=== PATIENT | male | born 1960 | race Caucasian/White ===

== ENCOUNTER 2016-06-10 12:45 | Emergency (ER) | payer OTHER ==
[2016-06-10 12:46] VITALS: BMI 32.1
[2016-06-10 12:56] VITALS: BP 147/92; PULSE 82; RESP 16; TEMP 97.6; O2SAT 100
--- NOTE | 2016-06-10 13:33 | ED PDOC ---
HPI: CCC, URI, Sore Throat Time Seen by Provider: 06/10/16 13:25 Chief Complaint (Nursing): ENT Problem Chief Complaint (Provider): Throat Pain History Per: Patient, Family (Son) History/Exam Limitations: no limitations Have you had recent travel within the past 21 days to any of the following countries: [place], [place], [place] or [place]?: No Onset/Duration Of Symptoms: Days (x4) Current Symptoms Are (Timing): Still Present Associated Symptoms: denies: Fever, Chills, Cough, Sinus Drainage, Nasal Congestion Ear Symptoms: Bilateral: None Severity: Moderate Additional Complaint(s): Morgan Vázquez is a 55 year old male, with no pertinent past medical history, who presents to the ED on 06/10/16 for the evaluation of a moderate amount of throat pain that he has experienced since undergoing right shoulder surgery 4 days ago to repair a fractured scapula. Patient does report having been under anesthesia for the procedure and states that, in addition to pain experienced with swallowing, it feels as if something remains struck in his throat. Denies fever, chills or cough. Of note, patient is also requesting an analgesic for the pain in the repaired shoulder. PMD: none Past Medical History Reviewed: Historical Data, Nursing Documentation, Vital Signs Vital Signs: Last Vital Signs Temp 97.6 F 06/10/16 12:52 Pulse 82 06/10/16 12:52 Resp 16 06/10/16 12:52 BP 147/92 H 06/10/16 12:52 Pulse Ox 100 06/10/16 14:14 - Medical History PMH: Fractures (right scapula) - Surgical History Other surgeries: right scapula fx repair - Family History Family History: States: Unknown Family Hx - Living Arrangements Living Arrangements: With Family - Immunization History Hx Tetanus Toxoid Vaccination: No Hx Influenza Vaccination: No Hx Pneumococcal Vaccination: No - Home Medications Home Medications: Ambulatory Orders Medication Instructions Recorded Acetaminophen/Oxycodone Hydr 1 tab PO Q6H PRN #15 tab 05/11/15 [Percocet 10/325 mg Tab] Cyclobenzaprine [Cyclobenzaprine 10 mg PO TID PRN #21 tab 05/11/15 HCl] Ibuprofen [Motrin] 600 mg PO Q6 PRN #15 tab 12/28/15 - Allergies Allergies/Adverse Reactions: Allergies Allergy/AdvReac Type Severity Reaction Status Date / Time No Known Allergies Allergy Verified 06/10/16 12:51 Review of Systems Constitutional: Negative for: Fever, Chills ENT: Positive for: Throat Pain Respiratory: Negative for: Cough Musculoskeletal: Positive for: Shoulder Pain (right (s/p recent surgery)) Physical Exam - Reviewed Nursing Documentation Reviewed: Yes Vital Signs Reviewed: Yes - Physical Exam Appears: Positive for: Non-toxic, No Acute Distress ENT: Positive for: Pharyngeal Erythema (posterior pharynx). Negative for: Tonsillar Exudate, Tonsillar Swelling, Other (no uvular swelling) Cardiovascular/Chest: Positive for: Regular Rate, Rhythm. Negative for: Murmur Respiratory: Positive for: Normal Breath Sounds. Negative for: Respiratory Distress Extremity: Positive for: Normal ROM (limited ROM of right shoulder secondary to pain) Neurologic/Psych: Positive for: Alert, Oriented - ECG O2 Sat by Pulse Oximetry: 100 (RA) Pulse Ox Interpretation: Normal Medical Decision Making Medical Decision Makin:25 Initial Impression: post intubation sore throat, post surgical shoulder pain Initial Plan: * Toradol 30mg IM * Reevaluation 13:55 Upon provider reevaluation patient is feeling better, is medically stable, and requires no further treatment in the ED at this time. Patient will be discharged home with instructions to take the analgesics prescribed by his surgeon. Counseling was provided and all questions were answered regarding diagnosis and need for compliance with his post-surgical followup appointments. There is agreement to discharge plan. Return if symptoms persist or worsen. Clinical Impression: shoulder injury, shoulder pain, throat pain Scribe Attestation: Documented by Xuan Yap, acting as a scribe for Page Thornton PA-C. Provider Scribe Attestation: All medical record entries made by the Scribe were at my direction and personally dictated by me. I have reviewed the chart and agree that the record accurately reflects my personal performance of the history, physical exam, medical decision making, and the department course for this patient. I have also personally directed, reviewed, and agree with the discharge instructions and disposition. Disposition - Clinical Impression Clinical Impression: Shoulder injury, Shoulder pain, Throat pain - Patient ED Disposition Is Patient to be Admitted: No Counseled Patient/Family Regarding: Diagnosis, Need For Followup - Disposition Disposition: Routine/Home Disposition Time: 13:55 Condition: STABLE Instructions: Insertion of an Endotracheal Tube (ED), Endotracheal Tube (GEN) Print Language: URDU
== END 2016-06-10 14:00 | disposition home or self-care (01) ==
LOC: H.ER 12:45
DX: R07.0 Pain in throat (principal); M25.511 Pain in right shoulder

== ENCOUNTER 2016-08-16 17:40 | Inpatient (IN) | payer MEDICAID, OTHER ==
[2016-08-16 17:40] VITALS: BMI 32.1
[2016-08-16] MEDS ORDERED: Sodium Chloride 0.9% 1,000 ML IV STA (18:14)
[2016-08-16 18:15] LABS: ABG ALLEN TEST YES; ARTERIAL BLOOD GAS PH < 6.80 (7.35-7.45); ARTERIAL BLOOD GAS PO2 87 mm/Hg (80-100)
--- NOTE | 2016-08-16 18:27 | ED PDOC ---
HPI: Cardiac Arrest Time Seen by Provider: 08/16/16 18:13 Chief Complaint (Nursing): Cardiac Arrest Chief Complaint (Provider): Cardiac Arrest History Per: EMS (ACLS) Reason For Code Blue: Full Arrest Circumstances: Brought To ED By EMS Arrest Witnessed By: By-stander CPR Initiated Prior To MD Arrival?: Yes Down-Time Before ACLS: Unknown Treatment Initiated Prior To MD Arrival: CPR, Intubation, ACLS Medication Initiation (multiple epi) Medications Given Prior To MD Arrival: Epinephrine (6x), Sodium Bicarb (1x) Additional Complaint(s): 55 year old male is brought into the ED by ACLS for cardiac arrest. Patient was witnessed in cardiac arrest by by-standers in the street. Witnesses immediately started CPR. Unknown arrival time for ACLS. Upon arrival, ACLS began administration of epinephrine. Patient had a rhythm of asystole. After intubation, CPR was started in the field with multiple rounds of epinephrine. Patient's rhythm was PEA and pulses were restored prior to arrival. Patient is status post thyroidectomy today. PMD: - Initial Findings Respirations: None (Assisted) Rhythm: Asystole Past Medical History Reviewed: Nursing Documentation, Vital Signs, Unable To Obtain - Medical History PMH: Fractures (right scapula) - Family History Family History: States: Unknown Family Hx - Immunization History Hx Tetanus Toxoid Vaccination: No Hx Influenza Vaccination: No Hx Pneumococcal Vaccination: No - Home Medications Home Medications: Ambulatory Orders Medication Instructions Recorded Zolpidem [Ambien] 5 mg PO HS 08/16/16 oxyCODONE/Acetaminophen [Percocet 1 tab PO Q4H PRN 08/16/16 5/325 mg Tab] - Allergies Allergies/Adverse Reactions: Allergies Allergy/AdvReac Type Severity Reaction Status Date / Time No Known Allergies Allergy Verified 08/16/16 17:46 Review of Systems Review Of Systems: ROS cannot be obtained secondary to pt's inabilty to answer questions. Physical Exam - Reviewed Nursing Documentation Reviewed: Yes Vital Signs Reviewed: Yes - Physical Exam Appears: Positive for: Non-toxic Head Exam: Positive for: ATRAUMATIC, NORMOCEPHALIC Skin: Positive for: Normal Color, Warm, Dry Cardiovascular/Chest: Positive for: Tachycardia (regular rhythm) Respiratory: Positive for: Normal Breath Sounds (equal breath sounds while being intubated by ambu bag), Other (no spontaneous respirations) Gastrointestinal/Abdominal: Positive for: Distended, Hernia (non reducible umbilical hernia) Extremity: Negative for: Swelling - Laboratory Results Result Diagrams: 08/16/16 18:00 08/16/16 18:00 - Critical Care Total Time (In Min): 30 Medical Decision Making Medical Decision Makin:13 Initial impression: 55 year old male in cardiac arrest. Initial plan: * ABG shock panel * EKG * CMP * troponin I * CBC * d dimer coag * XRay chest * IV NS 1,000ml IV 1,000mls/hr * ventilator * reevaluation 18:13 After arrival in ED, patient lost pulses. CPR started, epi was given with mormon of pulses. Patient is placed on a dopamine drip while maintaining BP 117/76. Scribe Attestation: Documented by Kayley Billingsley, acting as a scribe for Wayne Dean MD. Provider Scribe Attestation: All medical record entries made by the Scribe were at my direction and personally dictated by me. I have reviewed the chart and agree that the record accurately reflects my personal performance of the history, physical exam, medical decision making, and the department course for this patient. I have also personally directed, reviewed, and agree with the discharge instructions and disposition. Disposition - Clinical Impression Clinical Impression: Cardiac arrest - Patient ED Disposition Is Patient to be Admitted: Yes - Disposition Disposition Time: 19:15 Condition: FAIR - Pt Status Changed To: Hospital Disposition Of: Inpatient - Admit Certification Admit to Inpatient:: After my assessment, the patient will require hospitalization for at least two midnights. This is because of the severity of symptoms shown, intensity of services needed, and/or the medical risk in this patient being treated as an outpatient. - POA Present On Arrival: None
[2016-08-16 18:36] LABS: BASO # 0.1 K/uL (0.0-0.2); BASO % 0.3 % (0.0-2.0); HEMATOCRIT 47.6 % (35.0-51.0); LYMPH # 4.3 K/uL (1.0-4.3); LYMPH % 16.1 % (20.0-40.0); MEAN CELL VOLUME 102.5 fl (80.0-94.0); MEAN CORPUSCULAR HEMOGLOBIN 30.3 pg (27.0-31.0); MEAN CORPUSCULAR HGB CONC 29.6 g/dL (33.0-37.0); MONO # 1.4 K/uL (0.0-0.8); MONO % 5.3 % (0.0-10.0); NEUT # 21.1 K/uL (1.8-7.0); NEUT % 78.3 % (50.0-75.0); RED CELL DISTRIBUTION WIDTH 13.8 % (11.5-14.5); WHITE BLOOD COUNT 26.9 K/uL (4.8-10.8)
[2016-08-16 18:47] LABS: ALB/GLOB RATIO 1.6 (1.0-2.1); ALKALINE PHOSPHATASE 78 U/L (38-126); ALT/SGPT 262 U/L (21-72); BILIRUBIN,TOTAL 0.4 mg/dl (0.2-1.3); BLOOD UREA NITROGEN 16 mg/dl (9-20); CARBON DIOXIDE 12 mmol/L (22-30); CHLORIDE 95 mmol/L (98-107); GFR AFRICAN-AMERICAN > 60; POTASSIUM 3.3 MMOL/L (3.6-5.0); SODIUM 138 mmol/l (132-148)
[2016-08-16 18:53] LABS: AST/SGOT 178 U/L (17-59); GLUCOSE,RANDOM 475 mg/dL (75-110)
[2016-08-16] MEDS ORDERED: Sodium Chloride 0.9% 1,000 ML IV SCH (20:45)
--- NOTE | 2016-08-16 21:42 | CP.CCUPN ---
CCU Subjective - Physician Review Subjective (Free Text): DOUBLE CUTTER PROCEDURE NOTE CENTRAL LINE INSERTION Indications: Poor peripheral IV access, vasopressor infusion Under emergent conditions in ER during Code Blue: After standard Time-Out procedure / protocol, using sterile technique and full barrier precautions, an Arrow Triple Lumen Catheter inserted into Right Femoral Vein without any complications. All ports with good venous blood return and flushed with sterile saline. Patient tolerated the procedure well. Multiple unsuccessful attempts made to cannulate R Internal Jugular Vein and R Subclavian Vein. Decision made to pursue Femoral route due to possibility of coagulopathy.
[2016-08-16] MEDS ORDERED: Chlorhexidine Gluconate 1 APPL/PKT TP ONE ×3 (21:44→23:26)
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
[2016-08-16] MEDS ORDERED: DOPamine 400mg/250ml D5W 400 MG/250 ML BAG IV ONE (21:54)
[2016-08-16] MEDS: Mineral Oil/White Petrolatum Ophth Oint OU SCH (22:25)
[2016-08-16 23:10] LABS: HEMATOCRIT 51.2 % (35.0-51.0); MEAN CELL VOLUME 94.6 fl (80.0-94.0); MEAN CORPUSCULAR HEMOGLOBIN 31.2 pg (27.0-31.0); RED CELL DISTRIBUTION WIDTH 13.3 % (11.5-14.5)
[2016-08-16 23:12] LABS: WHITE BLOOD COUNT 38.2 K/uL (4.8-10.8)
[2016-08-16 23:22] LABS: BLOOD UREA NITROGEN 18 mg/dl (9-20); CALCIUM 7.5 mg/dL (8.4-10.2); CARBON DIOXIDE 14 mmol/L (22-30); CHLORIDE 106 mmol/L (98-107); GFR AFRICAN-AMERICAN > 60; SODIUM 138 mmol/l (132-148)
[2016-08-16 23:31] LABS: GLUCOSE,RANDOM 400 mg/dL (75-110); POTASSIUM 7.5 MMOL/L (3.6-5.0)
[2016-08-16 23:31] LABS: RBC URINE 1 /hpf (0-3); URINE BILIRUBIN NEGATIVE (NEGATIVE); URINE BLOOD MODERATE (NEGATIVE); URINE COLOR STRAW (YELLOW); URINE GLUCOSE (UA) >=500 mg/dL (Normal); URINE KETONE NEGATIVE (NEGATIVE); URINE LEUKOCYTE ESTERASE NEG Leu/uL (Negative); URINE PROTEIN 100 mg/dL (NEGATIVE); URINE UROBILINOGEN 0.2-1.0 mg/dL (0.2-1.0); WBC URINE 1 /hpf (0-5)
[2016-08-16] MEDS ORDERED: Sodium Bicarbonate 7.5% (0.9 MEQ/ML) 50ML INJ IV ONE (23:36)
[2016-08-16] MEDS ORDERED: Sod Polystyrene Sulf 15 gm/60 ml Oral Susp GT ONE (23:37)
[2016-08-16] MEDS ORDERED: Albuterol 0.083% Inhal Sol (2.5 mg/3 mL) UD INH ONE (23:38)
[2016-08-16] MEDS ORDERED: Calcium Gluconate 4.65 mEq/10 ml Inj IV ONE (23:39)
[2016-08-16] MEDS: Piperacillin/Tazobact 3.375 GM in Sodium Chloride 0.9% 100 ML IVPB SCH (23:54)
[2016-08-17] MEDS ORDERED: Dextrose 50% SYRINGE Inj (50 ml) IV PRN (00:01)
[2016-08-17] MEDS ORDERED: Glucagon Recombinant 1 mg Inj IM PRN (00:01)
--- NOTE | 2016-08-17 00:10 | CP.PCM.PCO ---
Physician Communication Note - Physician Communication Note Physician Communication Note: Blood glucose is 358mg/dl
[2016-08-17 00:12] LABS: BLOOD UREA NITROGEN 19 mg/dl (9-20); CALCIUM 7.8 mg/dL (8.4-10.2); CARBON DIOXIDE 17 mmol/L (22-30); CHLORIDE 109 mmol/L (98-107); GFR AFRICAN-AMERICAN > 60; SODIUM 139 mmol/l (132-148)
[2016-08-17 00:16] LABS: GLUCOSE,RANDOM 432 mg/dL (75-110); POTASSIUM 7.3 MMOL/L (3.6-5.0)
[2016-08-17] MEDS ORDERED: Chlorhexidine Gluconate 1 APPL/PKT TP ONE (00:27)
[2016-08-17 00:37] LABS: PARTIAL THROMBOPLASTIN TIME 25.4 SECONDS (23.3-32.5)
[2016-08-17] MEDS ORDERED: DOPamine 400mg/250ml D5W 400 MG/250 ML BAG IV ONE ×2 (02:12→13:06)
[2016-08-17] MEDS: Piperacillin/Tazobact 3.375 GM in Sodium Chloride 0.9% 100 ML IVPB SCH ×4 (03:10→21:19)
[2016-08-17 05:14] LABS: ABG ALLEN TEST YES; ABG MECHANICAL RATE 24; ARTERIAL BLOOD GAS HCO3 11.6 mmol/L (21-28); ARTERIAL BLOOD GAS MODE PRVC/AC; ARTERIAL BLOOD GAS O2 CAPACITY 24.5 mL/dL (16-24); ARTERIAL BLOOD GAS O2 CONTENT 24.3 ML/dL (15-23); ARTERIAL BLOOD GAS PH 7.14 (7.35-7.45); ARTERIAL BLOOD GAS PO2 180 mm/Hg (80-100); ARTERIAL BLOOD HGB O2 SAT 97.7 % (95.0-98.0); CARBOXYHEMOGLOBIN 0.6 % (0.5-1.5); HHB 0.7 % (0.0-5.0)
[2016-08-17] MEDS ORDERED: Sodium Bicarbonate 7.5% (0.9 MEQ/ML) 50ML INJ IV ONE (05:20)
[2016-08-17 05:27] LABS: BASO % 0.1 % (0.0-2.0); HEMATOCRIT 52.1 % (35.0-51.0); LYMPH # 1.6 K/uL (1.0-4.3); LYMPH % 4.8 % (20.0-40.0); MEAN CELL VOLUME 94.9 fl (80.0-94.0); MEAN CORPUSCULAR HEMOGLOBIN 30.6 pg (27.0-31.0); MEAN CORPUSCULAR HGB CONC 32.3 g/dL (33.0-37.0); MEAN PLATELET VOLUME 8.5 fl (7.2-11.7); MONO # 1.5 K/uL (0.0-0.8); MONO % 4.4 % (0.0-10.0); NEUT # 31.1 K/uL (1.8-7.0); NEUT % 90.7 % (50.0-75.0); PLATELET COUNT 343 K/uL (130-400); RED CELL DISTRIBUTION WIDTH 13.4 % (11.5-14.5); WHITE BLOOD COUNT 34.3 K/uL (4.8-10.8)
[2016-08-17 05:32] LABS: ALB/GLOB RATIO 1.4 (1.0-2.1); ALKALINE PHOSPHATASE 111 U/L (38-126); ALT/SGPT 415 U/L (21-72); BILIRUBIN,TOTAL 1.4 mg/dl (0.2-1.3); BLOOD UREA NITROGEN 17 mg/dl (9-20); CALCIUM 9.2 mg/dL (8.4-10.2); CARBON DIOXIDE 12 mmol/L (22-30); CHLORIDE 118 mmol/L (98-107); CHOLESTEROL 207 mg/dL (0-199); GFR AFRICAN-AMERICAN > 60; MAGNESIUM 2.7 MG/DL (1.6-2.3); PHOSPHOROUS 1.1 mg/dl (2.5-4.5); POTASSIUM 2.9 MMOL/L (3.6-5.0); SODIUM 151 mmol/l (132-148); TOTAL PROTEIN 6.9 G/DL (6.3-8.2)
[2016-08-17 05:39] LABS: AST/SGOT 364 U/L (17-59)
[2016-08-17 05:42] LABS: GLUCOSE,RANDOM 436 mg/dL (75-110)
[2016-08-17 06:03] LABS: THYROID STIMULATING HORMONE 0.08 mIU/ML (0.46-4.68)
[2016-08-17] MEDS: Lactated Ringer's 1,000 ML IV SCH ×2 (07:10→08:00)
[2016-08-17 07:18] LABS: NEUTROPHIL 87 % (42-75); REACTIVE LYMPHOCYTES 2 % (0-0); TOTAL CELLS COUNTED 100
--- NOTE | 2016-08-17 08:58 | CP.CCUPN ---
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 Under emergent conditions in ICU, using sterile technique and full barrier precautions, a 6 inch angiocath inserted into Right Femoral artery without any complications. Good arterial blood return and arterial wave form noted on monitor. Patient tolerated the procedure well. Pressure readings showed a 20 point systolic BP difference between peripheral cuff and Arterial line measurements. Site chosen because of coagulopathic process during Therapeutic Hypothermia and need for ease of control of any bleeding that may have occurred, although there were no bleeding complications.
--- NOTE | 2016-08-17 09:17 | CP.PCM.HP ---
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 5.20 Hgb 15.9 Hct 48.5 MCV 93.3 MCH 30.6 MCHC 32.7 L RDW 13.5 Plt Count 264 Neutrophils % (Manual) Band Neutrophils % Lymphocytes % (Manual) Monocytes % (Manual) Platelet Estimate Large Platelets Anisocytosis (manual) Tear Drop Cells Ovalocytes pCO2 33 L pO2 62 L HCO3 26.1 ABG pH 7.48 H ABG Total CO2 25.6 ABG O2 Saturation 94.7 L ABG O2 Content 20.9 ABG Base Excess 1.8 ABG Hemoglobin 16.2 ABG Carboxyhemoglobin 1.2 POC ABG HHb (Measured) 5.2 H ABG Methemoglobin 1.5 ABG O2 Capacity 22.1 Jonathan Test Yes A-a O2 Difference 325.0 Hgb O2 Saturation 92.1 L Vent Mode A/c Mechanical Rate 24 FiO2 60.0 Tidal Volume 500 PEEP 5 Crit Value Called To Pradip acuna Crit Value Called By Maciej Crit Value Read Back Y Blood Gas Notified Time 456 Sodium Potassium Chloride Carbon Dioxide Anion Gap BUN Creatinine Est GFR ( Amer) Est GFR (Non-Af Amer) POC Glucose (mg/dL) 206 H Random Glucose Lactic Acid Calcium Ionized Calcium Total Bilirubin AST ALT Alkaline Phosphatase Lactate Dehydrogenase Troponin I Total Protein Albumin Globulin Albumin/Globulin Ratio 08/18/16 08/18/16 08/18/16 05:45 06:11 06:58 WBC RBC Hgb Hct MCV MCH MCHC RDW Plt Count Neutrophils % (Manual) Band Neutrophils % Lymphocytes % (Manual) Monocytes % (Manual) Platelet Estimate Large Platelets Anisocytosis (manual) Tear Drop Cells Ovalocytes pCO2 pO2 HCO3 ABG pH ABG Total CO2 ABG O2 Saturation ABG O2 Content ABG Base Excess ABG Hemoglobin ABG Carboxyhemoglobin POC ABG HHb (Measured) ABG Methemoglobin ABG O2 Capacity Jonathan Test A-a O2 Difference Hgb O2 Saturation Vent Mode Mechanical Rate FiO2 Tidal Volume PEEP Crit Value Called To Crit Value Called By Crit Value Read Back Blood Gas Notified Time Sodium 171 H* Potassium 4.0 Chloride 131 H Carbon Dioxide 27 Anion Gap 17 BUN 11 Creatinine 1.5 Est GFR ( Amer) 59 Est GFR (Non-Af Amer) 49 POC Glucose (mg/dL) 207 H 216 H Random Glucose 194 H Lactic Acid Calcium 10.0 Ionized Calcium Total Bilirubin 2.0 H AST 178 H D ALT 246 H D Alkaline Phosphatase 106 Lactate Dehydrogenase 2046 H Troponin I 14.6000 H* Total Protein 5.9 L Albumin 3.2 L Globulin 2.7 Albumin/Globulin Ratio 1.2 08/18/16 08/18/16 08/18/16 08:00 09:06 09:53 WBC RBC Hgb Hct MCV MCH MCHC RDW Plt Count Neutrophils % (Manual) Band Neutrophils % Lymphocytes % (Manual) Monocytes % (Manual) Platelet Estimate Large Platelets Anisocytosis (manual) Tear Drop Cells Ovalocytes pCO2 pO2 HCO3 ABG pH ABG Total CO2 ABG O2 Saturation ABG O2 Content ABG Base Excess ABG Hemoglobin ABG Carboxyhemoglobin POC ABG HHb (Measured) ABG Methemoglobin ABG O2 Capacity Jonathan Test A-a O2 Difference Hgb O2 Saturation Vent Mode Mechanical Rate FiO2 Tidal Volume PEEP Crit Value Called To Crit Value Called By Crit Value Read Back Blood Gas Notified Time Sodium Potassium Chloride Carbon Dioxide Anion Gap BUN Creatinine Est GFR ( Amer) Est GFR (Non-Af Amer) POC Glucose (mg/dL) 234 H 222 H 267 H Random Glucose Lactic Acid Calcium Ionized Calcium Total Bilirubin AST ALT Alkaline Phosphatase Lactate Dehydrogenase Troponin I Total Protein Albumin Globulin Albumin/Globulin Ratio 08/18/16 08/18/16 08/18/16 10:08 12:00 12:15 WBC RBC Hgb Hct MCV MCH MCHC RDW Plt Count Neutrophils % (Manual) Band Neutrophils % Lymphocytes % (Manual) Monocytes % (Manual) Platelet Estimate Large Platelets Anisocytosis (manual) Tear Drop Cells Ovalocytes pCO2 pO2 HCO3 ABG pH ABG Total CO2 ABG O2 Saturation ABG O2 Content ABG Base Excess ABG Hemoglobin ABG Carboxyhemoglobin POC ABG HHb (Measured) ABG Methemoglobin ABG O2 Capacity Jonathan Test A-a O2 Difference Hgb O2 Saturation Vent Mode Mechanical Rate FiO2 Tidal Volume PEEP Crit Value Called To Crit Value Called By Crit Value Read Back Blood Gas Notified Time Sodium 173 H* Potassium 3.5 L Chloride 135 H Carbon Dioxide 23 Anion Gap 19 BUN 10 Creatinine 1.6 H Est GFR ( Amer) 55 Est GFR (Non-Af Amer) 45 POC Glucose (mg/dL) 260 H 245 H Random Glucose 265 H Lactic Acid Calcium 10.0 Ionized Calcium Total Bilirubin 2.2 H AST 156 H ALT 212 H Alkaline Phosphatase 102 Lactate Dehydrogenase Troponin I Total Protein 5.7 L Albumin 3.0 L Globulin 2.6 Albumin/Globulin Ratio 1.2 08/18/16 13:07 WBC RBC Hgb Hct MCV MCH MCHC RDW Plt Count Neutrophils % (Manual) Band Neutrophils % Lymphocytes % (Manual) Monocytes % (Manual) Platelet Estimate Large Platelets Anisocytosis (manual) Tear Drop Cells Ovalocytes pCO2 pO2 HCO3 ABG pH ABG Total CO2 ABG O2 Saturation ABG O2 Content ABG Base Excess ABG Hemoglobin ABG Carboxyhemoglobin POC ABG HHb (Measured) ABG Methemoglobin ABG O2 Capacity Jonathan Test A-a O2 Difference Hgb O2 Saturation Vent Mode Mechanical Rate FiO2 Tidal Volume PEEP Crit Value Called To Crit Value Called By Crit Value Read Back Blood Gas Notified Time Sodium Potassium Chloride Carbon Dioxide Anion Gap BUN Creatinine Est GFR ( Amer) Est GFR (Non-Af Amer) POC Glucose (mg/dL) 260 H Random Glucose Lactic Acid Calcium Ionized Calcium Total Bilirubin AST ALT Alkaline Phosphatase Lactate Dehydrogenase Troponin I Total Protein Albumin Globulin Albumin/Globulin Ratio Assessment & Plan - Assessment and Plan (Free Text) Plan: Discussed with Dr Herlinda herr plans of care Lexa Marie M.D.
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
--- NOTE | 2016-08-17 09:41 | RAD ---
PROCEDURE: CHEST RADIOGRAPH, 1 VIEW HISTORY: ett placement COMPARISON: 08/16/2016 FINDINGS: LUNGS: In situ ETT, tip of which lies approximately 2.8 cm above janice. In situ NGT the tip of which has not been included on this film though distal aspect does lie well below EG junction. Patchy bibasilar opacities left greater than right could represent atelectasis versus infiltrates. Questionable small left effusion PLEURA: No apparent pneumothorax. CARDIOVASCULAR: Heart size is within range of normal. OSSEOUS STRUCTURES: Mild multilevel degenerative spondylosis of the thoracic spine. In situ ACDF plate overlying the lower cervical spine Widened right AC joint. VISUALIZED UPPER ABDOMEN: Normal. OTHER FINDINGS: None. IMPRESSION: Support lines and tubes as above. Patchy bibasilar opacities left greater than right. Findings could represent atelectasis versus infiltrates. Questionable small left effusion
[2016-08-17 10:54] LABS: ABG ALLEN TEST YES; ABG MECHANICAL RATE 24; ARTERIAL BLOOD GAS HCO3 15.4 mmol/L (21-28); ARTERIAL BLOOD GAS MODE PRVC/AC; ARTERIAL BLOOD GAS O2 CAPACITY 21.8 mL/dL (16-24); ARTERIAL BLOOD GAS O2 CONTENT 21.3 ML/dL (15-23); ARTERIAL BLOOD GAS PH 7.22 (7.35-7.45); ARTERIAL BLOOD GAS PO2 97 mm/Hg (80-100); ARTERIAL BLOOD HGB O2 SAT 95.1 % (95.0-98.0); HHB 2.3 % (0.0-5.0); METHEMOGLOBIN 1.5 % (0.0-3.0)
[2016-08-17 10:58] LABS: VENOUS BLOOD GAS MODE PRVC/AC; VENOUS BLOOD GAS PCO2 43 mmHg (40-60); VENOUS BLOOD PH 7.18 (7.32-7.43)
[2016-08-17 11:01] LABS: HEMATOCRIT 47.3 % (35.0-51.0); LYMPH # 1.6 K/uL (1.0-4.3); LYMPH % 4.6 % (20.0-40.0); MEAN CELL VOLUME 93.6 fl (80.0-94.0); MEAN CORPUSCULAR HEMOGLOBIN 30.7 pg (27.0-31.0); MEAN CORPUSCULAR HGB CONC 32.8 g/dL (33.0-37.0); MEAN PLATELET VOLUME 8.2 fl (7.2-11.7); MONO # 1.7 K/uL (0.0-0.8); MONO % 4.9 % (0.0-10.0); NEUT % 90.5 % (50.0-75.0); NRBC % 0.1 % (0.0-0.0); PLATELET COUNT 336 K/uL (130-400); RED CELL DISTRIBUTION WIDTH 12.9 % (11.5-14.5); WHITE BLOOD COUNT 35.4 K/uL (4.8-10.8)
[2016-08-17] MEDS ORDERED: Potassium Chloride 20 mEq/15 ml LIQ UD GT ONE (11:01)
--- NOTE | 2016-08-17 11:19 | CP.PCM.PN ---
Subjective - Date & Time of Evaluation Date of Evaluation: 08/17/16 Time of Evaluation: 11:13 - Subjective Subjective: on med dose pressors hyperglycemic hypothermia in progress pupils fixed and dilated spoke with Dr chavez - sig EKG changes (ST elevation) c/w MO poss initial etiology of cardiac arrest will cont above measures as per ICU staff d/w family at bedside Objective - Vital Signs/Intake and Output Vital Signs (last 24 hours): Temp Pulse Resp BP Pulse Ox 91.9 F L 84 24 125/83 97 08/17/16 10:00 08/17/16 10:00 08/17/16 10:00 08/17/16 10:00 08/17/16 10:00 Intake and Output: 08/17/16 08/17/16 06:59 18:59 Intake Total 3076 3100 Output Total 6000 1375 Balance -2924 1725 - Medications Medications: Current Medications Artificial Tears (Lacri-Lube) 1 applic OU HS [facility] Last Admin: 08/16/16 22:25 Dose: 1 applic Dextrose (Dextrose 50% Inj) 0 ml IV STAT PRN; Protocol PRN Reason: Hyglycemia Protocol Dextrose (Glutose 15) 0 gm PO ONCE PRN; Protocol PRN Reason: Hypoglycemia Protocol Glucagon (Glucagen Diagnostic Kit) 0 mg IM STAT PRN; Protocol PRN Reason: Hypoglycemia Protocol Sodium Chloride (Sodium Chloride 0.9%) 1,000 mls @ 100 mls/hr IV .Q10H [facility] Last Admin: 08/16/16 22:27 Dose: 100 mls/hr Piperacillin Sod/Tazobactam (Sod 3.375 gm/ Sodium Chloride) 100 mls @ 100 mls/ hr IVPB Q6 [facility] Last Admin: 08/17/16 09:06 Dose: 100 mls/hr Norepinephrine Bitartrate 4 mg (/ Dextrose) 254 mls @ 38.1 mls/hr IV .Q6H40M [facility]; 10 MCG/MIN PRN Reason: Protocol Last Admin: 08/17/16 06:42 Dose: 10 mcg/min, 38.1 mls/hr Insulin Human Regular 100 (units/ Sodium Chloride) 101 mls @ 7.07 mls/hr IVPB .[id number] [facility]; 7 UNITS/HR PRN Reason: Protocol Last Admin: 08/17/16 06:45 Dose: 7.07 mls/hr Potassium Chloride (Potassium Chloride 10 Meq/100 Ml) 100 mls @ 100 mls/hr IVPB Q1 [facility] Stop: 08/17/16 16:59 Pantoprazole Sodium (Protonix Inj) 40 mg IVP DAILY [facility] - Labs Labs: 08/17/16 10:34 08/17/16 04:20 PT 12.3 SECONDS (9.6-11.2) H 08/16/16 23:59 INR 1.18 (0.92-1.08) H 08/16/16 23:59 APTT 25.4 SECONDS (23.3-32.5) 08/16/16 23:59
[2016-08-17 11:21] LABS: ALB/GLOB RATIO 1.3 (1.0-2.1); ALKALINE PHOSPHATASE 81 U/L (38-126); ALT/SGPT 334 U/L (21-72); AST/SGOT 316 U/L (17-59); BLOOD UREA NITROGEN 15 mg/dl (9-20); CALCIUM 9.1 mg/dL (8.4-10.2); CARBON DIOXIDE 17 mmol/L (22-30); CHLORIDE 123 mmol/L (98-107); GFR AFRICAN-AMERICAN > 60; GLUCOSE,RANDOM 329 mg/dL (75-110); PARTIAL THROMBOPLASTIN TIME 25.4 SECONDS (23.3-32.5); POTASSIUM 2.6 MMOL/L (3.6-5.0); SODIUM 156 mmol/l (132-148); TOTAL PROTEIN 5.7 G/DL (6.3-8.2)
[2016-08-17] MEDS: Potassium CL 10mEq/100ml 100 ML IVPB SCH ×6 (11:23→16:43)
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
--- NOTE | 2016-08-17 11:56 | RAD ---
HISTORY: cough COMPARISON: Comparison is made to the previous study dated 08/03/2016 FINDINGS: LUNGS: Patient status post intubation. The ET tube is seen at appropriate position. There are diffuse hazy opacity seen in the lungs. The possibility of pulmonary vascular congestion is also not totally excluded. PLEURA: No evidence of significant pleural effusion or pneumothorax. CARDIOVASCULAR: Normal. OSSEOUS STRUCTURES: No significant abnormalities. VISUALIZED UPPER ABDOMEN: Normal. OTHER FINDINGS: None. IMPRESSION: Appropriate position of the ETT. Diffuse hazy opacities in the lungs may represent pulmonary vascular congestion. The differential diagnosis includes ARDS.
--- NOTE | 2016-08-17 12:48 | RAD ---
HISTORY: intubated COMPARISON: Comparison is made to the previous same-day exam. FINDINGS: LUNGS: The ET tube is again seen at appropriate position. There is interval improvement in the lungs since the previous exam. PLEURA: Blunting of the left costophrenic angle is suspected. Otherwise no evidence of significant pleural effusion or pneumothorax. CARDIOVASCULAR: Normal. OSSEOUS STRUCTURES: Status post internal fixation at the lower cervical spine. VISUALIZED UPPER ABDOMEN: Normal. OTHER FINDINGS: None. IMPRESSION: Appropriate position of the ETT. Interval improvement in the lungs since the previous exam.
[2016-08-17 14:43] LABS: NEUTROPHIL 88 % (42-75); TOTAL CELLS COUNTED 100
[2016-08-17 14:45] LABS: LARGE PLATELETS PRESENT
[2016-08-17] MEDS: Dextrose 5%/0.45% NS 1,000 ML IV SCH ×2 (17:10→23:47)
--- NOTE | 2016-08-17 17:20 | CP.PCM.CON ---
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 Urine Protein Urine Glucose (UA) Urine Ketones Urine Blood Urine Nitrate Urine Bilirubin Urine Urobilinogen Ur Leukocyte Esterase Urine RBC (Auto) Urine Microscopic WBC Urine Opiates Screen Urine Methadone Screen Ur Barbiturates Screen Ur Phencyclidine Scrn Ur Amphetamines Screen U Benzodiazepines Scrn U Oth Cocaine Metabols U Cannabinoids Screen 08/17/16 08/17/16 08/17/16 13:24 14:04 15:04 WBC RBC Hgb Hct MCV MCH MCHC RDW Plt Count MPV Neut % (Auto) Lymph % (Auto) Whitley % (Auto) Eos % (Auto) Baso % (Auto) Neut # Lymph # Whitley # Eos # Baso # Neutrophils % (Manual) Band Neutrophils % Lymphocytes % (Manual) Reactive Lymphs % Monocytes % (Manual) Platelet Estimate Large Platelets Anisocytosis (manual) Macrocytosis (manual) Tear Drop Cells Ovalocytes Beth Cells PT INR APTT pCO2 pO2 HCO3 ABG pH ABG Total CO2 ABG O2 Saturation ABG O2 Content ABG Base Excess ABG Hemoglobin ABG Carboxyhemoglobin POC ABG HHb (Measured) ABG Methemoglobin ABG O2 Capacity Jonathan Test VBG pH VBG pCO2 VBG HCO3 VBG Total CO2 VBG O2 Sat (Calc) VBG Base Excess VBG Potassium A-a O2 Difference Hgb O2 Saturation Glucose Lactate Vent Mode Mechanical Rate FiO2 Tidal Volume Crit Value Called To Crit Value Called By Crit Value Read Back Blood Gas Notified Time Sodium Potassium Chloride Carbon Dioxide Anion Gap BUN Creatinine Est GFR ( Amer) Est GFR (Non-Af Amer) POC Glucose (mg/dL) 260 H 237 H Random Glucose Hemoglobin A1c Serum Osmolality Lactic Acid Calcium Phosphorus Magnesium Total Bilirubin AST ALT Alkaline Phosphatase Troponin I 19.8000 H* NT-Pro-B Natriuret Pep Total Protein Albumin Globulin Albumin/Globulin Ratio Triglycerides Cholesterol LDL Cholesterol Direct HDL Cholesterol TSH 3rd Generation Venous Blood Potassium Urine Color Urine Clarity Urine pH Ur Specific [place] Urine Protein Urine Glucose (UA) Urine Ketones Urine Blood Urine Nitrate Urine Bilirubin Urine Urobilinogen Ur Leukocyte Esterase Urine RBC (Auto) Urine Microscopic WBC Urine Opiates Screen Urine Methadone Screen Ur Barbiturates Screen Ur Phencyclidine Scrn Ur Amphetamines Screen U Benzodiazepines Scrn U Oth Cocaine Metabols U Cannabinoids Screen 08/17/16 16:04 WBC RBC Hgb Hct MCV MCH MCHC RDW Plt Count MPV Neut % (Auto) Lymph % (Auto) Whitley % (Auto) Eos % (Auto) Baso % (Auto) Neut # Lymph # Whitley # Eos # Baso # Neutrophils % (Manual) Band Neutrophils % Lymphocytes % (Manual) Reactive Lymphs % Monocytes % (Manual) Platelet Estimate Large Platelets Anisocytosis (manual) Macrocytosis (manual) Tear Drop Cells Ovalocytes Beth Cells PT INR APTT pCO2 pO2 HCO3 ABG pH ABG Total CO2 ABG O2 Saturation ABG O2 Content ABG Base Excess ABG Hemoglobin ABG Carboxyhemoglobin POC ABG HHb (Measured) ABG Methemoglobin ABG O2 Capacity Jonathan Test VBG pH VBG pCO2 VBG HCO3 VBG Total CO2 VBG O2 Sat (Calc) VBG Base Excess VBG Potassium A-a O2 Difference Hgb O2 Saturation Glucose Lactate Vent Mode Mechanical Rate FiO2 Tidal Volume Crit Value Called To Crit Value Called By Crit Value Read Back Blood Gas Notified Time Sodium Potassium Chloride Carbon Dioxide Anion Gap BUN Creatinine Est GFR ( Amer) Est GFR (Non-Af Amer) POC Glucose (mg/dL) 194 H Random Glucose Hemoglobin A1c Serum Osmolality Lactic Acid Calcium Phosphorus Magnesium Total Bilirubin AST ALT Alkaline Phosphatase Troponin I NT-Pro-B Natriuret Pep Total Protein Albumin Globulin Albumin/Globulin Ratio Triglycerides Cholesterol LDL Cholesterol Direct HDL Cholesterol TSH 3rd Generation Venous Blood Potassium Urine Color Urine Clarity Urine pH Ur Specific [place] Urine Protein Urine Glucose (UA) Urine Ketones Urine Blood Urine Nitrate Urine Bilirubin Urine Urobilinogen Ur Leukocyte Esterase Urine RBC (Auto) Urine Microscopic WBC Urine Opiates Screen Urine Methadone Screen Ur Barbiturates Screen Ur Phencyclidine Scrn Ur Amphetamines Screen U Benzodiazepines Scrn U Oth Cocaine Metabols U Cannabinoids Screen Assessment & Plan (1) Anoxic brain injury Assessment and Plan: Currently under hypothermia protocol, but there are no brainstem reflexes noted. The patient should be rewarmed prior to making a conclusion, but at this point the prognosis is very poor. I recommend obtaining a CT of the head and neck with and without contrast and a CTA of the head/neck. Continue current plan per ICU team. Thank you for this consultation. Status: Acute Priority: High
[2016-08-17] MEDS: DOPamine 400mg/250ml D5W 400 MG/250 ML BAG IV ONE (17:38)
--- NOTE | 2016-08-17 18:40 | CARD ---
APPROVED REPORT EKG Measurement Heart [id number] <Conclusion> Normal sinus rhythm Prolonged QT Abnormal ECG
--- NOTE | 2016-08-17 18:46 | CARD ---
APPROVED REPORT EKG Measurement Heart [id number] <Conclusion> Accelerated Junctional rhythm Right ventricular hypertrophy Marked ST abnormality, possible inferior subendocardial injury Marked ST abnormality, possible anterolateral subendocardial injury Abnormal ECG
[2016-08-17 18:48] LABS: BLOOD UREA NITROGEN 14 mg/dl (9-20); CALCIUM 9.7 mg/dL (8.4-10.2); CARBON DIOXIDE 20 mmol/L (22-30); CHLORIDE 127 mmol/L (98-107); GFR AFRICAN-AMERICAN > 60; GLUCOSE,RANDOM 263 mg/dL (75-110); POTASSIUM 3.9 MMOL/L (3.6-5.0)
[2016-08-17 18:53] LABS: SODIUM 160 mmol/l (132-148)
[2016-08-17] MEDS: Mineral Oil/White Petrolatum Ophth Oint OU SCH (21:19)
[2016-08-18] MEDS: Acetaminophen 650mg/20.3ml solution UD PO PRN ×4 (01:17→23:22)
[2016-08-18] MEDS: Piperacillin/Tazobact 3.375 GM in Sodium Chloride 0.9% 100 ML IVPB SCH ×4 (03:26→21:10)
[2016-08-18 04:57] LABS: ABG ALLEN TEST YES; ARTERIAL BLOOD GAS HCO3 26.1 mmol/L (21-28); ARTERIAL BLOOD GAS MODE A/C; ARTERIAL BLOOD GAS O2 CAPACITY 22.1 mL/dL (16-24); ARTERIAL BLOOD GAS O2 CONTENT 20.9 ML/dL (15-23); ARTERIAL BLOOD GAS PH 7.48 (7.35-7.45); ARTERIAL BLOOD GAS PO2 62 mm/Hg (80-100); ARTERIAL BLOOD HGB O2 SAT 92.1 % (95.0-98.0); ATERIAL BLOOD GAS PEEP 5; CARBOXYHEMOGLOBIN 1.2 % (0.5-1.5); HHB 5.2 % (0.0-5.0); METHEMOGLOBIN 1.5 % (0.0-3.0)
[2016-08-18 05:36] LABS: ABG MECHANICAL RATE 24
[2016-08-18 05:57] LABS: HEMATOCRIT 48.5 % (35.0-51.0); MEAN CELL VOLUME 93.3 fl (80.0-94.0); MEAN CORPUSCULAR HEMOGLOBIN 30.6 pg (27.0-31.0); MEAN CORPUSCULAR HGB CONC 32.7 g/dL (33.0-37.0); RED CELL DISTRIBUTION WIDTH 13.5 % (11.5-14.5); WHITE BLOOD COUNT 31.5 K/uL (4.8-10.8)
[2016-08-18 06:12] LABS: ALB/GLOB RATIO 1.2 (1.0-2.1); TOTAL PROTEIN 5.9 G/DL (6.3-8.2)
[2016-08-18 06:35] LABS: TROPONIN I 14.6 ng/mL (0.00-0.120)
[2016-08-18] MEDS: DOPamine 400mg/250ml D5W 400 MG/250 ML BAG IV ONE (08:12)
[2016-08-18] MEDS: Dextrose 5%/0.45% NS 1,000 ML IV SCH ×2 (08:17→14:39)
--- NOTE | 2016-08-18 08:24 | CP.CCUPN ---
CCU Subjective - Physician Review Events Since Last Encounter (Free Text): 08/18/16 08:20 Patient on ventilator, on PRVC TV 500, RR 24, FIO2 80%, on levophed and dopamine drips, no response to any stimuli, events reviewed CCU Objective - Vital Signs / Intake & Output Vital Signs (Last 4 hours): Vital Signs Temp Pulse Resp BP BP Pulse Ox 08/18/16 08:16 100.4 F H 08/18/16 07:43 99.0 F 101 H 15 108/67 94 L 08/18/16 06:59 99.8 F H 98 H 24 128/70 128/70 94 L 08/18/16 06:00 99.7 F H 99 H 24 104/59 L 104/59 L 93 L 08/18/16 05:00 99.6 F 101 H 24 121/66 121/66 94 L Intake and Output (Last 8hrs): Intake & Output 08/17/16 08/18/16 08/18/16 22:59 06:59 14:59 Intake Total 1856 754 Output Total 2300 2700 Balance -444 -1946 Intake: IV 1356 754 Intake, Piggyback 500 Output: Urine 2300 2700 Urethral (Hilario) 2300 2700 - Physical Exam Head: Positive for: Atraumatic, Normocephalic Pupils: Positive for: Non-Reactive Conjunctiva: Positive for: Normal Ears: Positive for: Normal Mouth: Positive for: Moist Mucous Membranes Nose (Internal): Positive for: Normal Inspection Neck: Positive for: Normal Range of Motion Respiratory/Chest: Positive for: Rhonchi Cardiovascular: Positive for: Regular Rate and Rhythm Abdomen: Positive for: Normal Bowel Sounds Upper Extremity: Positive for: Normal Inspection Lower Extremity: Positive for: Normal Inspection Neurological: Positive for: Other (no response to any stimuli) - Medications Active Medications: Active Medications Generic Name Dose Route Start Last Admin Trade Name Freq PRN Reason Stop Dose Admin Acetaminophen 650 mg 08/18/16 00:52 08/18/16 08:16 Tylenol 650mg/20.3ml Solution Ud PO 650 mg Q6 PRN Administration Fever Artificial Tears 1 applic 08/16/16 22:00 08/17/16 21:19 Lacri-Lube OU 1 applic HS ELAINE Administration Dextrose 0 ml 08/17/16 00:01 Dextrose 50% Inj IV STAT PRN Hyglycemia Protocol Protocol Dextrose 0 gm 08/17/16 00:01 Glutose 15 PO ONCE PRN Hypoglycemia Protocol Protocol Glucagon 0 mg 08/17/16 00:01 Glucagen Diagnostic Kit IM STAT PRN Hypoglycemia Protocol Protocol Sodium Chloride 1,000 mls @ 100 mls/hr 08/16/16 20:45 08/16/16 22:27 Sodium Chloride 0.9% IV 100 mls/hr .Q10H ELAINE Administration Piperacillin Sod/Tazobactam 100 mls @ 100 mls/hr 08/16/16 22:00 08/18/16 03: 26 Sod 3.375 gm/ Sodium Chloride IVPB 100 mls/hr Q6 ELAINE Administration Insulin Human Regular 100 101 mls @ 5.05 mls/hr 08/17/16 15:45 08/17/16 16:00 units/ Sodium Chloride IVPB 5.05 mls/hr .Q20H ELAINE Administration Protocol 5 UNITS/HR Dextrose/Sodium Chloride 1,000 mls @ 175 mls/hr 08/17/16 17:00 08/18/16 08:17 Dextrose 5%/0.45% Ns 1000 Ml IV 08/18/16 16:54 175 mls/hr .Q5H43M ELAINE Administration Norepinephrine Bitartrate 4 mg 254 mls @ 76.2 mls/hr 08/17/16 20:17 08/18/16 06:46 / Dextrose IV 20 mcg/min .Q3H20M ELAINE 76.2 mls/hr Protocol Administration 20 MCG/MIN Pantoprazole Sodium 40 mg 08/17/16 20:41 08/18/16 08:14 Protonix Inj IVP 40 mg DAILY ELAINE Administration - Patient Studies Lab Studies: Lab Studies 08/18/16 08/18/16 08/18/16 Range/Units 08:00 06:58 06:11 WBC (4.8-10.8) K/uL RBC (4.40-5.90) Mil/uL Hgb (12.0-18.0) g/dL Hct (35.0-51.0) % MCV (80.0-94.0) fl MCH (27.0-31.0) pg MCHC (33.0-37.0) g/dL RDW (11.5-14.5) % Plt Count (130-400) K/uL MPV (7.2-11.7) fl Neut % (Auto) (50.0-75.0) % Lymph % (Auto) (20.0-40.0) % Fergus % (Auto) (0.0-10.0) % Eos % (Auto) (0.0-4.0) % Baso % (Auto) (0.0-2.0) % Neut # (1.8-7.0) K/uL Lymph # (1.0-4.3) K/uL Fergus # (0.0-0.8) K/uL Eos # (0.0-0.7) K/uL Baso # (0.0-0.2) K/uL Neutrophils % (Manual) (42-75) % Band Neutrophils % (0-2) % Lymphocytes % (Manual) (20-50) % Monocytes % (Manual) (0-10) % Platelet Estimate (NORMAL) Large Platelets Anisocytosis (manual) Tear Drop Cells Ovalocytes PT (9.6-11.2) SECONDS INR (0.92-1.08) APTT (23.3-32.5) SECONDS pCO2 (35-45) mm/Hg pO2 (80-100) mm/Hg HCO3 (21-28) mmol/L ABG pH (7.35-7.45) ABG Total CO2 (22-28) mmol/L ABG O2 Saturation (95-98) % ABG O2 Content (15-23) ML/dL ABG Base Excess (-2.0-3.0) mmol/L ABG Hemoglobin (11.7-17.4) g/dL ABG Carboxyhemoglobin (0.5-1.5) % POC ABG HHb (Measured) (0.0-5.0) % ABG Methemoglobin (0.0-3.0) % ABG O2 Capacity (16-24) mL/dL Jonathan Test VBG pH (7.32-7.43) VBG pCO2 (40-60) mmHg VBG HCO3 mmol/L VBG Total CO2 (22-28) mmol/L VBG O2 Sat (Calc) (40-65) % VBG Base Excess (0.0-2.0) mmol/L VBG Potassium (3.6-5.2) mmol/L A-a O2 Difference mm/Hg Hgb O2 Saturation (95.0-98.0) % Glucose (75-110) mg/dL Lactate (0.7-2.1) mmol/L Vent Mode Mechanical Rate FiO2 % Tidal Volume PEEP Crit Value Called To Crit Value Called By Crit Value Read Back Blood Gas Notified Time Sodium (132-148) mmol/l Potassium (3.6-5.0) MMOL/L Chloride (98-107) mmol/L Carbon Dioxide (22-30) mmol/L Anion Gap (10-20) BUN (9-20) mg/dl Creatinine (0.8-1.5) mg/dL Est GFR ( Amer) Est GFR (Non-Af Amer) POC Glucose (mg/dL) 234 H 216 H 207 H (65-110) mg/dL Random Glucose (75-110) mg/dL Hemoglobin A1c (4.2-6.5) % Lactic Acid (0.7-2.1) MMOL/L Calcium (8.4-10.2) mg/dL Total Bilirubin (0.2-1.3) mg/dl AST (17-59) U/L ALT (21-72) U/L Alkaline Phosphatase (38-126) U/L Lactate Dehydrogenase (313-618) U/L Troponin I (0.00-0.120) ng/mL Total Protein (6.3-8.2) G/DL Albumin (3.5-5.0) g/dL Globulin (2.2-3.9) gm/dL Albumin/Globulin Ratio (1.0-2.1) Venous Blood Potassium (3.6-5.2) mmol/L 08/18/16 08/18/16 08/18/16 Range/Units 05:45 05:45 05:15 WBC 31.5 H (4.8-10.8) K/uL RBC 5.20 (4.40-5.90) Mil/uL Hgb 15.9 (12.0-18.0) g/dL Hct 48.5 (35.0-51.0) % MCV 93.3 (80.0-94.0) fl MCH 30.6 (27.0-31.0) pg MCHC 32.7 L (33.0-37.0) g/dL RDW 13.5 (11.5-14.5) % Plt Count 264 (130-400) K/uL MPV (7.2-11.7) fl Neut % (Auto) (50.0-75.0) % Lymph % (Auto) (20.0-40.0) % Fergus % (Auto) (0.0-10.0) % Eos % (Auto) (0.0-4.0) % Baso % (Auto) (0.0-2.0) % Neut # (1.8-7.0) K/uL Lymph # (1.0-4.3) K/uL Fergus # (0.0-0.8) K/uL Eos # (0.0-0.7) K/uL Baso # (0.0-0.2) K/uL Neutrophils % (Manual) (42-75) % Band Neutrophils % (0-2) % Lymphocytes % (Manual) (20-50) % Monocytes % (Manual) (0-10) % Platelet Estimate (NORMAL) Large Platelets Anisocytosis (manual) Tear Drop Cells Ovalocytes PT (9.6-11.2) SECONDS INR (0.92-1.08) APTT (23.3-32.5) SECONDS pCO2 (35-45) mm/Hg pO2 (80-100) mm/Hg HCO3 (21-28) mmol/L ABG pH (7.35-7.45) ABG Total CO2 (22-28) mmol/L ABG O2 Saturation (95-98) % ABG O2 Content (15-23) ML/dL ABG Base Excess (-2.0-3.0) mmol/L ABG Hemoglobin (11.7-17.4) g/dL ABG Carboxyhemoglobin (0.5-1.5) % POC ABG HHb (Measured) (0.0-5.0) % ABG Methemoglobin (0.0-3.0) % ABG O2 Capacity (16-24) mL/dL Jonathan Test VBG pH (7.32-7.43) VBG pCO2 (40-60) mmHg VBG HCO3 mmol/L VBG Total CO2 (22-28) mmol/L VBG O2 Sat (Calc) (40-65) % VBG Base Excess (0.0-2.0) mmol/L VBG Potassium (3.6-5.2) mmol/L A-a O2 Difference mm/Hg Hgb O2 Saturation (95.0-98.0) % Glucose (75-110) mg/dL Lactate (0.7-2.1) mmol/L Vent Mode Mechanical Rate FiO2 % Tidal Volume PEEP Crit Value Called To Crit Value Called By Crit Value Read Back Blood Gas Notified Time Sodium 171 H* (132-148) mmol/l Potassium 4.0 (3.6-5.0) MMOL/L Chloride 131 H (98-107) mmol/L Carbon Dioxide 27 (22-30) mmol/L Anion Gap 17 (10-20) BUN 11 (9-20) mg/dl Creatinine 1.5 (0.8-1.5) mg/dL Est GFR ( Amer) 59 Est GFR (Non-Af Amer) 49 POC Glucose (mg/dL) 206 H (65-110) mg/dL Random Glucose 194 H (75-110) mg/dL Hemoglobin A1c (4.2-6.5) % Lactic Acid (0.7-2.1) MMOL/L Calcium 10.0 (8.4-10.2) mg/dL Total Bilirubin 2.0 H (0.2-1.3) mg/dl AST 178 H D (17-59) U/L ALT 246 H D (21-72) U/L Alkaline Phosphatase 106 (38-126) U/L Lactate Dehydrogenase 2046 H (313-618) U/L Troponin I 14.6000 H* (0.00-0.120) ng/mL Total Protein 5.9 L (6.3-8.2) G/DL Albumin 3.2 L (3.5-5.0) g/dL Globulin 2.7 (2.2-3.9) gm/dL Albumin/Globulin Ratio 1.2 (1.0-2.1) Venous Blood Potassium (3.6-5.2) mmol/L 08/18/16 08/18/16 08/18/16 Range/Units 04:55 04:09 03:05 WBC (4.8-10.8) K/uL RBC (4.40-5.90) Mil/uL Hgb (12.0-18.0) g/dL Hct (35.0-51.0) % MCV (80.0-94.0) fl MCH (27.0-31.0) pg MCHC (33.0-37.0) g/dL RDW (11.5-14.5) % Plt Count (130-400) K/uL MPV (7.2-11.7) fl Neut % (Auto) (50.0-75.0) % Lymph % (Auto) (20.0-40.0) % Fergus % (Auto) (0.0-10.0) % Eos % (Auto) (0.0-4.0) % Baso % (Auto) (0.0-2.0) % Neut # (1.8-7.0) K/uL Lymph # (1.0-4.3) K/uL Fergus # (0.0-0.8) K/uL Eos # (0.0-0.7) K/uL Baso # (0.0-0.2) K/uL Neutrophils % (Manual) (42-75) % Band Neutrophils % (0-2) % Lymphocytes % (Manual) (20-50) % Monocytes % (Manual) (0-10) % Platelet Estimate (NORMAL) Large Platelets Anisocytosis (manual) Tear Drop Cells Ovalocytes PT (9.6-11.2) SECONDS INR (0.92-1.08) APTT (23.3-32.5) SECONDS pCO2 33 L (35-45) mm/Hg pO2 62 L (80-100) mm/Hg HCO3 26.1 (21-28) mmol/L ABG pH 7.48 H (7.35-7.45) ABG Total CO2 25.6 (22-28) mmol/L ABG O2 Saturation 94.7 L (95-98) % ABG O2 Content 20.9 (15-23) ML/dL ABG Base Excess 1.8 (-2.0-3.0) mmol/L ABG Hemoglobin 16.2 (11.7-17.4) g/dL ABG Carboxyhemoglobin 1.2 (0.5-1.5) % POC ABG HHb (Measured) 5.2 H (0.0-5.0) % ABG Methemoglobin 1.5 (0.0-3.0) % ABG O2 Capacity 22.1 (16-24) mL/dL Jonathan Test Yes VBG pH (7.32-7.43) VBG pCO2 (40-60) mmHg VBG HCO3 mmol/L VBG Total CO2 (22-28) mmol/L VBG O2 Sat (Calc) (40-65) % VBG Base Excess (0.0-2.0) mmol/L VBG Potassium (3.6-5.2) mmol/L A-a O2 Difference 325.0 mm/Hg Hgb O2 Saturation 92.1 L (95.0-98.0) % Glucose (75-110) mg/dL Lactate (0.7-2.1) mmol/L Vent Mode A/c Mechanical Rate 24 FiO2 60.0 % Tidal Volume 500 PEEP 5 Crit Value Called To Pradip acuna Crit Value Called By Maciej Crit Value Read Back Y Blood Gas Notified Time 456 Sodium (132-148) mmol/l Potassium (3.6-5.0) MMOL/L Chloride (98-107) mmol/L Carbon Dioxide (22-30) mmol/L Anion Gap (10-20) BUN (9-20) mg/dl Creatinine (0.8-1.5) mg/dL Est GFR ( Amer) Est GFR (Non-Af Amer) POC Glucose (mg/dL) 187 H 179 H (65-110) mg/dL Random Glucose (75-110) mg/dL Hemoglobin A1c (4.2-6.5) % Lactic Acid (0.7-2.1) MMOL/L Calcium (8.4-10.2) mg/dL Total Bilirubin (0.2-1.3) mg/dl AST (17-59) U/L ALT (21-72) U/L Alkaline Phosphatase (38-126) U/L Lactate Dehydrogenase (313-618) U/L Troponin I (0.00-0.120) ng/mL Total Protein (6.3-8.2) G/DL Albumin (3.5-5.0) g/dL Globulin (2.2-3.9) gm/dL Albumin/Globulin Ratio (1.0-2.1) Venous Blood Potassium (3.6-5.2) mmol/L 08/18/16 08/18/16 08/18/16 Range/Units 02:09 01:10 00:09 WBC (4.8-10.8) K/uL RBC (4.40-5.90) Mil/uL Hgb (12.0-18.0) g/dL Hct (35.0-51.0) % MCV (80.0-94.0) fl MCH (27.0-31.0) pg MCHC (33.0-37.0) g/dL RDW (11.5-14.5) % Plt Count (130-400) K/uL MPV (7.2-11.7) fl Neut % (Auto) (50.0-75.0) % Lymph % (Auto) (20.0-40.0) % Fergus % (Auto) (0.0-10.0) % Eos % (Auto) (0.0-4.0) % Baso % (Auto) (0.0-2.0) % Neut # (1.8-7.0) K/uL Lymph # (1.0-4.3) K/uL Fergus # (0.0-0.8) K/uL Eos # (0.0-0.7) K/uL Baso # (0.0-0.2) K/uL Neutrophils % (Manual) (42-75) % Band Neutrophils % (0-2) % Lymphocytes % (Manual) (20-50) % Monocytes % (Manual) (0-10) % Platelet Estimate (NORMAL) Large Platelets Anisocytosis (manual) Tear Drop Cells Ovalocytes PT (9.6-11.2) SECONDS INR (0.92-1.08) APTT (23.3-32.5) SECONDS pCO2 (35-45) mm/Hg pO2 (80-100) mm/Hg HCO3 (21-28) mmol/L ABG pH (7.35-7.45) ABG Total CO2 (22-28) mmol/L ABG O2 Saturation (95-98) % ABG O2 Content (15-23) ML/dL ABG Base Excess (-2.0-3.0) mmol/L ABG Hemoglobin (11.7-17.4) g/dL ABG Carboxyhemoglobin (0.5-1.5) % POC ABG HHb (Measured) (0.0-5.0) % ABG Methemoglobin (0.0-3.0) % ABG O2 Capacity (16-24) mL/dL Jonathan Test VBG pH (7.32-7.43) VBG pCO2 (40-60) mmHg VBG HCO3 mmol/L VBG Total CO2 (22-28) mmol/L VBG O2 Sat (Calc) (40-65) % VBG Base Excess (0.0-2.0) mmol/L VBG Potassium (3.6-5.2) mmol/L A-a O2 Difference mm/Hg Hgb O2 Saturation (95.0-98.0) % Glucose (75-110) mg/dL Lactate (0.7-2.1) mmol/L Vent Mode Mechanical Rate FiO2 % Tidal Volume PEEP Crit Value Called To Crit Value Called By Crit Value Read Back Blood Gas Notified Time Sodium (132-148) mmol/l Potassium (3.6-5.0) MMOL/L Chloride (98-107) mmol/L Carbon Dioxide (22-30) mmol/L Anion Gap (10-20) BUN (9-20) mg/dl Creatinine (0.8-1.5) mg/dL Est GFR ( Amer) Est GFR (Non-Af Amer) POC Glucose (mg/dL) 188 H 181 H 215 H (65-110) mg/dL Random Glucose (75-110) mg/dL Hemoglobin A1c (4.2-6.5) % Lactic Acid (0.7-2.1) MMOL/L Calcium (8.4-10.2) mg/dL Total Bilirubin (0.2-1.3) mg/dl AST (17-59) U/L ALT (21-72) U/L Alkaline Phosphatase (38-126) U/L Lactate Dehydrogenase (313-618) U/L Troponin I (0.00-0.120) ng/mL Total Protein (6.3-8.2) G/DL Albumin (3.5-5.0) g/dL Globulin (2.2-3.9) gm/dL Albumin/Globulin Ratio (1.0-2.1) Venous Blood Potassium (3.6-5.2) mmol/L 08/17/16 08/17/16 08/17/16 Range/Units 23:04 22:08 21:13 WBC (4.8-10.8) K/uL RBC (4.40-5.90) Mil/uL Hgb (12.0-18.0) g/dL Hct (35.0-51.0) % MCV (80.0-94.0) fl MCH (27.0-31.0) pg MCHC (33.0-37.0) g/dL RDW (11.5-14.5) % Plt Count (130-400) K/uL MPV (7.2-11.7) fl Neut % (Auto) (50.0-75.0) % Lymph % (Auto) (20.0-40.0) % Fergus % (Auto) (0.0-10.0) % Eos % (Auto) (0.0-4.0) % Baso % (Auto) (0.0-2.0) % Neut # (1.8-7.0) K/uL Lymph # (1.0-4.3) K/uL Fergus # (0.0-0.8) K/uL Eos # (0.0-0.7) K/uL Baso # (0.0-0.2) K/uL Neutrophils % (Manual) (42-75) % Band Neutrophils % (0-2) % Lymphocytes % (Manual) (20-50) % Monocytes % (Manual) (0-10) % Platelet Estimate (NORMAL) Large Platelets Anisocytosis (manual) Tear Drop Cells Ovalocytes PT (9.6-11.2) SECONDS INR (0.92-1.08) APTT (23.3-32.5) SECONDS pCO2 (35-45) mm/Hg pO2 (80-100) mm/Hg HCO3 (21-28) mmol/L ABG pH (7.35-7.45) ABG Total CO2 (22-28) mmol/L ABG O2 Saturation (95-98) % ABG O2 Content (15-23) ML/dL ABG Base Excess (-2.0-3.0) mmol/L ABG Hemoglobin (11.7-17.4) g/dL ABG Carboxyhemoglobin (0.5-1.5) % POC ABG HHb (Measured) (0.0-5.0) % ABG Methemoglobin (0.0-3.0) % ABG O2 Capacity (16-24) mL/dL Jonathan Test VBG pH (7.32-7.43) VBG pCO2 (40-60) mmHg VBG HCO3 mmol/L VBG Total CO2 (22-28) mmol/L VBG O2 Sat (Calc) (40-65) % VBG Base Excess (0.0-2.0) mmol/L VBG Potassium (3.6-5.2) mmol/L A-a O2 Difference mm/Hg Hgb O2 Saturation (95.0-98.0) % Glucose (75-110) mg/dL Lactate (0.7-2.1) mmol/L Vent Mode Mechanical Rate FiO2 % Tidal Volume PEEP Crit Value Called To Crit Value Called By Crit Value Read Back Blood Gas Notified Time Sodium (132-148) mmol/l Potassium (3.6-5.0) MMOL/L Chloride (98-107) mmol/L Carbon Dioxide (22-30) mmol/L Anion Gap (10-20) BUN (9-20) mg/dl Creatinine (0.8-1.5) mg/dL Est GFR ( Amer) Est GFR (Non-Af Amer) POC Glucose (mg/dL) 176 H 224 H 211 H (65-110) mg/dL Random Glucose (75-110) mg/dL Hemoglobin A1c (4.2-6.5) % Lactic Acid (0.7-2.1) MMOL/L Calcium (8.4-10.2) mg/dL Total Bilirubin (0.2-1.3) mg/dl AST (17-59) U/L ALT (21-72) U/L Alkaline Phosphatase (38-126) U/L Lactate Dehydrogenase (313-618) U/L Troponin I (0.00-0.120) ng/mL Total Protein (6.3-8.2) G/DL Albumin (3.5-5.0) g/dL Globulin (2.2-3.9) gm/dL Albumin/Globulin Ratio (1.0-2.1) Venous Blood Potassium (3.6-5.2) mmol/L 08/17/16 08/17/16 08/17/16 Range/Units 21:00 20:04 18:58 WBC (4.8-10.8) K/uL RBC (4.40-5.90) Mil/uL Hgb (12.0-18.0) g/dL Hct (35.0-51.0) % MCV (80.0-94.0) fl MCH (27.0-31.0) pg MCHC (33.0-37.0) g/dL RDW (11.5-14.5) % Plt Count (130-400) K/uL MPV (7.2-11.7) fl Neut % (Auto) (50.0-75.0) % Lymph % (Auto) (20.0-40.0) % Fergus % (Auto) (0.0-10.0) % Eos % (Auto) (0.0-4.0) % Baso % (Auto) (0.0-2.0) % Neut # (1.8-7.0) K/uL Lymph # (1.0-4.3) K/uL Fergus # (0.0-0.8) K/uL Eos # (0.0-0.7) K/uL Baso # (0.0-0.2) K/uL Neutrophils % (Manual) (42-75) % Band Neutrophils % (0-2) % Lymphocytes % (Manual) (20-50) % Monocytes % (Manual) (0-10) % Platelet Estimate (NORMAL) Large Platelets Anisocytosis (manual) Tear Drop Cells Ovalocytes PT (9.6-11.2) SECONDS INR (0.92-1.08) APTT (23.3-32.5) SECONDS pCO2 (35-45) mm/Hg pO2 (80-100) mm/Hg HCO3 (21-28) mmol/L ABG pH (7.35-7.45) ABG Total CO2 (22-28) mmol/L ABG O2 Saturation (95-98) % ABG O2 Content (15-23) ML/dL ABG Base Excess (-2.0-3.0) mmol/L ABG Hemoglobin (11.7-17.4) g/dL ABG Carboxyhemoglobin (0.5-1.5) % POC ABG HHb (Measured) (0.0-5.0) % ABG Methemoglobin (0.0-3.0) % ABG O2 Capacity (16-24) mL/dL Jonathan Test VBG pH (7.32-7.43) VBG pCO2 (40-60) mmHg VBG HCO3 mmol/L VBG Total CO2 (22-28) mmol/L VBG O2 Sat (Calc) (40-65) % VBG Base Excess (0.0-2.0) mmol/L VBG Potassium (3.6-5.2) mmol/L A-a O2 Difference mm/Hg Hgb O2 Saturation (95.0-98.0) % Glucose (75-110) mg/dL Lactate (0.7-2.1) mmol/L Vent Mode Mechanical Rate FiO2 % Tidal Volume PEEP Crit Value Called To Crit Value Called By Crit Value Read Back Blood Gas Notified Time Sodium (132-148) mmol/l Potassium (3.6-5.0) MMOL/L Chloride (98-107) mmol/L Carbon Dioxide (22-30) mmol/L Anion Gap (10-20) BUN (9-20) mg/dl Creatinine (0.8-1.5) mg/dL Est GFR ( Amer) Est GFR (Non-Af Amer) POC Glucose (mg/dL) 222 H 246 H (65-110) mg/dL Random Glucose (75-110) mg/dL Hemoglobin A1c (4.2-6.5) % Lactic Acid (0.7-2.1) MMOL/L Calcium (8.4-10.2) mg/dL Total Bilirubin (0.2-1.3) mg/dl AST (17-59) U/L ALT (21-72) U/L Alkaline Phosphatase (38-126) U/L Lactate Dehydrogenase (313-618) U/L Troponin I 16.0000 H* (0.00-0.120) ng/mL Total Protein (6.3-8.2) G/DL Albumin (3.5-5.0) g/dL Globulin (2.2-3.9) gm/dL Albumin/Globulin Ratio (1.0-2.1) Venous Blood Potassium (3.6-5.2) mmol/L 08/17/16 08/17/16 08/17/16 Range/Units 18:25 18:25 18:06 WBC (4.8-10.8) K/uL RBC (4.40-5.90) Mil/uL Hgb (12.0-18.0) g/dL Hct (35.0-51.0) % MCV (80.0-94.0) fl MCH (27.0-31.0) pg MCHC (33.0-37.0) g/dL RDW (11.5-14.5) % Plt Count (130-400) K/uL MPV (7.2-11.7) fl Neut % (Auto) (50.0-75.0) % Lymph % (Auto) (20.0-40.0) % Fergus % (Auto) (0.0-10.0) % Eos % (Auto) (0.0-4.0) % Baso % (Auto) (0.0-2.0) % Neut # (1.8-7.0) K/uL Lymph # (1.0-4.3) K/uL Fergus # (0.0-0.8) K/uL Eos # (0.0-0.7) K/uL Baso # (0.0-0.2) K/uL Neutrophils % (Manual) (42-75) % Band Neutrophils % (0-2) % Lymphocytes % (Manual) (20-50) % Monocytes % (Manual) (0-10) % Platelet Estimate (NORMAL) Large Platelets Anisocytosis (manual) Tear Drop Cells Ovalocytes PT (9.6-11.2) SECONDS INR (0.92-1.08) APTT (23.3-32.5) SECONDS pCO2 (35-45) mm/Hg pO2 (80-100) mm/Hg HCO3 (21-28) mmol/L ABG pH (7.35-7.45) ABG Total CO2 (22-28) mmol/L ABG O2 Saturation (95-98) % ABG O2 Content (15-23) ML/dL ABG Base Excess (-2.0-3.0) mmol/L ABG Hemoglobin (11.7-17.4) g/dL ABG Carboxyhemoglobin (0.5-1.5) % POC ABG HHb (Measured) (0.0-5.0) % ABG Methemoglobin (0.0-3.0) % ABG O2 Capacity (16-24) mL/dL Jonathan Test VBG pH (7.32-7.43) VBG pCO2 (40-60) mmHg VBG HCO3 mmol/L VBG Total CO2 (22-28) mmol/L VBG O2 Sat (Calc) (40-65) % VBG Base Excess (0.0-2.0) mmol/L VBG Potassium (3.6-5.2) mmol/L A-a O2 Difference mm/Hg Hgb O2 Saturation (95.0-98.0) % Glucose (75-110) mg/dL Lactate (0.7-2.1) mmol/L Vent Mode Mechanical Rate FiO2 % Tidal Volume PEEP Crit Value Called To Crit Value Called By Crit Value Read Back Blood Gas Notified Time Sodium 160 H* (132-148) mmol/l Potassium 3.9 (3.6-5.0) MMOL/L Chloride 127 H (98-107) mmol/L Carbon Dioxide 20 L (22-30) mmol/L Anion Gap 17 (10-20) BUN 14 (9-20) mg/dl Creatinine 1.1 (0.8-1.5) mg/dL Est GFR ( Amer) > 60 Est GFR (Non-Af Amer) > 60 POC Glucose (mg/dL) 232 H (65-110) mg/dL Random Glucose 263 H (75-110) mg/dL Hemoglobin A1c (4.2-6.5) % Lactic Acid 4.3 H* (0.7-2.1) MMOL/L Calcium 9.7 (8.4-10.2) mg/dL Total Bilirubin (0.2-1.3) mg/dl AST (17-59) U/L ALT (21-72) U/L Alkaline Phosphatase (38-126) U/L Lactate Dehydrogenase (313-618) U/L Troponin I (0.00-0.120) ng/mL Total Protein (6.3-8.2) G/DL Albumin (3.5-5.0) g/dL Globulin (2.2-3.9) gm/dL Albumin/Globulin Ratio (1.0-2.1) Venous Blood Potassium (3.6-5.2) mmol/L 08/17/16 08/17/16 08/17/16 Range/Units 17:18 16:04 15:04 WBC (4.8-10.8) K/uL RBC (4.40-5.90) Mil/uL Hgb (12.0-18.0) g/dL Hct (35.0-51.0) % MCV (80.0-94.0) fl MCH (27.0-31.0) pg MCHC (33.0-37.0) g/dL RDW (11.5-14.5) % Plt Count (130-400) K/uL MPV (7.2-11.7) fl Neut % (Auto) (50.0-75.0) % Lymph % (Auto) (20.0-40.0) % Fergus % (Auto) (0.0-10.0) % Eos % (Auto) (0.0-4.0) % Baso % (Auto) (0.0-2.0) % Neut # (1.8-7.0) K/uL Lymph # (1.0-4.3) K/uL Fergus # (0.0-0.8) K/uL Eos # (0.0-0.7) K/uL Baso # (0.0-0.2) K/uL Neutrophils % (Manual) (42-75) % Band Neutrophils % (0-2) % Lymphocytes % (Manual) (20-50) % Monocytes % (Manual) (0-10) % Platelet Estimate (NORMAL) Large Platelets Anisocytosis (manual) Tear Drop Cells Ovalocytes PT (9.6-11.2) SECONDS INR (0.92-1.08) APTT (23.3-32.5) SECONDS pCO2 (35-45) mm/Hg pO2 (80-100) mm/Hg HCO3 (21-28) mmol/L ABG pH (7.35-7.45) ABG Total CO2 (22-28) mmol/L ABG O2 Saturation (95-98) % ABG O2 Content (15-23) ML/dL ABG Base Excess (-2.0-3.0) mmol/L ABG Hemoglobin (11.7-17.4) g/dL ABG Carboxyhemoglobin (0.5-1.5) % POC ABG HHb (Measured) (0.0-5.0) % ABG Methemoglobin (0.0-3.0) % ABG O2 Capacity (16-24) mL/dL Jonathan Test VBG pH (7.32-7.43) VBG pCO2 (40-60) mmHg VBG HCO3 mmol/L VBG Total CO2 (22-28) mmol/L VBG O2 Sat (Calc) (40-65) % VBG Base Excess (0.0-2.0) mmol/L VBG Potassium (3.6-5.2) mmol/L A-a O2 Difference mm/Hg Hgb O2 Saturation (95.0-98.0) % Glucose (75-110) mg/dL Lactate (0.7-2.1) mmol/L Vent Mode Mechanical Rate FiO2 % Tidal Volume PEEP Crit Value Called To Crit Value Called By Crit Value Read Back Blood Gas Notified Time Sodium (132-148) mmol/l Potassium (3.6-5.0) MMOL/L Chloride (98-107) mmol/L Carbon Dioxide (22-30) mmol/L Anion Gap (10-20) BUN (9-20) mg/dl Creatinine (0.8-1.5) mg/dL Est GFR ( Amer) Est GFR (Non-Af Amer) POC Glucose (mg/dL) 216 H 194 H 237 H (65-110) mg/dL Random Glucose (75-110) mg/dL Hemoglobin A1c (4.2-6.5) % Lactic Acid (0.7-2.1) MMOL/L Calcium (8.4-10.2) mg/dL Total Bilirubin (0.2-1.3) mg/dl AST (17-59) U/L ALT (21-72) U/L Alkaline Phosphatase (38-126) U/L Lactate Dehydrogenase (313-618) U/L Troponin I (0.00-0.120) ng/mL Total Protein (6.3-8.2) G/DL Albumin (3.5-5.0) g/dL Globulin (2.2-3.9) gm/dL Albumin/Globulin Ratio (1.0-2.1) Venous Blood Potassium (3.6-5.2) mmol/L 08/17/16 08/17/16 08/17/16 Range/Units 14:04 13:24 13:09 WBC (4.8-10.8) K/uL RBC (4.40-5.90) Mil/uL Hgb (12.0-18.0) g/dL Hct (35.0-51.0) % MCV (80.0-94.0) fl MCH (27.0-31.0) pg MCHC (33.0-37.0) g/dL RDW (11.5-14.5) % Plt Count (130-400) K/uL MPV (7.2-11.7) fl Neut % (Auto) (50.0-75.0) % Lymph % (Auto) (20.0-40.0) % Fergus % (Auto) (0.0-10.0) % Eos % (Auto) (0.0-4.0) % Baso % (Auto) (0.0-2.0) % Neut # (1.8-7.0) K/uL Lymph # (1.0-4.3) K/uL Fergus # (0.0-0.8) K/uL Eos # (0.0-0.7) K/uL Baso # (0.0-0.2) K/uL Neutrophils % (Manual) (42-75) % Band Neutrophils % (0-2) % Lymphocytes % (Manual) (20-50) % Monocytes % (Manual) (0-10) % Platelet Estimate (NORMAL) Large Platelets Anisocytosis (manual) Tear Drop Cells Ovalocytes PT (9.6-11.2) SECONDS INR (0.92-1.08) APTT (23.3-32.5) SECONDS pCO2 (35-45) mm/Hg pO2 (80-100) mm/Hg HCO3 (21-28) mmol/L ABG pH (7.35-7.45) ABG Total CO2 (22-28) mmol/L ABG O2 Saturation (95-98) % ABG O2 Content (15-23) ML/dL ABG Base Excess (-2.0-3.0) mmol/L ABG Hemoglobin (11.7-17.4) g/dL ABG Carboxyhemoglobin (0.5-1.5) % POC ABG HHb (Measured) (0.0-5.0) % ABG Methemoglobin (0.0-3.0) % ABG O2 Capacity (16-24) mL/dL Jonathan Test VBG pH (7.32-7.43) VBG pCO2 (40-60) mmHg VBG HCO3 mmol/L VBG Total CO2 (22-28) mmol/L VBG O2 Sat (Calc) (40-65) % VBG Base Excess (0.0-2.0) mmol/L VBG Potassium (3.6-5.2) mmol/L A-a O2 Difference mm/Hg Hgb O2 Saturation (95.0-98.0) % Glucose (75-110) mg/dL Lactate (0.7-2.1) mmol/L Vent Mode Mechanical Rate FiO2 % Tidal Volume PEEP Crit Value Called To Crit Value Called By Crit Value Read Back Blood Gas Notified Time Sodium (132-148) mmol/l Potassium (3.6-5.0) MMOL/L Chloride (98-107) mmol/L Carbon Dioxide (22-30) mmol/L Anion Gap (10-20) BUN (9-20) mg/dl Creatinine (0.8-1.5) mg/dL Est GFR ( Amer) Est GFR (Non-Af Amer) POC Glucose (mg/dL) 260 H 254 H (65-110) mg/dL Random Glucose (75-110) mg/dL Hemoglobin A1c (4.2-6.5) % Lactic Acid (0.7-2.1) MMOL/L Calcium (8.4-10.2) mg/dL Total Bilirubin (0.2-1.3) mg/dl AST (17-59) U/L ALT (21-72) U/L Alkaline Phosphatase (38-126) U/L Lactate Dehydrogenase (313-618) U/L Troponin I 19.8000 H* (0.00-0.120) ng/mL Total Protein (6.3-8.2) G/DL Albumin (3.5-5.0) g/dL Globulin (2.2-3.9) gm/dL Albumin/Globulin Ratio (1.0-2.1) Venous Blood Potassium (3.6-5.2) mmol/L 08/17/16 08/17/16 08/17/16 Range/Units 12:22 10:58 10:55 WBC (4.8-10.8) K/uL RBC (4.40-5.90) Mil/uL Hgb (12.0-18.0) g/dL Hct (35.0-51.0) % MCV (80.0-94.0) fl MCH (27.0-31.0) pg MCHC (33.0-37.0) g/dL RDW (11.5-14.5) % Plt Count (130-400) K/uL MPV (7.2-11.7) fl Neut % (Auto) (50.0-75.0) % Lymph % (Auto) (20.0-40.0) % Fergus % (Auto) (0.0-10.0) % Eos % (Auto) (0.0-4.0) % Baso % (Auto) (0.0-2.0) % Neut # (1.8-7.0) K/uL Lymph # (1.0-4.3) K/uL Fergus # (0.0-0.8) K/uL Eos # (0.0-0.7) K/uL Baso # (0.0-0.2) K/uL Neutrophils % (Manual) (42-75) % Band Neutrophils % (0-2) % Lymphocytes % (Manual) (20-50) % Monocytes % (Manual) (0-10) % Platelet Estimate (NORMAL) Large Platelets Anisocytosis (manual) Tear Drop Cells Ovalocytes PT (9.6-11.2) SECONDS INR (0.92-1.08) APTT (23.3-32.5) SECONDS pCO2 (35-45) mm/Hg pO2 50 (80-100) mm/Hg HCO3 (21-28) mmol/L ABG pH (7.35-7.45) ABG Total CO2 (22-28) mmol/L ABG O2 Saturation (95-98) % ABG O2 Content (15-23) ML/dL ABG Base Excess (-2.0-3.0) mmol/L ABG Hemoglobin (11.7-17.4) g/dL ABG Carboxyhemoglobin (0.5-1.5) % POC ABG HHb (Measured) (0.0-5.0) % ABG Methemoglobin (0.0-3.0) % ABG O2 Capacity (16-24) mL/dL Jonathan Test VBG pH 7.18 L* (7.32-7.43) VBG pCO2 43 (40-60) mmHg VBG HCO3 14.9 mmol/L VBG Total CO2 17.3 L (22-28) mmol/L VBG O2 Sat (Calc) 82.1 H (40-65) % VBG Base Excess -12.0 L (0.0-2.0) mmol/L VBG Potassium 2.8 L (3.6-5.2) mmol/L A-a O2 Difference 324.0 mm/Hg Hgb O2 Saturation (95.0-98.0) % Glucose 359 H (75-110) mg/dL Lactate 9.9 H* (0.7-2.1) mmol/L Vent Mode Mechanical Rate FiO2 60.0 % Tidal Volume PEEP Crit Value Called To Juli kaiser Crit Value Called By 15 Crit Value Read Back Y Blood Gas Notified Time 1058 Sodium 155.0 H (132-148) mmol/l Potassium (3.6-5.0) MMOL/L Chloride 119.0 H (98-107) mmol/L Carbon Dioxide (22-30) mmol/L Anion Gap (10-20) BUN (9-20) mg/dl Creatinine (0.8-1.5) mg/dL Est GFR ( Amer) Est GFR (Non-Af Amer) POC Glucose (mg/dL) 299 H 316 H (65-110) mg/dL Random Glucose (75-110) mg/dL Hemoglobin A1c (4.2-6.5) % Lactic Acid (0.7-2.1) MMOL/L Calcium (8.4-10.2) mg/dL Total Bilirubin (0.2-1.3) mg/dl AST (17-59) U/L ALT (21-72) U/L Alkaline Phosphatase (38-126) U/L Lactate Dehydrogenase (313-618) U/L Troponin I (0.00-0.120) ng/mL Total Protein (6.3-8.2) G/DL Albumin (3.5-5.0) g/dL Globulin (2.2-3.9) gm/dL Albumin/Globulin Ratio (1.0-2.1) Venous Blood Potassium 2.8 L (3.6-5.2) mmol/L 08/17/16 08/17/16 08/17/16 Range/Units 10:50 10:34 10:34 WBC (4.8-10.8) K/uL RBC (4.40-5.90) Mil/uL Hgb (12.0-18.0) g/dL Hct (35.0-51.0) % MCV (80.0-94.0) fl MCH (27.0-31.0) pg MCHC (33.0-37.0) g/dL RDW (11.5-14.5) % Plt Count (130-400) K/uL MPV (7.2-11.7) fl Neut % (Auto) (50.0-75.0) % Lymph % (Auto) (20.0-40.0) % Fergus % (Auto) (0.0-10.0) % Eos % (Auto) (0.0-4.0) % Baso % (Auto) (0.0-2.0) % Neut # (1.8-7.0) K/uL Lymph # (1.0-4.3) K/uL Fergus # (0.0-0.8) K/uL Eos # (0.0-0.7) K/uL Baso # (0.0-0.2) K/uL Neutrophils % (Manual) (42-75) % Band Neutrophils % (0-2) % Lymphocytes % (Manual) (20-50) % Monocytes % (Manual) (0-10) % Platelet Estimate (NORMAL) Large Platelets Anisocytosis (manual) Tear Drop Cells Ovalocytes PT 11.8 H (9.6-11.2) SECONDS INR 1.13 H (0.92-1.08) APTT 25.4 (23.3-32.5) SECONDS pCO2 36 (35-45) mm/Hg pO2 97 (80-100) mm/Hg HCO3 15.4 L (21-28) mmol/L ABG pH 7.22 L (7.35-7.45) ABG Total CO2 15.8 L (22-28) mmol/L ABG O2 Saturation 97.6 (95-98) % ABG O2 Content 21.3 (15-23) ML/dL ABG Base Excess -12.1 L (-2.0-3.0) mmol/L ABG Hemoglobin 15.9 (11.7-17.4) g/dL ABG Carboxyhemoglobin 1.0 (0.5-1.5) % POC ABG HHb (Measured) 2.3 (0.0-5.0) % ABG Methemoglobin 1.5 (0.0-3.0) % ABG O2 Capacity 21.8 (16-24) mL/dL Jonathan Test Yes VBG pH (7.32-7.43) VBG pCO2 (40-60) mmHg VBG HCO3 mmol/L VBG Total CO2 (22-28) mmol/L VBG O2 Sat (Calc) (40-65) % VBG Base Excess (0.0-2.0) mmol/L VBG Potassium (3.6-5.2) mmol/L A-a O2 Difference 286.0 mm/Hg Hgb O2 Saturation 95.1 (95.0-98.0) % Glucose (75-110) mg/dL Lactate (0.7-2.1) mmol/L Vent Mode Prvc/ac Mechanical Rate 24 FiO2 60.0 % Tidal Volume 500 PEEP Crit Value Called To Crit Value Called By Crit Value Read Back Blood Gas Notified Time Sodium 156 H (132-148) mmol/l Potassium 2.6 L (3.6-5.0) MMOL/L Chloride 123 H (98-107) mmol/L Carbon Dioxide 17 L (22-30) mmol/L Anion Gap 19 (10-20) BUN 15 (9-20) mg/dl Creatinine 1.1 (0.8-1.5) mg/dL Est GFR ( Amer) > 60 Est GFR (Non-Af Amer) > 60 POC Glucose (mg/dL) (65-110) mg/dL Random Glucose 329 H (75-110) mg/dL Hemoglobin A1c (4.2-6.5) % Lactic Acid (0.7-2.1) MMOL/L Calcium 9.1 (8.4-10.2) mg/dL Total Bilirubin 1.0 (0.2-1.3) mg/dl AST 316 H (17-59) U/L ALT 334 H (21-72) U/L Alkaline Phosphatase 81 (38-126) U/L Lactate Dehydrogenase (313-618) U/L Troponin I (0.00-0.120) ng/mL Total Protein 5.7 L (6.3-8.2) G/DL Albumin 3.2 L (3.5-5.0) g/dL Globulin 2.5 (2.2-3.9) gm/dL Albumin/Globulin Ratio 1.3 (1.0-2.1) Venous Blood Potassium (3.6-5.2) mmol/L 08/17/16 08/17/16 08/17/16 Range/Units 10:34 10:11 09:01 WBC 35.4 H (4.8-10.8) K/uL RBC 5.05 (4.40-5.90) Mil/uL Hgb 15.5 (12.0-18.0) g/dL Hct 47.3 (35.0-51.0) % MCV 93.6 (80.0-94.0) fl MCH 30.7 (27.0-31.0) pg MCHC 32.8 L (33.0-37.0) g/dL RDW 12.9 (11.5-14.5) % Plt Count 336 (130-400) K/uL MPV 8.2 (7.2-11.7) fl Neut % (Auto) 90.5 H (50.0-75.0) % Lymph % (Auto) 4.6 L (20.0-40.0) % Fergus % (Auto) 4.9 (0.0-10.0) % Eos % (Auto) 0.0 (0.0-4.0) % Baso % (Auto) 0.0 (0.0-2.0) % Neut # 32.0 H (1.8-7.0) K/uL Lymph # 1.6 (1.0-4.3) K/uL Fergus # 1.7 H (0.0-0.8) K/uL Eos # 0.0 (0.0-0.7) K/uL Baso # 0.0 (0.0-0.2) K/uL Neutrophils % (Manual) 88 H (42-75) % Band Neutrophils % 5 H (0-2) % Lymphocytes % (Manual) 4 L (20-50) % Monocytes % (Manual) 3 (0-10) % Platelet Estimate Normal (NORMAL) Large Platelets Present Anisocytosis (manual) Slight Tear Drop Cells Slight Ovalocytes Slight PT (9.6-11.2) SECONDS INR (0.92-1.08) APTT (23.3-32.5) SECONDS pCO2 (35-45) mm/Hg pO2 (80-100) mm/Hg HCO3 (21-28) mmol/L ABG pH (7.35-7.45) ABG Total CO2 (22-28) mmol/L ABG O2 Saturation (95-98) % ABG O2 Content (15-23) ML/dL ABG Base Excess (-2.0-3.0) mmol/L ABG Hemoglobin (11.7-17.4) g/dL ABG Carboxyhemoglobin (0.5-1.5) % POC ABG HHb (Measured) (0.0-5.0) % ABG Methemoglobin (0.0-3.0) % ABG O2 Capacity (16-24) mL/dL Jonathan Test VBG pH (7.32-7.43) VBG pCO2 (40-60) mmHg VBG HCO3 mmol/L VBG Total CO2 (22-28) mmol/L VBG O2 Sat (Calc) (40-65) % VBG Base Excess (0.0-2.0) mmol/L VBG Potassium (3.6-5.2) mmol/L A-a O2 Difference mm/Hg Hgb O2 Saturation (95.0-98.0) % Glucose (75-110) mg/dL Lactate (0.7-2.1) mmol/L Vent Mode Mechanical Rate FiO2 % Tidal Volume PEEP Crit Value Called To Crit Value Called By Crit Value Read Back Blood Gas Notified Time Sodium (132-148) mmol/l Potassium (3.6-5.0) MMOL/L Chloride (98-107) mmol/L Carbon Dioxide (22-30) mmol/L Anion Gap (10-20) BUN (9-20) mg/dl Creatinine (0.8-1.5) mg/dL Est GFR ( Amer) Est GFR (Non-Af Amer) POC Glucose (mg/dL) 341 H 333 H (65-110) mg/dL Random Glucose (75-110) mg/dL Hemoglobin A1c (4.2-6.5) % Lactic Acid (0.7-2.1) MMOL/L Calcium (8.4-10.2) mg/dL Total Bilirubin (0.2-1.3) mg/dl AST (17-59) U/L ALT (21-72) U/L Alkaline Phosphatase (38-126) U/L Lactate Dehydrogenase (313-618) U/L Troponin I (0.00-0.120) ng/mL Total Protein (6.3-8.2) G/DL Albumin (3.5-5.0) g/dL Globulin (2.2-3.9) gm/dL Albumin/Globulin Ratio (1.0-2.1) Venous Blood Potassium (3.6-5.2) mmol/L 08/16/16 Range/Units 23:59 WBC (4.8-10.8) K/uL RBC (4.40-5.90) Mil/uL Hgb (12.0-18.0) g/dL Hct (35.0-51.0) % MCV (80.0-94.0) fl MCH (27.0-31.0) pg MCHC (33.0-37.0) g/dL RDW (11.5-14.5) % Plt Count (130-400) K/uL MPV (7.2-11.7) fl Neut % (Auto) (50.0-75.0) % Lymph % (Auto) (20.0-40.0) % Fergus % (Auto) (0.0-10.0) % Eos % (Auto) (0.0-4.0) % Baso % (Auto) (0.0-2.0) % Neut # (1.8-7.0) K/uL Lymph # (1.0-4.3) K/uL Fergus # (0.0-0.8) K/uL Eos # (0.0-0.7) K/uL Baso # (0.0-0.2) K/uL Neutrophils % (Manual) (42-75) % Band Neutrophils % (0-2) % Lymphocytes % (Manual) (20-50) % Monocytes % (Manual) (0-10) % Platelet Estimate (NORMAL) Large Platelets Anisocytosis (manual) Tear Drop Cells Ovalocytes PT (9.6-11.2) SECONDS INR (0.92-1.08) APTT (23.3-32.5) SECONDS pCO2 (35-45) mm/Hg pO2 (80-100) mm/Hg HCO3 (21-28) mmol/L ABG pH (7.35-7.45) ABG Total CO2 (22-28) mmol/L ABG O2 Saturation (95-98) % ABG O2 Content (15-23) ML/dL ABG Base Excess (-2.0-3.0) mmol/L ABG Hemoglobin (11.7-17.4) g/dL ABG Carboxyhemoglobin (0.5-1.5) % POC ABG HHb (Measured) (0.0-5.0) % ABG Methemoglobin (0.0-3.0) % ABG O2 Capacity (16-24) mL/dL Jonathan Test VBG pH (7.32-7.43) VBG pCO2 (40-60) mmHg VBG HCO3 mmol/L VBG Total CO2 (22-28) mmol/L VBG O2 Sat (Calc) (40-65) % VBG Base Excess (0.0-2.0) mmol/L VBG Potassium (3.6-5.2) mmol/L A-a O2 Difference mm/Hg Hgb O2 Saturation (95.0-98.0) % Glucose (75-110) mg/dL Lactate (0.7-2.1) mmol/L Vent Mode Mechanical Rate FiO2 % Tidal Volume PEEP Crit Value Called To Crit Value Called By Crit Value Read Back Blood Gas Notified Time Sodium (132-148) mmol/l Potassium (3.6-5.0) MMOL/L Chloride (98-107) mmol/L Carbon Dioxide (22-30) mmol/L Anion Gap (10-20) BUN (9-20) mg/dl Creatinine (0.8-1.5) mg/dL Est GFR ( Amer) Est GFR (Non-Af Amer) POC Glucose (mg/dL) (65-110) mg/dL Random Glucose (75-110) mg/dL Hemoglobin A1c 6.3 (4.2-6.5) % Lactic Acid (0.7-2.1) MMOL/L Calcium (8.4-10.2) mg/dL Total Bilirubin (0.2-1.3) mg/dl AST (17-59) U/L ALT (21-72) U/L Alkaline Phosphatase (38-126) U/L Lactate Dehydrogenase (313-618) U/L Troponin I (0.00-0.120) ng/mL Total Protein (6.3-8.2) G/DL Albumin (3.5-5.0) g/dL Globulin (2.2-3.9) gm/dL Albumin/Globulin Ratio (1.0-2.1) Venous Blood Potassium (3.6-5.2) mmol/L Laboratory Results - last 24 hr 08/16/16 08/17/16 08/17/16 23:59 09:01 10:11 WBC RBC Hgb Hct MCV MCH MCHC RDW Plt Count MPV Neut % (Auto) Lymph % (Auto) Fergus % (Auto) Eos % (Auto) Baso % (Auto) Neut # Lymph # Fergus # Eos # Baso # Neutrophils % (Manual) Band Neutrophils % Lymphocytes % (Manual) Monocytes % (Manual) Platelet Estimate Large Platelets Anisocytosis (manual) Tear Drop Cells Ovalocytes PT INR APTT pCO2 pO2 HCO3 ABG pH ABG Total CO2 ABG O2 Saturation ABG O2 Content ABG Base Excess ABG Hemoglobin ABG Carboxyhemoglobin POC ABG HHb (Measured) ABG Methemoglobin ABG O2 Capacity Jonathan Test VBG pH VBG pCO2 VBG HCO3 VBG Total CO2 VBG O2 Sat (Calc) VBG Base Excess VBG Potassium A-a O2 Difference Hgb O2 Saturation Glucose Lactate Vent Mode Mechanical Rate FiO2 Tidal Volume PEEP Crit Value Called To Crit Value Called By Crit Value Read Back Blood Gas Notified Time Sodium Potassium Chloride Carbon Dioxide Anion Gap BUN Creatinine Est GFR ( Amer) Est GFR (Non-Af Amer) POC Glucose (mg/dL) 333 H 341 H Random Glucose Hemoglobin A1c 6.3 Lactic Acid Calcium Total Bilirubin AST ALT Alkaline Phosphatase Lactate Dehydrogenase Troponin I Total Protein Albumin Globulin Albumin/Globulin Ratio Venous Blood Potassium 08/17/16 08/17/16 08/17/16 10:34 10:34 10:34 WBC 35.4 H RBC 5.05 Hgb 15.5 Hct 47.3 MCV 93.6 MCH 30.7 MCHC 32.8 L RDW 12.9 Plt Count 336 MPV 8.2 Neut % (Auto) 90.5 H Lymph % (Auto) 4.6 L Fergus % (Auto) 4.9 Eos % (Auto) 0.0 Baso % (Auto) 0.0 Neut # 32.0 H Lymph # 1.6 Fergus # 1.7 H Eos # 0.0 Baso # 0.0 Neutrophils % (Manual) 88 H Band Neutrophils % 5 H Lymphocytes % (Manual) 4 L Monocytes % (Manual) 3 Platelet Estimate Normal Large Platelets Present Anisocytosis (manual) Slight Tear Drop Cells Slight Ovalocytes Slight PT 11.8 H INR 1.13 H APTT 25.4 pCO2 pO2 HCO3 ABG pH ABG Total CO2 ABG O2 Saturation ABG O2 Content ABG Base Excess ABG Hemoglobin ABG Carboxyhemoglobin POC ABG HHb (Measured) ABG Methemoglobin ABG O2 Capacity Jonathan Test VBG pH VBG pCO2 VBG HCO3 VBG Total CO2 VBG O2 Sat (Calc) VBG Base Excess VBG Potassium A-a O2 Difference Hgb O2 Saturation Glucose Lactate Vent Mode Mechanical Rate FiO2 Tidal Volume PEEP Crit Value Called To Crit Value Called By Crit Value Read Back Blood Gas Notified Time Sodium 156 H Potassium 2.6 L Chloride 123 H Carbon Dioxide 17 L Anion Gap 19 BUN 15 Creatinine 1.1 Est GFR ( Amer) > 60 Est GFR (Non-Af Amer) > 60 POC Glucose (mg/dL) Random Glucose 329 H Hemoglobin A1c Lactic Acid Calcium 9.1 Total Bilirubin 1.0 AST 316 H ALT 334 H Alkaline Phosphatase 81 Lactate Dehydrogenase Troponin I Total Protein 5.7 L Albumin 3.2 L Globulin 2.5 Albumin/Globulin Ratio 1.3 Venous Blood Potassium 0508/17/16 08/17/16 10:50 10:55 10:58 WBC RBC Hgb Hct MCV MCH MCHC RDW Plt Count MPV Neut % (Auto) Lymph % (Auto) Fergus % (Auto) Eos % (Auto) Baso % (Auto) Neut # Lymph # Fergus # Eos # Baso # Neutrophils % (Manual) Band Neutrophils % Lymphocytes % (Manual) Monocytes % (Manual) Platelet Estimate Large Platelets Anisocytosis (manual) Tear Drop Cells Ovalocytes PT INR APTT pCO2 36 pO2 97 50 HCO3 15.4 L ABG pH 7.22 L ABG Total CO2 15.8 L ABG O2 Saturation 97.6 ABG O2 Content 21.3 ABG Base Excess -12.1 L ABG Hemoglobin 15.9 ABG Carboxyhemoglobin 1.0 POC ABG HHb (Measured) 2.3 ABG Methemoglobin 1.5 ABG O2 Capacity 21.8 Jonathan Test Yes VBG pH 7.18 L* VBG pCO2 43 VBG HCO3 14.9 VBG Total CO2 17.3 L VBG O2 Sat (Calc) 82.1 H VBG Base Excess -12.0 L VBG Potassium 2.8 L A-a O2 Difference 286.0 324.0 Hgb O2 Saturation 95.1 Glucose 359 H Lactate 9.9 H* Vent Mode Prvc/ac Mechanical Rate 24 FiO2 60.0 60.0 Tidal Volume 500 PEEP Crit Value Called To Juli kaiser Crit Value Called By 15 Crit Value Read Back Y Blood Gas Notified Time 1058 Sodium 155.0 H Potassium Chloride 119.0 H Carbon Dioxide Anion Gap BUN Creatinine Est GFR ( Amer) Est GFR (Non-Af Amer) POC Glucose (mg/dL) 316 H Random Glucose Hemoglobin A1c Lactic Acid Calcium Total Bilirubin AST ALT Alkaline Phosphatase Lactate Dehydrogenase Troponin I Total Protein Albumin Globulin Albumin/Globulin Ratio Venous Blood Potassium 2.8 L 08/17/16 08/17/16 08/17/16 12:22 13:09 13:24 WBC RBC Hgb Hct MCV MCH MCHC RDW Plt Count MPV Neut % (Auto) Lymph % (Auto) Fergus % (Auto) Eos % (Auto) Baso % (Auto) Neut # Lymph # Fergus # Eos # Baso # Neutrophils % (Manual) Band Neutrophils % Lymphocytes % (Manual) Monocytes % (Manual) Platelet Estimate Large Platelets Anisocytosis (manual) Tear Drop Cells Ovalocytes PT INR APTT pCO2 pO2 HCO3 ABG pH ABG Total CO2 ABG O2 Saturation ABG O2 Content ABG Base Excess ABG Hemoglobin ABG Carboxyhemoglobin POC ABG HHb (Measured) ABG Methemoglobin ABG O2 Capacity Jonathan Test VBG pH VBG pCO2 VBG HCO3 VBG Total CO2 VBG O2 Sat (Calc) VBG Base Excess VBG Potassium A-a O2 Difference Hgb O2 Saturation Glucose Lactate Vent Mode Mechanical Rate FiO2 Tidal Volume PEEP Crit Value Called To Crit Value Called By Crit Value Read Back Blood Gas Notified Time Sodium Potassium Chloride Carbon Dioxide Anion Gap BUN Creatinine Est GFR ( Amer) Est GFR (Non-Af Amer) POC Glucose (mg/dL) 299 H 254 H Random Glucose Hemoglobin A1c Lactic Acid Calcium Total Bilirubin AST ALT Alkaline Phosphatase Lactate Dehydrogenase Troponin I 19.8000 H* Total Protein Albumin Globulin Albumin/Globulin Ratio Venous Blood Potassium 08/17/16 08/17/16 08/17/16 14:04 15:04 16:04 WBC RBC Hgb Hct MCV MCH MCHC RDW Plt Count MPV Neut % (Auto) Lymph % (Auto) Fergus % (Auto) Eos % (Auto) Baso % (Auto) Neut # Lymph # Fergus # Eos # Baso # Neutrophils % (Manual) Band Neutrophils % Lymphocytes % (Manual) Monocytes % (Manual) Platelet Estimate Large Platelets Anisocytosis (manual) Tear Drop Cells Ovalocytes PT INR APTT pCO2 pO2 HCO3 ABG pH ABG Total CO2 ABG O2 Saturation ABG O2 Content ABG Base Excess ABG Hemoglobin ABG Carboxyhemoglobin POC ABG HHb (Measured) ABG Methemoglobin ABG O2 Capacity Jonathan Test VBG pH VBG pCO2 VBG HCO3 VBG Total CO2 VBG O2 Sat (Calc) VBG Base Excess VBG Potassium A-a O2 Difference Hgb O2 Saturation Glucose Lactate Vent Mode Mechanical Rate FiO2 Tidal Volume PEEP Crit Value Called To Crit Value Called By Crit Value Read Back Blood Gas Notified Time Sodium Potassium Chloride Carbon Dioxide Anion Gap BUN Creatinine Est GFR ( Amer) Est GFR (Non-Af Amer) POC Glucose (mg/dL) 260 H 237 H 194 H Random Glucose Hemoglobin A1c Lactic Acid Calcium Total Bilirubin AST ALT Alkaline Phosphatase Lactate Dehydrogenase Troponin I Total Protein Albumin Globulin Albumin/Globulin Ratio Venous Blood Potassium 08/17/16 08/17/16 08/17/16 17:18 18:06 18:25 WBC RBC Hgb Hct MCV MCH MCHC RDW Plt Count MPV Neut % (Auto) Lymph % (Auto) Fergus % (Auto) Eos % (Auto) Baso % (Auto) Neut # Lymph # Fergus # Eos # Baso # Neutrophils % (Manual) Band Neutrophils % Lymphocytes % (Manual) Monocytes % (Manual) Platelet Estimate Large Platelets Anisocytosis (manual) Tear Drop Cells Ovalocytes PT INR APTT pCO2 pO2 HCO3 ABG pH ABG Total CO2 ABG O2 Saturation ABG O2 Content ABG Base Excess ABG Hemoglobin ABG Carboxyhemoglobin POC ABG HHb (Measured) ABG Methemoglobin ABG O2 Capacity Jonathan Test VBG pH VBG pCO2 VBG HCO3 VBG Total CO2 VBG O2 Sat (Calc) VBG Base Excess VBG Potassium A-a O2 Difference Hgb O2 Saturation Glucose Lactate Vent Mode Mechanical Rate FiO2 Tidal Volume PEEP Crit Value Called To Crit Value Called By Crit Value Read Back Blood Gas Notified Time Sodium 160 H* Potassium 3.9 Chloride 127 H Carbon Dioxide 20 L Anion Gap 17 BUN 14 Creatinine 1.1 Est GFR ( Amer) > 60 Est GFR (Non-Af Amer) > 60 POC Glucose (mg/dL) 216 H 232 H Random Glucose 263 H Hemoglobin A1c Lactic Acid Calcium 9.7 Total Bilirubin AST ALT Alkaline Phosphatase Lactate Dehydrogenase Troponin I Total Protein Albumin Globulin Albumin/Globulin Ratio Venous Blood Potassium 08/17/16 08/17/16 08/17/16 18:25 18:58 20:04 WBC RBC Hgb Hct MCV MCH MCHC RDW Plt Count MPV Neut % (Auto) Lymph % (Auto) Fergus % (Auto) Eos % (Auto) Baso % (Auto) Neut # Lymph # Fergus # Eos # Baso # Neutrophils % (Manual) Band Neutrophils % Lymphocytes % (Manual) Monocytes % (Manual) Platelet Estimate Large Platelets Anisocytosis (manual) Tear Drop Cells Ovalocytes PT INR APTT pCO2 pO2 HCO3 ABG pH ABG Total CO2 ABG O2 Saturation ABG O2 Content ABG Base Excess ABG Hemoglobin ABG Carboxyhemoglobin POC ABG HHb (Measured) ABG Methemoglobin ABG O2 Capacity Jonathan Test VBG pH VBG pCO2 VBG HCO3 VBG Total CO2 VBG O2 Sat (Calc) VBG Base Excess VBG Potassium A-a O2 Difference Hgb O2 Saturation Glucose Lactate Vent Mode Mechanical Rate FiO2 Tidal Volume PEEP Crit Value Called To Crit Value Called By Crit Value Read Back Blood Gas Notified Time Sodium Potassium Chloride Carbon Dioxide Anion Gap BUN Creatinine Est GFR ( Amer) Est GFR (Non-Af Amer) POC Glucose (mg/dL) 246 H 222 H Random Glucose Hemoglobin A1c Lactic Acid 4.3 H* Calcium Total Bilirubin AST ALT Alkaline Phosphatase Lactate Dehydrogenase Troponin I Total Protein Albumin Globulin Albumin/Globulin Ratio Venous Blood Potassium 08/17/16 08/17/16 08/17/16 21:00 21:13 22:08 WBC RBC Hgb Hct MCV MCH MCHC RDW Plt Count MPV Neut % (Auto) Lymph % (Auto) Fergus % (Auto) Eos % (Auto) Baso % (Auto) Neut # Lymph # Fergus # Eos # Baso # Neutrophils % (Manual) Band Neutrophils % Lymphocytes % (Manual) Monocytes % (Manual) Platelet Estimate Large Platelets Anisocytosis (manual) Tear Drop Cells Ovalocytes PT INR APTT pCO2 pO2 HCO3 ABG pH ABG Total CO2 ABG O2 Saturation ABG O2 Content ABG Base Excess ABG Hemoglobin ABG Carboxyhemoglobin POC ABG HHb (Measured) ABG Methemoglobin ABG O2 Capacity Jonathan Test VBG pH VBG pCO2 VBG HCO3 VBG Total CO2 VBG O2 Sat (Calc) VBG Base Excess VBG Potassium A-a O2 Difference Hgb O2 Saturation Glucose Lactate Vent Mode Mechanical Rate FiO2 Tidal Volume PEEP Crit Value Called To Crit Value Called By Crit Value Read Back Blood Gas Notified Time Sodium Potassium Chloride Carbon Dioxide Anion Gap BUN Creatinine Est GFR ( Amer) Est GFR (Non-Af Amer) POC Glucose (mg/dL) 211 H 224 H Random Glucose Hemoglobin A1c Lactic Acid Calcium Total Bilirubin AST ALT Alkaline Phosphatase Lactate Dehydrogenase Troponin I 16.0000 H* Total Protein Albumin Globulin Albumin/Globulin Ratio Venous Blood Potassium 08/17/16 08/18/16 08/18/16 23:04 00:09 01:10 WBC RBC Hgb Hct MCV MCH MCHC RDW Plt Count MPV Neut % (Auto) Lymph % (Auto) Fergus % (Auto) Eos % (Auto) Baso % (Auto) Neut # Lymph # Fergus # Eos # Baso # Neutrophils % (Manual) Band Neutrophils % Lymphocytes % (Manual) Monocytes % (Manual) Platelet Estimate Large Platelets Anisocytosis (manual) Tear Drop Cells Ovalocytes PT INR APTT pCO2 pO2 HCO3 ABG pH ABG Total CO2 ABG O2 Saturation ABG O2 Content ABG Base Excess ABG Hemoglobin ABG Carboxyhemoglobin POC ABG HHb (Measured) ABG Methemoglobin ABG O2 Capacity Jonathan Test VBG pH VBG pCO2 VBG HCO3 VBG Total CO2 VBG O2 Sat (Calc) VBG Base Excess VBG Potassium A-a O2 Difference Hgb O2 Saturation Glucose Lactate Vent Mode Mechanical Rate FiO2 Tidal Volume PEEP Crit Value Called To Crit Value Called By Crit Value Read Back Blood Gas Notified Time Sodium Potassium Chloride Carbon Dioxide Anion Gap BUN Creatinine Est GFR ( Amer) Est GFR (Non-Af Amer) POC Glucose (mg/dL) 176 H 215 H 181 H Random Glucose Hemoglobin A1c Lactic Acid Calcium Total Bilirubin AST ALT Alkaline Phosphatase Lactate Dehydrogenase Troponin I Total Protein Albumin Globulin Albumin/Globulin Ratio Venous Blood Potassium 08/18/16 08/18/16 08/18/16 02:09 03:05 04:09 WBC RBC Hgb Hct MCV MCH MCHC RDW Plt Count MPV Neut % (Auto) Lymph % (Auto) Fergus % (Auto) Eos % (Auto) Baso % (Auto) Neut # Lymph # [place]ergus # Eos # Baso # Neutrophils % (Manual) Band Neutrophils % Lymphocytes % (Manual) Monocytes % (Manual) Platelet Estimate Large Platelets Anisocytosis (manual) Tear Drop Cells Ovalocytes PT INR APTT pCO2 pO2 HCO3 ABG pH ABG Total CO2 ABG O2 Saturation ABG O2 Content ABG Base Excess ABG Hemoglobin ABG Carboxyhemoglobin POC ABG HHb (Measured) ABG Methemoglobin ABG O2 Capacity Jonathan Test VBG pH VBG pCO2 VBG HCO3 VBG Total CO2 VBG O2 Sat (Calc) VBG Base Excess VBG Potassium A-a O2 Difference Hgb O2 Saturation Glucose Lactate Vent Mode Mechanical Rate FiO2 Tidal Volume PEEP Crit Value Called To Crit Value Called By Crit Value Read Back Blood Gas Notified Time Sodium Potassium Chloride Carbon Dioxide Anion Gap BUN Creatinine Est GFR ( Amer) Est GFR (Non-Af Amer) POC Glucose (mg/dL) 188 H 179 H 187 H Random Glucose Hemoglobin A1c Lactic Acid Calcium Total Bilirubin AST ALT Alkaline Phosphatase Lactate Dehydrogenase Troponin I Total Protein Albumin Globulin Albumin/Globulin Ratio Venous Blood Potassium 08/18/16 08/18/16 08/18/16 04:55 05:15 05:45 WBC 31.5 H RBC 5.20 Hgb 15.9 Hct 48.5 MCV 93.3 MCH 30.6 MCHC 32.7 L RDW 13.5 Plt Count 264 MPV Neut % (Auto) Lymph % (Auto) Fergus % (Auto) Eos % (Auto) Baso % (Auto) Neut # Lymph # [place] # Eos # Baso # Neutrophils % (Manual) Band Neutrophils % Lymphocytes % (Manual) Monocytes % (Manual) Platelet Estimate Large Platelets Anisocytosis (manual) Tear Drop Cells Ovalocytes PT INR APTT pCO2 33 L pO2 62 L HCO3 26.1 ABG pH 7.48 H ABG Total CO2 25.6 ABG O2 Saturation 94.7 L ABG O2 Content 20.9 ABG Base Excess 1.8 ABG Hemoglobin 16.2 ABG Carboxyhemoglobin 1.2 POC ABG HHb (Measured) 5.2 H ABG Methemoglobin 1.5 ABG O2 Capacity 22.1 Jonathan Test Yes VBG pH VBG pCO2 VBG HCO3 VBG Total CO2 VBG O2 Sat (Calc) VBG Base Excess VBG Potassium A-a O2 Difference 325.0 Hgb O2 Saturation 92.1 L Glucose Lactate Vent Mode A/c Mechanical Rate 24 FiO2 60.0 Tidal Volume 500 PEEP 5 Crit Value Called To Pradip acuna Crit Value Called By Maciej Crit Value Read Back Y Blood Gas Notified Time 456 Sodium Potassium Chloride Carbon Dioxide Anion Gap BUN Creatinine Est GFR ( Amer) Est GFR (Non-Af Amer) POC Glucose (mg/dL) 206 H Random Glucose Hemoglobin A1c Lactic Acid Calcium Total Bilirubin AST ALT Alkaline Phosphatase Lactate Dehydrogenase Troponin I Total Protein Albumin Globulin Albumin/Globulin Ratio Venous Blood Potassium 08/18/16 08/18/16 08/18/16 05:45 06:11 06:58 WBC RBC Hgb Hct MCV MCH MCHC RDW Plt Count MPV Neut % (Auto) Lymph % (Auto) F[place] % (Auto) Eos % (Auto) Baso % (Auto) Neut # Lymph # [place] # Eos # Baso # Neutrophils % (Manual) Band Neutrophils % Lymphocytes % (Manual) Monocytes % (Manual) Platelet Estimate Large Platelets Anisocytosis (manual) Tear Drop Cells Ovalocytes PT INR APTT pCO2 pO2 HCO3 ABG pH ABG Total CO2 ABG O2 Saturation ABG O2 Content ABG Base Excess ABG Hemoglobin ABG Carboxyhemoglobin POC ABG HHb (Measured) ABG Methemoglobin ABG O2 Capacity Jonathan Test VBG pH VBG pCO2 VBG HCO3 VBG Total CO2 VBG O2 Sat (Calc) VBG Base Excess VBG Potassium A-a O2 Difference Hgb O2 Saturation Glucose Lactate Vent Mode Mechanical Rate FiO2 Tidal Volume PEEP Crit Value Called To Crit Value Called By Crit Value Read Back Blood Gas Notified Time Sodium 171 H* Potassium 4.0 Chloride 131 H Carbon Dioxide 27 Anion Gap 17 BUN 11 Creatinine 1.5 Est GFR ( Amer) 59 Est GFR (Non-Af Amer) 49 POC Glucose (mg/dL) 207 H 216 H Random Glucose 194 H Hemoglobin A1c Lactic Acid Calcium 10.0 Total Bilirubin 2.0 H AST 178 H D ALT 246 H D Alkaline Phosphatase 106 Lactate Dehydrogenase 2046 H Troponin I 14.6000 H* Total Protein 5.9 L Albumin 3.2 L Globulin 2.7 Albumin/Globulin Ratio 1.2 Venous Blood Potassium 08/18/16 08:00 WBC RBC Hgb Hct MCV MCH MCHC RDW Plt Count MPV Neut % (Auto) Lymph % (Auto) Fergus % (Auto) Eos % (Auto) Baso % (Auto) Neut # Lymph # Fergus # Eos # Baso # Neutrophils % (Manual) Band Neutrophils % Lymphocytes % (Manual) Monocytes % (Manual) Platelet Estimate Large Platelets Anisocytosis (manual) Tear Drop Cells Ovalocytes PT INR APTT pCO2 pO2 HCO3 ABG pH ABG Total CO2 ABG O2 Saturation ABG O2 Content ABG Base Excess ABG Hemoglobin ABG Carboxyhemoglobin POC ABG HHb (Measured) ABG Methemoglobin ABG O2 Capacity Jonathan Test VBG pH VBG pCO2 VBG HCO3 VBG Total CO2 VBG O2 Sat (Calc) VBG Base Excess VBG Potassium A-a O2 Difference Hgb O2 Saturation Glucose Lactate Vent Mode Mechanical Rate FiO2 Tidal Volume PEEP Crit Value Called To Crit Value Called By Crit Value Read Back Blood Gas Notified Time Sodium Potassium Chloride Carbon Dioxide Anion Gap BUN Creatinine Est GFR ( Amer) Est GFR (Non-Af Amer) POC Glucose (mg/dL) 234 H Random Glucose Hemoglobin A1c Lactic Acid Calcium Total Bilirubin AST ALT Alkaline Phosphatase Lactate Dehydrogenase Troponin I Total Protein Albumin Globulin Albumin/Globulin Ratio Venous Blood Potassium Fingerstick Blood Sugar Results: 216 Assessment/Plan - Assessment and Plan (Free Text) Assessment: A/P Cardiac arrest s/p hypothermia protocol, s/p cervical discectomy & cervical fusion, anoxic encephalopathy, hypokalemia, hyperglycemia, hypernatremia - Ventilatory support - Pulmonary toilets - Pressors as needed - Continue meds - Free water - Neurology, neurosurgery follow up - Poor prognosis Critical care 40 min
--- NOTE | 2016-08-18 08:24 | CP.PCM.PN ---
Subjective - Date & Time of Evaluation Date of Evaluation: 08/18/16 Time of Evaluation: 08:22 - Subjective Subjective: pt essentially unchanged on pressors and insulin drip pupils fixed and dilated no gag no rx to noxious prognosis poor mgmt per critical care staff Objective - Vital Signs/Intake and Output Vital Signs (last 24 hours): Temp Pulse Resp BP Pulse Ox 100.4 F H 101 H 15 108/67 94 L 08/18/16 08:16 08/18/16 07:43 08/18/16 07:43 08/18/16 07:43 08/18/16 07:43 Intake and Output: 08/18/16 08/18/16 06:59 18:59 Intake Total 1026 Output Total 3800 Balance -2774 - Medications Medications: Current Medications Acetaminophen (Tylenol 650mg/20.3ml Solution Ud) 650 mg PO Q6 PRN PRN Reason: Fever Last Admin: 08/18/16 08:16 Dose: 650 mg Artificial Tears (Lacri-Lube) [address] [facility] Last Admin: 08/17/16 21:19 Dose: 1 applic Dextrose (Dextrose 50% Inj) 0 ml IV STAT PRN; Protocol PRN Reason: Hyglycemia Protocol Dextrose (Glutose 15) 0 gm PO ONCE PRN; Protocol PRN Reason: Hypoglycemia Protocol Glucagon (Glucagen Diagnostic Kit) 0 mg IM STAT PRN; Protocol PRN Reason: Hypoglycemia Protocol Sodium Chloride (Sodium Chloride 0.9%) 1,000 mls @ 100 mls/hr IV .Q10H [facility] Last Admin: 08/16/16 22:27 Dose: 100 mls/hr Piperacillin Sod/Tazobactam (Sod 3.375 gm/ Sodium Chloride) 100 mls @ 100 mls/ hr IVPB Q6 [facility] Last Admin: 08/18/16 03:26 Dose: 100 mls/hr Insulin Human Regular 100 (units/ Sodium Chloride) 101 mls @ 5.05 mls/hr IVPB .Q20H [facility]; 5 UNITS/HR PRN Reason: Protocol Last Admin: 08/17/16 16:00 Dose: 5.05 mls/hr Dextrose/Sodium Chloride (Dextrose 5%/0.45% Ns 1000 Ml) 1,000 mls @ 175 mls/hr IV .Q5H43M [facility] Stop: 08/18/16 16:54 Last Admin: 08/18/16 08:17 Dose: 175 mls/hr Norepinephrine Bitartrate 4 mg (/ Dextrose) 254 mls @ 76.2 mls/hr IV .Q3H20M [facility]; 20 MCG/MIN PRN Reason: Protocol Last Admin: 08/18/16 06:46 Dose: 20 mcg/min, 76.2 mls/hr Pantoprazole Sodium (Protonix Inj) 40 mg IVP DAILY [facility] Last Admin: 08/18/16 08:14 Dose: 40 mg - Labs Labs: 08/18/16 05:45 08/18/16 05:45 PT 11.8 SECONDS (9.6-11.2) H 08/17/16 10:34 INR 1.13 (0.92-1.08) H 08/17/16 10:34 APTT 25.4 SECONDS (23.3-32.5) 08/17/16 10:34
--- NOTE | 2016-08-18 10:39 | CP.PCM.PN ---
Subjective - Date & Time of Evaluation Date of Evaluation: 08/18/16 Time of Evaluation: 10:36 - Subjective Subjective: Clinically appears unchanged. Remains unresponsive, mechanically ventilated. [employer] and neurology notes appreciated. Remains on pressors and empiric antibiotic. FiO2 reduced to .80 overnight. No spontaneous ventilation noted. No dullness on chest percussion, no subcut emphysema. Breath sounds are present bilaterally w/o audible wheezing. Rare dry rales are heard in the dependant zones of both lungs. Bronchial character of the breath sounds noted in the LLL posteriorly. Today's CXR not yet done. Will request rotational therapy with 'Sport bed'. Electrolyte and glucose management. Objective - Vital Signs/Intake and Output Vital Signs (last 24 hours): Temp Pulse Resp BP Pulse Ox 100.8 F H 107 H 24 106/54 L 92 L 08/18/16 09:00 08/18/16 09:00 08/18/16 09:00 08/18/16 09:00 08/18/16 09:00 Intake and Output: 08/17/16 08/18/16 23:59 11:59 Intake Total 3380 1296 Output Total 3425 3025 Balance -45 -1729 - Medications Medications: Current Medications Acetaminophen (Tylenol 650mg/20.3ml Solution Ud) 650 mg PO Q6 PRN PRN Reason: Fever Last Admin: 08/18/16 08:16 Dose: 650 mg Artificial Tears (Lacri-Lube) 1 applic OU HS [facility] Last Admin: 08/17/16 21:19 Dose: 1 applic Dextrose (Dextrose 50% Inj) 0 ml IV STAT PRN; Protocol PRN Reason: Hyglycemia Protocol Dextrose (Glutose 15) 0 gm PO ONCE PRN; Protocol PRN Reason: Hypoglycemia Protocol Glucagon (Glucagen Diagnostic Kit) 0 mg IM STAT PRN; Protocol PRN Reason: Hypoglycemia Protocol Sodium Chloride (Sodium Chloride 0.9%) 1,000 mls @ 100 mls/hr IV .Q10H [facility] Last Admin: 08/16/16 22:27 Dose: 100 mls/hr Piperacillin Sod/Tazobactam (Sod 3.375 gm/ Sodium Chloride) 100 mls @ 100 mls/ hr IVPB Q6 [facility] Last Admin: 08/18/16 09:07 Dose: 100 mls/hr Insulin Human Regular 100 (units/ Sodium Chloride) 101 mls @ 5.05 mls/hr IVPB .Q20H [facility]; 5 UNITS/HR PRN Reason: Protocol Last Admin: 08/17/16 16:00 Dose: 5.05 mls/hr Dextrose/Sodium Chloride (Dextrose 5%/0.45% Ns 1000 Ml) 1,000 mls @ 175 mls/hr IV .Q5H43M [facility] Stop: 08/18/16 16:54 Last Admin: 08/18/16 08:17 Dose: 175 mls/hr Norepinephrine Bitartrate 4 mg (/ Dextrose) 254 mls @ 76.2 mls/hr IV .Q3H20M [facility]; 20 MCG/MIN PRN Reason: Protocol Last Admin: 08/18/16 06:46 Dose: 20 mcg/min, 76.2 mls/hr Pantoprazole Sodium (Protonix Inj) 40 mg IVP DAILY [facility] Last Admin: 08/18/16 08:14 Dose: 40 mg - Labs Labs: 08/18/16 05:45 08/18/16 05:45 PT 11.8 SECONDS (9.6-11.2) H 08/17/16 10:34 INR 1.13 (0.92-1.08) H 08/17/16 10:34 APTT 25.4 SECONDS (23.3-32.5) 08/17/16 10:34 Assessment and Plan (1) Endotracheally intubated Status: Acute (2) Cardiac arrest Status: Acute (3) On mechanically assisted ventilation Status: Acute
--- NOTE | 2016-08-18 11:47 | RAD ---
HISTORY: Intubated. COMPARISON: Comparison made with prior study 08/17/2016 FINDINGS: LUNGS: In situ ETT, tip of which lies approximately 3.07 cm above janice. Heart NGT is present, the tip of which has not been included on this film though distal aspect does lie well below EG junction on near midline. Low lung volumes with crowded bronchovascular markings and mild bibasilar atelectasis left greater than right. However left lower lobe infiltrate not excluded. There also appears to be small left-sided effusion. PLEURA: As above. No apparent pneumothorax apparent. CARDIOVASCULAR: Normal. OSSEOUS STRUCTURES: No significant abnormalities. VISUALIZED UPPER ABDOMEN: Normal. OTHER FINDINGS: None. IMPRESSION: In situ ETT, tip of which lies approximately 3.07 cm above janice. Heart NGT is present, the tip of which has not been included on this film though distal aspect does lie well below EG junction on near midline. Low lung volumes with crowded bronchovascular markings and mild bibasilar atelectasis left greater than right. However left lower lobe infiltrate not excluded. There also appears to be small left-sided effusion. Exit
[2016-08-18 12:29] LABS: ALB/GLOB RATIO 1.2 (1.0-2.1); BILIRUBIN,TOTAL 2.2 mg/dl (0.2-1.3); POTASSIUM 3.5 MMOL/L (3.6-5.0); TOTAL PROTEIN 5.7 G/DL (6.3-8.2)
[2016-08-18 20:37] LABS: ALB/GLOB RATIO 1.1 (1.0-2.1); CALCIUM 10.1 mg/dL (8.4-10.2); POTASSIUM 3.2 MMOL/L (3.6-5.0); TOTAL PROTEIN 5.8 G/DL (6.3-8.2)
[2016-08-18] MEDS: Potassium CL 10 MEQ/50 ML 50 ML IVPB SCH ×3 (20:58→23:15)
[2016-08-18] MEDS: Mineral Oil/White Petrolatum Ophth Oint OU SCH (21:25)
--- NOTE | 2016-08-18 21:27 | CP.PCM.PN ---
Subjective - Date & Time of Evaluation Date of Evaluation: 08/18/16 Time of Evaluation: 14:20 - Subjective Subjective: Mr. Vázquez was seen and examined today in the ICU with his family at bedside. He continued to be in critical condition, not responsive, off hypothermia, off sedation. I discussed multi-organ failure, the lack of brainstem reflexes and the likelihood of brain with the family. I discussed having a CTA done to evaluate for any cerebral blood flow and they understood the risk of the patient "coding" as he is clinically unstable, if her were to go down for the scan. But, they are eager to find out if their relative is truly brain . Objective - Vital Signs/Intake and Output Vital Signs (last 24 hours): Temp Pulse Resp BP Pulse Ox 101 F H 100 H 24 115/65 96 08/18/16 18:00 08/18/16 19:00 08/18/16 19:00 08/18/16 19:00 08/18/16 19:00 Intake and Output: 08/18/16 08/19/16 18:59 06:59 Intake Total 4904 451 Output Total 3000 175 Balance 1904 276 - Medications Medications: Current Medications Acetaminophen (Tylenol 650mg/20.3ml Solution Ud) 650 mg PO Q6 PRN PRN Reason: Fever Last Admin: 08/18/16 16:10 Dose: 650 mg Artificial Tears (Lacri-Lube) 1 applic OU HS [facility] Last Admin: 08/17/16 21:19 Dose: 1 applic Dextrose (Dextrose 50% Inj) 0 ml IV STAT PRN; Protocol PRN Reason: Hyglycemia Protocol Dextrose (Glutose 15) 0 gm PO ONCE PRN; Protocol PRN Reason: Hypoglycemia Protocol Glucagon (Glucagen Diagnostic Kit) 0 mg IM STAT PRN; Protocol PRN Reason: Hypoglycemia Protocol Piperacillin Sod/Tazobactam (Sod 3.375 gm/ Sodium Chloride) 100 mls @ 100 mls/ hr IVPB Q6 [facility] Last Admin: 08/18/16 21:10 Dose: 100 mls/hr Insulin Human Regular 100 (units/ Sodium Chloride) 101 mls @ 5.05 mls/hr IVPB .Q20H [facility]; 5 UNITS/HR PRN Reason: Protocol Last Admin: 08/18/16 20:30 Dose: 5.05 mls/hr Vasopressin 100 units/ Sodium (Chloride) 105 mls @ 1.89 mls/hr IV .Q24H [facility]; 0.03 UNITS/MIN PRN Reason: Protocol Last Admin: 08/18/16 19:00 Dose: 0.03 units/min, 1.89 mls/hr Dextrose (Dextrose 5% In Water 1000 Ml) 1,000 mls @ 175 mls/hr IV .Q5H43M [facility] Stop: 08/19/16 15:59 Last Admin: 08/18/16 16:08 Dose: 175 mls/hr Norepinephrine Bitartrate 8 mg (/ Dextrose) 508 mls @ 95.25 mls/hr IV .Q5H20M [facility]; 25 MCG/MIN PRN Reason: Protocol Potassium Chloride (Potassium Cl 10meq/50ml Sterile Water) 50 mls @ 50 mls/hr IVPB Q1 [facility] Stop: 08/18/16 23:59 Last Admin: 08/18/16 20:58 Dose: 50 mls/hr Insulin Human Regular 100 (units/ Sodium Chloride) 101 mls @ 12.12 mls/hr IVPB .Q8H20M [facility]; 12 UNITS/HR PRN Reason: Protocol Pantoprazole Sodium (Protonix Inj) 40 mg IVP DAILY [facility] Last Admin: 08/18/16 08:14 Dose: 40 mg - Labs Labs: 08/18/16 05:45 08/18/16 20:20 PT 11.8 SECONDS (9.6-11.2) H 08/17/16 10:34 INR 1.13 (0.92-1.08) H 08/17/16 10:34 APTT 25.4 SECONDS (23.3-32.5) 08/17/16 10:34 - Neurological Exam Additional comments: GCS 3T. No brainstem reflexes. Pupils are fixed, dilated, and non-reactive. Not breathing over the vent. On max pressers. Off sedation. Assessment and Plan (1) Anoxic brain injury Assessment & Plan: I recommend obtaining a CTA of the head and neck as well as non-contrast CT head. The lack of brainstem reflexes and multi-organ failure is a very poor prognosis. Status: Acute
[2016-08-18] MEDS: Norepinephrine 8 MG in Dextrose 5% In Water 500 ML IV SCH (22:00)
[2016-08-18] MEDS ORDERED: DOPamine 400mg/250ml D5W 400 MG/250 ML BAG IV ONE (22:21)
[2016-08-19 01:04] LABS: CALCIUM 9.8 mg/dL (8.4-10.2); POTASSIUM 3.3 MMOL/L (3.6-5.0)
[2016-08-19] MEDS: Potassium CL 10 MEQ/50 ML 50 ML IVPB SCH ×7 (02:06→22:34)
[2016-08-19 02:27] LABS: RBC URINE 4 /hpf (0-3); URINE BACTERIA RARE (<OCC); URINE BILIRUBIN NEGATIVE (NEGATIVE); URINE BLOOD MODERATE (NEGATIVE); URINE COLOR YELLOW (YELLOW); URINE GLUCOSE (UA) NEG (Normal); URINE KETONE NEGATIVE (NEGATIVE); URINE LEUKOCYTE ESTERASE SMALL Leu/uL (Negative); URINE PROTEIN 30 mg/dL (NEGATIVE); WBC URINE 11 /hpf (0-5)
[2016-08-19] MEDS: Piperacillin/Tazobact 3.375 GM in Sodium Chloride 0.9% 100 ML IVPB SCH ×4 (03:05→22:04)
[2016-08-19 04:55] LABS: ABG ALLEN TEST YES; ABG MECHANICAL RATE 24; ARTERIAL BLOOD GAS HCO3 25.2 mmol/L (21-28); ARTERIAL BLOOD GAS MODE PRVC A/C; ARTERIAL BLOOD GAS O2 CAPACITY 19.7 mL/dL (16-24); ARTERIAL BLOOD GAS O2 CONTENT 19.3 ML/dL (15-23); ARTERIAL BLOOD GAS PH 7.48 (7.35-7.45); ARTERIAL BLOOD GAS PO2 87 mm/Hg (80-100); ARTERIAL BLOOD HGB O2 SAT 95.3 % (95.0-98.0); CARBOXYHEMOGLOBIN 0.9 % (0.5-1.5); HHB 2.1 % (0.0-5.0); METHEMOGLOBIN 1.7 % (0.0-3.0)
[2016-08-19] MEDS: Norepinephrine 8 MG in Dextrose 5% In Water 500 ML IV SCH ×2 (05:00→15:01)
[2016-08-19 05:17] LABS: BLOOD GAS HEMOGLOBIN 14.4 g/dL (11.7-17.4); CARBOXYHEMOGLOBIN 0.8 % (0.5-1.5); HHB 38.8 % (0.0-5.0); METHEMOGLOBIN 1.5 % (0.0-3.0); VENOUS BLOOD GAS PCO2 42 mmHg (40-60); VENOUS BLOOD HGB O2 SAT 58.9 % (95.0-98.0)
[2016-08-19 05:50] LABS: BASO % 0.3 % (0.0-2.0); EOS # 0.1 K/uL (0.0-0.7); EOS % 0.4 % (0.0-4.0); HEMATOCRIT 44.1 % (35.0-51.0); LYMPH % 13.4 % (20.0-40.0); MEAN CELL VOLUME 92.7 fl (80.0-94.0); MEAN CORPUSCULAR HEMOGLOBIN 30.3 pg (27.0-31.0); MEAN CORPUSCULAR HGB CONC 32.7 g/dL (33.0-37.0); MEAN PLATELET VOLUME 9.1 fl (7.2-11.7); MONO # 0.9 K/uL (0.0-0.8); MONO % 6.2 % (0.0-10.0); NEUT # 11.7 K/uL (1.8-7.0); NEUT % 79.7 % (50.0-75.0); RED CELL DISTRIBUTION WIDTH 13.7 % (11.5-14.5); WHITE BLOOD COUNT 14.7 K/uL (4.8-10.8)
[2016-08-19 06:21] LABS: POTASSIUM 2.9 MMOL/L (3.6-5.0)
[2016-08-19 06:22] LABS: CALCIUM 9.3 mg/dL (8.4-10.2); TOTAL PROTEIN 5.7 G/DL (6.3-8.2)
[2016-08-19 06:27] LABS: TROPONIN I 5.43 ng/mL (0.00-0.120)
[2016-08-19] MEDS: Potassium Chl 40mEq & D5W 1,000 ML IV SCH ×2 (07:19→15:00)
--- NOTE | 2016-08-19 07:24 | CP.CCUPN ---
CCU Subjective - Physician Review Events Since Last Encounter (Free Text): 08/19/16 07:23 Patient on ventilator, on PRVC TV 500, RR 20, FIO2 80%, on levophed, dopamine and vasopressin drips, no response to any stimuli, events reviewed 08/19/16 07:25 CCU Objective - Vital Signs / Intake & Output Vital Signs (Last 4 hours): Vital Signs Temp Pulse Resp BP BP Pulse Ox 08/19/16 07:00 102.7 F H 97 H 20 116/65 112/64 08/19/16 06:00 102.7 F H 101 H 20 111/63 111/63 97 08/19/16 05:00 103.2 F H 102 H 24 131/74 131/71 94 L 08/19/16 04:00 103.1 F H 104 H 24 149/79 149/79 98 Intake and Output (Last 8hrs): Intake & Output 08/18/16 08/19/16 08/19/16 22:59 06:59 14:59 Intake Total 3576 2816 250 Output Total 2124 1924 200 Balance 1451 891 50 Intake: IV 2476 2116 250 Intake, Piggyback 250 450 Free Water Flush 850 250 Output: Urine 2124 1924 200 Urethral (Hilario) 2124 1924 200 - Physical Exam Head: Positive for: Atraumatic, Normocephalic Pupils: Positive for: Non-Reactive Conjunctiva: Positive for: Normal Ears: Positive for: Normal Mouth: Positive for: Moist Mucous Membranes Nose (Internal): Positive for: Normal Inspection Neck: Positive for: Normal Range of Motion Respiratory/Chest: Positive for: Rhonchi Cardiovascular: Positive for: Regular Rate and Rhythm Abdomen: Positive for: Normal Bowel Sounds Upper Extremity: Positive for: Normal Inspection Lower Extremity: Positive for: Normal Inspection Neurological: Positive for: Other (no response to any stimuli) - Medications Active Medications: Active Medications Generic Name Dose Route Start Last Admin Trade Name Freq PRN Reason Stop Dose Admin Acetaminophen 650 mg 08/18/16 00:52 08/18/16 23:22 Tylenol 650mg/20.3ml Solution Ud PO 650 mg Q6 PRN Administration Fever Artificial Tears 1 applic 08/16/16 22:00 08/18/16 21:25 Lacri-Lube OU 1 applic HS ELAINE Administration Dextrose 0 ml 08/17/16 00:01 Dextrose 50% Inj IV STAT PRN Hyglycemia Protocol Protocol Dextrose 0 gm 08/17/16 00:01 Glutose 15 PO ONCE PRN Hypoglycemia Protocol Protocol Glucagon 0 mg 08/17/16 00:01 Glucagen Diagnostic Kit IM STAT PRN Hypoglycemia Protocol Protocol Piperacillin Sod/Tazobactam 100 mls @ 100 mls/hr 08/16/16 22:00 08/19/16 03: 05 Sod 3.375 gm/ Sodium Chloride IVPB 100 mls/hr Q6 ELAINE Administration Vasopressin 100 units/ Sodium 105 mls @ 1.89 mls/hr 08/18/16 16:00 08/18/16 19:00 Chloride IV 0.03 units/min .Q24H ELAINE 1.89 mls/hr Protocol Administration 0.03 UNITS/MIN Norepinephrine Bitartrate 8 mg 508 mls @ 95.25 mls/hr 08/18/16 20:30 05:00 / Dextrose IV 20 mcg/min .Q5H20M ELAINE 76.2 mls/hr Protocol Administration 25 MCG/MIN Insulin Human Regular 100 101 mls @ 12.12 mls/hr 08/18/16 21:00 08/19/16 04: 00 units/ Sodium Chloride IVPB 7 mls/hr .Q8H20M ELAINE Administration Protocol 12 UNITS/HR Potassium Chloride 50 mls @ 50 mls/hr 08/19/16 07:00 08/19/16 07:02 Potassium Cl 10meq/50ml Sterile Water IVPB 08/19/16 10:59 50 mls/hr Q1 ELAINE Administration Potassium Chloride/Dextrose 1,000 mls @ 171.567 mls/hr 08/19/16 06:48 07:19 Potassium Chl 40 Meq In D5w IV 08/19/16 15:59 171.567 mls/hr .Q5H50M ELAINE Administration Pantoprazole Sodium 40 mg 08/17/16 20:41 08/18/16 08:14 Protonix Inj IVP 40 mg DAILY ELAINE Administration - Patient Studies Lab Studies: Microbiology Studies 08/18/16 14:23 Gram Stain - Final Trachasp Lab Studies 08/19/16 08/19/16 08/19/16 Range/Units 06:35 05:46 05:46 WBC (4.8-10.8) K/uL RBC (4.40-5.90) Mil/uL Hgb (12.0-18.0) g/dL Hct (35.0-51.0) % MCV (80.0-94.0) fl MCH (27.0-31.0) pg MCHC (33.0-37.0) g/dL RDW (11.5-14.5) % Plt Count (130-400) K/uL MPV (7.2-11.7) fl Neut % (Auto) (50.0-75.0) % Lymph % (Auto) (20.0-40.0) % [place] % (Auto) (0.0-10.0) % Eos % (Auto) (0.0-4.0) % Baso % (Auto) (0.0-2.0) % Neut # (1.8-7.0) K/uL Lymph # (1.0-4.3) K/uL [place] # (0.0-0.8) K/uL Eos # (0.0-0.7) K/uL Baso # (0.0-0.2) K/uL pCO2 (35-45) mm/Hg pO2 (80-100) mm/Hg HCO3 (21-28) mmol/L ABG pH (7.35-7.45) ABG Total CO2 (22-28) mmol/L ABG O2 Saturation (95-98) % ABG O2 Content (15-23) ML/dL ABG Base Excess (-2.0-3.0) mmol/L ABG Hemoglobin (11.7-17.4) g/dL ABG Carboxyhemoglobin (0.5-1.5) % POC ABG HHb (Measured) (0.0-5.0) % ABG Methemoglobin (0.0-3.0) % ABG O2 Capacity (16-24) mL/dL Jonathan Test VBG pH (7.32-7.43) VBG pCO2 (40-60) mmHg VBG HCO3 mmol/L VBG O2 Sat (Calc) (40-65) % VBG Base Excess (0.0-2.0) mmol/L VBG Hgb O2 Saturation (95.0-98.0) % A-a O2 Difference mm/Hg Hemoglobin (11.7-17.4) g/dL Hgb O2 Saturation (95.0-98.0) % Vent Mode Mechanical Rate FiO2 % Tidal Volume Sodium 167 H* (132-148) mmol/l Potassium 2.9 L (3.6-5.0) MMOL/L Chloride 132 H (98-107) mmol/L Carbon Dioxide 23 (22-30) mmol/L Anion Gap 15 (10-20) BUN 12 (9-20) mg/dl Creatinine 1.8 H (0.8-1.5) mg/dL Est GFR ( Amer) 48 Est GFR (Non-Af Amer) 40 POC Glucose (mg/dL) 173 H (65-110) mg/dL Random Glucose 149 H (75-110) mg/dL Lactic Acid 2.7 H (0.7-2.1) MMOL/L Calcium 9.3 (8.4-10.2) mg/dL Ionized Calcium (4.80-5.60) mg/dL Total Bilirubin 4.0 H (0.2-1.3) mg/dl AST 187 H D (17-59) U/L ALT 184 H (21-72) U/L Alkaline Phosphatase 115 (38-126) U/L Troponin I 5.4300 H* (0.00-0.120) ng/mL Total Protein 5.7 L (6.3-8.2) G/DL Albumin 2.9 L (3.5-5.0) g/dL Globulin 2.8 (2.2-3.9) gm/dL Albumin/Globulin Ratio 1.0 (1.0-2.1) Urine Color (YELLOW) Urine Clarity (Clear) Urine pH (5.0-8.0) Ur Specific [place] (1.003-1.030) Urine Protein (NEGATIVE) mg/dL Urine Glucose (UA) (Normal) mg/dL Urine Ketones (NEGATIVE) mg/dL Urine Blood (NEGATIVE) Urine Nitrate (NEGATIVE) Urine Bilirubin (NEGATIVE) Urine Urobilinogen (0.2-1.0) mg/dL Ur Leukocyte Esterase (Negative) [place]/uL Urine RBC (Auto) (0-3) /hpf Urine Microscopic WBC (0-5) /hpf Ur Squamous Epith Cells (0-5) /hpf Urine Bacteria (<OCC) Urine Yeast (Budding) (NEGATIVE) /hpf 08/19/16 08/19/16 08/19/16 Range/Units 05:46 05:40 05:09 WBC 14.7 H D (4.8-10.8) K/uL RBC 4.76 (4.40-5.90) Mil/uL Hgb 14.4 (12.0-18.0) g/dL Hct 44.1 (35.0-51.0) % MCV 92.7 (80.0-94.0) fl MCH 30.3 (27.0-31.0) pg MCHC 32.7 L (33.0-37.0) g/dL RDW 13.7 (11.5-14.5) % Plt Count 195 (130-400) K/uL MPV 9.1 (7.2-11.7) fl Neut % (Auto) 79.7 H (50.0-75.0) % Lymph % (Auto) 13.4 L (20.0-40.0) % [place] % (Auto) 6.2 (0.0-10.0) % Eos % (Auto) 0.4 (0.0-4.0) % Baso % (Auto) 0.3 (0.0-2.0) % Neut # 11.7 H (1.8-7.0) K/uL Lymph # 2.0 (1.0-4.3) K/uL [place] # 0.9 H (0.0-0.8) K/uL Eos # 0.1 (0.0-0.7) K/uL Baso # 0.0 (0.0-0.2) K/uL pCO2 (35-45) mm/Hg pO2 27 L (80-100) mm/Hg HCO3 (21-28) mmol/L ABG pH (7.35-7.45) ABG Total CO2 (22-28) mmol/L ABG O2 Saturation (95-98) % ABG O2 Content (15-23) ML/dL ABG Base Excess (-2.0-3.0) mmol/L ABG Hemoglobin (11.7-17.4) g/dL ABG Carboxyhemoglobin 0.8 (0.5-1.5) % POC ABG HHb (Measured) 38.8 H (0.0-5.0) % ABG Methemoglobin 1.5 (0.0-3.0) % ABG O2 Capacity (16-24) mL/dL Jonathan Test VBG pH 7.40 (7.32-7.43) VBG pCO2 42 (40-60) mmHg VBG HCO3 24.6 mmol/L VBG O2 Sat (Calc) 60.3 (40-65) % VBG Base Excess 1.0 (0.0-2.0) mmol/L VBG Hgb O2 Saturation 58.9 L (95.0-98.0) % A-a O2 Difference mm/Hg Hemoglobin 14.4 (11.7-17.4) g/dL Hgb O2 Saturation (95.0-98.0) % Vent Mode Mechanical Rate FiO2 % Tidal Volume Sodium (132-148) mmol/l Potassium (3.6-5.0) MMOL/L Chloride (98-107) mmol/L Carbon Dioxide (22-30) mmol/L Anion Gap (10-20) BUN (9-20) mg/dl Creatinine (0.8-1.5) mg/dL Est GFR ( Amer) Est GFR (Non-Af Amer) POC Glucose (mg/dL) 155 H (65-110) mg/dL Random Glucose (75-110) mg/dL Lactic Acid (0.7-2.1) MMOL/L Calcium (8.4-10.2) mg/dL Ionized Calcium (4.80-5.60) mg/dL Total Bilirubin (0.2-1.3) mg/dl AST (17-59) U/L ALT (21-72) U/L Alkaline Phosphatase (38-126) U/L Troponin I (0.00-0.120) ng/mL Total Protein (6.3-8.2) G/DL Albumin (3.5-5.0) g/dL Globulin (2.2-3.9) gm/dL Albumin/Globulin Ratio (1.0-2.1) Urine Color (YELLOW) Urine Clarity (Clear) Urine pH (5.0-8.0) Ur Specific [place] (1.003-1.030) Urine Protein (NEGATIVE) mg/dL Urine Glucose (UA) (Normal) mg/dL Urine Ketones (NEGATIVE) mg/dL Urine Blood (NEGATIVE) Urine Nitrate (NEGATIVE) Urine Bilirubin (NEGATIVE) Urine Urobilinogen (0.2-1.0) mg/dL Ur Leukocyte Esterase (Negative) [place]/uL Urine RBC (Auto) (0-3) /hpf Urine Microscopic WBC (0-5) /hpf Ur Squamous Epith Cells (0-5) /hpf Urine Bacteria (<OCC) Urine Yeast (Budding) (NEGATIVE) /hpf 08/19/16 08/19/16 08/19/16 Range/Units 04:57 04:47 03:51 WBC (4.8-10.8) K/uL RBC (4.40-5.90) Mil/uL Hgb (12.0-18.0) g/dL Hct (35.0-51.0) % MCV (80.0-94.0) fl MCH (27.0-31.0) pg MCHC (33.0-37.0) g/dL RDW (11.5-14.5) % Plt Count (130-400) K/uL MPV (7.2-11.7) fl Neut % (Auto) (50.0-75.0) % Lymph % (Auto) (20.0-40.0) % [place] % (Auto) (0.0-10.0) % Eos % (Auto) (0.0-4.0) % Baso % (Auto) (0.0-2.0) % Neut # (1.8-7.0) K/uL Lymph # (1.0-4.3) K/uL [place] # (0.0-0.8) K/uL Eos # (0.0-0.7) K/uL Baso # (0.0-0.2) K/uL pCO2 31 L (35-45) mm/Hg pO2 87 (80-100) mm/Hg HCO3 25.2 (21-28) mmol/L ABG pH 7.48 H (7.35-7.45) ABG Total CO2 24.1 (22-28) mmol/L ABG O2 Saturation 97.8 (95-98) % ABG O2 Content 19.3 (15-23) ML/dL ABG Base Excess 0.4 (-2.0-3.0) mmol/L ABG Hemoglobin 14.4 (11.7-17.4) g/dL ABG Carboxyhemoglobin 0.9 (0.5-1.5) % POC ABG HHb (Measured) 2.1 (0.0-5.0) % ABG Methemoglobin 1.7 (0.0-3.0) % ABG O2 Capacity 19.7 (16-24) mL/dL Jonathan Test Yes VBG pH (7.32-7.43) VBG pCO2 (40-60) mmHg VBG HCO3 mmol/L VBG O2 Sat (Calc) (40-65) % VBG Base Excess (0.0-2.0) mmol/L VBG Hgb O2 Saturation (95.0-98.0) % A-a O2 Difference 445.0 mm/Hg Hemoglobin (11.7-17.4) g/dL Hgb O2 Saturation 95.3 (95.0-98.0) % Vent Mode Prvc a/c Mechanical Rate 24 FiO2 80.0 % Tidal Volume 500 Sodium (132-148) mmol/l Potassium (3.6-5.0) MMOL/L Chloride (98-107) mmol/L Carbon Dioxide (22-30) mmol/L Anion Gap (10-20) BUN (9-20) mg/dl Creatinine (0.8-1.5) mg/dL Est GFR ( Amer) Est GFR (Non-Af Amer) POC Glucose (mg/dL) 150 H 136 H (65-110) mg/dL Random Glucose (75-110) mg/dL Lactic Acid (0.7-2.1) MMOL/L Calcium (8.4-10.2) mg/dL Ionized Calcium (4.80-5.60) mg/dL Total Bilirubin (0.2-1.3) mg/dl AST (17-59) U/L ALT (21-72) U/L Alkaline Phosphatase (38-126) U/L Troponin I (0.00-0.120) ng/mL Total Protein (6.3-8.2) G/DL Albumin (3.5-5.0) g/dL Globulin (2.2-3.9) gm/dL Albumin/Globulin Ratio (1.0-2.1) Urine Color (YELLOW) Urine Clarity (Clear) Urine pH (5.0-8.0) Ur Specific [place] (1.003-1.030) Urine Protein (NEGATIVE) mg/dL Urine Glucose (UA) (Normal) mg/dL Urine Ketones (NEGATIVE) mg/dL Urine Blood (NEGATIVE) Urine Nitrate (NEGATIVE) Urine Bilirubin (NEGATIVE) Urine Urobilinogen (0.2-1.0) mg/dL Ur Leukocyte Esterase (Negative) [place]/uL Urine RBC (Auto) (0-3) /hpf Urine Microscopic WBC (0-5) /hpf Ur Squamous Epith Cells (0-5) /hpf Urine Bacteria (<OCC) Urine Yeast (Budding) (NEGATIVE) /hpf 08/19/16 08/19/16 08/19/16 Range/Units 02:39 02:04 01:27 WBC (4.8-10.8) K/uL RBC (4.40-5.90) Mil/uL Hgb (12.0-18.0) g/dL Hct (35.0-51.0) % MCV (80.0-94.0) fl MCH (27.0-31.0) pg MCHC (33.0-37.0) g/dL RDW (11.5-14.5) % Plt Count (130-400) K/uL MPV (7.2-11.7) fl Neut % (Auto) (50.0-75.0) % Lymph % (Auto) (20.0-40.0) % [place] % (Auto) (0.0-10.0) % Eos % (Auto) (0.0-4.0) % Baso % (Auto) (0.0-2.0) % Neut # (1.8-7.0) K/uL Lymph # (1.0-4.3) K/uL [place] # (0.0-0.8) K/uL Eos # (0.0-0.7) K/uL Baso # (0.0-0.2) K/uL pCO2 (35-45) mm/Hg pO2 (80-100) mm/Hg HCO3 (21-28) mmol/L ABG pH (7.35-7.45) ABG Total CO2 (22-28) mmol/L ABG O2 Saturation (95-98) % ABG O2 Content (15-23) ML/dL ABG Base Excess (-2.0-3.0) mmol/L ABG Hemoglobin (11.7-17.4) g/dL ABG Carboxyhemoglobin (0.5-1.5) % POC ABG HHb (Measured) (0.0-5.0) % ABG Methemoglobin (0.0-3.0) % ABG O2 Capacity (16-24) mL/dL Jonathan Test VBG pH (7.32-7.43) VBG pCO2 (40-60) mmHg VBG HCO3 mmol/L VBG O2 Sat (Calc) (40-65) % VBG Base Excess (0.0-2.0) mmol/L VBG Hgb O2 Saturation (95.0-98.0) % A-a O2 Difference mm/Hg Hemoglobin (11.7-17.4) g/dL Hgb O2 Saturation (95.0-98.0) % Vent Mode Mechanical Rate FiO2 % Tidal Volume Sodium (132-148) mmol/l Potassium (3.6-5.0) MMOL/L Chloride (98-107) mmol/L Carbon Dioxide (22-30) mmol/L Anion Gap (10-20) BUN (9-20) mg/dl Creatinine (0.8-1.5) mg/dL Est GFR ( Amer) Est GFR (Non-Af Amer) POC Glucose (mg/dL) 139 H 156 H (65-110) mg/dL Random Glucose (75-110) mg/dL Lactic Acid (0.7-2.1) MMOL/L Calcium (8.4-10.2) mg/dL Ionized Calcium (4.80-5.60) mg/dL Total Bilirubin (0.2-1.3) mg/dl AST (17-59) U/L ALT (21-72) U/L Alkaline Phosphatase (38-126) U/L Troponin I (0.00-0.120) ng/mL Total Protein (6.3-8.2) G/DL Albumin (3.5-5.0) g/dL Globulin (2.2-3.9) gm/dL Albumin/Globulin Ratio (1.0-2.1) Urine Color Yellow (YELLOW) Urine Clarity Slighty-cloudy (Clear) Urine pH 7.0 (5.0-8.0) Ur Specific [place] 1.012 (1.003-1.030) Urine Protein 30 (NEGATIVE) mg/dL Urine Glucose (UA) Neg (Normal) mg/dL Urine Ketones Negative (NEGATIVE) mg/dL Urine Blood Moderate (NEGATIVE) Urine Nitrate Negative (NEGATIVE) Urine Bilirubin Negative (NEGATIVE) Urine Urobilinogen 2.0 (0.2-1.0) mg/dL Ur Leukocyte Esterase Small (Negative) [place]/uL Urine RBC (Auto) 4 H (0-3) /hpf Urine Microscopic WBC 11 H (0-5) /hpf Ur Squamous Epith Cells 1 (0-5) /hpf Urine Bacteria Rare (<OCC) Urine Yeast (Budding) Occ H (NEGATIVE) /hpf 08/19/16 08/19/16 08/18/16 Range/Units 00:53 00:37 23:10 WBC (4.8-10.8) K/uL RBC (4.40-5.90) Mil/uL Hgb (12.0-18.0) g/dL Hct (35.0-51.0) % MCV (80.0-94.0) fl MCH (27.0-31.0) pg MCHC (33.0-37.0) g/dL RDW (11.5-14.5) % Plt Count (130-400) K/uL MPV (7.2-11.7) fl Neut % (Auto) (50.0-75.0) % Lymph % (Auto) (20.0-40.0) % [place] % (Auto) (0.0-10.0) % Eos % (Auto) (0.0-4.0) % Baso % (Auto) (0.0-2.0) % Neut # (1.8-7.0) K/uL Lymph # (1.0-4.3) K/uL [place] # (0.0-0.8) K/uL Eos # (0.0-0.7) K/uL Baso # (0.0-0.2) K/uL pCO2 (35-45) mm/Hg pO2 (80-100) mm/Hg HCO3 (21-28) mmol/L ABG pH (7.35-7.45) ABG Total CO2 (22-28) mmol/L ABG O2 Saturation (95-98) % ABG O2 Content (15-23) ML/dL ABG Base Excess (-2.0-3.0) mmol/L ABG Hemoglobin (11.7-17.4) g/dL ABG Carboxyhemoglobin (0.5-1.5) % POC ABG HHb (Measured) (0.0-5.0) % ABG Methemoglobin (0.0-3.0) % ABG O2 Capacity (16-24) mL/dL Jonathan Test VBG pH (7.32-7.43) VBG pCO2 (40-60) mmHg VBG HCO3 mmol/L VBG O2 Sat (Calc) (40-65) % VBG Base Excess (0.0-2.0) mmol/L VBG Hgb O2 Saturation (95.0-98.0) % A-a O2 Difference mm/Hg Hemoglobin (11.7-17.4) g/dL Hgb O2 Saturation (95.0-98.0) % Vent Mode Mechanical Rate FiO2 % Tidal Volume Sodium 171 H* (132-148) mmol/l Potassium 3.3 L (3.6-5.0) MMOL/L Chloride 133 H (98-107) mmol/L Carbon Dioxide 26 (22-30) mmol/L Anion Gap 15 (10-20) BUN 12 (9-20) mg/dl Creatinine 2.0 H (0.8-1.5) mg/dL Est GFR ( Amer) 43 Est GFR (Non-Af Amer) 35 POC Glucose (mg/dL) 156 H 156 H (65-110) mg/dL Random Glucose 144 H (75-110) mg/dL Lactic Acid (0.7-2.1) MMOL/L Calcium 9.8 (8.4-10.2) mg/dL Ionized Calcium (4.80-5.60) mg/dL Total Bilirubin (0.2-1.3) mg/dl AST (17-59) U/L ALT (21-72) U/L Alkaline Phosphatase (38-126) U/L Troponin I (0.00-0.120) ng/mL Total Protein (6.3-8.2) G/DL Albumin (3.5-5.0) g/dL Globulin (2.2-3.9) gm/dL Albumin/Globulin Ratio (1.0-2.1) Urine Color (YELLOW) Urine Clarity (Clear) Urine pH (5.0-8.0) Ur Specific [place] (1.003-1.030) Urine Protein (NEGATIVE) mg/dL Urine Glucose (UA) (Normal) mg/dL Urine Ketones (NEGATIVE) mg/dL Urine Blood (NEGATIVE) Urine Nitrate (NEGATIVE) Urine Bilirubin (NEGATIVE) Urine Urobilinogen (0.2-1.0) mg/dL Ur Leukocyte Esterase (Negative) [place]/uL Urine RBC (Auto) (0-3) /hpf Urine Microscopic WBC (0-5) /hpf Ur Squamous Epith Cells (0-5) /hpf Urine Bacteria (<OCC) Urine Yeast (Budding) (NEGATIVE) /hpf 08/18/16 08/18/16 08/18/16 Range/Units 22:15 21:24 20:33 WBC (4.8-10.8) K/uL RBC (4.40-5.90) Mil/uL Hgb (12.0-18.0) g/dL Hct (35.0-51.0) % MCV (80.0-94.0) fl MCH (27.0-31.0) pg MCHC (33.0-37.0) g/dL RDW (11.5-14.5) % Plt Count (130-400) K/uL MPV (7.2-11.7) fl Neut % (Auto) (50.0-75.0) % Lymph % (Auto) (20.0-40.0) % [place] % (Auto) (0.0-10.0) % Eos % (Auto) (0.0-4.0) % Baso % (Auto) (0.0-2.0) % Neut # (1.8-7.0) K/uL Lymph # (1.0-4.3) K/uL [place] # (0.0-0.8) K/uL Eos # (0.0-0.7) K/uL Baso # (0.0-0.2) K/uL pCO2 (35-45) mm/Hg pO2 (80-100) mm/Hg HCO3 (21-28) mmol/L ABG pH (7.35-7.45) ABG Total CO2 (22-28) mmol/L ABG O2 Saturation (95-98) % ABG O2 Content (15-23) ML/dL ABG Base Excess (-2.0-3.0) mmol/L ABG Hemoglobin (11.7-17.4) g/dL ABG Carboxyhemoglobin (0.5-1.5) % POC ABG HHb (Measured) (0.0-5.0) % ABG Methemoglobin (0.0-3.0) % ABG O2 Capacity (16-24) mL/dL Jonathan Test VBG pH (7.32-7.43) VBG pCO2 (40-60) mmHg VBG HCO3 mmol/L VBG O2 Sat (Calc) (40-65) % VBG Base Excess (0.0-2.0) mmol/L VBG Hgb O2 Saturation (95.0-98.0) % A-a O2 Difference mm/Hg Hemoglobin (11.7-17.4) g/dL Hgb O2 Saturation (95.0-98.0) % Vent Mode Mechanical Rate FiO2 % Tidal Volume Sodium (132-148) mmol/l Potassium (3.6-5.0) MMOL/L Chloride (98-107) mmol/L Carbon Dioxide (22-30) mmol/L Anion Gap (10-20) BUN (9-20) mg/dl Creatinine (0.8-1.5) mg/dL Est GFR ( Amer) Est GFR (Non-Af Amer) POC Glucose (mg/dL) 160 H 218 H 240 H (65-110) mg/dL Random Glucose (75-110) mg/dL Lactic Acid (0.7-2.1) MMOL/L Calcium (8.4-10.2) mg/dL Ionized Calcium (4.80-5.60) mg/dL Total Bilirubin (0.2-1.3) mg/dl AST (17-59) U/L ALT (21-72) U/L Alkaline Phosphatase (38-126) U/L Troponin I (0.00-0.120) ng/mL Total Protein (6.3-8.2) G/DL Albumin (3.5-5.0) g/dL Globulin (2.2-3.9) gm/dL Albumin/Globulin Ratio (1.0-2.1) Urine Color (YELLOW) Urine Clarity (Clear) Urine pH (5.0-8.0) Ur Specific [place] (1.003-1.030) Urine Protein (NEGATIVE) mg/dL Urine Glucose (UA) (Normal) mg/dL Urine Ketones (NEGATIVE) mg/dL Urine Blood (NEGATIVE) Urine Nitrate (NEGATIVE) Urine Bilirubin (NEGATIVE) Urine Urobilinogen (0.2-1.0) mg/dL Ur Leukocyte Esterase (Negative) [place]/uL Urine RBC (Auto) (0-3) /hpf Urine Microscopic WBC (0-5) /hpf Ur Squamous Epith Cells (0-5) /hpf Urine Bacteria (<OCC) Urine Yeast (Budding) (NEGATIVE) /hpf 08/18/16 08/18/16 08/18/16 Range/Units 20:20 18:25 15:04 WBC (4.8-10.8) K/uL RBC (4.40-5.90) Mil/uL Hgb (12.0-18.0) g/dL Hct (35.0-51.0) % MCV (80.0-94.0) fl MCH (27.0-31.0) pg MCHC (33.0-37.0) g/dL RDW (11.5-14.5) % Plt Count (130-400) K/uL MPV (7.2-11.7) fl Neut % (Auto) (50.0-75.0) % Lymph % (Auto) (20.0-40.0) % [place] % (Auto) (0.0-10.0) % Eos % (Auto) (0.0-4.0) % Baso % (Auto) (0.0-2.0) % Neut # (1.8-7.0) K/uL Lymph # (1.0-4.3) K/uL [place] # (0.0-0.8) K/uL Eos # (0.0-0.7) K/uL Baso # (0.0-0.2) K/uL pCO2 (35-45) mm/Hg pO2 (80-100) mm/Hg HCO3 (21-28) mmol/L ABG pH (7.35-7.45) ABG Total CO2 (22-28) mmol/L ABG O2 Saturation (95-98) % ABG O2 Content (15-23) ML/dL ABG Base Excess (-2.0-3.0) mmol/L ABG Hemoglobin (11.7-17.4) g/dL ABG Carboxyhemoglobin (0.5-1.5) % POC ABG HHb (Measured) (0.0-5.0) % ABG Methemoglobin (0.0-3.0) % ABG O2 Capacity (16-24) mL/dL Jonathan Test VBG pH (7.32-7.43) VBG pCO2 (40-60) mmHg VBG HCO3 mmol/L VBG O2 Sat (Calc) (40-65) % VBG Base Excess (0.0-2.0) mmol/L VBG Hgb O2 Saturation (95.0-98.0) % A-a O2 Difference mm/Hg Hemoglobin (11.7-17.4) g/dL Hgb O2 Saturation (95.0-98.0) % Vent Mode Mechanical Rate FiO2 % Tidal Volume Sodium 173 H* (132-148) mmol/l Potassium 3.2 L (3.6-5.0) MMOL/L Chloride 136 H (98-107) mmol/L Carbon Dioxide 26 (22-30) mmol/L Anion Gap 14 (10-20) BUN 11 (9-20) mg/dl Creatinine 1.9 H (0.8-1.5) mg/dL Est GFR ( Amer) 45 Est GFR (Non-Af Amer) 37 POC Glucose (mg/dL) 222 H 265 H (65-110) mg/dL Random Glucose 234 H (75-110) mg/dL Lactic Acid (0.7-2.1) MMOL/L Calcium 10.1 (8.4-10.2) mg/dL Ionized Calcium (4.80-5.60) mg/dL Total Bilirubin 3.0 H (0.2-1.3) mg/dl AST 153 H (17-59) U/L ALT 196 H (21-72) U/L Alkaline Phosphatase 113 (38-126) U/L Troponin I (0.00-0.120) ng/mL Total Protein 5.8 L (6.3-8.2) G/DL Albumin 3.1 L (3.5-5.0) g/dL Globulin 2.8 (2.2-3.9) gm/dL Albumin/Globulin Ratio 1.1 (1.0-2.1) Urine Color (YELLOW) Urine Clarity (Clear) Urine pH (5.0-8.0) Ur Specific [place] (1.003-1.030) Urine Protein (NEGATIVE) mg/dL Urine Glucose (UA) (Normal) mg/dL Urine Ketones (NEGATIVE) mg/dL Urine Blood (NEGATIVE) Urine Nitrate (NEGATIVE) Urine Bilirubin (NEGATIVE) Urine Urobilinogen (0.2-1.0) mg/dL Ur Leukocyte Esterase (Negative) [place]/uL Urine RBC (Auto) (0-3) /hpf Urine Microscopic WBC (0-5) /hpf Ur Squamous Epith Cells (0-5) /hpf Urine Bacteria (<OCC) Urine Yeast (Budding) (NEGATIVE) /hpf 08/18/16 08/18/16 08/18/16 Range/Units 14:39 14:08 13:36 WBC (4.8-10.8) K/uL RBC (4.40-5.90) Mil/uL Hgb (12.0-18.0) g/dL Hct (35.0-51.0) % MCV (80.0-94.0) fl MCH (27.0-31.0) pg MCHC (33.0-37.0) g/dL RDW (11.5-14.5) % Plt Count (130-400) K/uL MPV (7.2-11.7) fl Neut % (Auto) (50.0-75.0) % Lymph % (Auto) (20.0-40.0) % [place] % (Auto) (0.0-10.0) % Eos % (Auto) (0.0-4.0) % Baso % (Auto) (0.0-2.0) % Neut # (1.8-7.0) K/uL Lymph # (1.0-4.3) K/uL [place] # (0.0-0.8) K/uL Eos # (0.0-0.7) K/uL Baso # (0.0-0.2) K/uL pCO2 (35-45) mm/Hg pO2 (80-100) mm/Hg HCO3 (21-28) mmol/L ABG pH (7.35-7.45) ABG Total CO2 (22-28) mmol/L ABG O2 Saturation (95-98) % ABG O2 Content (15-23) ML/dL ABG Base Excess (-2.0-3.0) mmol/L ABG Hemoglobin (11.7-17.4) g/dL ABG Carboxyhemoglobin (0.5-1.5) % POC ABG HHb (Measured) (0.0-5.0) % ABG Methemoglobin (0.0-3.0) % ABG O2 Capacity (16-24) mL/dL Jonathan Test VBG pH (7.32-7.43) VBG pCO2 (40-60) mmHg VBG HCO3 mmol/L VBG O2 Sat (Calc) (40-65) % VBG Base Excess (0.0-2.0) mmol/L VBG Hgb O2 Saturation (95.0-98.0) % A-a O2 Difference mm/Hg Hemoglobin (11.7-17.4) g/dL Hgb O2 Saturation (95.0-98.0) % Vent Mode Mechanical Rate FiO2 % Tidal Volume Sodium (132-148) mmol/l Potassium (3.6-5.0) MMOL/L Chloride (98-107) mmol/L Carbon Dioxide (22-30) mmol/L Anion Gap (10-20) BUN (9-20) mg/dl Creatinine (0.8-1.5) mg/dL Est GFR ( Amer) Est GFR (Non-Af Amer) POC Glucose (mg/dL) 233 H 259 H 253 H (65-110) mg/dL Random Glucose (75-110) mg/dL Lactic Acid (0.7-2.1) MMOL/L Calcium (8.4-10.2) mg/dL Ionized Calcium (4.80-5.60) mg/dL Total Bilirubin (0.2-1.3) mg/dl AST (17-59) U/L ALT (21-72) U/L Alkaline Phosphatase (38-126) U/L Troponin I (0.00-0.120) ng/mL Total Protein (6.3-8.2) G/DL Albumin (3.5-5.0) g/dL Globulin (2.2-3.9) gm/dL Albumin/Globulin Ratio (1.0-2.1) Urine Color (YELLOW) Urine Clarity (Clear) Urine pH (5.0-8.0) Ur Specific [place] (1.003-1.030) Urine Protein (NEGATIVE) mg/dL Urine Glucose (UA) (Normal) mg/dL Urine Ketones (NEGATIVE) mg/dL Urine Blood (NEGATIVE) Urine Nitrate (NEGATIVE) Urine Bilirubin (NEGATIVE) Urine Urobilinogen (0.2-1.0) mg/dL Ur Leukocyte Esterase (Negative) [place]/uL Urine RBC (Auto) (0-3) /hpf Urine Microscopic WBC (0-5) /hpf Ur Squamous Epith Cells (0-5) /hpf Urine Bacteria (<OCC) Urine Yeast (Budding) (NEGATIVE) /hpf 08/18/16 08/18/16 08/18/16 Range/Units 13:07 12:15 12:00 WBC (4.8-10.8) K/uL RBC (4.40-5.90) Mil/uL Hgb (12.0-18.0) g/dL Hct (35.0-51.0) % MCV (80.0-94.0) fl MCH (27.0-31.0) pg MCHC (33.0-37.0) g/dL RDW (11.5-14.5) % Plt Count (130-400) K/uL MPV (7.2-11.7) fl Neut % (Auto) (50.0-75.0) % Lymph % (Auto) (20.0-40.0) % [place] % (Auto) (0.0-10.0) % Eos % (Auto) (0.0-4.0) % Baso % (Auto) (0.0-2.0) % Neut # (1.8-7.0) K/uL Lymph # (1.0-4.3) K/uL [place] # (0.0-0.8) K/uL Eos # (0.0-0.7) K/uL Baso # (0.0-0.2) K/uL pCO2 (35-45) mm/Hg pO2 (80-100) mm/Hg HCO3 (21-28) mmol/L ABG pH (7.35-7.45) ABG Total CO2 (22-28) mmol/L ABG O2 Saturation (95-98) % ABG O2 Content (15-23) ML/dL ABG Base Excess (-2.0-3.0) mmol/L ABG Hemoglobin (11.7-17.4) g/dL ABG Carboxyhemoglobin (0.5-1.5) % POC ABG HHb (Measured) (0.0-5.0) % ABG Methemoglobin (0.0-3.0) % ABG O2 Capacity (16-24) mL/dL Jonathan Test VBG pH (7.32-7.43) VBG pCO2 (40-60) mmHg VBG HCO3 mmol/L VBG O2 Sat (Calc) (40-65) % VBG Base Excess (0.0-2.0) mmol/L VBG Hgb O2 Saturation (95.0-98.0) % A-a O2 Difference mm/Hg Hemoglobin (11.7-17.4) g/dL Hgb O2 Saturation (95.0-98.0) % Vent Mode Mechanical Rate FiO2 % Tidal Volume Sodium 173 H* (132-148) mmol/l Potassium 3.5 L (3.6-5.0) MMOL/L Chloride 135 H (98-107) mmol/L Carbon Dioxide 23 (22-30) mmol/L Anion Gap 19 (10-20) BUN 10 (9-20) mg/dl Creatinine 1.6 H (0.8-1.5) mg/dL Est GFR ( Amer) 55 Est GFR (Non-Af Amer) 45 POC Glucose (mg/dL) 260 H 245 H (65-110) mg/dL Random Glucose 265 H (75-110) mg/dL Lactic Acid (0.7-2.1) MMOL/L Calcium 10.0 (8.4-10.2) mg/dL Ionized Calcium (4.80-5.60) mg/dL Total Bilirubin 2.2 H (0.2-1.3) mg/dl AST 156 H (17-59) U/L ALT 212 H (21-72) U/L Alkaline Phosphatase 102 (38-126) U/L Troponin I (0.00-0.120) ng/mL Total Protein 5.7 L (6.3-8.2) G/DL Albumin 3.0 L (3.5-5.0) g/dL Globulin 2.6 (2.2-3.9) gm/dL Albumin/Globulin Ratio 1.2 (1.0-2.1) Urine Color (YELLOW) Urine Clarity (Clear) Urine pH (5.0-8.0) Ur Specific [place] (1.003-1.030) Urine Protein (NEGATIVE) mg/dL Urine Glucose (UA) (Normal) mg/dL Urine Ketones (NEGATIVE) mg/dL Urine Blood (NEGATIVE) Urine Nitrate (NEGATIVE) Urine Bilirubin (NEGATIVE) Urine Urobilinogen (0.2-1.0) mg/dL Ur Leukocyte Esterase (Negative) Juanpablo/uL Urine RBC (Auto) (0-3) /hpf Urine Microscopic WBC (0-5) /hpf Ur Squamous Epith Cells (0-5) /hpf Urine Bacteria (<OCC) Urine Yeast (Budding) (NEGATIVE) /hpf 08/18/16 08/18/16 08/18/16 Range/Units 10:08 09:53 09:06 WBC (4.8-10.8) K/uL RBC (4.40-5.90) Mil/uL Hgb (12.0-18.0) g/dL Hct (35.0-51.0) % MCV (80.0-94.0) fl MCH (27.0-31.0) pg MCHC (33.0-37.0) g/dL RDW (11.5-14.5) % Plt Count (130-400) K/uL MPV (7.2-11.7) fl Neut % (Auto) (50.0-75.0) % Lymph % (Auto) (20.0-40.0) % [place] % (Auto) (0.0-10.0) % Eos % (Auto) (0.0-4.0) % Baso % (Auto) (0.0-2.0) % Neut # (1.8-7.0) K/uL Lymph # (1.0-4.3) K/uL [place] # (0.0-0.8) K/uL Eos # (0.0-0.7) K/uL Baso # (0.0-0.2) K/uL pCO2 (35-45) mm/Hg pO2 (80-100) mm/Hg HCO3 (21-28) mmol/L ABG pH (7.35-7.45) ABG Total CO2 (22-28) mmol/L ABG O2 Saturation (95-98) % ABG O2 Content (15-23) ML/dL ABG Base Excess (-2.0-3.0) mmol/L ABG Hemoglobin (11.7-17.4) g/dL ABG Carboxyhemoglobin (0.5-1.5) % POC ABG HHb (Measured) (0.0-5.0) % ABG Methemoglobin (0.0-3.0) % ABG O2 Capacity (16-24) mL/dL Jonathan Test VBG pH (7.32-7.43) VBG pCO2 (40-60) mmHg VBG HCO3 mmol/L VBG O2 Sat (Calc) (40-65) % VBG Base Excess (0.0-2.0) mmol/L VBG Hgb O2 Saturation (95.0-98.0) % A-a O2 Difference mm/Hg Hemoglobin (11.7-17.4) g/dL Hgb O2 Saturation (95.0-98.0) % Vent Mode Mechanical Rate FiO2 % Tidal Volume Sodium (132-148) mmol/l Potassium (3.6-5.0) MMOL/L Chloride (98-107) mmol/L Carbon Dioxide (22-30) mmol/L Anion Gap (10-20) BUN (9-20) mg/dl Creatinine (0.8-1.5) mg/dL Est GFR ( Amer) Est GFR (Non-Af Amer) POC Glucose (mg/dL) 260 H 267 H 222 H (65-110) mg/dL Random Glucose (75-110) mg/dL Lactic Acid (0.7-2.1) MMOL/L Calcium (8.4-10.2) mg/dL Ionized Calcium (4.80-5.60) mg/dL Total Bilirubin (0.2-1.3) mg/dl AST (17-59) U/L ALT (21-72) U/L Alkaline Phosphatase (38-126) U/L Troponin I (0.00-0.120) ng/mL Total Protein (6.3-8.2) G/DL Albumin (3.5-5.0) g/dL Globulin (2.2-3.9) gm/dL Albumin/Globulin Ratio (1.0-2.1) Urine Color (YELLOW) Urine Clarity (Clear) Urine pH (5.0-8.0) Ur Specific [place] (1.003-1.030) Urine Protein (NEGATIVE) mg/dL Urine Glucose (UA) (Normal) mg/dL Urine Ketones (NEGATIVE) mg/dL Urine Blood (NEGATIVE) Urine Nitrate (NEGATIVE) Urine Bilirubin (NEGATIVE) Urine Urobilinogen (0.2-1.0) mg/dL Ur Leukocyte Esterase (Negative) Juan[place]/uL Urine RBC (Auto) (0-3) /hpf Urine Microscopic WBC (0-5) /hpf Ur Squamous Epith Cells (0-5) /hpf Urine Bacteria (<OCC) Urine Yeast (Budding) (NEGATIVE) /hpf 08/18/16 08/18/16 08/17/16 Range/Units 08:00 06:58 04:20 WBC (4.8-10.8) K/uL RBC (4.40-5.90) Mil/uL Hgb (12.0-18.0) g/dL Hct (35.0-51.0) % MCV (80.0-94.0) fl MCH (27.0-31.0) pg MCHC (33.0-37.0) g/dL RDW (11.5-14.5) % Plt Count (130-400) K/uL MPV (7.2-11.7) fl Neut % (Auto) (50.0-75.0) % Lymph % (Auto) (20.0-40.0) % [place] % (Auto) (0.0-10.0) % Eos % (Auto) (0.0-4.0) % Baso % (Auto) (0.0-2.0) % Neut # (1.8-7.0) K/uL Lymph # (1.0-4.3) K/uL [place] # (0.0-0.8) K/uL Eos # (0.0-0.7) K/uL Baso # (0.0-0.2) K/uL pCO2 (35-45) mm/Hg pO2 (80-100) mm/Hg HCO3 (21-28) mmol/L ABG pH (7.35-7.45) ABG Total CO2 (22-28) mmol/L ABG O2 Saturation (95-98) % ABG O2 Content (15-23) ML/dL ABG Base Excess (-2.0-3.0) mmol/L ABG Hemoglobin (11.7-17.4) g/dL ABG Carboxyhemoglobin (0.5-1.5) % POC ABG HHb (Measured) (0.0-5.0) % ABG Methemoglobin (0.0-3.0) % ABG O2 Capacity (16-24) mL/dL Jonathan Test VBG pH (7.32-7.43) VBG pCO2 (40-60) mmHg VBG HCO3 mmol/L VBG O2 Sat (Calc) (40-65) % VBG Base Excess (0.0-2.0) mmol/L VBG Hgb O2 Saturation (95.0-98.0) % A-a O2 Difference mm/Hg Hemoglobin (11.7-17.4) g/dL Hgb O2 Saturation (95.0-98.0) % Vent Mode Mechanical Rate FiO2 % Tidal Volume Sodium (132-148) mmol/l Potassium (3.6-5.0) MMOL/L Chloride (98-107) mmol/L Carbon Dioxide (22-30) mmol/L Anion Gap (10-20) BUN (9-20) mg/dl Creatinine (0.8-1.5) mg/dL Est GFR ( Amer) Est GFR (Non-Af Amer) POC Glucose (mg/dL) 234 H 216 H (65-110) mg/dL Random Glucose (75-110) mg/dL Lactic Acid (0.7-2.1) MMOL/L Calcium (8.4-10.2) mg/dL Ionized Calcium 5.2 (4.80-5.60) mg/dL Total Bilirubin (0.2-1.3) mg/dl AST (17-59) U/L ALT (21-72) U/L Alkaline Phosphatase (38-126) U/L Troponin I (0.00-0.120) ng/mL Total Protein (6.3-8.2) G/DL Albumin (3.5-5.0) g/dL Globulin (2.2-3.9) gm/dL Albumin/Globulin Ratio (1.0-2.1) Urine Color (YELLOW) Urine Clarity (Clear) Urine pH (5.0-8.0) Ur Specific [place] (1.003-1.030) Urine Protein (NEGATIVE) mg/dL Urine Glucose (UA) (Normal) mg/dL Urine Ketones (NEGATIVE) mg/dL Urine Blood (NEGATIVE) Urine Nitrate (NEGATIVE) Urine Bilirubin (NEGATIVE) Urine Urobilinogen (0.2-1.0) mg/dL Ur Leukocyte Esterase (Negative) [place]/uL Urine RBC (Auto) (0-3) /hpf Urine Microscopic WBC (0-5) /hpf Ur Squamous Epith Cells (0-5) /hpf Urine Bacteria (<OCC) Urine Yeast (Budding) (NEGATIVE) /hpf Laboratory Results - last 24 hr 08/17/16 08/18/16 08/18/16 04:20 06:58 08:00 WBC RBC Hgb Hct MCV MCH MCHC RDW Plt Count MPV Neut % (Auto) Lymph % (Auto) [place] % (Auto) Eos % (Auto) Baso % (Auto) Neut # Lymph # [place] # Eos # Baso # pCO2 pO2 HCO3 ABG pH ABG Total CO2 ABG O2 Saturation ABG O2 Content ABG Base Excess ABG Hemoglobin ABG Carboxyhemoglobin POC ABG HHb (Measured) ABG Methemoglobin ABG O2 Capacity Jonathan Test VBG pH VBG pCO2 VBG HCO3 VBG O2 Sat (Calc) VBG Base Excess VBG Hgb O2 Saturation A-a O2 Difference Hemoglobin Hgb O2 Saturation Vent Mode Mechanical Rate FiO2 Tidal Volume Sodium Potassium Chloride Carbon Dioxide Anion Gap BUN Creatinine Est GFR ( Amer) Est GFR (Non-Af Amer) POC Glucose (mg/dL) 216 H 234 H Random Glucose Lactic Acid Calcium Ionized Calcium 5.2 Total Bilirubin AST ALT Alkaline Phosphatase Troponin I Total Protein Albumin Globulin Albumin/Globulin Ratio Urine Color Urine Clarity Urine pH Ur Specific [place] Urine Protein Urine Glucose (UA) Urine Ketones Urine Blood Urine Nitrate Urine Bilirubin Urine Urobilinogen Ur Leukocyte Esterase Urine RBC (Auto) Urine Microscopic WBC Ur Squamous Epith Cells Urine Bacteria Urine Yeast (Budding) 08/18/16 08/18/16 08/18/16 09:06 09:53 10:08 WBC RBC Hgb Hct MCV MCH MCHC RDW Plt Count MPV Neut % (Auto) Lymph % (Auto) [place] % (Auto) Eos % (Auto) Baso % (Auto) Neut # Lymph # [place] # Eos # Baso # pCO2 pO2 HCO3 ABG pH ABG Total CO2 ABG O2 Saturation ABG O2 Content ABG Base Excess ABG Hemoglobin ABG Carboxyhemoglobin POC ABG HHb (Measured) ABG Methemoglobin ABG O2 Capacity Jonathan Test VBG pH VBG pCO2 VBG HCO3 VBG O2 Sat (Calc) VBG Base Excess VBG Hgb O2 Saturation A-a O2 Difference Hemoglobin Hgb O2 Saturation Vent Mode Mechanical Rate FiO2 Tidal Volume Sodium Potassium Chloride Carbon Dioxide Anion Gap BUN Creatinine Est GFR ( Amer) Est GFR (Non-Af Amer) POC Glucose (mg/dL) 222 H 267 H 260 H Random Glucose Lactic Acid Calcium Ionized Calcium Total Bilirubin AST ALT Alkaline Phosphatase Troponin I Total Protein Albumin Globulin Albumin/Globulin Ratio Urine Color Urine Clarity Urine pH Ur Specific [place] Urine Protein Urine Glucose (UA) Urine Ketones Urine Blood Urine Nitrate Urine Bilirubin Urine Urobilinogen Ur Leukocyte Esterase Urine RBC (Auto) Urine Microscopic WBC Ur Squamous Epith Cells Urine Bacteria Urine Yeast (Budding) 08/18/16 08/18/16 08/18/16 12:00 12:15 13:07 WBC RBC Hgb Hct MCV MCH MCHC RDW Plt Count MPV Neut % (Auto) Lymph % (Auto) [place] % (Auto) Eos % (Auto) Baso % (Auto) Neut # Lymph # [place] # Eos # Baso # pCO2 pO2 HCO3 ABG pH ABG Total CO2 ABG O2 Saturation ABG O2 Content ABG Base Excess ABG Hemoglobin ABG Carboxyhemoglobin POC ABG HHb (Measured) ABG Methemoglobin ABG O2 Capacity Jonathan Test VBG pH VBG pCO2 VBG HCO3 VBG O2 Sat (Calc) VBG Base Excess VBG Hgb O2 Saturation A-a O2 Difference Hemoglobin Hgb O2 Saturation Vent Mode Mechanical Rate FiO2 Tidal Volume Sodium 173 H* Potassium 3.5 L Chloride 135 H Carbon Dioxide 23 Anion Gap 19 BUN 10 Creatinine 1.6 H Est GFR ( Amer) 55 Est GFR (Non-Af Amer) 45 POC Glucose (mg/dL) 245 H 260 H Random Glucose 265 H Lactic Acid Calcium 10.0 Ionized Calcium Total Bilirubin 2.2 H AST 156 H ALT 212 H Alkaline Phosphatase 102 Troponin I Total Protein 5.7 L Albumin 3.0 L Globulin 2.6 Albumin/Globulin Ratio 1.2 Urine Color Urine Clarity Urine pH Ur Specific [place] Urine Protein Urine Glucose (UA) Urine Ketones Urine Blood Urine Nitrate Urine Bilirubin Urine Urobilinogen Ur Leukocyte Esterase Urine RBC (Auto) Urine Microscopic WBC Ur Squamous Epith Cells Urine Bacteria Urine Yeast (Budding) 08/18/16 08/18/16 08/18/16 13:36 14:08 14:39 WBC RBC Hgb Hct MCV MCH MCHC RDW Plt Count MPV Neut % (Auto) Lymph % (Auto) [place] % (Auto) Eos % (Auto) Baso % (Auto) Neut # Lymph # [place] # Eos # Baso # pCO2 pO2 HCO3 ABG pH ABG Total CO2 ABG O2 Saturation ABG O2 Content ABG Base Excess ABG Hemoglobin ABG Carboxyhemoglobin POC ABG HHb (Measured) ABG Methemoglobin ABG O2 Capacity Jonathan Test VBG pH VBG pCO2 VBG HCO3 VBG O2 Sat (Calc) VBG Base Excess VBG Hgb O2 Saturation A-a O2 Difference Hemoglobin Hgb O2 Saturation Vent Mode Mechanical Rate FiO2 Tidal Volume Sodium Potassium Chloride Carbon Dioxide Anion Gap BUN Creatinine Est GFR ( Amer) Est GFR (Non-Af Amer) POC Glucose (mg/dL) 253 H 259 H 233 H Random Glucose Lactic Acid Calcium Ionized Calcium Total Bilirubin AST ALT Alkaline Phosphatase Troponin I Total Protein Albumin Globulin Albumin/Globulin Ratio Urine Color Urine Clarity Urine pH Ur Specific [place] Urine Protein Urine Glucose (UA) Urine Ketones Urine Blood Urine Nitrate Urine Bilirubin Urine Urobilinogen Ur Leukocyte Esterase Urine RBC (Auto) Urine Microscopic WBC Ur Squamous Epith Cells Urine Bacteria Urine Yeast (Budding) 08/18/16 08/18/16 08/18/16 15:04 18:25 20:20 WBC RBC Hgb Hct MCV MCH MCHC RDW Plt Count MPV Neut % (Auto) Lymph % (Auto) [place] % (Auto) Eos % (Auto) Baso % (Auto) Neut # Lymph # [place] # Eos # Baso # pCO2 pO2 HCO3 ABG pH ABG Total CO2 ABG O2 Saturation ABG O2 Content ABG Base Excess ABG Hemoglobin ABG Carboxyhemoglobin POC ABG HHb (Measured) ABG Methemoglobin ABG O2 Capacity Jonathan Test VBG pH VBG pCO2 VBG HCO3 VBG O2 Sat (Calc) VBG Base Excess VBG Hgb O2 Saturation A-a O2 Difference Hemoglobin Hgb O2 Saturation Vent Mode Mechanical Rate FiO2 Tidal Volume Sodium 173 H* Potassium 3.2 L Chloride 136 H Carbon Dioxide 26 Anion Gap 14 BUN 11 Creatinine 1.9 H Est GFR ( Amer) 45 Est GFR (Non-Af Amer) 37 POC Glucose (mg/dL) 265 H 222 H Random Glucose 234 H Lactic Acid Calcium 10.1 Ionized Calcium Total Bilirubin 3.0 H AST 153 H ALT 196 H Alkaline Phosphatase 113 Troponin I Total Protein 5.8 L Albumin 3.1 L Globulin 2.8 Albumin/Globulin Ratio 1.1 Urine Color Urine Clarity Urine pH Ur Specific [place] Urine Protein Urine Glucose (UA) Urine Ketones Urine Blood Urine Nitrate Urine Bilirubin Urine Urobilinogen Ur Leukocyte Esterase Urine RBC (Auto) Urine Microscopic WBC Ur Squamous Epith Cells Urine Bacteria Urine Yeast (Budding) 08/18/16 08/18/16 08/18/16 20:33 21:24 22:15 WBC RBC Hgb Hct MCV MCH MCHC RDW Plt Count MPV Neut % (Auto) Lymph % (Auto) [place] % (Auto) Eos % (Auto) Baso % (Auto) Neut # Lymph # [place] # Eos # Baso # pCO2 pO2 HCO3 ABG pH ABG Total CO2 ABG O2 Saturation ABG O2 Content ABG Base Excess ABG Hemoglobin ABG Carboxyhemoglobin POC ABG HHb (Measured) ABG Methemoglobin ABG O2 Capacity Jonathan Test VBG pH VBG pCO2 VBG HCO3 VBG O2 Sat (Calc) VBG Base Excess VBG Hgb O2 Saturation A-a O2 Difference Hemoglobin Hgb O2 Saturation Vent Mode Mechanical Rate FiO2 Tidal Volume Sodium Potassium Chloride Carbon Dioxide Anion Gap BUN Creatinine Est GFR ( Amer) Est GFR (Non-Af Amer) POC Glucose (mg/dL) 240 H 218 H 160 H Random Glucose Lactic Acid Calcium Ionized Calcium Total Bilirubin AST ALT Alkaline Phosphatase Troponin I Total Protein Albumin Globulin Albumin/Globulin Ratio Urine Color Urine Clarity Urine pH Ur Specific [place] Urine Protein Urine Glucose (UA) Urine Ketones Urine Blood Urine Nitrate Urine Bilirubin Urine Urobilinogen Ur Leukocyte Esterase Urine RBC (Auto) Urine Microscopic WBC Ur Squamous Epith Cells Urine Bacteria Urine Yeast (Budding) 08/18/16 08/19/16 08/19/16 23:10 00:37 00:53 WBC RBC Hgb Hct MCV MCH MCHC RDW Plt Count MPV Neut % (Auto) Lymph % (Auto) [place] % (Auto) Eos % (Auto) Baso % (Auto) Neut # Lymph # [place] # Eos # Baso # pCO2 pO2 HCO3 ABG pH ABG Total CO2 ABG O2 Saturation ABG O2 Content ABG Base Excess ABG Hemoglobin ABG Carboxyhemoglobin POC ABG HHb (Measured) ABG Methemoglobin ABG O2 Capacity Jonathan Test VBG pH VBG pCO2 VBG HCO3 VBG O2 Sat (Calc) VBG Base Excess VBG Hgb O2 Saturation A-a O2 Difference Hemoglobin Hgb O2 Saturation Vent Mode Mechanical Rate FiO2 Tidal Volume Sodium 171 H* Potassium 3.3 L Chloride 133 H Carbon Dioxide 26 Anion Gap 15 BUN 12 Creatinine 2.0 H Est GFR ( Amer) 43 Est GFR (Non-Af Amer) 35 POC Glucose (mg/dL) 156 H 156 H Random Glucose 144 H Lactic Acid Calcium 9.8 Ionized Calcium Total Bilirubin AST ALT Alkaline Phosphatase Troponin I Total Protein Albumin Globulin Albumin/Globulin Ratio Urine Color Urine Clarity Urine pH Ur Specific [place] Urine Protein Urine Glucose (UA) Urine Ketones Urine Blood Urine Nitrate Urine Bilirubin Urine Urobilinogen Ur Leukocyte Esterase Urine RBC (Auto) Urine Microscopic WBC Ur Squamous Epith Cells Urine Bacteria Urine Yeast (Budding) 08/19/16 08/19/16 08/19/16 01:27 02:04 02:39 WBC RBC Hgb Hct MCV MCH MCHC RDW Plt Count MPV Neut % (Auto) Lymph % (Auto) [place] % (Auto) Eos % (Auto) Baso % (Auto) Neut # Lymph # [place] # Eos # Baso # pCO2 pO2 HCO3 ABG pH ABG Total CO2 ABG O2 Saturation ABG O2 Content ABG Base Excess ABG Hemoglobin ABG Carboxyhemoglobin POC ABG HHb (Measured) ABG Methemoglobin ABG O2 Capacity Jonathan Test VBG pH VBG pCO2 VBG HCO3 VBG O2 Sat (Calc) VBG Base Excess VBG Hgb O2 Saturation A-a O2 Difference Hemoglobin Hgb O2 Saturation Vent Mode Mechanical Rate FiO2 Tidal Volume Sodium Potassium Chloride Carbon Dioxide Anion Gap BUN Creatinine Est GFR ( Amer) Est GFR (Non-Af Amer) POC Glucose (mg/dL) 156 H 139 H Random Glucose Lactic Acid Calcium Ionized Calcium Total Bilirubin AST ALT Alkaline Phosphatase Troponin I Total Protein Albumin Globulin Albumin/Globulin Ratio Urine Color Yellow Urine Clarity Slighty-cloudy Urine pH 7.0 Ur Specific [place] 1.012 Urine Protein 30 Urine Glucose (UA) Neg Urine Ketones Negative Urine Blood Moderate Urine Nitrate Negative Urine Bilirubin Negative Urine Urobilinogen 2.0 Ur Leukocyte Esterase Small Urine RBC (Auto) 4 H Urine Microscopic WBC 11 H Ur Squamous Epith Cells 1 Urine Bacteria Rare Urine Yeast (Budding) Occ H 08/19/16 08/19/16 08/19/16 03:51 04:47 04:57 WBC RBC Hgb Hct MCV MCH MCHC RDW Plt Count MPV Neut % (Auto) Lymph % (Auto) [place] % (Auto) Eos % (Auto) Baso % (Auto) Neut # Lymph # [place] # Eos # Baso # pCO2 31 L pO2 87 HCO3 25.2 ABG pH 7.48 H ABG Total CO2 24.1 ABG O2 Saturation 97.8 ABG O2 Content 19.3 ABG Base Excess 0.4 ABG Hemoglobin 14.4 ABG Carboxyhemoglobin 0.9 POC ABG HHb (Measured) 2.1 ABG Methemoglobin 1.7 ABG O2 Capacity 19.7 Jonathan Test Yes VBG pH VBG pCO2 VBG HCO3 VBG O2 Sat (Calc) VBG Base Excess VBG Hgb O2 Saturation A-a O2 Difference 445.0 Hemoglobin Hgb O2 Saturation 95.3 Vent Mode Prvc a/c Mechanical Rate 24 FiO2 80.0 Tidal Volume 500 Sodium Potassium Chloride Carbon Dioxide Anion Gap BUN Creatinine Est GFR ( Amer) Est GFR (Non-Af Amer) POC Glucose (mg/dL) 136 H 150 H Random Glucose Lactic Acid Calcium Ionized Calcium Total Bilirubin AST ALT Alkaline Phosphatase Troponin I Total Protein Albumin Globulin Albumin/Globulin Ratio Urine Color Urine Clarity Urine pH Ur Specific [place] Urine Protein Urine Glucose (UA) Urine Ketones Urine Blood Urine Nitrate Urine Bilirubin Urine Urobilinogen Ur Leukocyte Esterase Urine RBC (Auto) Urine Microscopic WBC Ur Squamous Epith Cells Urine Bacteria Urine Yeast (Budding) 08/19/16 08/19/16 08/19/16 05:09 05:40 05:46 WBC 14.7 H D RBC 4.76 Hgb 14.4 Hct 44.1 MCV 92.7 MCH 30.3 MCHC 32.7 L RDW 13.7 Plt Count 195 MPV 9.1 Neut % (Auto) 79.7 H Lymph % (Auto) 13.4 L [place] % (Auto) 6.2 Eos % (Auto) 0.4 Baso % (Auto) 0.3 Neut # 11.7 H Lymph # 2.0 [place] # 0.9 H Eos # 0.1 Baso # 0.0 pCO2 pO2 27 L HCO3 ABG pH ABG Total CO2 ABG O2 Saturation ABG O2 Content ABG Base Excess ABG Hemoglobin ABG Carboxyhemoglobin 0.8 POC ABG HHb (Measured) 38.8 H ABG Methemoglobin 1.5 ABG O2 Capacity Jonathan Test VBG pH 7.40 VBG pCO2 42 VBG HCO3 24.6 VBG O2 Sat (Calc) 60.3 VBG Base Excess 1.0 VBG Hgb O2 Saturation 58.9 L A-a O2 Difference Hemoglobin 14.4 Hgb O2 Saturation Vent Mode Mechanical Rate FiO2 Tidal Volume Sodium Potassium Chloride Carbon Dioxide Anion Gap BUN Creatinine Est GFR ( Amer) Est GFR (Non-Af Amer) POC Glucose (mg/dL) 155 H Random Glucose Lactic Acid Calcium Ionized Calcium Total Bilirubin AST ALT Alkaline Phosphatase Troponin I Total Protein Albumin Globulin Albumin/Globulin Ratio Urine Color Urine Clarity Urine pH Ur Specific [place] Urine Protein Urine Glucose (UA) Urine Ketones Urine Blood Urine Nitrate Urine Bilirubin Urine Urobilinogen Ur Leukocyte Esterase Urine RBC (Auto) Urine Microscopic WBC Ur Squamous Epith Cells Urine Bacteria Urine Yeast (Budding) 08/19/16 08/19/16 08/19/16 05:46 05:46 06:35 WBC RBC Hgb Hct MCV MCH MCHC RDW Plt Count MPV Neut % (Auto) Lymph % (Auto) [place] % (Auto) Eos % (Auto) Baso % (Auto) Neut # Lymph # [place] # Eos # Baso # pCO2 pO2 HCO3 ABG pH ABG Total CO2 ABG O2 Saturation ABG O2 Content ABG Base Excess ABG Hemoglobin ABG Carboxyhemoglobin POC ABG HHb (Measured) ABG Methemoglobin ABG O2 Capacity Jonathan Test VBG pH VBG pCO2 VBG HCO3 VBG O2 Sat (Calc) VBG Base Excess VBG Hgb O2 Saturation A-a O2 Difference Hemoglobin Hgb O2 Saturation Vent Mode Mechanical Rate FiO2 Tidal Volume Sodium 167 H* Potassium 2.9 L Chloride 132 H Carbon Dioxide 23 Anion Gap 15 BUN 12 Creatinine 1.8 H Est GFR ( Amer) 48 Est GFR (Non-Af Amer) 40 POC Glucose (mg/dL) 173 H Random Glucose 149 H Lactic Acid 2.7 H Calcium 9.3 Ionized Calcium Total Bilirubin 4.0 H AST 187 H D ALT 184 H Alkaline Phosphatase 115 Troponin I 5.4300 H* Total Protein 5.7 L Albumin 2.9 L Globulin 2.8 Albumin/Globulin Ratio 1.0 Urine Color Urine Clarity Urine pH Ur Specific [place] Urine Protein Urine Glucose (UA) Urine Ketones Urine Blood Urine Nitrate Urine Bilirubin Urine Urobilinogen Ur Leukocyte Esterase Urine RBC (Auto) Urine Microscopic WBC Ur Squamous Epith Cells Urine Bacteria Urine Yeast (Budding) Fingerstick Blood Sugar Results: 173 Assessment/Plan - Assessment and Plan (Free Text) Assessment: A/P Cardiac arrest s/p hypothermia protocol, s/p cervical discectomy & cervical fusion, anoxic encephalopathy, hypokalemia, hyperglycemia, hypernatremia - Ventilatory support - Pulmonary toilets - Pressors as needed - Continue meds - Free water - Neurology, neurosurgery follow up - Poor prognosis Critical care 40 min
--- NOTE | 2016-08-19 09:58 | CP.PCM.PN ---
Subjective - Date & Time of Evaluation Date of Evaluation: 08/19/16 Time of Evaluation: 09:55 - Subjective Subjective: unchanged no evidence neurologic function on pressors,inulin/ddavp prognosis dismal family absorbing situation Objective - Vital Signs/Intake and Output Vital Signs (last 24 hours): Temp Pulse Resp BP Pulse Ox 101.9 F H 96 H 20 114/71 98 08/19/16 09:00 08/19/16 09:00 08/19/16 09:00 08/19/16 09:00 08/19/16 09:00 Intake and Output: 08/19/16 08/19/16 06:59 18:59 Intake Total 4492 1143 Output Total 3200 200 Balance 1292 943 - Medications Medications: Current Medications Acetaminophen (Tylenol 650mg/20.3ml Solution Ud) 650 mg PO Q6 PRN PRN Reason: Fever Last Admin: 08/18/16 23:22 Dose: 650 mg Artificial Tears (Lacri-Lube) 1 applic OU HS ELAINE Last Admin: 08/18/16 21:25 Dose: 1 applic Dextrose (Dextrose 50% Inj) 0 ml IV STAT PRN; Protocol PRN Reason: Hyglycemia Protocol Dextrose (Glutose 15) 0 gm PO ONCE PRN; Protocol PRN Reason: Hypoglycemia Protocol Glucagon (Glucagen Diagnostic Kit) 0 mg IM STAT PRN; Protocol PRN Reason: Hypoglycemia Protocol Piperacillin Sod/Tazobactam (Sod 3.375 gm/ Sodium Chloride) 100 mls @ 100 mls/ hr IVPB Q6 ELAINE Last Admin: 08/19/16 09:06 Dose: 100 mls/hr Vasopressin 100 units/ Sodium (Chloride) 105 mls @ 1.89 mls/hr IV .Q24H ELAINE; 0.03 UNITS/MIN PRN Reason: Protocol Last Admin: 08/18/16 19:00 Dose: 0.03 units/min, 1.89 mls/hr Norepinephrine Bitartrate 8 mg (/ Dextrose) 508 mls @ 95.25 mls/hr IV .Q5H20M ELAINE; 25 MCG/MIN PRN Reason: Protocol Last Admin: 08/19/16 05:00 Dose: 20 mcg/min, 76.2 mls/hr Insulin Human Regular 100 (units/ Sodium Chloride) 101 mls @ 12.12 mls/hr IVPB .Q8H20M [facility]; 12 UNITS/HR PRN Reason: Protocol Last Admin: 08/19/16 08:51 Dose: 4 mls/hr Potassium Chloride (Potassium Cl 10meq/50ml Sterile Water) 50 mls @ 50 mls/hr IVPB Q1 [facility] Stop: 08/19/16 10:59 Last Admin: 08/19/16 09:06 Dose: 50 mls/hr Potassium Chloride/Dextrose (Potassium Chl 40 Meq In D5w) 1,000 mls @ 171.567 mls/hr IV .Q5H50M [facility] Stop: 08/19/16 15:59 Last Admin: 08/19/16 07:19 Dose: 171.567 mls/hr Pantoprazole Sodium (Protonix Inj) 40 mg IVP DAILY [facility] Last Admin: 08/19/16 08:54 Dose: 40 mg - Labs Labs: 08/19/16 05:46 08/19/16 05:46 PT 11.8 SECONDS (9.6-11.2) H 08/17/16 10:34 INR 1.13 (0.92-1.08) H 08/17/16 10:34 APTT 25.4 SECONDS (23.3-32.5) 08/17/16 10:34
--- NOTE | 2016-08-19 12:06 | CP.PCM.PN ---
Subjective - Date & Time of Evaluation Date of Evaluation: 08/19/16 Time of Evaluation: 12:05 - Subjective Subjective: Remains comatose BP has been stable, Has urine output. Has low grade fever. Objective - Vital Signs/Intake and Output Vital Signs (last 24 hours): Temp Pulse Resp BP Pulse Ox 101.9 F H 97 H 16 123/73 99 08/19/16 12:00 08/19/16 12:00 08/19/16 12:00 08/19/16 12:00 08/19/16 12:00 Intake and Output: 08/19/16 08/19/16 06:59 18:59 Intake Total 4492 1465 Output Total 3200 200 Balance 1292 1265 - Medications Medications: Current Medications Acetaminophen (Tylenol 650mg/20.3ml Solution Ud) 650 mg PO Q6 PRN PRN Reason: Fever Last Admin: 08/18/16 23:22 Dose: 650 mg Artificial Tears (Lacri-Lube) 1 applic OU HS ELAINE Last Admin: 08/18/16 21:25 Dose: 1 applic Dextrose (Dextrose 50% Inj) 0 ml IV STAT PRN; Protocol PRN Reason: Hyglycemia Protocol Dextrose (Glutose 15) 0 gm PO ONCE PRN; Protocol PRN Reason: Hypoglycemia Protocol Glucagon (Glucagen Diagnostic Kit) 0 mg IM STAT PRN; Protocol PRN Reason: Hypoglycemia Protocol Piperacillin Sod/Tazobactam (Sod 3.375 gm/ Sodium Chloride) 100 mls @ 100 mls/ hr IVPB Q6 ELAINE Last Admin: 08/19/16 09:06 Dose: 100 mls/hr Vasopressin 100 units/ Sodium (Chloride) 105 mls @ 1.89 mls/hr IV .Q24H ELAINE; 0.03 UNITS/MIN PRN Reason: Protocol Last Admin: 08/18/16 19:00 Dose: 0.03 units/min, 1.89 mls/hr Norepinephrine Bitartrate 8 mg (/ Dextrose) 508 mls @ 95.25 mls/hr IV .Q5H20M ELAINE; 25 MCG/MIN PRN Reason: Protocol Last Admin: 08/19/16 05:00 Dose: 20 mcg/min, 76.2 mls/hr Insulin Human Regular 100 (units/ Sodium Chloride) 101 mls @ 12.12 mls/hr IVPB .Q8H20M ELAINE; 12 UNITS/HR PRN Reason: Protocol Last Admin: 08/19/16 08:51 Dose: 4 mls/hr Potassium Chloride/Dextrose (Potassium Chl 40 Meq In D5w) 1,000 mls @ 171.567 mls/hr IV .Q5H50M [facility] Stop: 08/19/16 15:59 Last Admin: 08/19/16 07:19 Dose: 171.567 mls/hr Pantoprazole Sodium (Protonix Inj) 40 mg IVP DAILY [facility] Last Admin: 08/19/16 08:54 Dose: 40 mg - Labs Labs: 08/19/16 05:46 08/19/16 05:46 PT 11.8 SECONDS (9.6-11.2) H 08/17/16 10:34 INR 1.13 (0.92-1.08) H 08/17/16 10:34 APTT 25.4 SECONDS (23.3-32.5) 08/17/16 10:34 - Eye Exam Additional comments: pupils fixed and dilated - ENT Exam ENT Exam: Mucous Membranes Moist - Respiratory Exam Respiratory Exam: Clear to Ausculation Bilateral - Cardiovascular Exam Cardiovascular Exam: REGULAR RHYTHM - GI/Abdominal Exam GI & Abdominal Exam: Normal Bowel Sounds - Neurological Exam Additional comments: comatose Assessment and Plan (1) Anoxic brain injury Status: Acute (2) Cardiac arrest Status: Acute (3) Hyperglycemia, unspecified Status: Acute - Assessment and Plan (Free Text) Plan: continue current meds grave prognosis.
[2016-08-19 14:24] LABS: CALCIUM 8.6 mg/dL (8.4-10.2); POTASSIUM 3.3 MMOL/L (3.6-5.0)
--- NOTE | 2016-08-19 17:00 | RAD ---
HISTORY: ett PLACEMENT COMPARISON: Comparison chest 08/18/2016. FINDINGS: LUNGS: In situ ETT, tip of which lies approximately 3.73 cm above janice. NGT is present, the tip of which lies to the right of midline within the distal stomach region. Bibasilar opacities may represent some combination of low lung volumes with crowded bronchovascular markings, atelectasis and effusions. Developing infiltrates could be excluded with followup radiographs. PLEURA: No significant pleural effusion identified, no pneumothorax apparent. CARDIOVASCULAR: Normal. OSSEOUS STRUCTURES: No significant abnormalities. VISUALIZED UPPER ABDOMEN: Normal. OTHER FINDINGS: None. IMPRESSION: In situ ETT, tip of which lies approximately 3.73 cm above janice. NGT is present, the tip of which lies to the right of midline within the distal stomach region. Bibasilar opacities may represent some combination of low lung volumes with crowded bronchovascular markings, atelectasis and effusions. Developing infiltrates could be excluded with followup radiographs.
--- NOTE | 2016-08-19 17:37 | PN ---
DATE: 08/19/2016 The patient is deeply comatose on the vent, hypertensive still requiring vasopressin and Levophed inf usion. PHYSICAL EXAMINATION: VITAL SIGNS: Most recent one, blood pressure 99/63, heart rate 72, temperature 97, respirations 20. HEENT: No pallor. CHEST: Bilateral rhonchi. HEART: S1, S2 regular. LABORATORIES: CBC: WBC 14.7, hemoglobin 14.4, hematocrit 44.1, platelet count 195,000. SMA-7: Sod ium 158, potassium 3.3, chloride 125, CO2 23, glucose 154, BUN 14, creatinine 1.7. ASSESSMENT: 1. Status post cardiac arrest. 2. Anoxic encephalopathy. 3. Hypotension. 4. Hypernatremia and hypokalemia. RECOMMENDATIONS: Continue current vasopressors including Levophed and vasopressin. Optimize potassi um replacement intravenously with 20 mEq of KCl over 2 hours. The prognosis is grave and the patient is not a suitable candidate for CT angio study. Mohan Sam MD cc: [id number] TT: 08/19/2016 17:35:48 Confirmation # [id number] Dictation # [id number] en
--- NOTE | 2016-08-19 17:50 | CP.PCM.PN ---
Subjective - Date & Time of Evaluation Date of Evaluation: 08/19/16 Time of Evaluation: 17:48 - Subjective Subjective: Mr. Vázquez was seen and examined today at bedside. He is clinically unchanged with no brainstem reflexes. He has significant electrolyte abnormalities that preclude apnea testing. This was discussed with the family, who was at bedside. Objective - Vital Signs/Intake and Output Vital Signs (last 24 hours): Temp Pulse Resp BP Pulse Ox 95.7 F L 68 20 123/77 98 08/19/16 17:00 08/19/16 17:00 08/19/16 17:00 08/19/16 17:00 08/19/16 17:00 Intake and Output: 08/19/16 08/19/16 06:59 18:59 Intake Total 4492 4062 Output Total 3200 200 Balance 1292 3862 - Medications Medications: Current Medications Acetaminophen (Tylenol 650mg/20.3ml Solution Ud) 650 mg PO Q6 PRN PRN Reason: Fever Last Admin: 08/18/16 23:22 Dose: 650 mg Artificial Tears (Lacri-Lube) 1 applic OU HS ELAINE Last Admin: 08/18/16 21:25 Dose: 1 applic Dextrose (Dextrose 50% Inj) 0 ml IV STAT PRN; Protocol PRN Reason: Hyglycemia Protocol Dextrose (Glutose 15) 0 gm PO ONCE PRN; Protocol PRN Reason: Hypoglycemia Protocol Glucagon (Glucagen Diagnostic Kit) 0 mg IM STAT PRN; Protocol PRN Reason: Hypoglycemia Protocol Piperacillin Sod/Tazobactam (Sod 3.375 gm/ Sodium Chloride) 100 mls @ 100 mls/ hr IVPB Q6 ELAINE Last Admin: 08/19/16 15:06 Dose: 100 mls/hr Vasopressin 100 units/ Sodium (Chloride) 105 mls @ 1.89 mls/hr IV .Q24H ELAINE; 0.03 UNITS/MIN PRN Reason: Protocol Last Admin: 08/18/16 19:00 Dose: 0.03 units/min, 1.89 mls/hr Norepinephrine Bitartrate 8 mg (/ Dextrose) 508 mls @ 95.25 mls/hr IV .Q5H20M ELAINE; 25 MCG/MIN PRN Reason: Protocol Last Admin: 08/19/16 15:01 Dose: 20 mcg/min, 76.2 mls/hr Insulin Human Regular 100 (units/ Sodium Chloride) 101 mls @ 12.12 mls/hr IVPB .Q8H20M ELAINE; 12 UNITS/HR PRN Reason: Protocol Last Admin: 08/19/16 15:04 Dose: 5 mls/hr Pantoprazole Sodium (Protonix Inj) 40 mg IVP DAILY ELAINE Last Admin: 08/19/16 08:54 Dose: 40 mg - Labs Labs: 08/19/16 05:46 08/19/16 13:50 PT 11.8 SECONDS (9.6-11.2) H 08/17/16 10:34 INR 1.13 (0.92-1.08) H 08/17/16 10:34 APTT 25.4 SECONDS (23.3-32.5) 08/17/16 10:34 - Neurological Exam Additional comments: Neurologically unchanged. Assessment and Plan (1) Anoxic brain injury Assessment & Plan: No brainstem reflexes and lack of improvement with multi-organ failure. Discussed brain protocol with family. Status: Acute
[2016-08-19 21:22] LABS: BILIRUBIN,TOTAL 3.1 mg/dl (0.2-1.3); CALCIUM 8.1 mg/dL (8.4-10.2); POTASSIUM 3.4 MMOL/L (3.6-5.0); TOTAL PROTEIN 5.2 G/DL (6.3-8.2)
[2016-08-19] MEDS: Mineral Oil/White Petrolatum Ophth Oint OU SCH (22:03)
[2016-08-19] MEDS: Potassium Chl 40 mEq in D5-1/2 1,000 ML IV SCH (23:21)
[2016-08-20] MEDS: Potassium CL 10 MEQ/50 ML 50 ML IVPB SCH (00:10)
[2016-08-20] MEDS: Piperacillin/Tazobact 3.375 GM in Sodium Chloride 0.9% 100 ML IVPB SCH ×4 (03:25→21:22)
[2016-08-20 05:13] LABS: ABG ALLEN TEST YES; ABG MECHANICAL RATE 20; ARTERIAL BLOOD GAS HCO3 24.5 mmol/L (21-28); ARTERIAL BLOOD GAS MODE A/C; ARTERIAL BLOOD GAS O2 CAPACITY 16.2 mL/dL (16-24); ARTERIAL BLOOD GAS O2 CONTENT 15.9 ML/dL (15-23); ARTERIAL BLOOD GAS PO2 95 mm/Hg (80-100); CARBOXYHEMOGLOBIN 0.8 % (0.5-1.5); HHB 1.9 % (0.0-5.0); METHEMOGLOBIN 1.3 % (0.0-3.0)
[2016-08-20 05:55] LABS: BASO % 0.2 % (0.0-2.0); EOS # 0.1 K/uL (0.0-0.7); EOS % 0.7 % (0.0-4.0); HEMATOCRIT 36.4 % (35.0-51.0); LYMPH # 1.7 K/uL (1.0-4.3); LYMPH % 11.1 % (20.0-40.0); MEAN CELL VOLUME 94.2 fl (80.0-94.0); MEAN CORPUSCULAR HEMOGLOBIN 30.2 pg (27.0-31.0); MEAN CORPUSCULAR HGB CONC 32.1 g/dL (33.0-37.0); MEAN PLATELET VOLUME 9.1 fl (7.2-11.7); MONO # 0.8 K/uL (0.0-0.8); MONO % 5.2 % (0.0-10.0); NEUT % 82.8 % (50.0-75.0); NRBC % 0.1 % (0.0-0.0); RED CELL DISTRIBUTION WIDTH 13.9 % (11.5-14.5); WHITE BLOOD COUNT 15.7 K/uL (4.8-10.8)
[2016-08-20 05:58] LABS: ALKALINE PHOSPHATASE 112 U/L (38-126); ALT/SGPT 140 U/L (21-72); AST/SGOT 190 U/L (17-59); BILIRUBIN,TOTAL 2.6 mg/dl (0.2-1.3); BLOOD UREA NITROGEN 19 mg/dl (9-20); CALCIUM 7.9 mg/dL (8.4-10.2); CARBON DIOXIDE 24 mmol/L (22-30); CHLORIDE 119 mmol/L (98-107); GFR AFRICAN-AMERICAN > 60; GLUCOSE,RANDOM 128 mg/dL (75-110); POTASSIUM 3.6 MMOL/L (3.6-5.0); SODIUM 153 mmol/l (132-148); TOTAL PROTEIN 5.2 G/DL (6.3-8.2)
--- NOTE | 2016-08-20 08:14 | RAD ---
HISTORY: reevaluate COMPARISON: 03/21/2017 FINDINGS: LUNGS: Hazy opacity in the lung bases. Increased pulmonary vascular congestion. PLEURA: Small bilateral pleural effusions. CARDIOVASCULAR: Enlarged cardiomediastinal silhouette. OSSEOUS STRUCTURES: The osseous structures demonstrate degenerative changes. Possible postsurgical changes in the right acromioclavicular joint, stable. VISUALIZED UPPER ABDOMEN: Upper abdomen is suboptimally evaluated. OTHER FINDINGS: ET tube above the tracheal bifurcation. Feeding tube with the distal tube coursing below the projection of the diaphragm. Cervical hardware. IMPRESSION: Hazy opacity in the lung bases with associated small bilateral pleural effusions.
--- NOTE | 2016-08-20 08:51 | CP.CCUPN ---
CCU Subjective - Physician Review Events Since Last Encounter (Free Text): 08/20/16 The Patient was seen and examined at the bedside, Medical records reviewed, all clinical/lab/hemodynamic/radiographic data were reviewed and management issues were discussed and formulated, Events reviewed 55-year-old male who was brought to the ED by ACLS for cardiac arrest on 08/16. Patient was witnessed in cardiac arrest by by-standers in the street. Witnesses immediately started CPR. Patient had a rhythm of asystole. After intubation, CPR was started in the field , Pt received 6 rounds of epinephrineand 1 dose of Bicarbonate. Patient's rhythm was PEA and pulses were restored prior to arrival to ER. In ER Pateint hypotensive and bradycardia, received additional doses of Epi and Atropine. Of note, Pt was discharged to home in AM of 08/16 in stable condition anterior cervical discectomy and fusion Decision made to initiate Therapeutic Hypothermia with infusion of cooled saline , then he was transferred to ICU for further management. Currently he is orally intubated, Unresponsive to painful stimuli Clinical exam was done at 9:30AM and Apnea testing done at 12:30AM [place] has no cough/Gag/pupillary reflex, No brain stem function, No culocephalic and oculovestibular reflexes Patient will have another 6H exam for declaration of based on neurological criteria Family at bed side, patient clinical status discussed with them in details and all their questions answered CCU Objective - Vital Signs / Intake & Output Vital Signs (Last 4 hours): Vital Signs Temp Pulse Resp BP BP Pulse Ox 08/20/16 08:00 99.7 F H 93 H 20 126/69 122/65 99 08/20/16 07:00 99.4 F 93 H 20 116/60 115/58 L 99 08/20/16 06:00 99.3 F 85 20 131/74 131/74 98 08/20/16 05:00 98.9 F 88 20 114/62 114/62 97 Intake and Output (Last 8hrs): Intake & Output 08/19/16 08/20/16 08/20/16 22:59 06:59 14:59 Intake Total 1623.3 1440 242 Output Total 850 450 75 Balance 773.3 990 167 Intake: IV 1273.3 790 242 Intake, Piggyback 100 400 Free Water Flush 250 250 Output: Urine 850 450 75 Urethral (Hilario) 850 450 75 Other: # Bowel Movements 1 - Physical Exam Physical Exam Limitations: Positive for: Altered Mental Status Head: Positive for: Atraumatic, Normocephalic Pupils: Positive for: Non-Reactive, Other (Fixed, dilated) Conjunctiva: Positive for: Normal Ears: Positive for: Normal Mouth: Positive for: Moist Mucous Membranes Nose (Internal): Positive for: Normal Inspection Neck: Positive for: Normal Range of Motion, Trachea Midline Respiratory/Chest: Positive for: Clear to Auscultation, Good Air Exchange. Negative for: Respiratory Distress, Rhonchi Cardiovascular: Positive for: Regular Rate and Rhythm, Peripheal Pulses Present. Negative for: Tachycardic, Bradycardic Abdomen: Positive for: Normal Bowel Sounds Upper Extremity: Positive for: Normal Inspection, Capillary Refill < 2s. Negative for: Edema Lower Extremity: Positive for: Normal Inspection. Negative for: Cyanosis Neurological: Positive for: Other (no response to any stimuli). Negative for: GCS=15, CN II-XII Intact, Motor Func Grossly Intact, Normal Sensory Function Psychiatric: Negative for: Alert, Oriented x 3, Normal Insight, Normal Concentration - Medications Active Medications: Active Medications Generic Name Dose Route Start Last Admin Trade Name Freq PRN Reason Stop Dose Admin Acetaminophen 650 mg 08/18/16 00:52 08/18/16 23:22 Tylenol 650mg/20.3ml Solution Ud PO 650 mg Q6 PRN Administration Fever Artificial Tears 1 applic 08/16/16 22:00 08/19/16 22:03 Lacri-Lube OU 1 applic HS ELAINE Administration Dextrose 0 ml 08/17/16 00:01 Dextrose 50% Inj IV STAT PRN Hyglycemia Protocol Protocol Dextrose 0 gm 08/17/16 00:01 Glutose 15 PO ONCE PRN Hypoglycemia Protocol Protocol Glucagon 0 mg 08/17/16 00:01 Glucagen Diagnostic Kit IM STAT PRN Hypoglycemia Protocol Protocol Piperacillin Sod/Tazobactam 100 mls @ 100 mls/hr 08/16/16 22:00 08/20/16 03: 25 Sod 3.375 gm/ Sodium Chloride IVPB 100 mls/hr Q6 ELAINE Administration Vasopressin 100 units/ Sodium 105 mls @ 1.89 mls/hr 08/18/16 16:00 08/19/16 22:31 Chloride IV 0.03 units/min .Q24H ELAINE 1.89 mls/hr Protocol Administration 0.03 UNITS/MIN Norepinephrine Bitartrate 8 mg 508 mls @ 95.25 mls/hr 08/18/16 20:30 04:00 / Dextrose IV 8 mcg/min .Q5H20M ELAINE 30.48 mls/hr Protocol Titration 25 MCG/MIN Insulin Human Regular 100 101 mls @ 12.12 mls/hr 08/18/16 21:00 08/20/16 04: 30 units/ Sodium Chloride IVPB 5 mls/hr .Q8H20M ELAINE Administration Protocol 12 UNITS/HR Potassium Chloride/Dextrose/Sod Cl 1,000 mls @ 100 mls/hr 08/19/16 22:30 23:21 Potassium Chl 40 Meq In D5-1/2ns IV 08/20/16 22:18 100 mls/hr .Q10H ELAINE Administration Pantoprazole Sodium 40 mg 08/17/16 20:41 08/20/16 08:35 Protonix Inj IVP 40 mg DAILY ELAINE Administration - Patient Studies Lab Studies: Microbiology Studies 08/19/16 05:00 Blood Culture - Preliminary Blood NO GROWTH AFTER 24 HOURS 08/19/16 05:00 Blood Culture - Preliminary Blood NO GROWTH AFTER 24 HOURS Lab Studies 08/20/16 08/20/16 08/20/16 Range/Units 07:59 07:08 06:28 WBC (4.8-10.8) K/uL RBC (4.40-5.90) Mil/uL Hgb (12.0-18.0) g/dL Hct (35.0-51.0) % MCV (80.0-94.0) fl MCH (27.0-31.0) pg MCHC (33.0-37.0) g/dL RDW (11.5-14.5) % Plt Count (130-400) K/uL MPV (7.2-11.7) fl Neut % (Auto) (50.0-75.0) % Lymph % (Auto) (20.0-40.0) % [place] % (Auto) (0.0-10.0) % Eos % (Auto) (0.0-4.0) % Baso % (Auto) (0.0-2.0) % Neut # (1.8-7.0) K/uL Lymph # (1.0-4.3) K/uL [place] # (0.0-0.8) K/uL Eos # (0.0-0.7) K/uL Baso # (0.0-0.2) K/uL pCO2 (35-45) mm/Hg pO2 (80-100) mm/Hg HCO3 (21-28) mmol/L ABG pH (7.35-7.45) ABG Total CO2 (22-28) mmol/L ABG O2 Saturation (95-98) % ABG O2 Content (15-23) ML/dL ABG Base Excess (-2.0-3.0) mmol/L ABG Hemoglobin (11.7-17.4) g/dL ABG Carboxyhemoglobin (0.5-1.5) % POC ABG HHb (Measured) (0.0-5.0) % ABG Methemoglobin (0.0-3.0) % ABG O2 Capacity (16-24) mL/dL Jonathan Test A-a O2 Difference mm/Hg Hgb O2 Saturation (95.0-98.0) % Vent Mode Mechanical Rate FiO2 % Tidal Volume Sodium (132-148) mmol/l Potassium (3.6-5.0) MMOL/L Chloride (98-107) mmol/L Carbon Dioxide (22-30) mmol/L Anion Gap (10-20) BUN (9-20) mg/dl Creatinine (0.8-1.5) mg/dL Est GFR ( Amer) Est GFR (Non-Af Amer) POC Glucose (mg/dL) 130 H 140 H 140 H (65-110) mg/dL Random Glucose (75-110) mg/dL Calcium (8.4-10.2) mg/dL Magnesium (1.6-2.3) MG/DL Total Bilirubin (0.2-1.3) mg/dl AST (17-59) U/L ALT (21-72) U/L Alkaline Phosphatase (38-126) U/L Total Protein (6.3-8.2) G/DL Albumin (3.5-5.0) g/dL Globulin (2.2-3.9) gm/dL Albumin/Globulin Ratio (1.0-2.1) 08/20/16 08/20/16 08/20/16 Range/Units 05:11 05:03 04:30 WBC (4.8-10.8) K/uL RBC (4.40-5.90) Mil/uL Hgb (12.0-18.0) g/dL Hct (35.0-51.0) % MCV (80.0-94.0) fl MCH (27.0-31.0) pg MCHC (33.0-37.0) g/dL RDW (11.5-14.5) % Plt Count (130-400) K/uL MPV (7.2-11.7) fl Neut % (Auto) (50.0-75.0) % Lymph % (Auto) (20.0-40.0) % [place] % (Auto) (0.0-10.0) % Eos % (Auto) (0.0-4.0) % Baso % (Auto) (0.0-2.0) % Neut # (1.8-7.0) K/uL Lymph # (1.0-4.3) K/uL [place] # (0.0-0.8) K/uL Eos # (0.0-0.7) K/uL Baso # (0.0-0.2) K/uL pCO2 39 (35-45) mm/Hg pO2 95 (80-100) mm/Hg HCO3 24.5 (21-28) mmol/L ABG pH 7.40 (7.35-7.45) ABG Total CO2 25.4 (22-28) mmol/L ABG O2 Saturation 98.1 H (95-98) % ABG O2 Content 15.9 (15-23) ML/dL ABG Base Excess -0.5 (-2.0-3.0) mmol/L ABG Hemoglobin 11.7 (11.7-17.4) g/dL ABG Carboxyhemoglobin 0.8 (0.5-1.5) % POC ABG HHb (Measured) 1.9 (0.0-5.0) % ABG Methemoglobin 1.3 (0.0-3.0) % ABG O2 Capacity 16.2 (16-24) mL/dL Jonathan Test Yes A-a O2 Difference 427.0 mm/Hg Hgb O2 Saturation 96.0 (95.0-98.0) % Vent Mode A/c Mechanical Rate 20 FiO2 80.0 % Tidal Volume 500 Sodium 153 H (132-148) mmol/l Potassium 3.6 (3.6-5.0) MMOL/L Chloride 119 H (98-107) mmol/L Carbon Dioxide 24 (22-30) mmol/L Anion Gap 14 (10-20) BUN 19 (9-20) mg/dl Creatinine 1.4 (0.8-1.5) mg/dL Est GFR ( Amer) > 60 Est GFR (Non-Af Amer) 53 POC Glucose (mg/dL) 139 H (65-110) mg/dL Random Glucose 128 H (75-110) mg/dL Calcium 7.9 L (8.4-10.2) mg/dL Magnesium (1.6-2.3) MG/DL Total Bilirubin 2.6 H (0.2-1.3) mg/dl AST 190 H (17-59) U/L ALT 140 H (21-72) U/L Alkaline Phosphatase 112 (38-126) U/L Total Protein 5.2 L (6.3-8.2) G/DL Albumin 2.6 L (3.5-5.0) g/dL Globulin 2.6 (2.2-3.9) gm/dL Albumin/Globulin Ratio 1.0 (1.0-2.1) 08/20/16 08/20/16 08/20/16 Range/Units 04:30 03:57 02:56 WBC 15.7 H (4.8-10.8) K/uL RBC 3.87 L (4.40-5.90) Mil/uL Hgb 11.7 L D (12.0-18.0) g/dL Hct 36.4 (35.0-51.0) % MCV 94.2 H (80.0-94.0) fl MCH 30.2 (27.0-31.0) pg MCHC 32.1 L (33.0-37.0) g/dL RDW 13.9 (11.5-14.5) % Plt Count 137 (130-400) K/uL MPV 9.1 (7.2-11.7) fl Neut % (Auto) 82.8 H (50.0-75.0) % Lymph % (Auto) 11.1 L (20.0-40.0) % [place] % (Auto) 5.2 (0.0-10.0) % Eos % (Auto) 0.7 (0.0-4.0) % Baso % (Auto) 0.2 (0.0-2.0) % Neut # 13.0 H (1.8-7.0) K/uL Lymph # 1.7 (1.0-4.3) K/uL [place] # 0.8 (0.0-0.8) K/uL Eos # 0.1 (0.0-0.7) K/uL Baso # 0.0 (0.0-0.2) K/uL pCO2 (35-45) mm/Hg pO2 (80-100) mm/Hg HCO3 (21-28) mmol/L ABG pH (7.35-7.45) ABG Total CO2 (22-28) mmol/L ABG O2 Saturation (95-98) % ABG O2 Content (15-23) ML/dL ABG Base Excess (-2.0-3.0) mmol/L ABG Hemoglobin (11.7-17.4) g/dL ABG Carboxyhemoglobin (0.5-1.5) % POC ABG HHb (Measured) (0.0-5.0) % ABG Methemoglobin (0.0-3.0) % ABG O2 Capacity (16-24) mL/dL Jonathan Test A-a O2 Difference mm/Hg Hgb O2 Saturation (95.0-98.0) % Vent Mode Mechanical Rate FiO2 % Tidal Volume Sodium (132-148) mmol/l Potassium (3.6-5.0) MMOL/L Chloride (98-107) mmol/L Carbon Dioxide (22-30) mmol/L Anion Gap (10-20) BUN (9-20) mg/dl Creatinine (0.8-1.5) mg/dL Est GFR ( Amer) Est GFR (Non-Af Amer) POC Glucose (mg/dL) 147 H 156 H (65-110) mg/dL Random Glucose (75-110) mg/dL Calcium (8.4-10.2) mg/dL Magnesium (1.6-2.3) MG/DL Total Bilirubin (0.2-1.3) mg/dl AST (17-59) U/L ALT (21-72) U/L Alkaline Phosphatase (38-126) U/L Total Protein (6.3-8.2) G/DL Albumin (3.5-5.0) g/dL Globulin (2.2-3.9) gm/dL Albumin/Globulin Ratio (1.0-2.1) 08/20/16 08/20/16 08/20/16 Range/Units 01:52 01:05 00:14 WBC (4.8-10.8) K/uL RBC (4.40-5.90) Mil/uL Hgb (12.0-18.0) g/dL Hct (35.0-51.0) % MCV (80.0-94.0) fl MCH (27.0-31.0) pg MCHC (33.0-37.0) g/dL RDW (11.5-14.5) % Plt Count (130-400) K/uL MPV (7.2-11.7) fl Neut % (Auto) (50.0-75.0) % Lymph % (Auto) (20.0-40.0) % [place] % (Auto) (0.0-10.0) % Eos % (Auto) (0.0-4.0) % Baso % (Auto) (0.0-2.0) % Neut # (1.8-7.0) K/uL Lymph # (1.0-4.3) K/uL [place] # (0.0-0.8) K/uL Eos # (0.0-0.7) K/uL Baso # (0.0-0.2) K/uL pCO2 (35-45) mm/Hg pO2 (80-100) mm/Hg HCO3 (21-28) mmol/L ABG pH (7.35-7.45) ABG Total CO2 (22-28) mmol/L ABG O2 Saturation (95-98) % ABG O2 Content (15-23) ML/dL ABG Base Excess (-2.0-3.0) mmol/L ABG Hemoglobin (11.7-17.4) g/dL ABG Carboxyhemoglobin (0.5-1.5) % POC ABG HHb (Measured) (0.0-5.0) % ABG Methemoglobin (0.0-3.0) % ABG O2 Capacity (16-24) mL/dL Jonathan Test A-a O2 Difference mm/Hg Hgb O2 Saturation (95.0-98.0) % Vent Mode Mechanical Rate FiO2 % Tidal Volume Sodium (132-148) mmol/l Potassium (3.6-5.0) MMOL/L Chloride (98-107) mmol/L Carbon Dioxide (22-30) mmol/L Anion Gap (10-20) BUN (9-20) mg/dl Creatinine (0.8-1.5) mg/dL Est GFR ( Amer) Est GFR (Non-Af Amer) POC Glucose (mg/dL) 130 H 115 H 120 H (65-110) mg/dL Random Glucose (75-110) mg/dL Calcium (8.4-10.2) mg/dL Magnesium (1.6-2.3) MG/DL Total Bilirubin (0.2-1.3) mg/dl AST (17-59) U/L ALT (21-72) U/L Alkaline Phosphatase (38-126) U/L Total Protein (6.3-8.2) G/DL Albumin (3.5-5.0) g/dL Globulin (2.2-3.9) gm/dL Albumin/Globulin Ratio (1.0-2.1) 08/19/16 08/19/16 08/19/16 Range/Units 23:09 22:05 21:35 WBC (4.8-10.8) K/uL RBC (4.40-5.90) Mil/uL Hgb (12.0-18.0) g/dL Hct (35.0-51.0) % MCV (80.0-94.0) fl MCH (27.0-31.0) pg MCHC (33.0-37.0) g/dL RDW (11.5-14.5) % Plt Count (130-400) K/uL MPV (7.2-11.7) fl Neut % (Auto) (50.0-75.0) % Lymph % (Auto) (20.0-40.0) % [place] % (Auto) (0.0-10.0) % Eos % (Auto) (0.0-4.0) % Baso % (Auto) (0.0-2.0) % Neut # (1.8-7.0) K/uL Lymph # (1.0-4.3) K/uL [place] # (0.0-0.8) K/uL Eos # (0.0-0.7) K/uL Baso # (0.0-0.2) K/uL pCO2 (35-45) mm/Hg pO2 (80-100) mm/Hg HCO3 (21-28) mmol/L ABG pH (7.35-7.45) ABG Total CO2 (22-28) mmol/L ABG O2 Saturation (95-98) % ABG O2 Content (15-23) ML/dL ABG Base Excess (-2.0-3.0) mmol/L ABG Hemoglobin (11.7-17.4) g/dL ABG Carboxyhemoglobin (0.5-1.5) % POC ABG HHb (Measured) (0.0-5.0) % ABG Methemoglobin (0.0-3.0) % ABG O2 Capacity (16-24) mL/dL Jonathan Test A-a O2 Difference mm/Hg Hgb O2 Saturation (95.0-98.0) % Vent Mode Mechanical Rate FiO2 % Tidal Volume Sodium (132-148) mmol/l Potassium (3.6-5.0) MMOL/L Chloride (98-107) mmol/L Carbon Dioxide (22-30) mmol/L Anion Gap (10-20) BUN (9-20) mg/dl Creatinine (0.8-1.5) mg/dL Est GFR ( Amer) Est GFR (Non-Af Amer) POC Glucose (mg/dL) 133 H 159 H (65-110) mg/dL Random Glucose (75-110) mg/dL Calcium (8.4-10.2) mg/dL Magnesium 1.4 L (1.6-2.3) MG/DL Total Bilirubin (0.2-1.3) mg/dl AST (17-59) U/L ALT (21-72) U/L Alkaline Phosphatase (38-126) U/L Total Protein (6.3-8.2) G/DL Albumin (3.5-5.0) g/dL Globulin (2.2-3.9) gm/dL Albumin/Globulin Ratio (1.0-2.1) 08/19/16 08/19/16 08/19/16 Range/Units 21:00 20:09 19:00 WBC (4.8-10.8) K/uL RBC (4.40-5.90) Mil/uL Hgb (12.0-18.0) g/dL Hct (35.0-51.0) % MCV (80.0-94.0) fl MCH (27.0-31.0) pg MCHC (33.0-37.0) g/dL RDW (11.5-14.5) % Plt Count (130-400) K/uL MPV (7.2-11.7) fl Neut % (Auto) (50.0-75.0) % Lymph % (Auto) (20.0-40.0) % [place] % (Auto) (0.0-10.0) % Eos % (Auto) (0.0-4.0) % Baso % (Auto) (0.0-2.0) % Neut # (1.8-7.0) K/uL Lymph # (1.0-4.3) K/uL [place] # (0.0-0.8) K/uL Eos # (0.0-0.7) K/uL Baso # (0.0-0.2) K/uL pCO2 (35-45) mm/Hg pO2 (80-100) mm/Hg HCO3 (21-28) mmol/L ABG pH (7.35-7.45) ABG Total CO2 (22-28) mmol/L ABG O2 Saturation (95-98) % ABG O2 Content (15-23) ML/dL ABG Base Excess (-2.0-3.0) mmol/L ABG Hemoglobin (11.7-17.4) g/dL ABG Carboxyhemoglobin (0.5-1.5) % POC ABG HHb (Measured) (0.0-5.0) % ABG Methemoglobin (0.0-3.0) % ABG O2 Capacity (16-24) mL/dL Jonathan Test A-a O2 Difference mm/Hg Hgb O2 Saturation (95.0-98.0) % Vent Mode Mechanical Rate FiO2 % Tidal Volume Sodium 154 H (132-148) mmol/l Potassium 3.4 L (3.6-5.0) MMOL/L Chloride 121 H (98-107) mmol/L Carbon Dioxide 24 (22-30) mmol/L Anion Gap 12 (10-20) BUN 17 (9-20) mg/dl Creatinine 1.6 H (0.8-1.5) mg/dL Est GFR ( Amer) 55 Est GFR (Non-Af Amer) 45 POC Glucose (mg/dL) 187 H 170 H (65-110) mg/dL Random Glucose 163 H (75-110) mg/dL Calcium 8.1 L (8.4-10.2) mg/dL Magnesium (1.6-2.3) MG/DL Total Bilirubin 3.1 H (0.2-1.3) mg/dl AST 202 H (17-59) U/L ALT 150 H (21-72) U/L Alkaline Phosphatase 109 (38-126) U/L Total Protein 5.2 L (6.3-8.2) G/DL Albumin 2.6 L (3.5-5.0) g/dL Globulin 2.6 (2.2-3.9) gm/dL Albumin/Globulin Ratio 1.0 (1.0-2.1) 08/19/16 08/19/16 08/19/16 Range/Units 18:04 16:58 16:08 WBC (4.8-10.8) K/uL RBC (4.40-5.90) Mil/uL Hgb (12.0-18.0) g/dL Hct (35.0-51.0) % MCV (80.0-94.0) fl MCH (27.0-31.0) pg MCHC (33.0-37.0) g/dL RDW (11.5-14.5) % Plt Count (130-400) K/uL MPV (7.2-11.7) fl Neut % (Auto) (50.0-75.0) % Lymph % (Auto) (20.0-40.0) % [place] % (Auto) (0.0-10.0) % Eos % (Auto) (0.0-4.0) % Baso % (Auto) (0.0-2.0) % Neut # (1.8-7.0) K/uL Lymph # (1.0-4.3) K/uL [place] # (0.0-0.8) K/uL Eos # (0.0-0.7) K/uL Baso # (0.0-0.2) K/uL pCO2 (35-45) mm/Hg pO2 (80-100) mm/Hg HCO3 (21-28) mmol/L ABG pH (7.35-7.45) ABG Total CO2 (22-28) mmol/L ABG O2 Saturation (95-98) % ABG O2 Content (15-23) ML/dL ABG Base Excess (-2.0-3.0) mmol/L ABG Hemoglobin (11.7-17.4) g/dL ABG Carboxyhemoglobin (0.5-1.5) % POC ABG HHb (Measured) (0.0-5.0) % ABG Methemoglobin (0.0-3.0) % ABG O2 Capacity (16-24) mL/dL Jonathan Test A-a O2 Difference mm/Hg Hgb O2 Saturation (95.0-98.0) % Vent Mode Mechanical Rate FiO2 % Tidal Volume Sodium (132-148) mmol/l Potassium (3.6-5.0) MMOL/L Chloride (98-107) mmol/L Carbon Dioxide (22-30) mmol/L Anion Gap (10-20) BUN (9-20) mg/dl Creatinine (0.8-1.5) mg/dL Est GFR ( Amer) Est GFR (Non-Af Amer) POC Glucose (mg/dL) 171 H 123 H 136 H (65-110) mg/dL Random Glucose (75-110) mg/dL Calcium (8.4-10.2) mg/dL Magnesium (1.6-2.3) MG/DL Total Bilirubin (0.2-1.3) mg/dl AST (17-59) U/L ALT (21-72) U/L Alkaline Phosphatase (38-126) U/L Total Protein (6.3-8.2) G/DL Albumin (3.5-5.0) g/dL Globulin (2.2-3.9) gm/dL Albumin/Globulin Ratio (1.0-2.1) 08/19/16 08/19/16 08/19/16 Range/Units 14:52 13:50 12:51 WBC (4.8-10.8) K/uL RBC (4.40-5.90) Mil/uL Hgb (12.0-18.0) g/dL Hct (35.0-51.0) % MCV (80.0-94.0) fl MCH (27.0-31.0) pg MCHC (33.0-37.0) g/dL RDW (11.5-14.5) % Plt Count (130-400) K/uL MPV (7.2-11.7) fl Neut % (Auto) (50.0-75.0) % Lymph % (Auto) (20.0-40.0) % [place] % (Auto) (0.0-10.0) % Eos % (Auto) (0.0-4.0) % Baso % (Auto) (0.0-2.0) % Neut # (1.8-7.0) K/uL Lymph # (1.0-4.3) K/uL [place] # (0.0-0.8) K/uL Eos # (0.0-0.7) K/uL Baso # (0.0-0.2) K/uL pCO2 (35-45) mm/Hg pO2 (80-100) mm/Hg HCO3 (21-28) mmol/L ABG pH (7.35-7.45) ABG Total CO2 (22-28) mmol/L ABG O2 Saturation (95-98) % ABG O2 Content (15-23) ML/dL ABG Base Excess (-2.0-3.0) mmol/L ABG Hemoglobin (11.7-17.4) g/dL ABG Carboxyhemoglobin (0.5-1.5) % POC ABG HHb (Measured) (0.0-5.0) % ABG Methemoglobin (0.0-3.0) % ABG O2 Capacity (16-24) mL/dL Jonathan Test A-a O2 Difference mm/Hg Hgb O2 Saturation (95.0-98.0) % Vent Mode Mechanical Rate FiO2 % Tidal Volume Sodium 158 H (132-148) mmol/l Potassium 3.3 L (3.6-5.0) MMOL/L Chloride 125 H (98-107) mmol/L Carbon Dioxide 23 (22-30) mmol/L Anion Gap 13 (10-20) BUN 14 (9-20) mg/dl Creatinine 1.7 H (0.8-1.5) mg/dL Est GFR ( Amer) 51 Est GFR (Non-Af Amer) 42 POC Glucose (mg/dL) 168 H 152 H (65-110) mg/dL Random Glucose 154 H (75-110) mg/dL Calcium 8.6 (8.4-10.2) mg/dL Magnesium (1.6-2.3) MG/DL Total Bilirubin (0.2-1.3) mg/dl AST (17-59) U/L ALT (21-72) U/L Alkaline Phosphatase (38-126) U/L Total Protein (6.3-8.2) G/DL Albumin (3.5-5.0) g/dL Globulin (2.2-3.9) gm/dL Albumin/Globulin Ratio (1.0-2.1) 08/19/16 08/19/16 08/19/16 Range/Units 11:59 10:29 09:31 WBC (4.8-10.8) K/uL RBC (4.40-5.90) Mil/uL Hgb (12.0-18.0) g/dL Hct (35.0-51.0) % MCV (80.0-94.0) fl MCH (27.0-31.0) pg MCHC (33.0-37.0) g/dL RDW (11.5-14.5) % Plt Count (130-400) K/uL MPV (7.2-11.7) fl Neut % (Auto) (50.0-75.0) % Lymph % (Auto) (20.0-40.0) % [place] % (Auto) (0.0-10.0) % Eos % (Auto) (0.0-4.0) % Baso % (Auto) (0.0-2.0) % Neut # (1.8-7.0) K/uL Lymph # (1.0-4.3) K/uL [place] # (0.0-0.8) K/uL Eos # (0.0-0.7) K/uL Baso # (0.0-0.2) K/uL pCO2 (35-45) mm/Hg pO2 (80-100) mm/Hg HCO3 (21-28) mmol/L ABG pH (7.35-7.45) ABG Total CO2 (22-28) mmol/L ABG O2 Saturation (95-98) % ABG O2 Content (15-23) ML/dL ABG Base Excess (-2.0-3.0) mmol/L ABG Hemoglobin (11.7-17.4) g/dL ABG Carboxyhemoglobin (0.5-1.5) % POC ABG HHb (Measured) (0.0-5.0) % ABG Methemoglobin (0.0-3.0) % ABG O2 Capacity (16-24) mL/dL Jonathan Test A-a O2 Difference mm/Hg Hgb O2 Saturation (95.0-98.0) % Vent Mode Mechanical Rate FiO2 % Tidal Volume Sodium (132-148) mmol/l Potassium (3.6-5.0) MMOL/L Chloride (98-107) mmol/L Carbon Dioxide (22-30) mmol/L Anion Gap (10-20) BUN (9-20) mg/dl Creatinine (0.8-1.5) mg/dL Est GFR ( Amer) Est GFR (Non-Af Amer) POC Glucose (mg/dL) 143 H 151 H 175 H (65-110) mg/dL Random Glucose (75-110) mg/dL Calcium (8.4-10.2) mg/dL Magnesium (1.6-2.3) MG/DL Total Bilirubin (0.2-1.3) mg/dl AST (17-59) U/L ALT (21-72) U/L Alkaline Phosphatase (38-126) U/L Total Protein (6.3-8.2) G/DL Albumin (3.5-5.0) g/dL Globulin (2.2-3.9) gm/dL Albumin/Globulin Ratio (1.0-2.1) Laboratory Results - last 24 hr 08/19/16 08/19/16 08/19/16 09:31 10:29 11:59 WBC RBC Hgb Hct MCV MCH MCHC RDW Plt Count MPV Neut % (Auto) Lymph % (Auto) [place] % (Auto) Eos % (Auto) Baso % (Auto) Neut # Lymph # [place] # Eos # Baso # pCO2 pO2 HCO3 ABG pH ABG Total CO2 ABG O2 Saturation ABG O2 Content ABG Base Excess ABG Hemoglobin ABG Carboxyhemoglobin POC ABG HHb (Measured) ABG Methemoglobin ABG O2 Capacity Jonathan Test A-a O2 Difference Hgb O2 Saturation Vent Mode Mechanical Rate FiO2 Tidal Volume Sodium Potassium Chloride Carbon Dioxide Anion Gap BUN Creatinine Est GFR ( Amer) Est GFR (Non-Af Amer) POC Glucose (mg/dL) 175 H 151 H 143 H Random Glucose Calcium Magnesium Total Bilirubin AST ALT Alkaline Phosphatase Total Protein Albumin Globulin Albumin/Globulin Ratio 08/19/16 08/19/16 08/19/16 12:51 13:50 14:52 WBC RBC Hgb Hct MCV MCH MCHC RDW Plt Count MPV Neut % (Auto) Lymph % (Auto) [place] % (Auto) Eos % (Auto) Baso % (Auto) Neut # Lymph # [place] # Eos # Baso # pCO2 pO2 HCO3 ABG pH ABG Total CO2 ABG O2 Saturation ABG O2 Content ABG Base Excess ABG Hemoglobin ABG Carboxyhemoglobin POC ABG HHb (Measured) ABG Methemoglobin ABG O2 Capacity Jonathan Test A-a O2 Difference Hgb O2 Saturation Vent Mode Mechanical Rate FiO2 Tidal Volume Sodium 158 H Potassium 3.3 L Chloride 125 H Carbon Dioxide 23 Anion Gap 13 BUN 14 Creatinine 1.7 H Est GFR ( Amer) 51 Est GFR (Non-Af Amer) 42 POC Glucose (mg/dL) 152 H 168 H Random Glucose 154 H Calcium 8.6 Magnesium Total Bilirubin AST ALT Alkaline Phosphatase Total Protein Albumin Globulin Albumin/Globulin Ratio 05/08/19/16 08/19/16 16:08 16:58 18:04 WBC RBC Hgb Hct MCV MCH MCHC RDW Plt Count MPV Neut % (Auto) Lymph % (Auto) [place] % (Auto) Eos % (Auto) Baso % (Auto) Neut # Lymph # [place] # Eos # Baso # pCO2 pO2 HCO3 ABG pH ABG Total CO2 ABG O2 Saturation ABG O2 Content ABG Base Excess ABG Hemoglobin ABG Carboxyhemoglobin POC ABG HHb (Measured) ABG Methemoglobin ABG O2 Capacity Jonathan Test A-a O2 Difference Hgb O2 Saturation Vent Mode Mechanical Rate FiO2 Tidal Volume Sodium Potassium Chloride Carbon Dioxide Anion Gap BUN Creatinine Est GFR ( Amer) Est GFR (Non-Af Amer) POC Glucose (mg/dL) 136 H 123 H 171 H Random Glucose Calcium Magnesium Total Bilirubin AST ALT Alkaline Phosphatase Total Protein Albumin Globulin Albumin/Globulin Ratio 08/19/16 08/19/16 08/19/16 19:00 20:09 21:00 WBC RBC Hgb Hct MCV MCH MCHC RDW Plt Count MPV Neut % (Auto) Lymph % (Auto) [place] % (Auto) Eos % (Auto) Baso % (Auto) Neut # Lymph # [place] # Eos # Baso # pCO2 pO2 HCO3 ABG pH ABG Total CO2 ABG O2 Saturation ABG O2 Content ABG Base Excess ABG Hemoglobin ABG Carboxyhemoglobin POC ABG HHb (Measured) ABG Methemoglobin ABG O2 Capacity Jonathan Test A-a O2 Difference Hgb O2 Saturation Vent Mode Mechanical Rate FiO2 Tidal Volume Sodium 154 H Potassium 3.4 L Chloride 121 H Carbon Dioxide 24 Anion Gap 12 BUN 17 Creatinine 1.6 H Est GFR ( Amer) 55 Est GFR (Non-Af Amer) 45 POC Glucose (mg/dL) 170 H 187 H Random Glucose 163 H Calcium 8.1 L Magnesium Total Bilirubin 3.1 H AST 202 H ALT 150 H Alkaline Phosphatase 109 Total Protein 5.2 L Albumin 2.6 L Globulin 2.6 Albumin/Globulin Ratio 1.0 08/19/16 08/19/16 08/19/16 21:35 22:05 23:09 WBC RBC Hgb Hct MCV MCH MCHC RDW Plt Count MPV Neut % (Auto) Lymph % (Auto) [place] % (Auto) Eos % (Auto) Baso % (Auto) Neut # Lymph # [place] # Eos # Baso # pCO2 pO2 HCO3 ABG pH ABG Total CO2 ABG O2 Saturation ABG O2 Content ABG Base Excess ABG Hemoglobin ABG Carboxyhemoglobin POC ABG HHb (Measured) ABG Methemoglobin ABG O2 Capacity Jonathan Test A-a O2 Difference Hgb O2 Saturation Vent Mode Mechanical Rate FiO2 Tidal Volume Sodium Potassium Chloride Carbon Dioxide Anion Gap BUN Creatinine Est GFR ( Amer) Est GFR (Non-Af Amer) POC Glucose (mg/dL) 159 H 133 H Random Glucose Calcium Magnesium 1.4 L Total Bilirubin AST ALT Alkaline Phosphatase Total Protein Albumin Globulin Albumin/Globulin Ratio 08/20/16 08/20/16 08/20/16 00:14 01:05 01:52 WBC RBC Hgb Hct MCV MCH MCHC RDW Plt Count MPV Neut % (Auto) Lymph % (Auto) [place] % (Auto) Eos % (Auto) Baso % (Auto) Neut # Lymph # [place] # Eos # Baso # pCO2 pO2 HCO3 ABG pH ABG Total CO2 ABG O2 Saturation ABG O2 Content ABG Base Excess ABG Hemoglobin ABG Carboxyhemoglobin POC ABG HHb (Measured) ABG Methemoglobin ABG O2 Capacity Jonathan Test A-a O2 Difference Hgb O2 Saturation Vent Mode Mechanical Rate FiO2 Tidal Volume Sodium Potassium Chloride Carbon Dioxide Anion Gap BUN Creatinine Est GFR ( Amer) Est GFR (Non-Af Amer) POC Glucose (mg/dL) 120 H 115 H 130 H Random Glucose Calcium Magnesium Total Bilirubin AST ALT Alkaline Phosphatase Total Protein Albumin Globulin Albumin/Globulin Ratio 08/20/16 08/20/16 08/20/16 02:56 03:57 04:30 WBC 15.7 H RBC 3.87 L Hgb 11.7 L D Hct 36.4 MCV 94.2 H MCH 30.2 MCHC 32.1 L RDW 13.9 Plt Count 137 MPV 9.1 Neut % (Auto) 82.8 H Lymph % (Auto) 11.1 L [place] % (Auto) 5.2 Eos % (Auto) 0.7 Baso % (Auto) 0.2 Neut # 13.0 H Lymph # 1.7 [place] # 0.8 Eos # 0.1 Baso # 0.0 pCO2 pO2 HCO3 ABG pH ABG Total CO2 ABG O2 Saturation ABG O2 Content ABG Base Excess ABG Hemoglobin ABG Carboxyhemoglobin POC ABG HHb (Measured) ABG Methemoglobin ABG O2 Capacity Jonathan Test A-a O2 Difference Hgb O2 Saturation Vent Mode Mechanical Rate FiO2 Tidal Volume Sodium Potassium Chloride Carbon Dioxide Anion Gap BUN Creatinine Est GFR ( Amer) Est GFR (Non-Af Amer) POC Glucose (mg/dL) 156 H 147 H Random Glucose Calcium Magnesium Total Bilirubin AST ALT Alkaline Phosphatase Total Protein Albumin Globulin Albumin/Globulin Ratio 08/20/16 08/20/16 08/20/16 04:30 05:03 05:11 WBC RBC Hgb Hct MCV MCH MCHC RDW Plt Count MPV Neut % (Auto) Lymph % (Auto) [place] % (Auto) Eos % (Auto) Baso % (Auto) Neut # Lymph # [place] # Eos # Baso # pCO2 39 pO2 95 HCO3 24.5 ABG pH 7.40 ABG Total CO2 25.4 ABG O2 Saturation 98.1 H ABG O2 Content 15.9 ABG Base Excess -0.5 ABG Hemoglobin 11.7 ABG Carboxyhemoglobin 0.8 POC ABG HHb (Measured) 1.9 ABG Methemoglobin 1.3 ABG O2 Capacity 16.2 Jonathan Test Yes A-a O2 Difference 427.0 Hgb O2 Saturation 96.0 Vent Mode A/c Mechanical Rate 20 FiO2 80.0 Tidal Volume 500 Sodium 153 H Potassium 3.6 Chloride 119 H Carbon Dioxide 24 Anion Gap 14 BUN 19 Creatinine 1.4 Est GFR ( Amer) > 60 Est GFR (Non-Af Amer) 53 POC Glucose (mg/dL) 139 H Random Glucose 128 H Calcium 7.9 L Magnesium Total Bilirubin 2.6 H AST 190 H ALT 140 H Alkaline Phosphatase 112 Total Protein 5.2 L Albumin 2.6 L Globulin 2.6 Albumin/Globulin Ratio 1.0 08/20/16 08/20/16 08/20/16 06:28 07:08 07:59 WBC RBC Hgb Hct MCV MCH MCHC RDW Plt Count MPV Neut % (Auto) Lymph % (Auto) [place] % (Auto) Eos % (Auto) Baso % (Auto) Neut # Lymph # [place] # Eos # Baso # pCO2 pO2 HCO3 ABG pH ABG Total CO2 ABG O2 Saturation ABG O2 Content ABG Base Excess ABG Hemoglobin ABG Carboxyhemoglobin POC ABG HHb (Measured) ABG Methemoglobin ABG O2 Capacity Jonathan Test A-a O2 Difference Hgb O2 Saturation Vent Mode Mechanical Rate FiO2 Tidal Volume Sodium Potassium Chloride Carbon Dioxide Anion Gap BUN Creatinine Est GFR ( Amer) Est GFR (Non-Af Amer) POC Glucose (mg/dL) 140 H 140 H 130 H Random Glucose Calcium Magnesium Total Bilirubin AST ALT Alkaline Phosphatase Total Protein Albumin Globulin Albumin/Globulin Ratio Fingerstick Blood Sugar Results: 130 Review of Systems - Review of Systems Systems not reviewed;Unavailable: Altered Mental Status Critical Care Progress Note - Ventilator Checklist Head of Bed 30 Degrees: Yes Daily Sedation Vacation: Yes Daily Assessment of Readiness to Wean: Yes Daily Spontaneous Breathing Trial: Yes PUD Prophalyxis: Yes DVT Prophylaxis: Yes Oral Care with Chlorhexidine Gluconate {CHG}: Yes - Extremities/Vascular Does the Patient have a Central Venous Catheter?: No Does the Patient need a Central Venous Catheter?: No Does the Patient have a Hilario Catheter?: Yes Does the Patient need a Hilario Catheter?: Yes Assessment/Plan (1) Cardiac arrest Current Visit: Yes Status: Acute Priority: High Comment: Underwent Therapeutic Hypothermia No neurological improvements, unresponsive to tactile or painful stimuli. Remains intubated, not breathing over the vent Unresponsive to painful stimuli (2) Anoxic brain injury Current Visit: Yes Status: Acute Priority: High Comment: Poor prognosis, Family aware Clinical examination and apnea test for determining brain (BD) (3) Endotracheally intubated Current Visit: Yes Status: Acute Priority: High Comment: - Full Ventilatory support - Pulmonary toilets (4) Hypernatremia Current Visit: Yes Status: Acute Comment: - Free water - Na level down to 153 - Assessment and Plan (Free Text) Plan: Total critical care time 68 minute discussed with the family in details diagnosis, treatment plans and alternatives family is considering DNR - Date & Time Date: 08/20/16
--- NOTE | 2016-08-20 10:59 | CP.PCM.PN ---
Subjective - Date & Time of Evaluation Date of Evaluation: 08/20/16 Time of Evaluation: 10:56 - Subjective Subjective: unchanged no evidence of brainstem function awaiting apnea test sharing network involved agree with plan no family present at this time,case d/w Dr Cruz Objective - Vital Signs/Intake and Output Vital Signs (last 24 hours): Temp Pulse Resp BP Pulse Ox 100.3 F H 93 H 24 125/60 99 08/20/16 10:00 08/20/16 10:00 08/20/16 10:00 08/20/16 10:00 08/20/16 10:00 Intake and Output: 08/20/16 08/20/16 06:59 18:59 Intake Total 2377.3 482 Output Total 600 200 Balance 1777.3 282 - Medications Medications: Current Medications Acetaminophen (Tylenol 650mg/20.3ml Solution Ud) 650 mg PO Q6 PRN PRN Reason: Fever Last Admin: 08/18/16 23:22 Dose: 650 mg Artificial Tears (Lacri-Lube) 1 applic OU HS ELAINE Last Admin: 08/19/16 22:03 Dose: 1 applic Dextrose (Dextrose 50% Inj) 0 ml IV STAT PRN; Protocol PRN Reason: Hyglycemia Protocol Dextrose (Glutose 15) 0 gm PO ONCE PRN; Protocol PRN Reason: Hypoglycemia Protocol Glucagon (Glucagen Diagnostic Kit) 0 mg IM STAT PRN; Protocol PRN Reason: Hypoglycemia Protocol Piperacillin Sod/Tazobactam (Sod 3.375 gm/ Sodium Chloride) 100 mls @ 100 mls/ hr IVPB Q6 ELAINE Last Admin: 08/20/16 09:32 Dose: 100 mls/hr Vasopressin 100 units/ Sodium (Chloride) 105 mls @ 1.89 mls/hr IV .Q24H ELAINE; 0.03 UNITS/MIN PRN Reason: Protocol Last Admin: 08/19/16 22:31 Dose: 0.03 units/min, 1.89 mls/hr Norepinephrine Bitartrate 8 mg (/ Dextrose) 508 mls @ 95.25 mls/hr IV .Q5H20M ELAINE; 25 MCG/MIN PRN Reason: Protocol Last Titration: 08/20/16 04:00 Dose: 8 mcg/min, 30.48 mls/hr Insulin Human Regular 100 (units/ Sodium Chloride) 101 mls @ 12.12 mls/hr IVPB .Q8H20M ELAINE; 12 UNITS/HR PRN Reason: Protocol Last Admin: 08/20/16 04:30 Dose: 5 mls/hr Potassium Chloride/Dextrose/Sod Cl (Potassium Chl 40 Meq In D5-1/2ns) 1,000 mls @ 100 mls/hr IV .Q10H ELAINE Stop: 08/20/16 22:18 Last Admin: 08/19/16 23:21 Dose: 100 mls/hr Pantoprazole Sodium (Protonix Inj) 40 mg IVP DAILY [facility] Last Admin: 08/20/16 08:35 Dose: 40 mg - Labs Labs: 08/20/16 04:30 08/20/16 04:30 PT 11.8 SECONDS (9.6-11.2) H 08/17/16 10:34 INR 1.13 (0.92-1.08) H 08/17/16 10:34 APTT 25.4 SECONDS (23.3-32.5) 08/17/16 10:34
[2016-08-20 11:12] LABS: ABG ALLEN TEST YES; ABG MECHANICAL RATE 20; ARTERIAL BLOOD GAS HCO3 25.8 mmol/L (21-28); ARTERIAL BLOOD GAS MODE PRVC/AC; ARTERIAL BLOOD GAS O2 CAPACITY 15.3 mL/dL (16-24); ARTERIAL BLOOD GAS O2 CONTENT 15.1 ML/dL (15-23); ARTERIAL BLOOD GAS PH 7.45 (7.35-7.45); ARTERIAL BLOOD GAS PO2 218 mm/Hg (80-100); ARTERIAL BLOOD HGB O2 SAT 96.9 % (95.0-98.0); ATERIAL BLOOD GAS PEEP 0; CARBOXYHEMOGLOBIN 0.5 % (0.5-1.5); HHB 1.2 % (0.0-5.0); METHEMOGLOBIN 1.5 % (0.0-3.0)
[2016-08-20] MEDS: Potassium Chl 40 mEq in D5-1/2 1,000 ML IV SCH (12:00)
[2016-08-20 12:44] LABS: ABG ALLEN TEST YES; ARTERIAL BLOOD GAS HCO3 22.3 mmol/L (21-28); ARTERIAL BLOOD GAS O2 CAPACITY 16.7 mL/dL (16-24); ARTERIAL BLOOD GAS O2 CONTENT 15.1 ML/dL (15-23); ARTERIAL BLOOD GAS PH 7.11 (7.35-7.45); ARTERIAL BLOOD GAS PO2 68 mm/Hg (80-100); ARTERIAL BLOOD HGB O2 SAT 87.8 % (95.0-98.0); CARBOXYHEMOGLOBIN 1.2 % (0.5-1.5); HHB 9.4 % (0.0-5.0); METHEMOGLOBIN 1.6 % (0.0-3.0)
--- NOTE | 2016-08-20 14:20 | CARD ---
APPROVED REPORT EXAM: Two-dimensional and M-mode echocardiogram with Doppler and color Doppler. Other Information Quality : FairRhythm : NSR INDICATION Cardiac Arrest 2D DIMENSIONS IVSd1.71 (0.7-1.1cm)LVDd3.08 (3.9-5.9cm) LVOT Diameter2.23 (1.8-2.4cm)PWd1.61 (0.7-1.1cm) IVSs1.66 (0.8-1.2cm)LVDs2.57 (2.5-4.0cm) FS (%) 16.5 %PWs1.61 (0.8-1.2cm) M-Mode DIMENSIONS Left Atrium (MM)2.92 (2.5-4.0cm)IVSd1.16 (0.7-1.1cm) Aortic Root2.56 (2.2-3.7cm)LVDd3.72 (4.0-5.6cm) Aortic Cusp Exc.2.04 (1.5-2.0cm)PWd1.38 (0.7-1.1cm) IVSs1.74 cmFS (%) 51 % LVDs1.82 (2.0-3.8cm)PWs1.74 cm Mitral Valve E/A ratio0.0 TDI E/Lateral E'0.0E/Medial E'0.0 LEFT VENTRICLE The left ventricle is normal size. There is normal left ventricular wall thickness. The left ventricular function is low normal. The left ventricular ejection fraction 50% There is normal LV segmental wall motion. The left ventricular diastolic function is normal. No left ventricle thrombus noted on this study. There is no ventricular septal defect visualized. There is no left ventricular aneurysm. There is no mass noted in the left ventricle. RIGHT VENTRICLE The right ventricle is normal size. There is normal right ventricular wall thickness. The right ventricular systolic function is normal. ATRIA The left atrium size is normal. The right atrium size is normal. The interatrial septum is intact with no evidence for an atrial septal defect. AORTIC VALVE The aortic valve is normal in structure and function. No aortic regurgitation is present. There is no aortic valvular stenosis. There is no aortic valvular vegetation. MITRAL VALVE The mitral valve is normal in structure and function. There is no evidence of mitral valve prolapse. There is no mitral valve stenosis. There is no mitral valve regurgitation noted. TRICUSPID VALVE The tricuspid valve is normal in structure and function. There is no tricuspid valve regurgitation noted. There is no tricuspid valve prolapse or vegetation. There is no tricuspid valve stenosis. PULMONIC VALVE The pulmonary valve is normal in structure and function. There is no pulmonic valvular regurgitation. There is no pulmonic valvular stenosis. GREAT VESSELS The aortic root is normal in size. The ascending aorta is normal in size. The IVC is normal in size and collapses >50% with inspiration. PERICARDIAL EFFUSION The pericardium appears normal. There is no pleural effusion. <Conclusion> Technically diffficult studies Limited Echocardiographic views Low Normal LV systolic function
[2016-08-20] MEDS: Acetaminophen 650mg/20.3ml solution UD PO PRN (15:53)
[2016-08-20 18:15] LABS: ABG ALLEN TEST YES; ABG MECHANICAL RATE 20; ARTERIAL BLOOD GAS MODE PRVC/AC; ARTERIAL BLOOD GAS O2 CAPACITY 15.7 mL/dL (16-24); ARTERIAL BLOOD GAS O2 CONTENT 15.5 ML/dL (15-23); ARTERIAL BLOOD GAS PH 7.48 (7.35-7.45); ARTERIAL BLOOD GAS PO2 238 mm/Hg (80-100); ARTERIAL BLOOD HGB O2 SAT 96.7 % (95.0-98.0); ATERIAL BLOOD GAS PEEP 5; CARBOXYHEMOGLOBIN 0.5 % (0.5-1.5); HHB 1.2 % (0.0-5.0); METHEMOGLOBIN 1.5 % (0.0-3.0)
[2016-08-20 18:40] LABS: ABG ALLEN TEST YES; ABG MECHANICAL RATE 450; ARTERIAL BLOOD GAS HCO3 24.4 mmol/L (21-28); ARTERIAL BLOOD GAS MODE PRVC/AC; ARTERIAL BLOOD GAS O2 CAPACITY 15.3 mL/dL (16-24); ARTERIAL BLOOD GAS O2 CONTENT 15.1 ML/dL (15-23); ARTERIAL BLOOD GAS PH 7.36 (7.35-7.45); ARTERIAL BLOOD GAS PO2 133 mm/Hg (80-100); ARTERIAL BLOOD HGB O2 SAT 96.1 % (95.0-98.0); ATERIAL BLOOD GAS PEEP 5; CARBOXYHEMOGLOBIN 0.6 % (0.5-1.5); HHB 1.4 % (0.0-5.0); METHEMOGLOBIN 1.9 % (0.0-3.0)
[2016-08-20 19:01] LABS: ABG ALLEN TEST YES; ARTERIAL BLOOD GAS HCO3 20.9 mmol/L (21-28); ARTERIAL BLOOD GAS O2 CAPACITY 18.1 mL/dL (16-24); ARTERIAL BLOOD GAS O2 CONTENT 16.3 ML/dL (15-23); ARTERIAL BLOOD GAS PH 7.08 (7.35-7.45); ARTERIAL BLOOD GAS PO2 66 mm/Hg (80-100); ARTERIAL BLOOD HGB O2 SAT 87.7 % (95.0-98.0); CARBOXYHEMOGLOBIN 1.2 % (0.5-1.5); HHB 9.9 % (0.0-5.0); METHEMOGLOBIN 1.2 % (0.0-3.0)
[2016-08-20] MEDS: Mineral Oil/White Petrolatum Ophth Oint OU SCH (22:10)
[2016-08-20 22:23] LABS: ABG ALLEN TEST YES; ABG MECHANICAL RATE 20; ARTERIAL BLOOD GAS HCO3 25.6 mmol/L (21-28); ARTERIAL BLOOD GAS MODE PRVC/AC; ARTERIAL BLOOD GAS O2 CAPACITY 14.6 mL/dL (16-24); ARTERIAL BLOOD GAS O2 CONTENT 14.4 ML/dL (15-23); ARTERIAL BLOOD GAS PH 7.43 (7.35-7.45); ARTERIAL BLOOD GAS PO2 119 mm/Hg (80-100); ARTERIAL BLOOD HGB O2 SAT 97.1 % (95.0-98.0); ATERIAL BLOOD GAS PEEP 8; CARBOXYHEMOGLOBIN 0.6 % (0.5-1.5); HHB 1.2 % (0.0-5.0); METHEMOGLOBIN 1.2 % (0.0-3.0)
[2016-08-20 22:45] LABS: BASO % 0.1 % (0.0-2.0); EOS # 0.1 K/uL (0.0-0.7); HEMATOCRIT 31.3 % (35.0-51.0); LYMPH # 1.4 K/uL (1.0-4.3); LYMPH % 10.9 % (20.0-40.0); MEAN CELL VOLUME 92.1 fl (80.0-94.0); MEAN CORPUSCULAR HEMOGLOBIN 31.1 pg (27.0-31.0); MEAN CORPUSCULAR HGB CONC 33.8 g/dL (33.0-37.0); MEAN PLATELET VOLUME 9.1 fl (7.2-11.7); MONO # 0.8 K/uL (0.0-0.8); MONO % 6.6 % (0.0-10.0); NEUT # 10.3 K/uL (1.8-7.0); NEUT % 81.4 % (50.0-75.0); NRBC % 0.1 % (0.0-0.0); RED CELL DISTRIBUTION WIDTH 13.7 % (11.5-14.5); WHITE BLOOD COUNT 12.6 K/uL (4.8-10.8)
[2016-08-20 22:53] LABS: ALB/GLOB RATIO 0.9 (1.0-2.1); ALKALINE PHOSPHATASE 139 U/L (38-126); ALT/SGPT 121 U/L (21-72); AMYLASE 92 U/L (30-110); AST/SGOT 200 U/L (17-59); BILIRUBIN,TOTAL 2.9 mg/dl (0.2-1.3); BLOOD UREA NITROGEN 22 mg/dl (9-20); CALCIUM 7.8 mg/dL (8.4-10.2); CARBON DIOXIDE 24 mmol/L (22-30); CHLORIDE 117 mmol/L (98-107); GFR AFRICAN-AMERICAN > 60; GLUCOSE,RANDOM 124 mg/dL (75-110); LIPASE 86 U/L (23-300); MAGNESIUM 1.6 MG/DL (1.6-2.3); PHOSPHOROUS 3.2 mg/dl (2.5-4.5); POTASSIUM 3.7 MMOL/L (3.6-5.0); SODIUM 146 mmol/l (132-148); TOTAL PROTEIN 5.2 G/DL (6.3-8.2)
[2016-08-20 23:06] LABS: PARTIAL THROMBOPLASTIN TIME 32.5 SECONDS (23.3-32.5)
[2016-08-21] MEDS ORDERED: Potassium Ch 20mEq in D5-1/2NS 1,000 ML IV SCH ×2 (00:30→14:30)
[2016-08-21] MEDS: Albuterol 0.083% Inhal Sol (2.5 mg/3 mL) UD INH SCH ×6 (00:40→19:27)
[2016-08-21] MEDS: methylPREDNISolone 1 GM in Sodium Chloride 0.9% 250 ML IV SCH ×3 (01:03→18:13)
[2016-08-21] MEDS: Piperacillin/Tazobact 3.375 GM in Sodium Chloride 0.9% 100 ML IVPB SCH ×4 (03:25→21:31)
[2016-08-21 04:53] LABS: BASO % 0.2 % (0.0-2.0); EOS % 0.4 % (0.0-4.0); HEMATOCRIT 32.6 % (35.0-51.0); LYMPH # 0.6 K/uL (1.0-4.3); LYMPH % 6.3 % (20.0-40.0); MEAN CELL VOLUME 92.9 fl (80.0-94.0); MEAN CORPUSCULAR HGB CONC 33.3 g/dL (33.0-37.0); MEAN PLATELET VOLUME 9.1 fl (7.2-11.7); MONO # 0.5 K/uL (0.0-0.8); MONO % 4.5 % (0.0-10.0); NEUT # 8.9 K/uL (1.8-7.0); NEUT % 88.6 % (50.0-75.0); NRBC % 0.1 % (0.0-0.0); PLATELET COUNT 110 K/uL (130-400); RED CELL DISTRIBUTION WIDTH 13.5 % (11.5-14.5)
[2016-08-21 05:03] LABS: ALKALINE PHOSPHATASE 181 U/L (38-126); ALT/SGPT 122 U/L (21-72); AST/SGOT 232 U/L (17-59); BILIRUBIN,TOTAL 4.1 mg/dl (0.2-1.3); BLOOD UREA NITROGEN 22 mg/dl (9-20); CALCIUM 8.2 mg/dL (8.4-10.2); CARBON DIOXIDE 22 mmol/L (22-30); CHLORIDE 114 mmol/L (98-107); GFR AFRICAN-AMERICAN > 60; GLUCOSE,RANDOM 156 mg/dL (75-110); MAGNESIUM 1.7 MG/DL (1.6-2.3); PHOSPHOROUS 3.2 mg/dl (2.5-4.5); POTASSIUM 3.4 MMOL/L (3.6-5.0); SODIUM 146 mmol/l (132-148); TOTAL PROTEIN 5.6 G/DL (6.3-8.2)
[2016-08-21 05:08] LABS: ABG ALLEN TEST YES; ABG MECHANICAL RATE 20; ARTERIAL BLOOD GAS HCO3 23.6 mmol/L (21-28); ARTERIAL BLOOD GAS MODE A/C; ARTERIAL BLOOD GAS O2 CAPACITY 14.8 mL/dL (16-24); ARTERIAL BLOOD GAS O2 CONTENT 14.4 ML/dL (15-23); ARTERIAL BLOOD GAS PH 7.39 (7.35-7.45); ARTERIAL BLOOD GAS PO2 78 mm/Hg (80-100); ARTERIAL BLOOD HGB O2 SAT 94.9 % (95.0-98.0); ATERIAL BLOOD GAS PEEP 8; CARBOXYHEMOGLOBIN 0.8 % (0.5-1.5); HHB 2.7 % (0.0-5.0); METHEMOGLOBIN 1.5 % (0.0-3.0)
[2016-08-21 05:10] LABS: PARTIAL THROMBOPLASTIN TIME 32.6 SECONDS (23.3-32.5)
[2016-08-21 07:22] LABS: NEUTROPHIL 86 % (42-75); REACTIVE LYMPHOCYTES 1 % (0-0); TOTAL CELLS COUNTED 100
--- NOTE | 2016-08-21 09:00 | RAD ---
HISTORY: reevaluate lung/ ETT COMPARISON: 08/20/2016. FINDINGS: The endotracheal tube terminates 3.0 cm proximal to the janice. The nasogastric tube terminates in the stomach. LUNGS: There is redemonstration of mild pulmonary venous congestion. PLEURA: There are layering pleural effusions. No pneumothorax apparent. CARDIOVASCULAR: There is persistent mild cardiomegaly. OSSEOUS STRUCTURES: Status post ACDF in the lower cervical spine. VISUALIZED UPPER ABDOMEN: Normal. OTHER FINDINGS: None. IMPRESSION: Persistent small pleural effusions. Stable position of tubes.
--- NOTE | 2016-08-21 09:23 | PN ---
DATE: 08/18/2016 SUBJECTIVE: The patient is unresponsive on the vent. No reported ventricular tachycardia, no sponta neous bleeding or spontaneous movement. PHYSICAL EXAMINATION: VITAL SIGNS: Blood pressure 112/55, heart rate 108, temperature 99.7, respiration 24. HEENT: No pallor. NECK: No JVD. CHEST: Clear. HEART: S1, S2 regular. EXTREMITIES: No edema. LABORATORIES: SMA-7: Sodium 173, potassium 3.5, chloride 135, CO2 23, glucose 265. BUN 10, creatin ine 1.0. CBC: WBC 31.5, hemoglobin 15.9, hematocrit 48.5, platelet count 264,000. Today's chest x- ray reported low lung volumes with crowded bronchovascular markings and mild bibasilar atelectasis, l eft greater than right. However, left lower lobe infiltrate cannot be excluded. ASSESSMENT: 1. Status post cardiac arrest following cervical spine surgery, following Saturday's cervical paraspin ous surgery at [facility]. 2. Troponin elevation, possibly non-ST elevation myocardial infarction cannot be ruled out. 3. Hypertension. RECOMMENDATIONS: I did review the neurology evaluation and the assessment was anoxic brain injury, n o brainstem reflexes noted. The patient should be rewarmed prior to making a conclusion, but the pro gnosis is very poor. CT scan of the head and neck without contrast recommended, but have not been pe rformed yet. Continue current medical management including norepinephrine infusion, IV Zosyn, IV Pro tonix and D5 half normal saline infusion. Mohan Sam MD cc: [id number] TT: 08/18/2016 17:20:07 Confirmation # [id number] Dictation # [id number] adin
--- NOTE | 2016-08-21 09:23 | CON ---
DATE: 08/17/2016 REASON FOR CONSULTATION: Cardiac arrest and abnormal EKG. HISTORY OF PRESENT ILLNESS: The patient is a 55-year-old male who reportedly underwent cervical lami nectomy yesterday at [facility] in a same day surgery via anterior approach, and after the pat ient was discharged home patient was reported to have collapsed outside his house after he was compla ining of shortness of breath. EMS was activated but apparently it took unusually a longer time for t he EMS to arrive and CPR to be initiated. The patient was resuscitated for a considerable period of time, about 25 minutes as it was conveyed to ar by the supervisor heavy equipment. Upon the patient's arrival, the patient was deeply comatose with dilated, fixed pupils. The patient was apparently in pulseless elec trical activity, required atropine and epinephrine. The patient required no defibrillation. Since cami magallon's arrival to the ICU and being on hypothermia therapy, there are no reported ventricular arrhy thmias. It is not clear if the patient had paralysis along with his difficulty breathing as there wa s no clear historical information to what happened exactly to the patient outside his house. I was t old that the surgery was originally scheduled to be done in a nearby surgery Center, but because of d ifficulty intubating the patient, decision was made to perform the surgery in [facility] as sa ar day surgery. The patient was admitted in 12/2015 with possible neck abscess. MEDICATIONS: The patient is on norepinephrine infusion. The patient is on Zosyn 3.375 grams intrave nously q. 6 hours. The patient is on normal saline with potassium chloride infusion 10 mEq per 100 m L, and is on normal saline infusion at 100 mL an hour. The patient is also on Protonix 40 mg intrave nously daily. PHYSICAL EXAMINATION: GENERAL: The patient is a middle-aged male who is currently unresponsive, on a ventilator. VITAL SIGNS: Blood pressure 123/66, heart rate 86; temperature 96.8, which is a core temperature, an d was earlier recorded to be 95.8. HEENT: No pallor and no icterus. Neck dressings applied to the surgical site with anterior approach of cervical diskectomy. CHEST: Minimal rhonchi. HEART: S1, S2 regular. EXTREMITIES: No edema. Chest x-ray revealed minimal interstitial congestion, no cardiomegaly, slightly widened mediastinum. The first EKG revealed sinus tachycardia at rate of 109 with diffuse anterolateral as well as inferi or ST segment depression. The subsequent EKG reveals sinus rhythm, resolution of the ST depression a nd prolonged QT interval. LABORATORY DATA: ____ SMA-7: Sodium 156, potassium 2.6, chloride 123, CO2 17, glucose 329, BUN 15, creatinine 1.1. First troponin was negative; second troponin was 18.1. Magnesium is 2.7, total bili moore is 1.4. ____ SMA-7: Sodium 151, potassium 2.9, chloride 118, CO2 12, glucose 436, BUN 17, creatinine 1.2. CBC, the most recent one: WBC 34.5, hemoglobin 15.5, hematocrit 47.3, platelet count 336,000. D-dim er is 6.79. INR is 1.18, PTT 25.4. ASSESSMENT: 1. Status post cardiac arrest. It is not clear if this arrest is a primary cardiac event or related to a surgical complication from his recent cervical laminectomy. The elevated second troponin may r epresent broader cardiac insult during the resuscitation process itself and not a primary cardiac izabella nt. His initial troponin was within normal limits. 2. Rule out anoxic encephalopathy. 3. Uncontrolled diabetes mellitus. RECOMMENDATIONS: Continue current sodium bicarb and potassium chloride infusion. Continue current n orepinephrine infusion and IV Zosyn. Case was discussed at length with the supervisor heavy equipment, Dr. Michael Martinez. A bedside echocardiograph study is pending. Imaging of the cervical spine or head ____ scan will b e delayed until the patient is more stable. Definitely the patient is not a candidate for invasive c ardiac workup at this time. Mohan Sam MD cc: [id number] TT: 08/17/2016 21:20:15 Confirmation # [id number] Dictation # [id number] tejal
--- NOTE | 2016-08-21 09:25 | DS ---
This is a 55-year-old male that I operated on early this morning, performing an anterior cervical dis kectomy and fusion at C5-6. Surgery proceeded very uneventfully with minimal blood loss, no problems with intubation or extubation or any neurological issues. The patient woke up very nicely from surg bartolo. I evaluated him in the recovery room and was doing nicely without any issues. He was discharge d home in satisfactory condition in the afternoon. He contacted my office at 4:30, complaining of ra ther typical neck and throat pain with some difficulty swallowing. I spoke to him through my secreta triny who translated in Welsh and he was advised to use the pain medication he was prescribed and Cepa col lozenges for throat irritation. There was nothing untoward in his call as 100% of patients will have those complaints, particularly immediately after surgery. I next learned that the patient had had a witnessed cardiac arrest, essentially collapsing in front o f his house. EMS arrived very quickly, documented asystole, performed CPR, apparently were able to i ntubate him without great difficulty. He was revived, brought to the [facility] ER where he arrested on ce again and once again, revived. He is now on dopamine and Levophed. PHYSICAL EXAMINATION: VITAL SIGNS: At this time, his blood pressure is approximately 120/70 on the above pressors. HEENT: His pupils are dilated, not reactive. No corneals, no response to noxious. NECK: His incision Steri-Strips are all intact. There is some very minimal dried blood. There is v bartolo minimal ecchymosis just below the incision line. Neck is actually supple without any evidence of intubation, gross swelling, hematoma, etc. Chest x-ray shows no significant deviation of the ET tube with adequate position of the plate. IMPRESSION: Unclear what triggered this cardiac arrest. obvious thing to consider is pulmonary embo lism, some cardiac event, may be that he choked. Apparently, he was speaking with his son, some issu e of ordering pizza and having the lozenge, although again as best as I can tell, EMS did not make an y mention of this. ____ was performed. Postoperative hematoma is possible although again, there wer e no problems intubating him. This was a sudden onset and ____ to be midline and thus it remains jane ewhat perplexing exactly what occurred here. At this point in time, obviously, the patient needs to remain on his pressors. He is having hypothermia applied. I discussed this matter in great detail w ith all family members present. I explained all of the above and what measures currently he is under going. Erick Ely MD cc: [id number] TT: 08/17/2016 10:55:50 tn
[2016-08-21 10:39] LABS: BASO % 0.1 % (0.0-2.0); EOS % 0.1 % (0.0-4.0); HEMATOCRIT 31.8 % (35.0-51.0); LYMPH # 0.5 K/uL (1.0-4.3); LYMPH % 6.3 % (20.0-40.0); MEAN CORPUSCULAR HEMOGLOBIN 30.9 pg (27.0-31.0); MEAN CORPUSCULAR HGB CONC 33.6 g/dL (33.0-37.0); MEAN PLATELET VOLUME 9.4 fl (7.2-11.7); MONO # 0.2 K/uL (0.0-0.8); MONO % 2.7 % (0.0-10.0); NEUT # 7.6 K/uL (1.8-7.0); NEUT % 90.8 % (50.0-75.0); NRBC % 0.2 % (0.0-0.0); PLATELET COUNT 112 K/uL (130-400); RED CELL DISTRIBUTION WIDTH 13.1 % (11.5-14.5); WHITE BLOOD COUNT 8.4 K/uL (4.8-10.8)
[2016-08-21 10:50] LABS: ALB/GLOB RATIO 0.9 (1.0-2.1); ALKALINE PHOSPHATASE 189 U/L (38-126); ALT/SGPT 125 U/L (21-72); AMYLASE 74 U/L (30-110); AST/SGOT 228 U/L (17-59); BILIRUBIN,TOTAL 3.1 mg/dl (0.2-1.3); BLOOD UREA NITROGEN 22 mg/dl (9-20); CALCIUM 8.2 mg/dL (8.4-10.2); CARBON DIOXIDE 25 mmol/L (22-30); CHLORIDE 113 mmol/L (98-107); GFR AFRICAN-AMERICAN > 60; GLUCOSE,RANDOM 180 mg/dL (75-110); MAGNESIUM 1.7 MG/DL (1.6-2.3); PHOSPHOROUS 3.4 mg/dl (2.5-4.5); POTASSIUM 4.3 MMOL/L (3.6-5.0); SODIUM 145 mmol/l (132-148); TOTAL PROTEIN 5.7 G/DL (6.3-8.2)
[2016-08-21 10:55] LABS: PARTIAL THROMBOPLASTIN TIME 30.9 SECONDS (23.3-32.5)
--- NOTE | 2016-08-21 11:29 | CP.PCM.PN ---
Subjective - Date & Time of Evaluation Date of Evaluation: 08/21/16 Time of Evaluation: 11:26 - Subjective Subjective: Remains orally intubated and mechanically ventilated. Unable to view CT scans from yesterday; PACS not working. Awaiting decision regarding organ donation and possible need for bronchoscopy. Objective - Vital Signs/Intake and Output Vital Signs (last 24 hours): Temp Pulse Resp BP Pulse Ox 97.3 F L 89 16 145/81 97 08/21/16 07:41 08/21/16 07:41 08/21/16 07:41 08/21/16 07:41 08/21/16 07:41 Intake and Output: 08/20/16 08/21/16 23:59 11:59 Intake Total 1955 1154 Output Total 710 600 Balance 1245 554 - Medications Medications: Current Medications Acetaminophen (Tylenol 650mg/20.3ml Solution Ud) 650 mg PO Q6 PRN PRN Reason: Fever Last Admin: 08/20/16 15:53 Dose: 650 mg Albuterol Sulfate (Albuterol 0.083% Inhal [place] (2.5 Mg/3 Ml) Ud) 2.5 mg INH RQ4 ELAINE Last Admin: 08/21/16 11:00 Dose: 2.5 mg Artificial Tears (Lacri-Lube) 1 applic OU HS ELAINE Last Admin: 08/20/16 22:10 Dose: 1 applic Dextrose (Dextrose 50% Inj) 0 ml IV STAT PRN; Protocol PRN Reason: Hyglycemia Protocol Dextrose (Glutose 15) 0 gm PO ONCE PRN; Protocol PRN Reason: Hypoglycemia Protocol Glucagon (Glucagen Diagnostic Kit) 0 mg IM STAT PRN; Protocol PRN Reason: Hypoglycemia Protocol Piperacillin Sod/Tazobactam (Sod 3.375 gm/ Sodium Chloride) 100 mls @ 100 mls/ hr IVPB Q6 ELAINE Last Admin: 08/21/16 03:25 Dose: 100 mls/hr Vasopressin 100 units/ Sodium (Chloride) 105 mls @ 1.89 mls/hr IV .Q24H ELAINE; 0.03 UNITS/MIN PRN Reason: Protocol Last Admin: 08/20/16 21:11 Dose: 0.03 units/min, 1.89 mls/hr Insulin Human Regular 100 (units/ Sodium Chloride) 101 mls @ 12.12 mls/hr IVPB .Q8H20M ELAINE; 12 UNITS/HR PRN Reason: Protocol Last Admin: 08/20/16 12:00 Dose: 3 mls/hr Methylprednisolone 1 gm/ (Sodium Chloride) 250 mls @ 500 mls/hr IV Q8 ELAINE Last Admin: 08/21/16 01:03 Dose: 500 mls/hr Levothyroxine Sodium 400 mcg/ (Sodium Chloride) 100 mls @ 2.5 mls/hr IVPB .Q24H ELAINE; 10 MCG/HR PRN Reason: Protocol Stop: 08/21/16 23:48 Last Admin: 08/21/16 05:53 Dose: 2.5 mls/hr Potassium Chloride/Dextrose/Sod Cl (Potassium Chl 20 Meq In D5-1/2ns) 1,000 mls @ 99.01 mls/hr IV .Q10H6M ELAINE Stop: 08/22/16 00:26 Last Admin: 08/21/16 01:02 Dose: 99.01 mls/hr Potassium Chloride 20 meq/ (Sodium Chloride) 110 mls @ 100 mls/hr IV .Q1H6M ELAINE Last Admin: 08/21/16 08:08 Dose: 100 mls/hr Pantoprazole Sodium (Protonix Inj) 40 mg IVP DAILY ELAINE Last Admin: 08/20/16 08:35 Dose: 40 mg - Labs Labs: 08/21/16 10:30 08/21/16 10:30 PT 10.7 SECONDS (9.6-11.2) 08/21/16 10:30 INR 1.03 (0.92-1.08) 08/21/16 10:30 APTT 30.9 SECONDS (23.3-32.5) 08/21/16 10:30 Assessment and Plan (1) Endotracheally intubated Status: Acute (2) Cardiac arrest Status: Acute (3) On mechanically assisted ventilation Status: Acute
[2016-08-21 12:45] LABS: NEUTROPHIL 92 % (42-75); TOTAL CELLS COUNTED 100
--- NOTE | 2016-08-21 14:39 | CARD ---
APPROVED REPORT EXAM: Two-dimensional and M-mode echocardiogram with Doppler and color Doppler. Other Information Quality : GoodRhythm : NSR INDICATION Organ Sigel. 2D DIMENSIONS IVSd1.68 (0.7-1.1cm)LVDd3.90 (3.9-5.9cm) LVOT Diameter1.84 (1.8-2.4cm)PWd1.11 (0.7-1.1cm) IVSs1.67 (0.8-1.2cm)LVDs2.78 (2.5-4.0cm) FS (%) 28.8 %PWs1.20 (0.8-1.2cm) Mitral Valve E/A ratio0.0 TDI E/Lateral E'0.0E/Medial E'0.0 LEFT VENTRICLE The left ventricle is normal size. There is normal left ventricular wall thickness. Left ventricle systolic function is normal. The Ejection Fraction is 55-60%. There is normal LV segmental wall motion. Transmitral Doppler flow pattern is Grade I-abnormal relaxation pattern. RIGHT VENTRICLE The right ventricle is normal size. There is normal right ventricular wall thickness. The right ventricular systolic function is normal. ATRIA The left atrium size is normal. The right atrium size is normal. AORTIC VALVE The aortic valve is normal in structure and function. No aortic regurgitation is present. There is no aortic valvular stenosis. MITRAL VALVE The mitral valve is normal in structure and function. There is no evidence of mitral valve prolapse. There is no mitral valve stenosis. There is no mitral valve regurgitation noted. TRICUSPID VALVE The tricuspid valve is normal in structure and function. There is no tricuspid valve regurgitation noted. PULMONIC VALVE The pulmonary valve is normal in structure and function. There is no pulmonic valvular regurgitation. GREAT VESSELS The aortic root is normal in size. The IVC was not visualized. PERICARDIAL EFFUSION The pericardium appears normal. <Conclusion> Left ventricle systolic function is normal. The Ejection Fraction is 55-60%. There is normal LV segmental wall motion. Transmitral Doppler flow pattern is Grade I-abnormal relaxation pattern.
--- NOTE | 2016-08-21 15:28 | CT ---
PROCEDURE: CT Chest, Abdomen and Pelvis without intravenous contrast HISTORY: Pt is for organ evaluation COMPARISON: None. TECHNIQUE: Radiation dose: Total exam DLP = 1737 mGy-cm. This CT exam was performed using one or more of the following dose reduction techniques: Automated exposure control, adjustment of the mA and/or kV according to patient size, and/or use of iterative reconstruction technique. FINDINGS: CT CHEST WITHOUT CONTRAST: LUNGS: Bilateral patchy upper lobe infiltrates are noted as well as consolidation in both lung bases with small bilateral pleural effusions. MEDIASTINUM: Unremarkable. Normal caliber aorta and pulmonary arterial trunk. Normal size heart. LYMPH NODES: Unremarkable. PLEURA: See above. BONES: Unremarkable. OTHER FINDINGS: None. CT ABDOMEN AND PELVIS: LIVER: Diffuse fatty infiltration of the liver. NG tube in the stomach. GALLBLADDER AND BILE DUCTS: Sludge in the gallbladder. PANCREAS: Unremarkable. No gross lesion or ductal dilatation. SPLEEN: Unremarkable. ADRENALS: Unremarkable. No mass. KIDNEYS AND URETERS: Horseshoe kidney. VASCULATURE: Unremarkable. No aortic aneurysm. Right-sided femoral venous and arterial catheters in place. BOWEL: Unremarkable. No obstruction. No gross mural thickening. Rectal tube noted. APPENDIX: Normal appendix. PERITONEUM: Unremarkable. No free fluid. No free air. LYMPH NODES: Unremarkable. No enlarged lymph nodes. BLADDER: Hilario catheter in bladder.. REPRODUCTIVE: Unremarkable. BONES: No acute fracture. OTHER FINDINGS: None. IMPRESSION: Bilateral upper lung zone patchy infiltrates with extensive bibasilar consolidation with small bilateral pleural effusions. Fatty liver. Gallbladder sludge.
--- NOTE | 2016-08-21 15:48 | CP.CCUPN ---
CCU Subjective - Physician Review Events Since Last Encounter (Free Text): 08/21/16 15:56 The Patient was seen and examined at the bedside, Medical records reviewed, all clinical/lab/hemodynamic/radiographic data were reviewed and management issues were discussed and formulated, Events reviewed 55-year-old male who was brought to the ED by ACLS for cardiac arrest on 08/16. Patient was witnessed in cardiac arrest by by-standers in the street. Witnesses immediately started CPR. Patient had a rhythm of asystole. After intubation, CPR was started in the field , Pt received 6 rounds of epinephrineand 1 dose of Bicarbonate. Patient's rhythm was PEA and pulses were restored prior to arrival to ER. In ER Pateint hypotensive and bradycardia, received additional doses of Epi and Atropine. Of note, Pt was discharged to home in AM of 08/16 in stable condition anterior cervical discectomy and fusion Decision made to initiate Therapeutic Hypothermia with infusion of cooled saline , then he was transferred to ICU for further management. 08/20, two Clinical examination and Apnea testing done at 9:30 AM, 12:30 PM and 6:30 PM Currently he is orally intubated, Unresponsive to painful stimuli Paient has no cough/Gag/pupillary reflex, No brain stem function, No culocephalic and oculovestibular reflexes Will have a meeting with the Patient family and pursue declaration of based on neurological criteria CCU Objective - Vital Signs / Intake & Output Vital Signs (Last 4 hours): Vital Signs Temp Pulse Resp BP Pulse Ox 08/21/16 12:00 98.9 F 96 H 18 110/73 100 Intake and Output (Last 8hrs): Intake & Output 08/21/16 08/21/16 08/21/16 06:59 14:59 22:59 Intake Total 1154 111 Output Total 600 50 Balance 554 61 Intake: IV 554 111 Intake, Piggyback 350 Free Water Flush 250 Output: Urine 500 50 Urethral (Hilario) 500 50 Emesis 100 - Physical Exam Head: Positive for: Atraumatic, Normocephalic Pupils: Positive for: Non-Reactive, Other (Fixed, dilated) Conjunctiva: Positive for: Normal Ears: Positive for: Normal Mouth: Positive for: Moist Mucous Membranes Nose (Internal): Positive for: Normal Inspection Neck: Positive for: Normal Range of Motion, Trachea Midline Respiratory/Chest: Positive for: Clear to Auscultation, Good Air Exchange. Negative for: Respiratory Distress, Rhonchi Cardiovascular: Positive for: Regular Rate and Rhythm, Peripheal Pulses Present. Negative for: Tachycardic, Bradycardic Abdomen: Positive for: Normal Bowel Sounds Upper Extremity: Positive for: Normal Inspection, Capillary Refill < 2s. Negative for: Edema Lower Extremity: Positive for: Normal Inspection. Negative for: Cyanosis Neurological: Positive for: Other (no response to any stimuli). Negative for: GCS=15, CN II-XII Intact, Motor Func Grossly Intact, Normal Sensory Function Psychiatric: Negative for: Alert, Oriented x 3, Normal Insight, Normal Concentration - Medications Active Medications: Active Medications Generic Name Dose Route Start Last Admin Trade Name Freq PRN Reason Stop Dose Admin Acetaminophen 650 mg 08/18/16 00:52 08/20/16 15:53 Tylenol 650mg/20.3ml Solution Ud PO 650 mg Q6 PRN Administration Fever Albuterol Sulfate 2.5 mg 08/21/16 00:00 08/21/16 11:00 Albuterol 0.083% Inhal Kerry (2.5 Mg/3 Ml) Ud INH 2.5 mg RQ4 ELAINE Administration Artificial Tears 1 applic 08/16/16 22:00 08/20/16 22:10 Lacri-Lube OU 1 applic HS ELAINE Administration Dextrose 0 ml 08/17/16 00:01 Dextrose 50% Inj IV STAT PRN Hyglycemia Protocol Protocol Dextrose 0 gm 08/17/16 00:01 Glutose 15 PO ONCE PRN Hypoglycemia Protocol Protocol Glucagon 0 mg 08/17/16 00:01 Glucagen Diagnostic Kit IM STAT PRN Hypoglycemia Protocol Protocol Piperacillin Sod/Tazobactam 100 mls @ 100 mls/hr 08/16/16 22:00 08/21/16 10: 00 Sod 3.375 gm/ Sodium Chloride IVPB 100 mls/hr Q6 ELAINE Administration Vasopressin 100 units/ Sodium 105 mls @ 1.89 mls/hr 08/18/16 16:00 08/20/16 21:11 Chloride IV 0.03 units/min .Q24H ELAINE 1.89 mls/hr Protocol Administration 0.03 UNITS/MIN Insulin Human Regular 100 101 mls @ 12.12 mls/hr 08/18/16 21:00 08/20/16 12: 00 units/ Sodium Chloride IVPB 3 mls/hr .Q8H20M ELAINE Administration Protocol 12 UNITS/HR Methylprednisolone 1 gm/ 250 mls @ 500 mls/hr 08/21/16 01:00 08/21/16 10:00 Sodium Chloride IV 500 mls/hr Q8 ELAINE Administration Levothyroxine Sodium 400 mcg/ 100 mls @ 2.5 mls/hr 08/20/16 23:45 08/21/16 05 :53 Sodium Chloride IVPB 08/21/16 23:48 2.5 mls/hr .Q24H ELAINE Administration Protocol 10 MCG/HR Potassium Chloride/Dextrose/Sod Cl 1,000 mls @ 99.01 mls/hr 08/21/16 00:30 01:02 Potassium Chl 20 Meq In D5-1/2ns IV 08/22/16 00:26 99.01 mls/hr .Q10H6M ELAINE Administration Potassium Chloride 20 meq/ 110 mls @ 100 mls/hr 08/21/16 06:30 08/21/16 08:08 Sodium Chloride IV 100 mls/hr .Q1H6M ELAINE Administration Potassium Chloride/Dextrose/Sod Cl 1,000 mls @ 100 mls/hr 08/21/16 14:30 Potassium Chl 20 Meq In D5-1/2ns IV 08/22/16 14:26 .Q10H ELAINE Pantoprazole Sodium 40 mg 08/17/16 20:41 08/21/16 10:00 Protonix Inj IVP 40 mg DAILY LEAINE Administration - Patient Studies Lab Studies: Microbiology Studies 08/19/16 05:00 Blood Culture - Preliminary Blood NO GROWTH AFTER 48 HOURS 08/19/16 05:00 Blood Culture - Preliminary Blood NO GROWTH AFTER 48 HOURS 08/18/16 14:23 Gram Stain - Final Trachasp Sputum Culture - Final No growth. Lab Studies 08/21/16 08/21/16 08/21/16 Range/Units 14:04 12:17 11:05 WBC (4.8-10.8) K/uL RBC (4.40-5.90) Mil/uL Hgb (12.0-18.0) g/dL Hct (35.0-51.0) % MCV (80.0-94.0) fl MCH (27.0-31.0) pg MCHC (33.0-37.0) g/dL RDW (11.5-14.5) % Plt Count (130-400) K/uL MPV (7.2-11.7) fl Neut % (Auto) (50.0-75.0) % Lymph % (Auto) (20.0-40.0) % [place] % (Auto) (0.0-10.0) % Eos % (Auto) (0.0-4.0) % Baso % (Auto) (0.0-2.0) % Neut # (1.8-7.0) K/uL Lymph # (1.0-4.3) K/uL [place] # (0.0-0.8) K/uL Eos # (0.0-0.7) K/uL Baso # (0.0-0.2) K/uL Neutrophils % (Manual) (42-75) % Band Neutrophils % (0-2) % Lymphocytes % (Manual) (20-50) % Reactive Lymphs % (0-0) % Monocytes % (Manual) (0-10) % Platelet Estimate (NORMAL) Hypochromasia (manual) Anisocytosis (manual) PT (9.6-11.2) SECONDS INR (0.92-1.08) APTT (23.3-32.5) SECONDS pCO2 (35-45) mm/Hg pO2 (80-100) mm/Hg HCO3 (21-28) mmol/L ABG pH (7.35-7.45) ABG Total CO2 (22-28) mmol/L ABG O2 Saturation (95-98) % ABG O2 Content (15-23) ML/dL ABG Base Excess (-2.0-3.0) mmol/L ABG Hemoglobin (11.7-17.4) g/dL ABG Carboxyhemoglobin (0.5-1.5) % POC ABG HHb (Measured) (0.0-5.0) % ABG Methemoglobin (0.0-3.0) % ABG O2 Capacity (16-24) mL/dL Jonathan Test A-a O2 Difference mm/Hg Hgb O2 Saturation (95.0-98.0) % Vent Mode Mechanical Rate FiO2 % Tidal Volume PEEP Crit Value Called To Crit Value Called By Crit Value Read Back Blood Gas Notified Time Sodium (132-148) mmol/l Potassium (3.6-5.0) MMOL/L Chloride (98-107) mmol/L Carbon Dioxide (22-30) mmol/L Anion Gap (10-20) BUN (9-20) mg/dl Creatinine (0.8-1.5) mg/dL Est GFR ( Amer) Est GFR (Non-Af Amer) POC Glucose (mg/dL) 163 H 206 H 208 H (65-110) mg/dL Random Glucose (75-110) mg/dL Serum Osmolality (272-300) mosm/kg Lactic Acid (0.7-2.1) MMOL/L Calcium (8.4-10.2) mg/dL Phosphorus (2.5-4.5) mg/dl Magnesium (1.6-2.3) MG/DL Total Bilirubin (0.2-1.3) mg/dl Direct Bilirubin (0.0-0.4) mg/ml AST (17-59) U/L ALT (21-72) U/L Alkaline Phosphatase (38-126) U/L Lactate Dehydrogenase (313-618) U/L Total Creatine Kinase (55-170) U/L CK-MB (Mass) (0.0-3.38) ng/mL Troponin I (0.00-0.120) ng/mL Total Protein (6.3-8.2) G/DL Albumin (3.5-5.0) g/dL Globulin (2.2-3.9) gm/dL Albumin/Globulin Ratio (1.0-2.1) Amylase (30-110) U/L Lipase (23-300) U/L Blood Type Blood Type Confirm Antibody Screen BBK History Checked 08/21/16 08/21/16 08/21/16 Range/Units 10:30 10:30 10:30 WBC (4.8-10.8) K/uL RBC (4.40-5.90) Mil/uL Hgb (12.0-18.0) g/dL Hct (35.0-51.0) % MCV (80.0-94.0) fl MCH (27.0-31.0) pg MCHC (33.0-37.0) g/dL RDW (11.5-14.5) % Plt Count (130-400) K/uL MPV (7.2-11.7) fl Neut % (Auto) (50.0-75.0) % Lymph % (Auto) (20.0-40.0) % [place] % (Auto) (0.0-10.0) % Eos % (Auto) (0.0-4.0) % Baso % (Auto) (0.0-2.0) % Neut # (1.8-7.0) K/uL Lymph # (1.0-4.3) K/uL [place] # (0.0-0.8) K/uL Eos # (0.0-0.7) K/uL Baso # (0.0-0.2) K/uL Neutrophils % (Manual) (42-75) % Band Neutrophils % (0-2) % Lymphocytes % (Manual) (20-50) % Reactive Lymphs % (0-0) % Monocytes % (Manual) (0-10) % Platelet Estimate (NORMAL) Hypochromasia (manual) Anisocytosis (manual) PT 10.7 (9.6-11.2) SECONDS INR 1.03 (0.92-1.08) APTT 30.9 (23.3-32.5) SECONDS pCO2 (35-45) mm/Hg pO2 (80-100) mm/Hg HCO3 (21-28) mmol/L ABG pH (7.35-7.45) ABG Total CO2 (22-28) mmol/L ABG O2 Saturation (95-98) % ABG O2 Content (15-23) ML/dL ABG Base Excess (-2.0-3.0) mmol/L ABG Hemoglobin (11.7-17.4) g/dL ABG Carboxyhemoglobin (0.5-1.5) % POC ABG HHb (Measured) (0.0-5.0) % ABG Methemoglobin (0.0-3.0) % ABG O2 Capacity (16-24) mL/dL Jonathan Test A-a O2 Difference mm/Hg Hgb O2 Saturation (95.0-98.0) % Vent Mode Mechanical Rate FiO2 % Tidal Volume PEEP Crit Value Called To Crit Value Called By Crit Value Read Back Blood Gas Notified Time Sodium 145 (132-148) mmol/l Potassium 4.3 (3.6-5.0) MMOL/L Chloride 113 H (98-107) mmol/L Carbon Dioxide 25 (22-30) mmol/L Anion Gap 11 (10-20) BUN 22 H (9-20) mg/dl Creatinine 1.0 (0.8-1.5) mg/dL Est GFR ( Amer) > 60 Est GFR (Non-Af Amer) > 60 POC Glucose (mg/dL) (65-110) mg/dL Random Glucose 180 H (75-110) mg/dL Serum Osmolality 307 H (272-300) mosm/kg Lactic Acid (0.7-2.1) MMOL/L Calcium 8.2 L (8.4-10.2) mg/dL Phosphorus 3.4 (2.5-4.5) mg/dl Magnesium 1.7 (1.6-2.3) MG/DL Total Bilirubin 3.1 H (0.2-1.3) mg/dl Direct Bilirubin 2.3 H (0.0-0.4) mg/ml AST 228 H (17-59) U/L ALT 125 H (21-72) U/L Alkaline Phosphatase 189 H (38-126) U/L Lactate Dehydrogenase 5186 H (313-618) U/L Total Creatine Kinase (55-170) U/L CK-MB (Mass) (0.0-3.38) ng/mL Troponin I (0.00-0.120) ng/mL Total Protein 5.7 L (6.3-8.2) G/DL Albumin 2.8 L (3.5-5.0) g/dL Globulin 3.0 (2.2-3.9) gm/dL Albumin/Globulin Ratio 0.9 L (1.0-2.1) Amylase 74 (30-110) U/L Lipase (23-300) U/L Blood Type Blood Type Confirm Antibody Screen BBK History Checked 08/21/16 08/21/16 08/21/16 Range/Units 10:30 09:06 07:57 WBC 8.4 (4.8-10.8) K/uL RBC 3.46 L (4.40-5.90) Mil/uL Hgb 10.7 L (12.0-18.0) g/dL Hct 31.8 L (35.0-51.0) % MCV 92.0 (80.0-94.0) fl MCH 30.9 (27.0-31.0) pg MCHC 33.6 (33.0-37.0) g/dL RDW 13.1 (11.5-14.5) % Plt Count 112 L (130-400) K/uL MPV 9.4 (7.2-11.7) fl Neut % (Auto) 90.8 H (50.0-75.0) % Lymph % (Auto) 6.3 L (20.0-40.0) % [place] % (Auto) 2.7 (0.0-10.0) % Eos % (Auto) 0.1 (0.0-4.0) % Baso % (Auto) 0.1 (0.0-2.0) % Neut # 7.6 H (1.8-7.0) K/uL Lymph # 0.5 L (1.0-4.3) K/uL Willacy # 0.2 (0.0-0.8) K/uL Eos # 0.0 (0.0-0.7) K/uL Baso # 0.0 (0.0-0.2) K/uL Neutrophils % (Manual) 92 H (42-75) % Band Neutrophils % 1 (0-2) % Lymphocytes % (Manual) 6 L (20-50) % Reactive Lymphs % (0-0) % Monocytes % (Manual) 1 (0-10) % Platelet Estimate Decreased L (NORMAL) Hypochromasia (manual) Slight Anisocytosis (manual) PT (9.6-11.2) SECONDS INR (0.92-1.08) APTT (23.3-32.5) SECONDS pCO2 (35-45) mm/Hg pO2 (80-100) mm/Hg HCO3 (21-28) mmol/L ABG pH (7.35-7.45) ABG Total CO2 (22-28) mmol/L ABG O2 Saturation (95-98) % ABG O2 Content (15-23) ML/dL ABG Base Excess (-2.0-3.0) mmol/L ABG Hemoglobin (11.7-17.4) g/dL ABG Carboxyhemoglobin (0.5-1.5) % POC ABG HHb (Measured) (0.0-5.0) % ABG Methemoglobin (0.0-3.0) % ABG O2 Capacity (16-24) mL/dL Jonathan Test A-a O2 Difference mm/Hg Hgb O2 Saturation (95.0-98.0) % Vent Mode Mechanical Rate FiO2 % Tidal Volume PEEP Crit Value Called To Crit Value Called By Crit Value Read Back Blood Gas Notified Time Sodium (132-148) mmol/l Potassium (3.6-5.0) MMOL/L Chloride (98-107) mmol/L Carbon Dioxide (22-30) mmol/L Anion Gap (10-20) BUN (9-20) mg/dl Creatinine (0.8-1.5) mg/dL Est GFR ( Amer) Est GFR (Non-Af Amer) POC Glucose (mg/dL) 180 H 189 H (65-110) mg/dL Random Glucose (75-110) mg/dL Serum Osmolality (272-300) mosm/kg Lactic Acid (0.7-2.1) MMOL/L Calcium (8.4-10.2) mg/dL Phosphorus (2.5-4.5) mg/dl Magnesium (1.6-2.3) MG/DL Total Bilirubin (0.2-1.3) mg/dl Direct Bilirubin (0.0-0.4) mg/ml AST (17-59) U/L ALT (21-72) U/L Alkaline Phosphatase (38-126) U/L Lactate Dehydrogenase (313-618) U/L Total Creatine Kinase (55-170) U/L CK-MB (Mass) (0.0-3.38) ng/mL Troponin I (0.00-0.120) ng/mL Total Protein (6.3-8.2) G/DL Albumin (3.5-5.0) g/dL Globulin (2.2-3.9) gm/dL Albumin/Globulin Ratio (1.0-2.1) Amylase (30-110) U/L Lipase (23-300) U/L Blood Type Blood Type Confirm Antibody Screen BBK History Checked 08/21/16 08/21/16 08/21/16 Range/Units 06:51 05:58 05:09 WBC (4.8-10.8) K/uL RBC (4.40-5.90) Mil/uL Hgb (12.0-18.0) g/dL Hct (35.0-51.0) % MCV (80.0-94.0) fl MCH (27.0-31.0) pg MCHC (33.0-37.0) g/dL RDW (11.5-14.5) % Plt Count (130-400) K/uL MPV (7.2-11.7) fl Neut % (Auto) (50.0-75.0) % Lymph % (Auto) (20.0-40.0) % [place] % (Auto) (0.0-10.0) % Eos % (Auto) (0.0-4.0) % Baso % (Auto) (0.0-2.0) % Neut # (1.8-7.0) K/uL Lymph # (1.0-4.3) K/uL [place]acy # (0.0-0.8) K/uL Eos # (0.0-0.7) K/uL Baso # (0.0-0.2) K/uL Neutrophils % (Manual) (42-75) % Band Neutrophils % (0-2) % Lymphocytes % (Manual) (20-50) % Reactive Lymphs % (0-0) % Monocytes % (Manual) (0-10) % Platelet Estimate (NORMAL) Hypochromasia (manual) Anisocytosis (manual) PT (9.6-11.2) SECONDS INR (0.92-1.08) APTT (23.3-32.5) SECONDS pCO2 (35-45) mm/Hg pO2 (80-100) mm/Hg HCO3 (21-28) mmol/L ABG pH (7.35-7.45) ABG Total CO2 (22-28) mmol/L ABG O2 Saturation (95-98) % ABG O2 Content (15-23) ML/dL ABG Base Excess (-2.0-3.0) mmol/L ABG Hemoglobin (11.7-17.4) g/dL ABG Carboxyhemoglobin (0.5-1.5) % POC ABG HHb (Measured) (0.0-5.0) % ABG Methemoglobin (0.0-3.0) % ABG O2 Capacity (16-24) mL/dL Jonathan Test A-a O2 Difference mm/Hg Hgb O2 Saturation (95.0-98.0) % Vent Mode Mechanical Rate FiO2 % Tidal Volume PEEP Crit Value Called To Crit Value Called By Crit Value Read Back Blood Gas Notified Time Sodium (132-148) mmol/l Potassium (3.6-5.0) MMOL/L Chloride (98-107) mmol/L Carbon Dioxide (22-30) mmol/L Anion Gap (10-20) BUN (9-20) mg/dl Creatinine (0.8-1.5) mg/dL Est GFR ( Amer) Est GFR (Non-Af Amer) POC Glucose (mg/dL) 166 H 184 H 169 H (65-110) mg/dL Random Glucose (75-110) mg/dL Serum Osmolality (272-300) mosm/kg Lactic Acid (0.7-2.1) MMOL/L Calcium (8.4-10.2) mg/dL Phosphorus (2.5-4.5) mg/dl Magnesium (1.6-2.3) MG/DL Total Bilirubin (0.2-1.3) mg/dl Direct Bilirubin (0.0-0.4) mg/ml AST (17-59) U/L ALT (21-72) U/L Alkaline Phosphatase (38-126) U/L Lactate Dehydrogenase (313-618) U/L Total Creatine Kinase (55-170) U/L CK-MB (Mass) (0.0-3.38) ng/mL Troponin I (0.00-0.120) ng/mL Total Protein (6.3-8.2) G/DL Albumin (3.5-5.0) g/dL Globulin (2.2-3.9) gm/dL Albumin/Globulin Ratio (1.0-2.1) Amylase (30-110) U/L Lipase (23-300) U/L Blood Type Blood Type Confirm Antibody Screen BBK History Checked 05/30/17 05/30/17 05/30/17 Range/Units 05:05 04:49 04:49 WBC (4.8-10.8) K/uL RBC (4.40-5.90) Mil/uL Hgb (12.0-18.0) g/dL Hct (35.0-51.0) % MCV (80.0-94.0) fl MCH (27.0-31.0) pg MCHC (33.0-37.0) g/dL RDW (11.5-14.5) % Plt Count (130-400) K/uL MPV (7.2-11.7) fl Neut % (Auto) (50.0-75.0) % Lymph % (Auto) (20.0-40.0) % [place] % (Auto) (0.0-10.0) % Eos % (Auto) (0.0-4.0) % Baso % (Auto) (0.0-2.0) % Neut # (1.8-7.0) K/uL Lymph # (1.0-4.3) K/uL [place] # (0.0-0.8) K/uL Eos # (0.0-0.7) K/uL Baso # (0.0-0.2) K/uL Neutrophils % (Manual) (42-75) % Band Neutrophils % (0-2) % Lymphocytes % (Manual) (20-50) % Reactive Lymphs % (0-0) % Monocytes % (Manual) (0-10) % Platelet Estimate (NORMAL) Hypochromasia (manual) Anisocytosis (manual) PT 10.9 (9.6-11.2) SECONDS INR 1.05 (0.92-1.08) APTT 32.6 H (23.3-32.5) SECONDS pCO2 38 (35-45) mm/Hg pO2 78 L (80-100) mm/Hg HCO3 23.6 (21-28) mmol/L ABG pH 7.39 (7.35-7.45) ABG Total CO2 24.2 (22-28) mmol/L ABG O2 Saturation 97.2 (95-98) % ABG O2 Content 14.4 L (15-23) ML/dL ABG Base Excess -1.7 (-2.0-3.0) mmol/L ABG Hemoglobin 10.7 L (11.7-17.4) g/dL ABG Carboxyhemoglobin 0.8 (0.5-1.5) % POC ABG HHb (Measured) 2.7 (0.0-5.0) % ABG Methemoglobin 1.5 (0.0-3.0) % ABG O2 Capacity 14.8 L (16-24) mL/dL Jonathan Test Yes A-a O2 Difference 445.0 mm/Hg Hgb O2 Saturation 94.9 L (95.0-98.0) % Vent Mode A/c Mechanical Rate 20 FiO2 80.0 % Tidal Volume 500 PEEP 8 Crit Value Called To Crit Value Called By Crit Value Read Back Blood Gas Notified Time Sodium (132-148) mmol/l Potassium (3.6-5.0) MMOL/L Chloride (98-107) mmol/L Carbon Dioxide (22-30) mmol/L Anion Gap (10-20) BUN (9-20) mg/dl Creatinine (0.8-1.5) mg/dL Est GFR ( Amer) Est GFR (Non-Af Amer) POC Glucose (mg/dL) (65-110) mg/dL Random Glucose (75-110) mg/dL Serum Osmolality (272-300) mosm/kg Lactic Acid 1.1 (0.7-2.1) MMOL/L Calcium (8.4-10.2) mg/dL Phosphorus (2.5-4.5) mg/dl Magnesium (1.6-2.3) MG/DL Total Bilirubin (0.2-1.3) mg/dl Direct Bilirubin (0.0-0.4) mg/ml AST (17-59) U/L ALT (21-72) U/L Alkaline Phosphatase (38-126) U/L Lactate Dehydrogenase (313-618) U/L Total Creatine Kinase (55-170) U/L CK-MB (Mass) (0.0-3.38) ng/mL Troponin I (0.00-0.120) ng/mL Total Protein (6.3-8.2) G/DL Albumin (3.5-5.0) g/dL Globulin (2.2-3.9) gm/dL Albumin/Globulin Ratio (1.0-2.1) Amylase (30-110) U/L Lipase (23-300) U/L Blood Type Blood Type Confirm Antibody Screen BBK History Checked 08/21/16 08/21/16 08/21/16 Range/Units 04:49 04:49 04:14 WBC 10.0 (4.8-10.8) K/uL RBC 3.51 L (4.40-5.90) Mil/uL Hgb 10.9 L (12.0-18.0) g/dL Hct 32.6 L (35.0-51.0) % MCV 92.9 (80.0-94.0) fl MCH 31.0 (27.0-31.0) pg MCHC 33.3 (33.0-37.0) g/dL RDW 13.5 (11.5-14.5) % Plt Count 110 L (130-400) K/uL MPV 9.1 (7.2-11.7) fl Neut % (Auto) 88.6 H (50.0-75.0) % Lymph % (Auto) 6.3 L (20.0-40.0) % [place] % (Auto) 4.5 (0.0-10.0) % Eos % (Auto) 0.4 (0.0-4.0) % Baso % (Auto) 0.2 (0.0-2.0) % Neut # 8.9 H (1.8-7.0) K/uL Lymph # 0.6 L (1.0-4.3) K/uL [place] # 0.5 (0.0-0.8) K/uL Eos # 0.0 (0.0-0.7) K/uL Baso # 0.0 (0.0-0.2) K/uL Neutrophils % (Manual) 86 H (42-75) % Band Neutrophils % 2 (0-2) % Lymphocytes % (Manual) 8 L (20-50) % Reactive Lymphs % 1 H (0-0) % Monocytes % (Manual) 3 (0-10) % Platelet Estimate Slightly decreased L (NORMAL) Hypochromasia (manual) Anisocytosis (manual) Slight PT (9.6-11.2) SECONDS INR (0.92-1.08) APTT (23.3-32.5) SECONDS pCO2 (35-45) mm/Hg pO2 (80-100) mm/Hg HCO3 (21-28) mmol/L ABG pH (7.35-7.45) ABG Total CO2 (22-28) mmol/L ABG O2 Saturation (95-98) % ABG O2 Content (15-23) ML/dL ABG Base Excess (-2.0-3.0) mmol/L ABG Hemoglobin (11.7-17.4) g/dL ABG Carboxyhemoglobin (0.5-1.5) % POC ABG HHb (Measured) (0.0-5.0) % ABG Methemoglobin (0.0-3.0) % ABG O2 Capacity (16-24) mL/dL Jonathan Test A-a O2 Difference mm/Hg Hgb O2 Saturation (95.0-98.0) % Vent Mode Mechanical Rate FiO2 % Tidal Volume PEEP Crit Value Called To Crit Value Called By Crit Value Read Back Blood Gas Notified Time Sodium 146 (132-148) mmol/l Potassium 3.4 L (3.6-5.0) MMOL/L Chloride 114 H (98-107) mmol/L Carbon Dioxide 22 (22-30) mmol/L Anion Gap 13 (10-20) BUN 22 H (9-20) mg/dl Creatinine 0.9 (0.8-1.5) mg/dL Est GFR ( Amer) > 60 Est GFR (Non-Af Amer) > 60 POC Glucose (mg/dL) 160 H (65-110) mg/dL Random Glucose 156 H (75-110) mg/dL Serum Osmolality (272-300) mosm/kg Lactic Acid (0.7-2.1) MMOL/L Calcium 8.2 L (8.4-10.2) mg/dL Phosphorus 3.2 (2.5-4.5) mg/dl Magnesium 1.7 (1.6-2.3) MG/DL Total Bilirubin 4.1 H (0.2-1.3) mg/dl Direct Bilirubin 3.0 H (0.0-0.4) mg/ml AST 232 H (17-59) U/L ALT 122 H (21-72) U/L Alkaline Phosphatase 181 H D (38-126) U/L Lactate Dehydrogenase 4971 H (313-618) U/L Total Creatine Kinase 181 H (55-170) U/L CK-MB (Mass) 0.68 (0.0-3.38) ng/mL Troponin I 0.7440 H* (0.00-0.120) ng/mL Total Protein 5.6 L (6.3-8.2) G/DL Albumin 2.7 L (3.5-5.0) g/dL Globulin 2.8 (2.2-3.9) gm/dL Albumin/Globulin Ratio 1.0 (1.0-2.1) Amylase (30-110) U/L Lipase (23-300) U/L Blood Type Blood Type Confirm Antibody Screen BBK History Checked 08/21/16 08/21/16 08/21/16 Range/Units 03:07 01:30 00:58 WBC (4.8-10.8) K/uL RBC (4.40-5.90) Mil/uL Hgb (12.0-18.0) g/dL Hct (35.0-51.0) % MCV (80.0-94.0) fl MCH (27.0-31.0) pg MCHC (33.0-37.0) g/dL RDW (11.5-14.5) % Plt Count (130-400) K/uL MPV (7.2-11.7) fl Neut % (Auto) (50.0-75.0) % Lymph % (Auto) (20.0-40.0) % Willacy % (Auto) (0.0-10.0) % Eos % (Auto) (0.0-4.0) % Baso % (Auto) (0.0-2.0) % Neut # (1.8-7.0) K/uL Lymph # (1.0-4.3) K/uL Willacy # (0.0-0.8) K/uL Eos # (0.0-0.7) K/uL Baso # (0.0-0.2) K/uL Neutrophils % (Manual) (42-75) % Band Neutrophils % (0-2) % Lymphocytes % (Manual) (20-50) % Reactive Lymphs % (0-0) % Monocytes % (Manual) (0-10) % Platelet Estimate (NORMAL) Hypochromasia (manual) Anisocytosis (manual) PT (9.6-11.2) SECONDS INR (0.92-1.08) APTT (23.3-32.5) SECONDS pCO2 (35-45) mm/Hg pO2 (80-100) mm/Hg HCO3 (21-28) mmol/L ABG pH (7.35-7.45) ABG Total CO2 (22-28) mmol/L ABG O2 Saturation (95-98) % ABG O2 Content (15-23) ML/dL ABG Base Excess (-2.0-3.0) mmol/L ABG Hemoglobin (11.7-17.4) g/dL ABG Carboxyhemoglobin (0.5-1.5) % POC ABG HHb (Measured) (0.0-5.0) % ABG Methemoglobin (0.0-3.0) % ABG O2 Capacity (16-24) mL/dL Jonathan Test A-a O2 Difference mm/Hg Hgb O2 Saturation (95.0-98.0) % Vent Mode Mechanical Rate FiO2 % Tidal Volume PEEP Crit Value Called To Crit Value Called By Crit Value Read Back Blood Gas Notified Time Sodium (132-148) mmol/l Potassium (3.6-5.0) MMOL/L Chloride (98-107) mmol/L Carbon Dioxide (22-30) mmol/L Anion Gap (10-20) BUN (9-20) mg/dl Creatinine (0.8-1.5) mg/dL Est GFR ( Amer) Est GFR (Non-Af Amer) POC Glucose (mg/dL) 164 H 144 H 140 H (65-110) mg/dL Random Glucose (75-110) mg/dL Serum Osmolality (272-300) mosm/kg Lactic Acid (0.7-2.1) MMOL/L Calcium (8.4-10.2) mg/dL Phosphorus (2.5-4.5) mg/dl Magnesium (1.6-2.3) MG/DL Total Bilirubin (0.2-1.3) mg/dl Direct Bilirubin (0.0-0.4) mg/ml AST (17-59) U/L ALT (21-72) U/L Alkaline Phosphatase (38-126) U/L Lactate Dehydrogenase (313-618) U/L Total Creatine Kinase (55-170) U/L CK-MB (Mass) (0.0-3.38) ng/mL Troponin I (0.00-0.120) ng/mL Total Protein (6.3-8.2) G/DL Albumin (3.5-5.0) g/dL Globulin (2.2-3.9) gm/dL Albumin/Globulin Ratio (1.0-2.1) Amylase (30-110) U/L Lipase (23-300) U/L Blood Type Blood Type Confirm Antibody Screen BBK History Checked 08/20/16 08/20/16 08/20/16 Range/Units 23:16 23:03 22:38 WBC (4.8-10.8) K/uL RBC (4.40-5.90) Mil/uL Hgb (12.0-18.0) g/dL Hct (35.0-51.0) % MCV (80.0-94.0) fl MCH (27.0-31.0) pg MCHC (33.0-37.0) g/dL RDW (11.5-14.5) % Plt Count (130-400) K/uL MPV (7.2-11.7) fl Neut % (Auto) (50.0-75.0) % Lymph % (Auto) (20.0-40.0) % [place] % (Auto) (0.0-10.0) % Eos % (Auto) (0.0-4.0) % Baso % (Auto) (0.0-2.0) % Neut # (1.8-7.0) K/uL Lymph # (1.0-4.3) K/uL Willacy # (0.0-0.8) K/uL Eos # (0.0-0.7) K/uL Baso # (0.0-0.2) K/uL Neutrophils % (Manual) (42-75) % Band Neutrophils % (0-2) % Lymphocytes % (Manual) (20-50) % Reactive Lymphs % (0-0) % Monocytes % (Manual) (0-10) % Platelet Estimate (NORMAL) Hypochromasia (manual) Anisocytosis (manual) PT (9.6-11.2) SECONDS INR (0.92-1.08) APTT (23.3-32.5) SECONDS pCO2 (35-45) mm/Hg pO2 (80-100) mm/Hg HCO3 (21-28) mmol/L ABG pH (7.35-7.45) ABG Total CO2 (22-28) mmol/L ABG O2 Saturation (95-98) % ABG O2 Content (15-23) ML/dL ABG Base Excess (-2.0-3.0) mmol/L ABG Hemoglobin (11.7-17.4) g/dL ABG Carboxyhemoglobin (0.5-1.5) % POC ABG HHb (Measured) (0.0-5.0) % ABG Methemoglobin (0.0-3.0) % ABG O2 Capacity (16-24) mL/dL Jonathan Test A-a O2 Difference mm/Hg Hgb O2 Saturation (95.0-98.0) % Vent Mode Mechanical Rate FiO2 % Tidal Volume PEEP Crit Value Called To Crit Value Called By Crit Value Read Back Blood Gas Notified Time Sodium (132-148) mmol/l Potassium (3.6-5.0) MMOL/L Chloride (98-107) mmol/L Carbon Dioxide (22-30) mmol/L Anion Gap (10-20) BUN (9-20) mg/dl Creatinine (0.8-1.5) mg/dL Est GFR ( Amer) Est GFR (Non-Af Amer) POC Glucose (mg/dL) 130 H 125 H (65-110) mg/dL Random Glucose (75-110) mg/dL Serum Osmolality (272-300) mosm/kg Lactic Acid (0.7-2.1) MMOL/L Calcium (8.4-10.2) mg/dL Phosphorus (2.5-4.5) mg/dl Magnesium (1.6-2.3) MG/DL Total Bilirubin (0.2-1.3) mg/dl Direct Bilirubin (0.0-0.4) mg/ml AST (17-59) U/L ALT (21-72) U/L Alkaline Phosphatase (38-126) U/L Lactate Dehydrogenase (313-618) U/L Total Creatine Kinase (55-170) U/L CK-MB (Mass) (0.0-3.38) ng/mL Troponin I (0.00-0.120) ng/mL Total Protein (6.3-8.2) G/DL Albumin (3.5-5.0) g/dL Globulin (2.2-3.9) gm/dL Albumin/Globulin Ratio (1.0-2.1) Amylase (30-110) U/L Lipase (23-300) U/L Blood Type Blood Type Confirm O POSITIVE Antibody Screen BBK History Checked 08/20/16 08/20/16 08/20/16 Range/Units 22:36 22:36 22:36 WBC 12.6 H (4.8-10.8) K/uL RBC 3.40 L (4.40-5.90) Mil/uL Hgb 10.6 L (12.0-18.0) g/dL Hct 31.3 L (35.0-51.0) % MCV 92.1 D (80.0-94.0) fl MCH 31.1 H (27.0-31.0) pg MCHC 33.8 (33.0-37.0) g/dL RDW 13.7 (11.5-14.5) % Plt Count 118 L (130-400) K/uL MPV 9.1 (7.2-11.7) fl Neut % (Auto) 81.4 H (50.0-75.0) % Lymph % (Auto) 10.9 L (20.0-40.0) % [place] % (Auto) 6.6 (0.0-10.0) % Eos % (Auto) 1.0 (0.0-4.0) % Baso % (Auto) 0.1 (0.0-2.0) % Neut # 10.3 H (1.8-7.0) K/uL Lymph # 1.4 (1.0-4.3) K/uL [place] # 0.8 (0.0-0.8) K/uL Eos # 0.1 (0.0-0.7) K/uL Baso # 0.0 (0.0-0.2) K/uL Neutrophils % (Manual) (42-75) % Band Neutrophils % (0-2) % Lymphocytes % (Manual) (20-50) % Reactive Lymphs % (0-0) % Monocytes % (Manual) (0-10) % Platelet Estimate (NORMAL) Hypochromasia (manual) Anisocytosis (manual) PT 11.0 (9.6-11.2) SECONDS INR 1.06 (0.92-1.08) APTT 32.5 (23.3-32.5) SECONDS pCO2 (35-45) mm/Hg pO2 (80-100) mm/Hg HCO3 (21-28) mmol/L ABG pH (7.35-7.45) ABG Total CO2 (22-28) mmol/L ABG O2 Saturation (95-98) % ABG O2 Content (15-23) ML/dL ABG Base Excess (-2.0-3.0) mmol/L ABG Hemoglobin (11.7-17.4) g/dL ABG Carboxyhemoglobin (0.5-1.5) % POC ABG HHb (Measured) (0.0-5.0) % ABG Methemoglobin (0.0-3.0) % ABG O2 Capacity (16-24) mL/dL Jonathan Test A-a O2 Difference mm/Hg Hgb O2 Saturation (95.0-98.0) % Vent Mode Mechanical Rate FiO2 % Tidal Volume PEEP Crit Value Called To Crit Value Called By Crit Value Read Back Blood Gas Notified Time Sodium 146 (132-148) mmol/l Potassium 3.7 (3.6-5.0) MMOL/L Chloride 117 H (98-107) mmol/L Carbon Dioxide 24 (22-30) mmol/L Anion Gap 9 L (10-20) BUN 22 H (9-20) mg/dl Creatinine 1.2 (0.8-1.5) mg/dL Est GFR ( Amer) > 60 Est GFR (Non-Af Amer) > 60 POC Glucose (mg/dL) (65-110) mg/dL Random Glucose 124 H (75-110) mg/dL Serum Osmolality (272-300) mosm/kg Lactic Acid (0.7-2.1) MMOL/L Calcium 7.8 L (8.4-10.2) mg/dL Phosphorus 3.2 (2.5-4.5) mg/dl Magnesium 1.6 (1.6-2.3) MG/DL Total Bilirubin 2.9 H (0.2-1.3) mg/dl Direct Bilirubin 1.9 H (0.0-0.4) mg/ml AST 200 H (17-59) U/L ALT 121 H (21-72) U/L Alkaline Phosphatase 139 H D (38-126) U/L Lactate Dehydrogenase 5670 H (313-618) U/L Total Creatine Kinase 179 H (55-170) U/L CK-MB (Mass) 0.56 (0.0-3.38) ng/mL Troponin I 0.9340 H* (0.00-0.120) ng/mL Total Protein 5.2 L (6.3-8.2) G/DL Albumin 2.5 L (3.5-5.0) g/dL Globulin 2.7 (2.2-3.9) gm/dL Albumin/Globulin Ratio 0.9 L (1.0-2.1) Amylase 92 (30-110) U/L Lipase 86 (23-300) U/L Blood Type Blood Type Confirm Antibody Screen BBK History Checked 08/20/16 08/20/16 08/20/16 Range/Units 22:10 21:35 21:35 WBC (4.8-10.8) K/uL RBC (4.40-5.90) Mil/uL Hgb (12.0-18.0) g/dL Hct (35.0-51.0) % MCV (80.0-94.0) fl MCH (27.0-31.0) pg MCHC (33.0-37.0) g/dL RDW (11.5-14.5) % Plt Count (130-400) K/uL MPV (7.2-11.7) fl Neut % (Auto) (50.0-75.0) % Lymph % (Auto) (20.0-40.0) % [place] % (Auto) (0.0-10.0) % Eos % (Auto) (0.0-4.0) % Baso % (Auto) (0.0-2.0) % Neut # (1.8-7.0) K/uL Lymph # (1.0-4.3) K/uL [place] # (0.0-0.8) K/uL Eos # (0.0-0.7) K/uL Baso # (0.0-0.2) K/uL Neutrophils % (Manual) (42-75) % Band Neutrophils % (0-2) % Lymphocytes % (Manual) (20-50) % Reactive Lymphs % (0-0) % Monocytes % (Manual) (0-10) % Platelet Estimate (NORMAL) Hypochromasia (manual) Anisocytosis (manual) PT (9.6-11.2) SECONDS INR (0.92-1.08) APTT (23.3-32.5) SECONDS pCO2 38 (35-45) mm/Hg pO2 119 H (80-100) mm/Hg HCO3 25.6 (21-28) mmol/L ABG pH 7.43 (7.35-7.45) ABG Total CO2 26.4 (22-28) mmol/L ABG O2 Saturation 98.8 H (95-98) % ABG O2 Content 14.4 L (15-23) ML/dL ABG Base Excess 0.9 (-2.0-3.0) mmol/L ABG Hemoglobin 10.4 L (11.7-17.4) g/dL ABG Carboxyhemoglobin 0.6 (0.5-1.5) % POC ABG HHb (Measured) 1.2 (0.0-5.0) % ABG Methemoglobin 1.2 (0.0-3.0) % ABG O2 Capacity 14.6 L (16-24) mL/dL Jonathan Test Yes A-a O2 Difference 404.0 mm/Hg Hgb O2 Saturation 97.1 (95.0-98.0) % Vent Mode Prvc/ac Mechanical Rate 20 FiO2 80.0 % Tidal Volume 500 PEEP 8 Crit Value Called To Crit Value Called By Crit Value Read Back Blood Gas Notified Time Sodium (132-148) mmol/l Potassium (3.6-5.0) MMOL/L Chloride (98-107) mmol/L Carbon Dioxide (22-30) mmol/L Anion Gap (10-20) BUN (9-20) mg/dl Creatinine (0.8-1.5) mg/dL Est GFR ( Amer) Est GFR (Non-Af Amer) POC Glucose (mg/dL) (65-110) mg/dL Random Glucose (75-110) mg/dL Serum Osmolality (272-300) mosm/kg Lactic Acid 1.0 (0.7-2.1) MMOL/L Calcium (8.4-10.2) mg/dL Phosphorus (2.5-4.5) mg/dl Magnesium (1.6-2.3) MG/DL Total Bilirubin (0.2-1.3) mg/dl Direct Bilirubin (0.0-0.4) mg/ml AST (17-59) U/L ALT (21-72) U/L Alkaline Phosphatase (38-126) U/L Lactate Dehydrogenase (313-618) U/L Total Creatine Kinase (55-170) U/L CK-MB (Mass) (0.0-3.38) ng/mL Troponin I (0.00-0.120) ng/mL Total Protein (6.3-8.2) G/DL Albumin (3.5-5.0) g/dL Globulin (2.2-3.9) gm/dL Albumin/Globulin Ratio (1.0-2.1) Amylase (30-110) U/L Lipase (23-300) U/L Blood Type O POSITIVE Blood Type Confirm Antibody Screen Negative BBK History Checked No verified bt 08/20/16 08/20/16 08/20/16 Range/Units 21:07 20:13 18:56 WBC (4.8-10.8) K/uL RBC (4.40-5.90) Mil/uL Hgb (12.0-18.0) g/dL Hct (35.0-51.0) % MCV (80.0-94.0) fl MCH (27.0-31.0) pg MCHC (33.0-37.0) g/dL RDW (11.5-14.5) % Plt Count (130-400) K/uL MPV (7.2-11.7) fl Neut % (Auto) (50.0-75.0) % Lymph % (Auto) (20.0-40.0) % [place] % (Auto) (0.0-10.0) % Eos % (Auto) (0.0-4.0) % Baso % (Auto) (0.0-2.0) % Neut # (1.8-7.0) K/uL Lymph # (1.0-4.3) K/uL [place] # (0.0-0.8) K/uL Eos # (0.0-0.7) K/uL Baso # (0.0-0.2) K/uL Neutrophils % (Manual) (42-75) % Band Neutrophils % (0-2) % Lymphocytes % (Manual) (20-50) % Reactive Lymphs % (0-0) % Monocytes % (Manual) (0-10) % Platelet Estimate (NORMAL) Hypochromasia (manual) Anisocytosis (manual) PT (9.6-11.2) SECONDS INR (0.92-1.08) APTT (23.3-32.5) SECONDS pCO2 (35-45) mm/Hg pO2 (80-100) mm/Hg HCO3 (21-28) mmol/L ABG pH (7.35-7.45) ABG Total CO2 (22-28) mmol/L ABG O2 Saturation (95-98) % ABG O2 Content (15-23) ML/dL ABG Base Excess (-2.0-3.0) mmol/L ABG Hemoglobin (11.7-17.4) g/dL ABG Carboxyhemoglobin (0.5-1.5) % POC ABG HHb (Measured) (0.0-5.0) % ABG Methemoglobin (0.0-3.0) % ABG O2 Capacity (16-24) mL/dL Jonathan Test A-a O2 Difference mm/Hg Hgb O2 Saturation (95.0-98.0) % Vent Mode Mechanical Rate FiO2 % Tidal Volume PEEP Crit Value Called To Crit Value Called By Crit Value Read Back Blood Gas Notified Time Sodium (132-148) mmol/l Potassium (3.6-5.0) MMOL/L Chloride (98-107) mmol/L Carbon Dioxide (22-30) mmol/L Anion Gap (10-20) BUN (9-20) mg/dl Creatinine (0.8-1.5) mg/dL Est GFR ( Amer) Est GFR (Non-Af Amer) POC Glucose (mg/dL) 124 H 140 H 141 H (65-110) mg/dL Random Glucose (75-110) mg/dL Serum Osmolality (272-300) mosm/kg Lactic Acid (0.7-2.1) MMOL/L Calcium (8.4-10.2) mg/dL Phosphorus (2.5-4.5) mg/dl Magnesium (1.6-2.3) MG/DL Total Bilirubin (0.2-1.3) mg/dl Direct Bilirubin (0.0-0.4) mg/ml AST (17-59) U/L ALT (21-72) U/L Alkaline Phosphatase (38-126) U/L Lactate Dehydrogenase (313-618) U/L Total Creatine Kinase (55-170) U/L CK-MB (Mass) (0.0-3.38) ng/mL Troponin I (0.00-0.120) ng/mL Total Protein (6.3-8.2) G/DL Albumin (3.5-5.0) g/dL Globulin (2.2-3.9) gm/dL Albumin/Globulin Ratio (1.0-2.1) Amylase (30-110) U/L Lipase (23-300) U/L Blood Type Blood Type Confirm Antibody Screen BBK History Checked 08/20/16 08/20/16 08/20/16 Range/Units 18:50 18:35 18:10 WBC (4.8-10.8) K/uL RBC (4.40-5.90) Mil/uL Hgb (12.0-18.0) g/dL Hct (35.0-51.0) % MCV (80.0-94.0) fl MCH (27.0-31.0) pg MCHC (33.0-37.0) g/dL RDW (11.5-14.5) % Plt Count (130-400) K/uL MPV (7.2-11.7) fl Neut % (Auto) (50.0-75.0) % Lymph % (Auto) (20.0-40.0) % [place] % (Auto) (0.0-10.0) % Eos % (Auto) (0.0-4.0) % Baso % (Auto) (0.0-2.0) % Neut # (1.8-7.0) K/uL Lymph # (1.0-4.3) K/uL [place] # (0.0-0.8) K/uL Eos # (0.0-0.7) K/uL Baso # (0.0-0.2) K/uL Neutrophils % (Manual) (42-75) % Band Neutrophils % (0-2) % Lymphocytes % (Manual) (20-50) % Reactive Lymphs % (0-0) % Monocytes % (Manual) (0-10) % Platelet Estimate (NORMAL) Hypochromasia (manual) Anisocytosis (manual) PT (9.6-11.2) SECONDS INR (0.92-1.08) APTT (23.3-32.5) SECONDS pCO2 92 H* 44 33 L (35-45) mm/Hg pO2 66 L 133 H 238 H (80-100) mm/Hg HCO3 20.9 L 24.4 26.0 (21-28) mmol/L ABG pH 7.08 L* 7.36 7.48 H (7.35-7.45) ABG Total CO2 30.1 H 26.3 25.6 (22-28) mmol/L ABG O2 Saturation 89.9 L 98.6 H 98.8 H (95-98) % ABG O2 Content 16.3 15.1 15.5 (15-23) ML/dL ABG Base Excess -4.9 L -0.7 1.4 (-2.0-3.0) mmol/L ABG Hemoglobin 13.2 11.0 L 11.0 L (11.7-17.4) g/dL ABG Carboxyhemoglobin 1.2 0.6 0.5 (0.5-1.5) % POC ABG HHb (Measured) 9.9 H 1.4 1.2 (0.0-5.0) % ABG Methemoglobin 1.2 1.9 1.5 (0.0-3.0) % ABG O2 Capacity 18.1 15.3 L 15.7 L (16-24) mL/dL Jonathan Test Yes Yes Yes A-a O2 Difference 104.0 525.0 434.0 mm/Hg Hgb O2 Saturation 87.7 L 96.1 96.7 (95.0-98.0) % Vent Mode Prvc/ac Prvc/ac Mechanical Rate 450 20 FiO2 40.0 100.0 100.0 % Tidal Volume 16 500 PEEP 5 5 Crit Value Called To Dr yudy pereira Crit Value Called By Rt Crit Value Read Back Y Blood Gas Notified Time 1900 Sodium (132-148) mmol/l Potassium (3.6-5.0) MMOL/L Chloride (98-107) mmol/L Carbon Dioxide (22-30) mmol/L Anion Gap (10-20) BUN (9-20) mg/dl Creatinine (0.8-1.5) mg/dL Est GFR ( Amer) Est GFR (Non-Af Amer) POC Glucose (mg/dL) (65-110) mg/dL Random Glucose (75-110) mg/dL Serum Osmolality (272-300) mosm/kg Lactic Acid (0.7-2.1) MMOL/L Calcium (8.4-10.2) mg/dL Phosphorus (2.5-4.5) mg/dl Magnesium (1.6-2.3) MG/DL Total Bilirubin (0.2-1.3) mg/dl Direct Bilirubin (0.0-0.4) mg/ml AST (17-59) U/L ALT (21-72) U/L Alkaline Phosphatase (38-126) U/L Lactate Dehydrogenase (313-618) U/L Total Creatine Kinase (55-170) U/L CK-MB (Mass) (0.0-3.38) ng/mL Troponin I (0.00-0.120) ng/mL Total Protein (6.3-8.2) G/DL Albumin (3.5-5.0) g/dL Globulin (2.2-3.9) gm/dL Albumin/Globulin Ratio (1.0-2.1) Amylase (30-110) U/L Lipase (23-300) U/L Blood Type Blood Type Confirm Antibody Screen BBK History Checked 08/20/16 08/20/16 08/20/16 Range/Units 17:59 17:10 15:59 WBC (4.8-10.8) K/uL RBC (4.40-5.90) Mil/uL Hgb (12.0-18.0) g/dL Hct (35.0-51.0) % MCV (80.0-94.0) fl MCH (27.0-31.0) pg MCHC (33.0-37.0) g/dL RDW (11.5-14.5) % Plt Count (130-400) K/uL MPV (7.2-11.7) fl Neut % (Auto) (50.0-75.0) % Lymph % (Auto) (20.0-40.0) % [place] % (Auto) (0.0-10.0) % Eos % (Auto) (0.0-4.0) % Baso % (Auto) (0.0-2.0) % Neut # (1.8-7.0) K/uL Lymph # (1.0-4.3) K/uL [place] # (0.0-0.8) K/uL Eos # (0.0-0.7) K/uL Baso # (0.0-0.2) K/uL Neutrophils % (Manual) (42-75) % Band Neutrophils % (0-2) % Lymphocytes % (Manual) (20-50) % Reactive Lymphs % (0-0) % Monocytes % (Manual) (0-10) % Platelet Estimate (NORMAL) Hypochromasia (manual) Anisocytosis (manual) PT (9.6-11.2) SECONDS INR (0.92-1.08) APTT (23.3-32.5) SECONDS pCO2 (35-45) mm/Hg pO2 (80-100) mm/Hg HCO3 (21-28) mmol/L ABG pH (7.35-7.45) ABG Total CO2 (22-28) mmol/L ABG O2 Saturation (95-98) % ABG O2 Content (15-23) ML/dL ABG Base Excess (-2.0-3.0) mmol/L ABG Hemoglobin (11.7-17.4) g/dL ABG Carboxyhemoglobin (0.5-1.5) % POC ABG HHb (Measured) (0.0-5.0) % ABG Methemoglobin (0.0-3.0) % ABG O2 Capacity (16-24) mL/dL Jonathan Test A-a O2 Difference mm/Hg Hgb O2 Saturation (95.0-98.0) % Vent Mode Mechanical Rate FiO2 % Tidal Volume PEEP Crit Value Called To Crit Value Called By Crit Value Read Back Blood Gas Notified Time Sodium (132-148) mmol/l Potassium (3.6-5.0) MMOL/L Chloride (98-107) mmol/L Carbon Dioxide (22-30) mmol/L Anion Gap (10-20) BUN (9-20) mg/dl Creatinine (0.8-1.5) mg/dL Est GFR ( Amer) Est GFR (Non-Af Amer) POC Glucose (mg/dL) 115 H 115 H 118 H (65-110) mg/dL Random Glucose (75-110) mg/dL Serum Osmolality (272-300) mosm/kg Lactic Acid (0.7-2.1) MMOL/L Calcium (8.4-10.2) mg/dL Phosphorus (2.5-4.5) mg/dl Magnesium (1.6-2.3) MG/DL Total Bilirubin (0.2-1.3) mg/dl Direct Bilirubin (0.0-0.4) mg/ml AST (17-59) U/L ALT (21-72) U/L Alkaline Phosphatase (38-126) U/L Lactate Dehydrogenase (313-618) U/L Total Creatine Kinase (55-170) U/L CK-MB (Mass) (0.0-3.38) ng/mL Troponin I (0.00-0.120) ng/mL Total Protein (6.3-8.2) G/DL Albumin (3.5-5.0) g/dL Globulin (2.2-3.9) gm/dL Albumin/Globulin Ratio (1.0-2.1) Amylase (30-110) U/L Lipase (23-300) U/L Blood Type Blood Type Confirm Antibody Screen BBK History Checked Laboratory Results - last 24 hr 08/20/16 08/20/16 08/20/16 15:59 17:10 17:59 WBC RBC Hgb Hct MCV MCH MCHC RDW Plt Count MPV Neut % (Auto) Lymph % (Auto) [place] % (Auto) Eos % (Auto) Baso % (Auto) Neut # Lymph # [place] # Eos # Baso # Neutrophils % (Manual) Band Neutrophils % Lymphocytes % (Manual) Reactive Lymphs % Monocytes % (Manual) Platelet Estimate Hypochromasia (manual) Anisocytosis (manual) PT INR APTT pCO2 pO2 HCO3 ABG pH ABG Total CO2 ABG O2 Saturation ABG O2 Content ABG Base Excess ABG Hemoglobin ABG Carboxyhemoglobin POC ABG HHb (Measured) ABG Methemoglobin ABG O2 Capacity Jonathan Test A-a O2 Difference Hgb O2 Saturation Vent Mode Mechanical Rate FiO2 Tidal Volume PEEP Crit Value Called To Crit Value Called By Crit Value Read Back Blood Gas Notified Time Sodium Potassium Chloride Carbon Dioxide Anion Gap BUN Creatinine Est GFR ( Amer) Est GFR (Non-Af Amer) POC Glucose (mg/dL) 118 H 115 H 115 H Random Glucose Serum Osmolality Lactic Acid Calcium Phosphorus Magnesium Total Bilirubin Direct Bilirubin AST ALT Alkaline Phosphatase Lactate Dehydrogenase Total Creatine Kinase CK-MB (Mass) Troponin I Total Protein Albumin Globulin Albumin/Globulin Ratio Amylase Lipase Blood Type Blood Type Confirm Antibody Screen BBK History Checked 08/20/16 08/20/16 08/20/16 18:10 18:35 18:50 WBC RBC Hgb Hct MCV MCH MCHC RDW Plt Count MPV Neut % (Auto) Lymph % (Auto) [place] % (Auto) Eos % (Auto) Baso % (Auto) Neut # Lymph # [place] # Eos # Baso # Neutrophils % (Manual) Band Neutrophils % Lymphocytes % (Manual) Reactive Lymphs % Monocytes % (Manual) Platelet Estimate Hypochromasia (manual) Anisocytosis (manual) PT INR APTT pCO2 33 L 44 92 H* pO2 238 H 133 H 66 L HCO3 26.0 24.4 20.9 L ABG pH 7.48 H 7.36 7.08 L* ABG Total CO2 25.6 26.3 30.1 H ABG O2 Saturation 98.8 H 98.6 H 89.9 L ABG O2 Content 15.5 15.1 16.3 ABG Base Excess 1.4 -0.7 -4.9 L ABG Hemoglobin 11.0 L 11.0 L 13.2 ABG Carboxyhemoglobin 0.5 0.6 1.2 POC ABG HHb (Measured) 1.2 1.4 9.9 H ABG Methemoglobin 1.5 1.9 1.2 ABG O2 Capacity 15.7 L 15.3 L 18.1 Jonathan Test Yes Yes Yes A-a O2 Difference 434.0 525.0 104.0 Hgb O2 Saturation 96.7 96.1 87.7 L Vent Mode Prvc/ac Prvc/ac Mechanical Rate 20 450 FiO2 100.0 100.0 40.0 Tidal Volume 500 16 PEEP 5 5 Crit Value Called To Dr yudy pereira Crit Value Called By Rt Crit Value Read Back Y Blood Gas Notified Time 1900 Sodium Potassium Chloride Carbon Dioxide Anion Gap BUN Creatinine Est GFR ( Amer) Est GFR (Non-Af Amer) POC Glucose (mg/dL) Random Glucose Serum Osmolality Lactic Acid Calcium Phosphorus Magnesium Total Bilirubin Direct Bilirubin AST ALT Alkaline Phosphatase Lactate Dehydrogenase Total Creatine Kinase CK-MB (Mass) Troponin I Total Protein Albumin Globulin Albumin/Globulin Ratio Amylase Lipase Blood Type Blood Type Confirm Antibody Screen BBK History Checked 08/20/16 08/20/16 08/20/16 18:56 20:13 21:07 WBC RBC Hgb Hct MCV MCH MCHC RDW Plt Count MPV Neut % (Auto) Lymph % (Auto) [place] % (Auto) Eos % (Auto) Baso % (Auto) Neut # Lymph # [place] # Eos # Baso # Neutrophils % (Manual) Band Neutrophils % Lymphocytes % (Manual) Reactive Lymphs % Monocytes % (Manual) Platelet Estimate Hypochromasia (manual) Anisocytosis (manual) PT INR APTT pCO2 pO2 HCO3 ABG pH ABG Total CO2 ABG O2 Saturation ABG O2 Content ABG Base Excess ABG Hemoglobin ABG Carboxyhemoglobin POC ABG HHb (Measured) ABG Methemoglobin ABG O2 Capacity Jonathan Test A-a O2 Difference Hgb O2 Saturation Vent Mode Mechanical Rate FiO2 Tidal Volume PEEP Crit Value Called To Crit Value Called By Crit Value Read Back Blood Gas Notified Time Sodium Potassium Chloride Carbon Dioxide Anion Gap BUN Creatinine Est GFR ( Amer) Est GFR (Non-Af Amer) POC Glucose (mg/dL) 141 H 140 H 124 H Random Glucose Serum Osmolality Lactic Acid Calcium Phosphorus Magnesium Total Bilirubin Direct Bilirubin AST ALT Alkaline Phosphatase Lactate Dehydrogenase Total Creatine Kinase CK-MB (Mass) Troponin I Total Protein Albumin Globulin Albumin/Globulin Ratio Amylase Lipase Blood Type Blood Type Confirm Antibody Screen BBK History Checked 08/20/16 08/20/16 08/20/16 21:35 21:35 22:10 WBC RBC Hgb Hct MCV MCH MCHC RDW Plt Count MPV Neut % (Auto) Lymph % (Auto) [place] % (Auto) Eos % (Auto) Baso % (Auto) Neut # Lymph # [place] # Eos # Baso # Neutrophils % (Manual) Band Neutrophils % Lymphocytes % (Manual) Reactive Lymphs % Monocytes % (Manual) Platelet Estimate Hypochromasia (manual) Anisocytosis (manual) PT INR APTT pCO2 38 pO2 119 H HCO3 25.6 ABG pH 7.43 ABG Total CO2 26.4 ABG O2 Saturation 98.8 H ABG O2 Content 14.4 L ABG Base Excess 0.9 ABG Hemoglobin 10.4 L ABG Carboxyhemoglobin 0.6 POC ABG HHb (Measured) 1.2 ABG Methemoglobin 1.2 ABG O2 Capacity 14.6 L Jonathan Test Yes A-a O2 Difference 404.0 Hgb O2 Saturation 97.1 Vent Mode Prvc/ac Mechanical Rate 20 FiO2 80.0 Tidal Volume 500 PEEP 8 Crit Value Called To Crit Value Called By Crit Value Read Back Blood Gas Notified Time Sodium Potassium Chloride Carbon Dioxide Anion Gap BUN Creatinine Est GFR ( Amer) Est GFR (Non-Af Amer) POC Glucose (mg/dL) Random Glucose Serum Osmolality Lactic Acid 1.0 Calcium Phosphorus Magnesium Total Bilirubin Direct Bilirubin AST ALT Alkaline Phosphatase Lactate Dehydrogenase Total Creatine Kinase CK-MB (Mass) Troponin I Total Protein Albumin Globulin Albumin/Globulin Ratio Amylase Lipase Blood Type O POSITIVE Blood Type Confirm Antibody Screen Negative BBK History Checked No verified bt 08/20/16 08/20/16 08/20/16 22:36 22:36 22:36 WBC 12.6 H RBC 3.40 L Hgb 10.6 L Hct 31.3 L MCV 92.1 D MCH 31.1 H MCHC 33.8 RDW 13.7 Plt Count 118 L MPV 9.1 Neut % (Auto) 81.4 H Lymph % (Auto) 10.9 L [place] % (Auto) 6.6 Eos % (Auto) 1.0 Baso % (Auto) 0.1 Neut # 10.3 H Lymph # 1.4 [place] # 0.8 Eos # 0.1 Baso # 0.0 Neutrophils % (Manual) Band Neutrophils % Lymphocytes % (Manual) Reactive Lymphs % Monocytes % (Manual) Platelet Estimate Hypochromasia (manual) Anisocytosis (manual) PT 11.0 INR 1.06 APTT 32.5 pCO2 pO2 HCO3 ABG pH ABG Total CO2 ABG O2 Saturation ABG O2 Content ABG Base Excess ABG Hemoglobin ABG Carboxyhemoglobin POC ABG HHb (Measured) ABG Methemoglobin ABG O2 Capacity Jonathan Test A-a O2 Difference Hgb O2 Saturation Vent Mode Mechanical Rate FiO2 Tidal Volume PEEP Crit Value Called To Crit Value Called By Crit Value Read Back Blood Gas Notified Time Sodium 146 Potassium 3.7 Chloride 117 H Carbon Dioxide 24 Anion Gap 9 L BUN 22 H Creatinine 1.2 Est GFR ( Amer) > 60 Est GFR (Non-Af Amer) > 60 POC Glucose (mg/dL) Random Glucose 124 H Serum Osmolality Lactic Acid Calcium 7.8 L Phosphorus 3.2 Magnesium 1.6 Total Bilirubin 2.9 H Direct Bilirubin 1.9 H AST 200 H ALT 121 H Alkaline Phosphatase 139 H D Lactate Dehydrogenase 5670 H Total Creatine Kinase 179 H CK-MB (Mass) 0.56 Troponin I 0.9340 H* Total Protein 5.2 L Albumin 2.5 L Globulin 2.7 Albumin/Globulin Ratio 0.9 L Amylase 92 Lipase 86 Blood Type Blood Type Confirm Antibody Screen BBK History Checked 08/20/16 08/20/16 08/20/16 22:38 23:03 23:16 WBC RBC Hgb Hct MCV MCH MCHC RDW Plt Count MPV Neut % (Auto) Lymph % (Auto) [place] % (Auto) Eos % (Auto) Baso % (Auto) Neut # Lymph # [place] # Eos # Baso # Neutrophils % (Manual) Band Neutrophils % Lymphocytes % (Manual) Reactive Lymphs % Monocytes % (Manual) Platelet Estimate Hypochromasia (manual) Anisocytosis (manual) PT INR APTT pCO2 pO2 HCO3 ABG pH ABG Total CO2 ABG O2 Saturation ABG O2 Content ABG Base Excess ABG Hemoglobin ABG Carboxyhemoglobin POC ABG HHb (Measured) ABG Methemoglobin ABG O2 Capacity Jonathan Test A-a O2 Difference Hgb O2 Saturation Vent Mode Mechanical Rate FiO2 Tidal Volume PEEP Crit Value Called To Crit Value Called By Crit Value Read Back Blood Gas Notified Time Sodium Potassium Chloride Carbon Dioxide Anion Gap BUN Creatinine Est GFR ( Amer) Est GFR (Non-Af Amer) POC Glucose (mg/dL) 125 H 130 H Random Glucose Serum Osmolality Lactic Acid Calcium Phosphorus Magnesium Total Bilirubin Direct Bilirubin AST ALT Alkaline Phosphatase Lactate Dehydrogenase Total Creatine Kinase CK-MB (Mass) Troponin I Total Protein Albumin Globulin Albumin/Globulin Ratio Amylase Lipase Blood Type Blood Type Confirm O POSITIVE Antibody Screen BBK History Checked 08/21/16 08/21/16 08/21/16 00:58 01:30 03:07 WBC RBC Hgb Hct MCV MCH MCHC RDW Plt Count MPV Neut % (Auto) Lymph % (Auto) [place] % (Auto) Eos % (Auto) Baso % (Auto) Neut # Lymph # [place] # Eos # Baso # Neutrophils % (Manual) Band Neutrophils % Lymphocytes % (Manual) Reactive Lymphs % Monocytes % (Manual) Platelet Estimate Hypochromasia (manual) Anisocytosis (manual) PT INR APTT pCO2 pO2 HCO3 ABG pH ABG Total CO2 ABG O2 Saturation ABG O2 Content ABG Base Excess ABG Hemoglobin ABG Carboxyhemoglobin POC ABG HHb (Measured) ABG Methemoglobin ABG O2 Capacity Jonathan Test A-a O2 Difference Hgb O2 Saturation Vent Mode Mechanical Rate FiO2 Tidal Volume PEEP Crit Value Called To Crit Value Called By Crit Value Read Back Blood Gas Notified Time Sodium Potassium Chloride Carbon Dioxide Anion Gap BUN Creatinine Est GFR ( Amer) Est GFR (Non-Af Amer) POC Glucose (mg/dL) 140 H 144 H 164 H Random Glucose Serum Osmolality Lactic Acid Calcium Phosphorus Magnesium Total Bilirubin Direct Bilirubin AST ALT Alkaline Phosphatase Lactate Dehydrogenase Total Creatine Kinase CK-MB (Mass) Troponin I Total Protein Albumin Globulin Albumin/Globulin Ratio Amylase Lipase Blood Type Blood Type Confirm Antibody Screen BBK History Checked 08/21/16 08/21/16 08/21/16 04:14 04:49 04:49 WBC 10.0 RBC 3.51 L Hgb 10.9 L Hct 32.6 L MCV 92.9 MCH 31.0 MCHC 33.3 RDW 13.5 Plt Count 110 L MPV 9.1 Neut % (Auto) 88.6 H Lymph % (Auto) 6.3 L [place] % (Auto) 4.5 Eos % (Auto) 0.4 Baso % (Auto) 0.2 Neut # 8.9 H Lymph # 0.6 L [place] # 0.5 Eos # 0.0 Baso # 0.0 Neutrophils % (Manual) 86 H Band Neutrophils % 2 Lymphocytes % (Manual) 8 L Reactive Lymphs % 1 H Monocytes % (Manual) 3 Platelet Estimate Slightly decreased L Hypochromasia (manual) Anisocytosis (manual) Slight PT INR APTT pCO2 pO2 HCO3 ABG pH ABG Total CO2 ABG O2 Saturation ABG O2 Content ABG Base Excess ABG Hemoglobin ABG Carboxyhemoglobin POC ABG HHb (Measured) ABG Methemoglobin ABG O2 Capacity Jonathan Test A-a O2 Difference Hgb O2 Saturation Vent Mode Mechanical Rate FiO2 Tidal Volume PEEP Crit Value Called To Crit Value Called By Crit Value Read Back Blood Gas Notified Time Sodium 146 Potassium 3.4 L Chloride 114 H Carbon Dioxide 22 Anion Gap 13 BUN 22 H Creatinine 0.9 Est GFR ( Amer) > 60 Est GFR (Non-Af Amer) > 60 POC Glucose (mg/dL) 160 H Random Glucose 156 H Serum Osmolality Lactic Acid Calcium 8.2 L Phosphorus 3.2 Magnesium 1.7 Total Bilirubin 4.1 H Direct Bilirubin 3.0 H AST 232 H ALT 122 H Alkaline Phosphatase 181 H D Lactate Dehydrogenase 4971 H Total Creatine Kinase 181 H CK-MB (Mass) 0.68 Troponin I 0.7440 H* Total Protein 5.6 L Albumin 2.7 L Globulin 2.8 Albumin/Globulin Ratio 1.0 Amylase Lipase Blood Type Blood Type Confirm Antibody Screen BBK History Checked 08/21/16 08/21/16 08/21/16 04:49 04:49 05:05 WBC RBC Hgb Hct MCV MCH MCHC RDW Plt Count MPV Neut % (Auto) Lymph % (Auto) [place] % (Auto) Eos % (Auto) Baso % (Auto) Neut # Lymph # [place] # Eos # Baso # Neutrophils % (Manual) Band Neutrophils % Lymphocytes % (Manual) Reactive Lymphs % Monocytes % (Manual) Platelet Estimate Hypochromasia (manual) Anisocytosis (manual) PT 10.9 INR 1.05 APTT 32.6 H pCO2 38 pO2 78 L HCO3 23.6 ABG pH 7.39 ABG Total CO2 24.2 ABG O2 Saturation 97.2 ABG O2 Content 14.4 L ABG Base Excess -1.7 ABG Hemoglobin 10.7 L ABG Carboxyhemoglobin 0.8 POC ABG HHb (Measured) 2.7 ABG Methemoglobin 1.5 ABG O2 Capacity 14.8 L Jonathan Test Yes A-a O2 Difference 445.0 Hgb O2 Saturation 94.9 L Vent Mode A/c Mechanical Rate 20 FiO2 80.0 Tidal Volume 500 PEEP 8 Crit Value Called To Crit Value Called By Crit Value Read Back Blood Gas Notified Time Sodium Potassium Chloride Carbon Dioxide Anion Gap BUN Creatinine Est GFR ( Amer) Est GFR (Non-Af Amer) POC Glucose (mg/dL) Random Glucose Serum Osmolality Lactic Acid 1.1 Calcium Phosphorus Magnesium Total Bilirubin Direct Bilirubin AST ALT Alkaline Phosphatase Lactate Dehydrogenase Total Creatine Kinase CK-MB (Mass) Troponin I Total Protein Albumin Globulin Albumin/Globulin Ratio Amylase Lipase Blood Type Blood Type Confirm Antibody Screen BBK History Checked 08/21/16 08/21/16 08/21/16 05:09 05:58 06:51 WBC RBC Hgb Hct MCV MCH MCHC RDW Plt Count MPV Neut % (Auto) Lymph % (Auto) Willacy % (Auto) Eos % (Auto) Baso % (Auto) Neut # Lymph # Willacy # Eos # Baso # Neutrophils % (Manual) Band Neutrophils % Lymphocytes % (Manual) Reactive Lymphs % Monocytes % (Manual) Platelet Estimate Hypochromasia (manual) Anisocytosis (manual) PT INR APTT pCO2 pO2 HCO3 ABG pH ABG Total CO2 ABG O2 Saturation ABG O2 Content ABG Base Excess ABG Hemoglobin ABG Carboxyhemoglobin POC ABG HHb (Measured) ABG Methemoglobin ABG O2 Capacity Jonathan Test A-a O2 Difference Hgb O2 Saturation Vent Mode Mechanical Rate FiO2 Tidal Volume PEEP Crit Value Called To Crit Value Called By Crit Value Read Back Blood Gas Notified Time Sodium Potassium Chloride Carbon Dioxide Anion Gap BUN Creatinine Est GFR ( Amer) Est GFR (Non-Af Amer) POC Glucose (mg/dL) 169 H 184 H 166 H Random Glucose Serum Osmolality Lactic Acid Calcium Phosphorus Magnesium Total Bilirubin Direct Bilirubin AST ALT Alkaline Phosphatase Lactate Dehydrogenase Total Creatine Kinase CK-MB (Mass) Troponin I Total Protein Albumin Globulin Albumin/Globulin Ratio Amylase Lipase Blood Type Blood Type Confirm Antibody Screen BBK History Checked 08/21/16 08/21/16 08/21/16 07:57 09:06 10:30 WBC 8.4 RBC 3.46 L Hgb 10.7 L Hct 31.8 L MCV 92.0 MCH 30.9 MCHC 33.6 RDW 13.1 Plt Count 112 L MPV 9.4 Neut % (Auto) 90.8 H Lymph % (Auto) 6.3 L Willacy % (Auto) 2.7 Eos % (Auto) 0.1 Baso % (Auto) 0.1 Neut # 7.6 H Lymph # 0.5 L Willacy # 0.2 Eos # 0.0 Baso # 0.0 Neutrophils % (Manual) 92 H Band Neutrophils % 1 Lymphocytes % (Manual) 6 L Reactive Lymphs % Monocytes % (Manual) 1 Platelet Estimate Decreased L Hypochromasia (manual) Slight Anisocytosis (manual) PT INR APTT pCO2 pO2 HCO3 ABG pH ABG Total CO2 ABG O2 Saturation ABG O2 Content ABG Base Excess ABG Hemoglobin ABG Carboxyhemoglobin POC ABG HHb (Measured) ABG Methemoglobin ABG O2 Capacity Jonathan Test A-a O2 Difference Hgb O2 Saturation Vent Mode Mechanical Rate FiO2 Tidal Volume PEEP Crit Value Called To Crit Value Called By Crit Value Read Back Blood Gas Notified Time Sodium Potassium Chloride Carbon Dioxide Anion Gap BUN Creatinine Est GFR ( Amer) Est GFR (Non-Af Amer) POC Glucose (mg/dL) 189 H 180 H Random Glucose Serum Osmolality Lactic Acid Calcium Phosphorus Magnesium Total Bilirubin Direct Bilirubin AST ALT Alkaline Phosphatase Lactate Dehydrogenase Total Creatine Kinase CK-MB (Mass) Troponin I Total Protein Albumin Globulin Albumin/Globulin Ratio Amylase Lipase Blood Type Blood Type Confirm Antibody Screen BBK History Checked 08/21/16 08/21/16 08/21/16 10:30 10:30 10:30 WBC RBC Hgb Hct MCV MCH MCHC RDW Plt Count MPV Neut % (Auto) Lymph % (Auto) Willacy % (Auto) Eos % (Auto) Baso % (Auto) Neut # Lymph # Willacy # Eos # Baso # Neutrophils % (Manual) Band Neutrophils % Lymphocytes % (Manual) Reactive Lymphs % Monocytes % (Manual) Platelet Estimate Hypochromasia (manual) Anisocytosis (manual) PT 10.7 INR 1.03 APTT 30.9 pCO2 pO2 HCO3 ABG pH ABG Total CO2 ABG O2 Saturation ABG O2 Content ABG Base Excess ABG Hemoglobin ABG Carboxyhemoglobin POC ABG HHb (Measured) ABG Methemoglobin ABG O2 Capacity Jonathan Test A-a O2 Difference Hgb O2 Saturation Vent Mode Mechanical Rate FiO2 Tidal Volume PEEP Crit Value Called To Crit Value Called By Crit Value Read Back Blood Gas Notified Time Sodium 145 Potassium 4.3 Chloride 113 H Carbon Dioxide 25 Anion Gap 11 BUN 22 H Creatinine 1.0 Est GFR ( Amer) > 60 Est GFR (Non-Af Amer) > 60 POC Glucose (mg/dL) Random Glucose 180 H Serum Osmolality 307 H Lactic Acid Calcium 8.2 L Phosphorus 3.4 Magnesium 1.7 Total Bilirubin 3.1 H Direct Bilirubin 2.3 H AST 228 H ALT 125 H Alkaline Phosphatase 189 H Lactate Dehydrogenase 5186 H Total Creatine Kinase CK-MB (Mass) Troponin I Total Protein 5.7 L Albumin 2.8 L Globulin 3.0 Albumin/Globulin Ratio 0.9 L Amylase 74 Lipase Blood Type Blood Type Confirm Antibody Screen BBK History Checked 08/21/16 08/21/16 08/21/16 11:05 12:17 14:04 WBC RBC Hgb Hct MCV MCH MCHC RDW Plt Count MPV Neut % (Auto) Lymph % (Auto) Willacy % (Auto) Eos % (Auto) Baso % (Auto) Neut # Lymph # Willacy # Eos # Baso # Neutrophils % (Manual) Band Neutrophils % Lymphocytes % (Manual) Reactive Lymphs % Monocytes % (Manual) Platelet Estimate Hypochromasia (manual) Anisocytosis (manual) PT INR APTT pCO2 pO2 HCO3 ABG pH ABG Total CO2 ABG O2 Saturation ABG O2 Content ABG Base Excess ABG Hemoglobin ABG Carboxyhemoglobin POC ABG HHb (Measured) ABG Methemoglobin ABG O2 Capacity Jonathan Test A-a O2 Difference Hgb O2 Saturation Vent Mode Mechanical Rate FiO2 Tidal Volume PEEP Crit Value Called To Crit Value Called By Crit Value Read Back Blood Gas Notified Time Sodium Potassium Chloride Carbon Dioxide Anion Gap BUN Creatinine Est GFR ( Amer) Est GFR (Non-Af Amer) POC Glucose (mg/dL) 208 H 206 H 163 H Random Glucose Serum Osmolality Lactic Acid Calcium Phosphorus Magnesium Total Bilirubin Direct Bilirubin AST ALT Alkaline Phosphatase Lactate Dehydrogenase Total Creatine Kinase CK-MB (Mass) Troponin I Total Protein Albumin Globulin Albumin/Globulin Ratio Amylase Lipase Blood Type Blood Type Confirm Antibody Screen BBK History Checked EKG/Cardiology Studies: Cardiology / EKG Studies 08/20/16 21:39 ELECTROCARDIOGRAM Stat Comment: Mode Of Transportation: PORTABLE Reason For Exam: sharing Network protocol 08/21/16 08:00 EKG [ELECTROCARDIOGRAM] Routine Comment: Mode Of Transportation: PORTABLE Reason For Exam: Sharing network Protocol PERFORMING PHYSICIAN/PROVIDER:: Yann Pereira Fingerstick Blood Sugar Results: 166 Critical Care Progress Note - Extremities/Vascular Does the Patient have a Central Venous Catheter?: Yes Does the Patient need a Central Venous Catheter?: Yes Does the Patient have a Hilario Catheter?: No Does the Patient need a Hilario Catheter?: No Assessment/Plan (1) Cardiac arrest Current Visit: Yes Status: Acute Priority: High Comment: Underwent Therapeutic Hypothermia No neurological improvements, unresponsive to tactile or painful stimuli. Remains intubated, not breathing over the vent Unresponsive to painful stimuli (2) Anoxic brain injury Current Visit: Yes Status: Acute Priority: High Comment: Poor prognosis, Family aware Clinical examination and apnea test for determining brain (BD) (3) Endotracheally intubated Current Visit: Yes Status: Acute Priority: High Comment: - Full Ventilatory support - Pulmonary toilets (4) Hypernatremia Current Visit: Yes Status: Acute Comment: - Free water - Na level down to 145
--- NOTE | 2016-08-21 16:04 | CARD ---
APPROVED REPORT EKG Measurement Heart [id number] <Conclusion> Sinus rhythm with premature atrial complexes Otherwise normal ECG
[2016-08-21 16:23] LABS: EOS % 0.1 % (0.0-4.0); HEMATOCRIT 30.5 % (35.0-51.0); LYMPH # 0.4 K/uL (1.0-4.3); LYMPH % 5.4 % (20.0-40.0); MEAN CELL VOLUME 92.5 fl (80.0-94.0); MEAN CORPUSCULAR HEMOGLOBIN 30.8 pg (27.0-31.0); MEAN CORPUSCULAR HGB CONC 33.3 g/dL (33.0-37.0); MEAN PLATELET VOLUME 9.6 fl (7.2-11.7); MONO # 0.3 K/uL (0.0-0.8); MONO % 3.6 % (0.0-10.0); NEUT # 6.6 K/uL (1.8-7.0); NEUT % 90.9 % (50.0-75.0); NRBC % 0.2 % (0.0-0.0); PLATELET COUNT 104 K/uL (130-400); RED CELL DISTRIBUTION WIDTH 13.3 % (11.5-14.5); WHITE BLOOD COUNT 7.3 K/uL (4.8-10.8)
[2016-08-21 16:31] LABS: ABG ALLEN TEST YES; ARTERIAL BLOOD GAS HCO3 24.2 mmol/L (21-28); ARTERIAL BLOOD GAS O2 CAPACITY 15.4 mL/dL (16-24); ARTERIAL BLOOD GAS O2 CONTENT 15.2 ML/dL (15-23); ARTERIAL BLOOD GAS PH 7.33 (7.35-7.45); ARTERIAL BLOOD GAS PO2 179 mm/Hg (80-100); ARTERIAL BLOOD HGB O2 SAT 97.4 % (95.0-98.0); CARBOXYHEMOGLOBIN 0.4 % (0.5-1.5); HHB 1.1 % (0.0-5.0); METHEMOGLOBIN 1.1 % (0.0-3.0)
[2016-08-21 16:42] LABS: PARTIAL THROMBOPLASTIN TIME 30.6 SECONDS (23.3-32.5)
[2016-08-21 16:52] LABS: ALB/GLOB RATIO 0.9 (1.0-2.1); ALKALINE PHOSPHATASE 185 U/L (38-126); ALT/SGPT 119 U/L (21-72); AMYLASE 72 U/L (30-110); AST/SGOT 202 U/L (17-59); BILIRUBIN,TOTAL 2.7 mg/dl (0.2-1.3); BLOOD UREA NITROGEN 21 mg/dl (9-20); CALCIUM 8.3 mg/dL (8.4-10.2); CARBON DIOXIDE 27 mmol/L (22-30); CHLORIDE 111 mmol/L (98-107); GFR AFRICAN-AMERICAN > 60; GLUCOSE,RANDOM 168 mg/dL (75-110); LIPASE 139 U/L (23-300); MAGNESIUM 1.8 MG/DL (1.6-2.3); PHOSPHOROUS 3.3 mg/dl (2.5-4.5); SODIUM 145 mmol/l (132-148); TOTAL PROTEIN 5.8 G/DL (6.3-8.2)
[2016-08-21 17:07] LABS: NEUTROPHIL 89 % (42-75); TOTAL CELLS COUNTED 100
[2016-08-21] MEDS: SODIUM CHLORIDE 0.9% IVPB SCH ×2 (20:30→21:32)
[2016-08-21] MEDS: LEVOTHYROXINE IVPB SCH ×2 (20:30→21:32)
[2016-08-21] MEDS: Mineral Oil/White Petrolatum Ophth Oint OU SCH (22:00)
[2016-08-21] MEDS ORDERED: SODIUM CHLORIDE 0.9% IVPB SCH (22:45)
[2016-08-21] MEDS ORDERED: LEVOTHYROXINE IVPB SCH (22:45)
[2016-08-22] MEDS: Albuterol 0.083% Inhal Sol (2.5 mg/3 mL) UD INH SCH (00:52)
[2016-08-22] MEDS: Piperacillin/Tazobact 3.375 GM in Sodium Chloride 0.9% 100 ML IVPB SCH ×3 (03:53→21:03)
[2016-08-22 06:25] LABS: ABG ALLEN TEST YES; ABG MECHANICAL RATE 20; ARTERIAL BLOOD GAS HCO3 27.7 mmol/L (21-28); ARTERIAL BLOOD GAS MODE PRVC/AC; ARTERIAL BLOOD GAS O2 CONTENT 13.7 ML/dL (15-23); ARTERIAL BLOOD GAS PH 7.42 (7.35-7.45); ARTERIAL BLOOD GAS PO2 85 mm/Hg (80-100); ATERIAL BLOOD GAS PEEP 5; CARBOXYHEMOGLOBIN 0.3 % (0.5-1.5); HHB 2.2 % (0.0-5.0); METHEMOGLOBIN 1.5 % (0.0-3.0)
[2016-08-22] MEDS: Insulin Regular 100 units/ml SC SCH ×2 (06:35→10:00)
[2016-08-22 06:59] LABS: HEMATOCRIT 29.6 % (35.0-51.0); MEAN CELL VOLUME 92.5 fl (80.0-94.0); MEAN CORPUSCULAR HEMOGLOBIN 30.8 pg (27.0-31.0); MEAN CORPUSCULAR HGB CONC 33.3 g/dL (33.0-37.0); RED CELL DISTRIBUTION WIDTH 13.4 % (11.5-14.5); WHITE BLOOD COUNT 7.7 K/uL (4.8-10.8)
[2016-08-22 07:20] LABS: BLOOD UREA NITROGEN 22 mg/dl (9-20); CALCIUM 8.8 mg/dL (8.4-10.2); CARBON DIOXIDE 27 mmol/L (22-30); CHLORIDE 111 mmol/L (98-107); GFR AFRICAN-AMERICAN > 60; GLUCOSE,RANDOM 267 mg/dL (75-110); POTASSIUM 4.3 MMOL/L (3.6-5.0); SODIUM 146 mmol/l (132-148)
--- NOTE | 2016-08-22 08:09 | CP.PCM.PN ---
Subjective - Date & Time of Evaluation Date of Evaluation: 08/22/16 Time of Evaluation: 08:07 - Subjective Subjective: Informed by nursing of change in plan; No organ donation planned. Patient will remain intubated and mechanically ventilated. Tentative for terminal extubation tomorrow. No flexible bronchoscopy required. No vent weaning planned. Objective - Vital Signs/Intake and Output Vital Signs (last 24 hours): Temp Pulse Resp BP Pulse Ox 98.2 F 90 20 140/87 97 08/22/16 07:00 08/22/16 07:00 08/22/16 07:00 08/22/16 07:00 08/22/16 07:00 Intake and Output: 08/21/16 08/22/16 23:59 11:59 Intake Total 665 712 Output Total 1300 900 Balance -635 -188 - Medications Medications: Current Medications Acetaminophen (Tylenol 650mg/20.3ml Solution Ud) 650 mg PO Q6 PRN PRN Reason: Fever Last Admin: 08/20/16 15:53 Dose: 650 mg Albuterol Sulfate (Albuterol 0.083% Inhal Kerry (2.5 Mg/3 Ml) Ud) 2.5 mg INH Q6 PRN PRN Reason: Cough and congestion Artificial Tears (Lacri-Lube) 1 applic OU HS [facility] Last Admin: 08/21/16 22:00 Dose: 1 applic Dextrose (Dextrose 50% Inj) 0 ml IV STAT PRN; Protocol PRN Reason: Hyglycemia Protocol Dextrose (Glutose 15) 0 gm PO ONCE PRN; Protocol PRN Reason: Hypoglycemia Protocol Glucagon (Glucagen Diagnostic Kit) 0 mg IM STAT PRN; Protocol PRN Reason: Hypoglycemia Protocol Piperacillin Sod/Tazobactam (Sod 3.375 gm/ Sodium Chloride) 100 mls @ 100 mls/ hr IVPB Q6 [facility] Last Admin: 08/22/16 03:53 Dose: 100 mls/hr Potassium Chloride/Dextrose/Sod Cl (Potassium Chl 20 Meq In D5-1/2ns) 1,000 mls @ 100 mls/hr IV .Q10H [facility] Stop: 08/22/16 14:26 Last Admin: 08/22/16 03:56 Dose: 100 mls/hr Insulin Human Regular (Humulin R) 0 units SC Q6 [facility] PRN Reason: Protocol Last Admin: 08/22/16 06:35 Dose: 6 unit Pantoprazole Sodium (Protonix Inj) 40 mg IVP DAILY [facility] Last Admin: 08/21/16 10:00 Dose: 40 mg - Labs Labs: 08/22/16 06:00 08/22/16 06:00 PT 10.4 SECONDS (9.6-11.2) 08/21/16 16:18 INR 1.00 (0.92-1.08) 08/21/16 16:18 APTT 30.6 SECONDS (23.3-32.5) 08/21/16 16:18 Assessment and Plan (1) Endotracheally intubated Status: Acute (2) Cardiac arrest Status: Acute (3) On mechanically assisted ventilation Status: Acute
--- NOTE | 2016-08-22 09:14 | CP.PCM.PN ---
Subjective - Date & Time of Evaluation Date of Evaluation: 08/21/16 Time of Evaluation: 09:30 - Subjective Subjective: Patient remains comatose. Family still needs to decide plans for the patient. Objective - Vital Signs/Intake and Output Vital Signs (last 24 hours): Temp Pulse Resp BP Pulse Ox 98.4 F 86 20 129/65 95 08/22/16 08:00 08/22/16 08:00 08/22/16 08:00 08/22/16 08:00 08/22/16 08:00 Intake and Output: 08/22/16 08/22/16 06:59 18:59 Intake Total 1377 Output Total 1750 Balance -373 - Medications Medications: Current Medications Acetaminophen (Tylenol 650mg/20.3ml Solution Ud) 650 mg PO Q6 PRN PRN Reason: Fever Last Admin: 08/20/16 15:53 Dose: 650 mg Albuterol Sulfate (Albuterol 0.083% Inhal Kerry (2.5 Mg/3 Ml) Ud) 2.5 mg INH Q6 PRN PRN Reason: Cough and congestion Artificial Tears (Lacri-Lube) 1 applic OU HS [facility] Last Admin: 08/21/16 22:00 Dose: 1 applic Dextrose (Dextrose 50% Inj) 0 ml IV STAT PRN; Protocol PRN Reason: Hyglycemia Protocol Dextrose (Glutose 15) 0 gm PO ONCE PRN; Protocol PRN Reason: Hypoglycemia Protocol Glucagon (Glucagen Diagnostic Kit) 0 mg IM STAT PRN; Protocol PRN Reason: Hypoglycemia Protocol Piperacillin Sod/Tazobactam (Sod 3.375 gm/ Sodium Chloride) 100 mls @ 100 mls/ hr IVPB Q6 [facility] Last Admin: 08/22/16 03:53 Dose: 100 mls/hr Potassium Chloride/Dextrose/Sod Cl (Potassium Chl 20 Meq In D5-1/2ns) 1,000 mls @ 100 mls/hr IV .Q10H [facility] Stop: 08/22/16 14:26 Last Admin: 08/22/16 03:56 Dose: 100 mls/hr Insulin Human Regular (Humulin R) 0 units SC Q6 [facility] PRN Reason: Protocol Last Admin: 08/22/16 06:35 Dose: 6 unit Pantoprazole Sodium (Protonix Inj) 40 mg IVP DAILY [facility] Last Admin: 08/21/16 10:00 Dose: 40 mg - Labs Labs: 08/22/16 06:00 08/22/16 06:00 PT 10.4 SECONDS (9.6-11.2) 08/21/16 16:18 INR 1.00 (0.92-1.08) 08/21/16 16:18 APTT 30.6 SECONDS (23.3-32.5) 08/21/16 16:18 - Respiratory Exam Respiratory Exam: Clear to Ausculation Bilateral - Cardiovascular Exam Cardiovascular Exam: REGULAR RHYTHM - GI/Abdominal Exam GI & Abdominal Exam: Normal Bowel Sounds - Neurological Exam Additional comments: comatose fixed dilated pupils Assessment and Plan (1) Anoxic brain injury Status: Acute (2) Cardiac arrest Status: Acute (3) Hyperglycemia, unspecified Status: Acute - Assessment and Plan (Free Text) Plan: cont care fluids meds till decision is made by willy ruth.
--- NOTE | 2016-08-22 10:03 | RAD ---
HISTORY: reevaluation COMPARISON: 08/21/2016 FINDINGS: LUNGS: Mild interstitial changes. PLEURA: No significant pleural effusion identified, no pneumothorax apparent. CARDIOVASCULAR: Normal. OSSEOUS STRUCTURES: No significant abnormalities. VISUALIZED UPPER ABDOMEN: Normal. OTHER FINDINGS: ETT above the janice. IMPRESSION: Mild interstitial changes.
--- NOTE | 2016-08-22 11:18 | CP.CCUPN ---
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 No abnormal posturing seen, nor any seizure activity. Serial determinations of brain noted with apnea testing. No formal declaration of brain noted. He is off vasopressors, and is polyuric now with average u/o of over 600ml/hr. IVFs are ongoing at 125 ml/hr with D51/2 saline and 20MEQ KCL/L. Clinical bedside examination today re-affirms absence of any brainstem activity. Aware that family finally refused organ donation at 1100PM yesterday. His status remains DNR. Daughter CARLOS has arrived at the bedside just minutes ago and stated that they wish to request terminal extubation tomorrow at 12 Noon. No other interventions nor procedures anticipated at this time. Cerebral Blood Flow study ordered from last night cancelled, no indication for this test at this time given 2 serial confirmatory apnea tests and persistent and repeat clinical evidence of absent brainstem activity. Should he become bradycardic, hypotensive again, will not render any active resuscitative treatment. Comfort measures will be ensured. All findings and plan discussed with daughter.
--- NOTE | 2016-08-22 11:20 | CP.PCM.PN ---
<Herlinda Tsang - Last Filed: 08/22/16 11:20> Subjective - Date & Time of Evaluation Date of Evaluation: 08/22/16 Time of Evaluation: 11:15 - Subjective Subjective: evaluated with attending. no overnight event. intubated. DNR. likely terminal extubation tomorrow per family wishes Objective - Vital Signs/Intake and Output Vital Signs (last 24 hours): Temp Pulse Resp BP Pulse Ox 98.4 F 86 20 129/65 95 08/22/16 08:00 08/22/16 08:00 08/22/16 08:00 08/22/16 08:00 08/22/16 08:00 Intake and Output: 08/22/16 08/22/16 06:59 18:59 Intake Total 1377 Output Total 1750 Balance -373 - Medications Medications: Current Medications Acetaminophen (Tylenol 650mg/20.3ml Solution Ud) 650 mg PO Q6 PRN PRN Reason: Fever Last Admin: 08/20/16 15:53 Dose: 650 mg Albuterol Sulfate (Albuterol 0.083% Inhal Kerry (2.5 Mg/3 Ml) Ud) 2.5 mg INH Q6 PRN PRN Reason: Cough and congestion Artificial Tears (Lacri-Lube) 1 applic OU HS ELAINE Last Admin: 08/21/16 22:00 Dose: 1 applic Dextrose (Dextrose 50% Inj) 0 ml IV STAT PRN; Protocol PRN Reason: Hyglycemia Protocol Dextrose (Glutose 15) 0 gm PO ONCE PRN; Protocol PRN Reason: Hypoglycemia Protocol Glucagon (Glucagen Diagnostic Kit) 0 mg IM STAT PRN; Protocol PRN Reason: Hypoglycemia Protocol Piperacillin Sod/Tazobactam (Sod 3.375 gm/ Sodium Chloride) 100 mls @ 100 mls/ hr IVPB Q6 [facility] Last Admin: 08/22/16 09:40 Dose: 100 mls/hr Potassium Chloride/Dextrose/Sod Cl (Potassium Chl 20 Meq In D5-1/2ns) 1,000 mls @ 100 mls/hr IV .Q10H [facility] Stop: 08/22/16 14:26 Last Admin: 08/22/16 03:56 Dose: 100 mls/hr Insulin Human Regular (Humulin R) 0 units SC Q6 [facility] PRN Reason: Protocol Last Admin: 08/22/16 06:35 Dose: 6 unit Pantoprazole Sodium (Protonix Inj) 40 mg IVP DAILY [facility] Last Admin: 08/22/16 09:38 Dose: 40 mg - Labs Labs: 08/22/16 06:00 08/22/16 06:00 PT 10.4 SECONDS (9.6-11.2) 08/21/16 16:18 INR 1.00 (0.92-1.08) 08/21/16 16:18 APTT 30.6 SECONDS (23.3-32.5) 08/21/16 16:18 - Constitutional Appears: Non-toxic - Head Exam Head Exam: NORMAL INSPECTION - Eye Exam Pupil Exam: Fixed - ENT Exam Additional comments: intubated - Neck Exam Neck Exam: Normal Inspection - Respiratory Exam Respiratory Exam: NORMAL BREATHING PATTERN Additional comments: intubated - Cardiovascular Exam Cardiovascular Exam: REGULAR RHYTHM - GI/Abdominal Exam GI & Abdominal Exam: Soft - Extremities Exam Extremities Exam: Normal Inspection - Neurological Exam Neurological Exam: absent: Alert, Awake, Oriented x3 Additional comments: GCS 2 - Skin Skin Exam: Dry Assessment and Plan (1) Cardiac arrest Status: Acute (2) Endotracheally intubated Status: Acute (3) On mechanically assisted ventilation Status: Acute (4) Hyperglycemia, unspecified Status: Acute (5) Hypokalemia Status: Acute (6) Hypernatremia Status: Acute (7) Anoxic brain injury Status: Acute - Assessment and Plan (Free Text) Plan: -intubated -terminal extubation planned tommorrow per family wishes -DNR -family declined organ donation <Lexa Marie - Last Filed: 08/27/16 10:36> Objective - Vital Signs/Intake and Output Vital Signs (last 24 hours): Temp Pulse Resp BP Pulse Ox 102.9 F H 128 H 13 187/98 H 90 L 08/23/16 20:00 08/23/16 22:00 08/23/16 22:00 08/23/16 22:00 08/23/16 22:00 - Labs Labs: 08/22/16 06:00 08/22/16 06:00 PT 10.4 SECONDS (9.6-11.2) 08/21/16 16:18 INR 1.00 (0.92-1.08) 08/21/16 16:18 APTT 30.6 SECONDS (23.3-32.5) 08/21/16 16:18 Assessment and Plan (1) Anoxic brain injury Status: Acute (2) Cardiac arrest Status: Acute (3) Hyperglycemia, unspecified Status: Acute - Assessment and Plan (Free Text) Plan: I was with Dr Pate during the evaluation and discussed plans. lexa Marie
[2016-08-22] MEDS: Acetaminophen 650mg/20.3ml solution UD PO PRN (19:07)
[2016-08-22] MEDS: Mineral Oil/White Petrolatum Ophth Oint OU SCH (21:02)
[2016-08-22] MEDS ORDERED: Albuterol 0.083% Inhal Sol (2.5 mg/3 mL) UD INH PRN (23:30)
[2016-08-23] MEDS ORDERED: Labetalol 5mg/ml (4ml) IVP STA (02:50)
[2016-08-23] MEDS ORDERED: Labetalol 5 mg/ml Inj 20ML IVP STA (03:02)
[2016-08-23] MEDS: Piperacillin/Tazobact 3.375 GM in Sodium Chloride 0.9% 100 ML IVPB SCH ×2 (03:26→16:27)
--- NOTE | 2016-08-23 13:13 | CP.PCM.PN ---
<Reji Peña - Last Filed: 08/23/16 13:11> Subjective - Date & Time of Evaluation Date of Evaluation: 08/23/16 Time of Evaluation: 10:11 - Subjective Subjective: Patient evaluated with attending. No acute overnight events. Intubated. DNR. Likely terminal extubation today. Objective - Vital Signs/Intake and Output Vital Signs (last 24 hours): Temp Pulse Resp BP Pulse Ox 100.9 F H 76 20 126/59 L 98 08/23/16 12:00 08/23/16 12:00 08/23/16 12:00 08/23/16 12:00 08/23/16 12:00 Intake and Output: 08/23/16 08/23/16 06:59 18:59 Output Total 1300 400 Balance -1300 -400 - Medications Medications: Current Medications Acetaminophen (Tylenol 650mg/20.3ml Solution Ud) 650 mg PO Q6 PRN PRN Reason: Fever Last Admin: 08/22/16 19:07 Dose: 650 mg Albuterol Sulfate (Albuterol 0.083% Inhal Kerry (2.5 Mg/3 Ml) Ud) 2.5 mg INH Q6 PRN PRN Reason: Cough and congestion Artificial Tears (Lacri-Lube) 1 applic OU HS [facility] Last Admin: 08/22/16 21:02 Dose: 1 applic Dextrose (Dextrose 50% Inj) 0 ml IV STAT PRN; Protocol PRN Reason: Hyglycemia Protocol Dextrose (Glutose 15) 0 gm PO ONCE PRN; Protocol PRN Reason: Hypoglycemia Protocol Glucagon (Glucagen Diagnostic Kit) 0 mg IM STAT PRN; Protocol PRN Reason: Hypoglycemia Protocol Piperacillin Sod/Tazobactam (Sod 3.375 gm/ Sodium Chloride) 100 mls @ 100 mls/ hr IVPB Q6 [facility] Last Admin: 08/23/16 03:26 Dose: 100 mls/hr Pantoprazole Sodium (Protonix Inj) 40 mg IVP DAILY [facility] Last Admin: 08/22/16 09:38 Dose: 40 mg - Labs Labs: 08/22/16 06:00 08/22/16 06:00 PT 10.4 SECONDS (9.6-11.2) 08/21/16 16:18 INR 1.00 (0.92-1.08) 08/21/16 16:18 APTT 30.6 SECONDS (23.3-32.5) 08/21/16 16:18 - Constitutional Appears: Non-toxic - Head Exam Head Exam: NORMAL INSPECTION - Eye Exam Pupil Exam: Fixed - ENT Exam Additional comments: intubated - Neck Exam Neck Exam: Normal Inspection - Respiratory Exam Respiratory Exam: Clear to Ausculation Bilateral - Cardiovascular Exam Cardiovascular Exam: REGULAR RHYTHM - GI/Abdominal Exam GI & Abdominal Exam: Soft - Extremities Exam Extremities Exam: Normal Inspection - Skin Skin Exam: Dry, Intact Assessment and Plan (1) Anoxic brain injury Status: Acute (2) Cardiac arrest Status: Acute (3) Endotracheally intubated Status: Acute (4) Hyperglycemia, unspecified Status: Acute (5) Hypernatremia Status: Acute (6) Hypokalemia Status: Acute (7) On mechanically assisted ventilation Status: Acute - Assessment and Plan (Free Text) Plan: -intubated -terminal extubation planned for today as per family wishes -DNR -family declined organ donation <Lexa Marie - Last Filed: 08/27/16 10:37> Objective - Vital Signs/Intake and Output Vital Signs (last 24 hours): Temp Pulse Resp BP Pulse Ox 102.9 F H 128 H 13 187/98 H 90 L 08/23/16 20:00 08/23/16 22:00 08/23/16 22:00 08/23/16 22:00 08/23/16 22:00 - Labs Labs: 08/22/16 06:00 08/22/16 06:00 PT 10.4 SECONDS (9.6-11.2) 08/21/16 16:18 INR 1.00 (0.92-1.08) 08/21/16 16:18 APTT 30.6 SECONDS (23.3-32.5) 08/21/16 16:18 Assessment and Plan (1) Anoxic brain injury Status: Acute (2) Cardiac arrest Status: Acute (3) Hyperglycemia, unspecified Status: Acute - Assessment and Plan (Free Text) Plan: Discussed with Dr Peña. lexa Marie M.D.
--- NOTE | 2016-08-23 15:10 | CP.CCUPN ---
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 Today, patient remains in deep coma with no evidence of any return of brainstem activity as hoped for by patients daughters and after their insistence for repeat clinical exam. In summary, clinical bedside exam consistent with absent brainstem activity, exhibiting absent pupillary and corneal reflexes, there is no gag nor carinal reflex, and he is unresponsive to deep painful stimuli in multiple body areas. There are no abnormal posturing movements nor any MV triggering. Brief disconnect of ETT for approx. 3 minutes showed no spontaneous respirations nor any chest movement, subsequently re-connected to MV. As of 3PM today, no primary family members have arrived nor called to inquire on patient, nor has any indications been made by family to proceed with terminal extubation at 12 Noon today as stated by daughter CARLOS yesterday. No further blood test orders nor imaging has been done. He did spike a fever to 103F overnight. Family insisted elevated BP be treated overnight. No further extraordinary BP elevations noted since. Given DNR status, will not treat for any further deleterious changes in BP or HR.
--- NOTE | 2016-08-23 22:03 | CP.PCM.PN ---
Subjective - Date & Time of Evaluation Date of Evaluation: 08/23/16 Time of Evaluation: 22:02 - Subjective Subjective: Patient's Daughter Riddhi Vázquez came and requested Terminal extubation of the patient. She said that the family had agreed for the Extubation and were ready. Terminal Extubation note The process was explained to the 4 family members including the daughter in the patient's room Exam: No dolls eyes; No corneal reflex; BP123/68mmHg with HR of 94/min The patient was suctioned endotracheal and Orophyngeal. Air was removed from the ET tube bulb and the tube was removed along with the Orogastric tube at 9:54PM More suctioning was done and a NRBM placed for oxygenation. No significant spontaneous respiration observed. Declan Vasquez MD Objective - Vital Signs/Intake and Output Vital Signs (last 24 hours): Temp Pulse Resp BP Pulse Ox 100.7 F H 76 20 111/64 97 08/23/16 16:00 08/23/16 18:00 08/23/16 18:00 08/23/16 18:00 08/23/16 18:00 Intake and Output: 08/23/16 08/24/16 18:59 06:59 Output Total 1600 Balance -1600 - Medications Medications: Current Medications Acetaminophen (Tylenol 650mg/20.3ml Solution Ud) 650 mg PO Q6 PRN PRN Reason: Fever Last Admin: 08/22/16 19:07 Dose: 650 mg Albuterol Sulfate (Albuterol 0.083% Inhal [place] (2.5 Mg/3 Ml) Ud) 2.5 mg INH Q6 PRN PRN Reason: Cough and congestion Artificial Tears (Lacri-Lube) 1 applic OU HS [facility] Last Admin: 08/22/16 21:02 Dose: 1 applic Dextrose (Dextrose 50% Inj) 0 ml IV STAT PRN; Protocol PRN Reason: Hyglycemia Protocol Dextrose (Glutose 15) 0 gm PO ONCE PRN; Protocol PRN Reason: Hypoglycemia Protocol Glucagon (Glucagen Diagnostic Kit) 0 mg IM STAT PRN; Protocol PRN Reason: Hypoglycemia Protocol Piperacillin Sod/Tazobactam (Sod 3.375 gm/ Sodium Chloride) 100 mls @ 100 mls/ hr IVPB Q6 [facility]LA[facility] Last Admin: 08/23/16 16:27 Dose: Not Given Pantoprazole Sodium (Protonix Inj) 40 mg IVP DAILY [facility] Last Admin: 08/23/16 16:25 Dose: Not Given - Labs Labs: 08/22/16 06:00 08/22/16 06:00 PT 10.4 SECONDS (9.6-11.2) 08/21/16 16:18 INR 1.00 (0.92-1.08) 08/21/16 16:18 APTT 30.6 SECONDS (23.3-32.5) 08/21/16 16:18
--- NOTE | 2016-08-23 23:09 | CP.PCM.PRO ---
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: [id number] Additional Comments: The Patient was terminally extubated.
[2016-08-24 00:55] VITALS: BP 187/98; PULSE 128; RESP 13; TEMP 102.9; O2SAT 90
== END 2016-08-24 00:23 | DRG 314 ==
LOC: H.ER 17:40 → H.ERHOLD 18:41 → H.ICU/CCU 19:51
PROVIDERS: ADMIT Family Medicine; ATTEND Family Medicine
PROC: 05HM33Z Insertion of Infusion Device into Right Internal Jugular Vein, Percutaneous Approach (ICD-10-PCS; principal; 2016-08-16)
PROC: 5A1955Z Respiratory Ventilation, Greater than 96 Consecutive Hours (ICD-10-PCS; 2016-08-16)
PROC: 0BH17EZ Insertion of Endotracheal Airway into Trachea, Via Natural or Artificial Opening (ICD-10-PCS; 2016-08-16)
PROC: 04HK33Z Insertion of Infusion Device into Right Femoral Artery, Percutaneous Approach (ICD-10-PCS; 2016-08-17)
DX: I97.121 Postprocedural cardiac arrest following other surgery (principal); R40.20 Unspecified coma; G93.1 Anoxic brain damage, not elsewhere classified; E87.0 Hyperosmolality and hypernatremia; E11.65 Type 2 diabetes mellitus with hyperglycemia; E87.6 Hypokalemia; I10 Essential (primary) hypertension; Z66 Do not resuscitate; I25.2 Old myocardial infarction; Z82.49 Family history of ischemic heart disease and other diseases of the circulatory system; Z87.891 Personal history of nicotine dependence; Z98.890 Other specified postprocedural states